=== PATIENT | male | born 1950 | race Caucasian/White ===

== ENCOUNTER 2020-02-02 15:36 | Inpatient (IN) | payer MEDICARE ==
[2020-02-02] MEDS ORDERED: MORPHINE SULFATE 4 MG/ML SYRINGE IV STA (16:37)
--- NOTE | 2020-02-02 16:39 | ED ---
General Adult HPI - General Chief complaint: Abdominal Pain Stated complaint: Kidney pain Time Seen by Provider: 02/02/20 16:07 Source: patient Mode of arrival: wheelchair Limitations: no limitations - History of Present Illness Initial comments: Dictation was produced using [employer] dictation software. please excuse any grammatical, word or spelling errors. This patient was cared for during a federal and state declared state of emergency secondary to Covid 19 Chief Complaint: 69-year-old male with recently diagnosed left kidney stone presents with increased pain History of Present Illness: 68-year-old male proximally one week ago he was diagnosed with left-sided kidney stone. Patient reports that his symptoms haven't been improving. States that his pain is unmanageable at home. They contacted his urologist and he was told to come to the emergency department for admission for pain control. Patient was scheduled to have surgical procedure to treat his kidney stone tomorrow however patient reports he could not wait till then. The ROS documented in this emergency department record has been reviewed and confirmed by me. Those systems with pertinent positive or negative responses have been documented in the HPI. All other systems are other negative and/or noncontributory. PHYSICAL EXAM: General Impression: Alert and oriented x3, acute distress secondary to pain, morbidly obese HEENT: Normocephalic atraumatic, extra-ocular movements intact, pupils equal and reactive to light bilaterally, mucous membranes moist. Cardiovascular: Heart regular rate and rhythm Chest: Able to complete full sentences, no retractions, no tachypnea Abdomen: abdomen soft, non-tender, non-distended, no organomegaly Musculoskeletal: Pulses present and equal in all extremities, no peripheral edema Motor: no focal deficits noted Neurological: CN II-XII grossly intact, no focal motor or sensory deficits noted Skin: Intact with no visualized rashes Psych: Normal affect and mood ED course: 69-year-old female presents today for hospital admission for intractable left kidney stone pain. Vital signs upon arrival shows temperature 99.9, heart rate of 102, 94% on room air Laboratory evaluation obtained. No leukocytosis. CBC is unremarkable. Metabolic panel shows creatinine 3.0. There is a mild anion gap acidosis. Urinalysis shows 8 white blood cells and 2 red blood cells. Case was discussed with Dr. Jon who is on-call for urology. He is willing to accept patients care for admission EKG interpretation: Ventricular rate 90, normal sinus rhythm, WV interval 146, QRS 92, QTc 459. No WV prolongation, no QTC prolongation, ST depressions in lateral leads. No EKG for comparison. Overall, this EKG nonspecific - Related Data Home Medications Medication Instructions Recorded Confirmed Acetaminophen [Tylenol Extra 1,000 mg PO DIRECTED PRN 02/02/20 02/02/20 Strength] Aspirin 325 mg PO DAILY 02/02/20 02/02/20 Atenolol [Tenormin] 50 mg PO DAILY 02/02/20 02/02/20 Atorvastatin [Lipitor] 80 mg PO HS 02/02/20 02/02/20 Diltiazem Cd [Cardizem Cd] 240 mg PO DAILY 02/02/20 02/02/20 Enalapril [Vasotec] 20 mg PO BID 02/02/20 02/02/20 Furosemide [Lasix] 40 mg PO DAILY 02/02/20 02/02/20 Ibuprofen [Motrin] 800 mg PO Q6HR PRN 02/02/20 02/02/20 Insulin Glargine [Lantus] 27 unit SQ AC-SUPPER 02/02/20 02/02/20 Isosorbide Mononitrate [Isosorbide 30 mg PO DAILY 02/02/20 02/02/20 Mononitrate ER] Nitroglycerin Sl Tabs [Nitrostat] 0.4 mg SUBLINGUAL Q5M PRN 02/02/20 02/02/20 Ondansetron [Zofran] 4 mg PO DAILY 02/02/20 02/02/20 Potassium Chloride 10 meq PO Q48H 02/02/20 02/02/20 buPROPion [Wellbutrin] 75 mg PO QAM 02/02/20 02/02/20 glipiZIDE [Glucotrol] 5 mg PO AC-BRKFST 02/02/20 02/02/20 metFORMIN HCL 1,000 mg PO BID 02/02/20 02/02/20 Allergies Allergy/AdvReac Type Severity Reaction Status Date / Time No Known Allergies Allergy Verified 02/02/20 08:25 Review of Systems ROS Statement: Those systems with pertinent positive or pertinent negative responses have been documented in the HPI. ROS Other: All systems not noted in ROS Statement are negative. Past Medical History Past Medical History: Heart Failure, Diabetes Mellitus, Hypertension, Myocardial Infarction ([place]), Osteoarthritis (OA), Sleep Apnea/CPAP/BIPAP Additional Past Medical History / Comment(s): kidney stones, edema oli lower legs and feet, hx hematoma left leg, gout, Last Myocardial Infarction Date:: 1987 History of Any Multi-Drug Resistant Organisms: None Reported Past Surgical History: Heart Catheterization With Stent, Joint Replacement, Orthopedic Surgery Additional Past Surgical History / Comment(s): surgery to remove hematoma from left leg, attempted lithotripsy then cystoscopy to remove kidney stone, surgery for laceration left thumb, left knee replacement, one cardiac stent, Past Anesthesia/Blood Transfusion Reactions: Motion Sickness Date of Last Stent Placement:: 2009 Past Psychological History: No Psychological Hx Reported Smoking Status: Never smoker - Past Family History Mother Family Medical History: No Reported History General Exam Limitations: no limitations Course Vital Signs 02/02/20 15:50 Temperature 99.9 F H Pulse Rate 102 H Respiratory 20 Rate Blood Pressure 128/77 O2 Sat by Pulse 94 L Oximetry Medical Decision Making - Lab Data Result diagrams: 02/02/20 16:32 02/02/20 16:32 Lab Results 02/02/20 02/02/20 02/02/20 Range/Units 16:32 16:32 16:32 WBC 9.6 (3.8-10.6) k/uL RBC 4.92 (4.30-5.90) m/uL Hgb 14.3 (13.0-17.5) gm/dL Hct 43.2 (39.0-53.0) % MCV 87.8 (80.0-100.0) fL MCH 29.2 (25.0-35.0) pg MCHC 33.2 (31.0-37.0) g/dL RDW 14.5 (11.5-15.5) % Plt Count 216 (150-450) k/uL Neutrophils % 94 % Lymphocytes % 1 % Monocytes % 3 % Eosinophils % 0 % Basophils % 0 % Neutrophils # 9.1 H (1.3-7.7) k/uL Lymphocytes # 0.1 L (1.0-4.8) k/uL Monocytes # 0.3 (0-1.0) k/uL Eosinophils # 0.0 (0-0.7) k/uL Basophils # 0.0 (0-0.2) k/uL Sodium 134 L (137-145) mmol/L Potassium 3.5 (3.5-5.1) mmol/L Chloride 97 L (98-107) mmol/L Carbon Dioxide 21 L (22-30) mmol/L Anion Gap 16 mmol/L BUN 45 H (9-20) mg/dL Creatinine 3.00 H (0.66-1.25) mg/dL Est GFR (CKD-EPI)AfAm 23 (>60 ml/min/1.73 sqM) Est GFR (CKD-EPI)NonAf 20 (>60 ml/min/1.73 sqM) Glucose 154 H (74-99) mg/dL Calcium 6.9 L (8.4-10.2) mg/dL Urine Color Yellow Urine Appearance Cloudy (Clear) Urine pH 5.5 (5.0-8.0) Ur Specific Barling 1.022 (1.001-1.035) Urine Protein 2+ H (Negative) Urine Glucose (UA) Negative (Negative) Urine Ketones Negative (Negative) Urine Blood Small H (Negative) Urine Nitrite Negative (Negative) Urine Bilirubin Negative (Negative) Urine Urobilinogen 3.0 (<2.0) mg/dL Ur Leukocyte Esterase Small H (Negative) Urine RBC 2 (0-5) /hpf Urine WBC 8 H (0-5) /hpf Ur Squamous Epith Cells 6 H (0-4) /hpf Amorphous Sediment Rare H (None) /hpf Urine Mucus Rare H (None) /hpf Disposition Clinical Impression: Nephrolithiasis Disposition: ADMITTED IP TO THIS [facility] Condition: Fair Referrals: Ga Kemp MD [Primary Care Provider] - 1-2 days Decision Time: 17:27
[2020-02-02 16:50] LABS: Amorphous Sediment,Urine Rare /hpf; Appearance,Urine Cloudy (Clear); Bilirubin,Urine Negative (Negative); Blood,Urine Small (Negative); Color,Urine Yellow; Glucose,Urine (UA) Negative (Negative); Ketones,Urine Negative (Negative); Leukocyte Esterase,Urine Small (Negative); Mucus,Urine Rare /hpf; Nitrite,Urine Negative (Negative); PH, Urine 5.5 (5.0-8.0); Protein,Urine 2+ (Negative); RBC,Urine 2 /hpf (0-5); Specific Gravity,Urine 1.022 (1.001-1.035); Squamous Epithelial Cell,Urine 6 /hpf (0-4); WBC,Urine 8 /hpf (0-5)
[2020-02-02 16:59] LABS: Calcium 6.9 mg/dL (8.4-10.2); Potassium 3.5 mmol/L (3.5-5.1)
[2020-02-02 17:12] LABS: Basophils % (A) 0 %; Eosinophils % (A) 0 %; HCT 43.2 % (39.0-53.0); HGB 14.3 gm/dL (13.0-17.5); Lymphocytes # (A) 0.1 k/uL (1.0-4.8); Lymphocytes % (A) 1 %; MCH 29.2 pg (25.0-35.0); MCHC 33.2 g/dL (31.0-37.0); MCV 87.8 fL (80.0-100.0); Mean Platelet Volume 7.8; Monocytes # (A) 0.3 k/uL (0-1.0); Monocytes % (A) 3 %; Neutrophils # (A) 9.1 k/uL (1.3-7.7); Neutrophils % (A) 94 %; Platelet Count 216 k/uL (150-450); RBC 4.92 m/uL (4.30-5.90); RDW 14.5 % (11.5-15.5); WBC 9.6 k/uL (3.8-10.6)
[2020-02-02] MEDS ORDERED: NALOXONE 0.4 MG/ML 1 ML VIAL IV PRN (17:25)
[2020-02-02] MEDS: SODIUM CHLORIDE 0.9% 1,000 ML IV SCH (17:50)
[2020-02-02] MEDS ORDERED: NITROGLYCERIN SL TABS 0.4 MG TAB SUBLINGUAL PRN (19:52)
[2020-02-02 20:14] LABS: Glucose,Whole Blood 180 mg/dL (75-99)
[2020-02-02] MEDS: MORPHINE SULFATE 4 MG/ML SYRINGE IV PRN (20:50)
[2020-02-02] MEDS: metFORMIN 500 MG TAB PO SCH (21:16)
[2020-02-02] MEDS: ATORVASTATIN 80 MG TAB PO SCH (21:16)
[2020-02-02] MEDS: glipiZIDE 5 MG TAB PO SCH (21:18)
--- NOTE | 2020-02-02 22:41 | P.CONS ---
History of Present Illness - Reason for Consult Consult date: 02/02/20 Medical management Requesting physician: Eric Ortiz - Chief Complaint Severe abdominal pain, large left sided kidney stone, type 2 diabetes, acut - History of Present Illness 69 year-old morbidly obese male one of Patient with past medical history of CAD, CHF, hypertension, obstructive sleep apnea and chronic edema was known to have previous history of kidney stone who was in the emergency room on for severe left-sided flank pain was diagnosed with large kidney stone measure 7 mm. Patient was in to see Dr. Garrett on Sunday and was scheduled to have surgery on Sunday tomorrow. [facility] with severe intractable pain with nausea not been able to tolerate anything orally patient was seen and a Profore admission by Dr. Dhillon urology to treat his symptoms. His kidney function is down with creatinine up to 3.0 significant decline from few days earlier. Patient was started on IV hydration and pain management and possibly will be going for surgery tomorrow. Review of Systems CONSTITUTIONAL: Well-developed no acute respiratory distress. EYES: No icterus sclerae, no conjunctivitis. EARS, NOSE, MOUTH, THROAT, and FACE: No sore throat, lymphadenopathy, carotid bruits or deformity. RESPIRATORY: Mild shortness of breath no cough wheezes. CARDIOVASCULAR: Positive PND and orthopnea no angina. GASTROINTESTINAL: No Abd pain, Nausea or vomiting, no Diarrhea or constipation, No GI Bleed, no distention or masses. GENITOURINARY: Positive large sided left side kidney stone mild BPH symptoms mild hematuria. INTEGUMENT/BREAST: Negative for any muscular injury with mild osteoarthritis.. HEMATOLOGIC/LYMPHATIC: Negative for bleed or purpura. MUSCULOSKELTAL: Negative for Myalgia or arthralgia. NEURLOGICAL: No LOC, Sz or syncope, blurred vision dizziness or abnormality.. BEHAVIORAL/PSYCH: Negative. ENDOCRINE: Negative. Past Medical History Past Medical History: Heart Failure, Diabetes Mellitus, Hypertension, Myocardial Infarction ([place]), Osteoarthritis (OA), Sleep Apnea/CPAP/BIPAP Additional Past Medical History / Comment(s): kidney stones, edema oli lower legs and feet, hx hematoma left leg, gout, Last Myocardial Infarction Date:: 1987 History of Any Multi-Drug Resistant Organisms: None Reported Past Surgical History: Heart Catheterization With Stent, Joint Replacement, Orthopedic Surgery Additional Past Surgical History / Comment(s): surgery to remove hematoma from left leg, attempted lithotripsy then cystoscopy 1987 to remove kidney stone, surgery for laceration left thumb, left knee replacement, one cardiac stent, Past Anesthesia/Blood Transfusion Reactions: Motion Sickness Date of Last Stent Placement:: 2009 Past Psychological History: No Psychological Hx Reported Smoking Status: Never smoker Past Alcohol Use History: None Reported Past Drug Use History: None Reported - Past Family History Mother Family Medical History: No Reported History Medications and Allergies Home Medications Medication Instructions Recorded Confirmed Type Albuterol Nebulized [Ventolin 2.5 mg INHALATION RT-Q6H PRN 02/02/20 02/02/20 History Nebulized] Allopurinol [Zyloprim] 300 mg PO DAILY 02/02/20 02/02/20 History Aspirin 325 mg PO DAILY 02/02/20 02/02/20 History Atenolol [Tenormin] 50 mg PO DAILY 02/02/20 02/02/20 History Atorvastatin [Lipitor] 80 mg PO HS 02/02/20 02/02/20 History Diltiazem HCl [Cartia Xt] 240 mg PO DAILY 02/02/20 02/02/20 History Furosemide [Lasix] 40 mg PO DAILY 02/02/20 02/02/20 History Ibuprofen [Motrin] 800 mg PO Q6HR PRN 02/02/20 02/02/20 History Insulin Glargine [Lantus] 27 unit SQ AC-SUPPER@1600 02/02/20 02/02/20 History Isosorbide Mononitrate [Isosorbide 30 mg PO DAILY 02/02/20 02/02/20 History Mononitrate ER] Nitroglycerin Sl Tabs [Nitrostat] 0.4 mg SUBLINGUAL Q5M PRN 02/02/20 02/02/20 History Potassium Chloride 10 meq PO Q48H 02/02/20 02/02/20 History buPROPion [Wellbutrin] 75 mg PO QAM 02/02/20 02/02/20 History glipiZIDE [Glucotrol] 5 mg PO BID 02/02/20 02/02/20 History metFORMIN HCL 1,000 mg PO BID 02/02/20 02/02/20 History Allergies Allergy/AdvReac Type Severity Reaction Status Date / Time No Known Allergies Allergy Verified 02/02/20 17:27 Physical Exam Vitals: Vital Signs Temp Pulse Resp BP Pulse Ox 02/02/20 18:15 98 F 88 22 137/75 93 L 02/02/20 15:50 99.9 F H 102 H 20 128/77 94 L Intake and Output 02/02/20 02/02/20 02/02/20 06:59 14:59 22:59 Other: Weight 143.789 kg General Appearance: Alert, cooperative, no distress, morbidly obese Neck HEENT: Supple, no lymphadenopathy, no thyroid enlargement, no carotid bruits. Lungs: Decreased breath some bilateral rhonchi no crackles positive mild expiratory wheezes. Chest Wall: Decrease expansion with deep inspiration no tenderness and no deformity was found on exam, no costochondral pain or discomfort. Heart: Regular rate and rhythm, S1, S2 normal, no murmur, rub or gallop. Back: Symmetric, no curvature, ROM normal, positive significant left-sided CVA t enderness. Abdomen: Soft, positive bowel sounds active all four quadrants, no masses, no organomegaly. Significant discomfort in the left side all the way down to the left lower quadrant. Extremities: Extremities normal, atraumatic, no cyanosis positive edema Pulses: 2+ and symmetric. Skin: Skin color, texture, tugor normal, no rashes or lesions. Neurologic: Alert oriented x3 cranial nerves II through XII intact, no motor deficit, no abnormal balance or gait. Results CBC & Chem 7: 02/02/20 16:32 02/02/20 16:32 Labs: Abnormal Lab Results - Last 24 Hours (Table) 02/02/20 02/02/20 02/02/20 Range/Units 16:32 16:32 16:32 Neutrophils # 9.1 H (1.3-7.7) k/uL Lymphocytes # 0.1 L (1.0-4.8) k/uL Sodium 134 L (137-145) mmol/L Chloride 97 L (98-107) mmol/L Carbon Dioxide 21 L (22-30) mmol/L BUN 45 H (9-20) mg/dL Creatinine 3.00 H (0.66-1.25) mg/dL Glucose 154 H (74-99) mg/dL Calcium 6.9 L (8.4-10.2) mg/dL Urine Protein 2+ H (Negative) Urine Blood Small H (Negative) Ur Leukocyte Esterase Small H (Negative) Urine WBC 8 H (0-5) /hpf Ur Squamous Epith Cells 6 H (0-4) /hpf Amorphous Sediment Rare H (None) /hpf Urine Mucus Rare H (None) /hpf Assessment and Plan Assessment: 1 severe abdominal pain not manageable at home: Patient was admitted to the hospital by urology, continue hydration, continue pain management with morphine sulfate 4 mg every 4 hours continue to watch his urine output. 2 large left sided kidney stone measure 7 the Pax: Patient be going for surgery tomorrow to remove the stone specially being symptomatic and affecting the kidney function causing hydronephrosis. 3 atherosclerotic heart disease: Patient seeing cardiology regular basis seen Dr. Medrano recently, no testing or intervention is required. 4 acute kidney injury with acute kidney failure: Continue hydration repeat BUN/creatinine next 24 hours. 5 CHF: Mostly systolic dysfunction, continue patient on furosemide atenolol and isosorbide. 6 type 2 diabetes: On Levemir metformin and glipizide along with Accu-Chek with sliding scales coverage. 7 hypertension: Remain on atenolol 50 mg daily along with diltiazem 240 mg a day. 8 gout: Has been on Zyloprim with no flareup lately. 9 mild reactive airway: Has been on Ventolin nebulizer. 10 hyperlipidemia: Continue patient on atorvastatin 80 mg daily. 11 GI prophylaxis: Patient be continue on pantoprazole 40 mg a day. 12 DVT prophylaxis: After surgery patient be on heparin subcutaneous. CODE STATUS: Full code. Dr. Ortiz thank you much for the consult if I can be any further help to please let me know.
[2020-02-03] MEDS: MORPHINE SULFATE 4 MG/ML SYRINGE IV PRN ×4 (00:31→20:16)
[2020-02-03] MEDS: SODIUM CHLORIDE 0.9% 1,000 ML IV SCH ×3 (02:30→23:47)
[2020-02-03 07:12] LABS: Basophils % (A) 0 %; Eosinophils % (A) 0 %; HCT 37.9 % (39.0-53.0); HGB 12.3 gm/dL (13.0-17.5); Lymphocytes # (A) 0.4 k/uL (1.0-4.8); Lymphocytes % (A) 3 %; MCH 28.7 pg (25.0-35.0); MCHC 32.4 g/dL (31.0-37.0); MCV 88.6 fL (80.0-100.0); Mean Platelet Volume 7.9; Monocytes # (A) 0.7 k/uL (0-1.0); Monocytes % (A) 6 %; Neutrophils # (A) 11.8 k/uL (1.3-7.7); Neutrophils % (A) 88 %; Platelet Count 195 k/uL (150-450); RBC 4.27 m/uL (4.30-5.90); RDW 14.8 % (11.5-15.5); WBC 13.4 k/uL (3.8-10.6)
[2020-02-03 07:31] LABS: Albumin 2.6 g/dL (3.5-5.0); Potassium 3.6 mmol/L (3.5-5.1); Total Bilirubin 1.7 mg/dL (0.2-1.3); Total Protein 5.2 g/dL (6.3-8.2)
[2020-02-03 07:45] LABS: Calcium 6.3 mg/dL (8.4-10.2)
[2020-02-03 07:51] LABS: Glucose,Whole Blood 110 mg/dL (75-99)
[2020-02-03] MEDS: allopurinoL 300 MG TAB PO SCH (08:14)
[2020-02-03] MEDS: FUROSEMIDE 40 MG TAB PO SCH (08:14)
[2020-02-03] MEDS: buPROPion 75 MG TAB PO SCH (08:14)
[2020-02-03] MEDS: glipiZIDE 5 MG TAB PO SCH ×2 (08:14→19:39)
[2020-02-03] MEDS: PANTOPRAZOLE 40 MG TABLET PO SCH (08:14)
[2020-02-03] MEDS: DILTIAZEM CD 240 MG CAP.ER.24H PO SCH (08:15)
[2020-02-03] MEDS: POTASSIUM CHLORIDE ER 10 MEQ TAB.ER.PRT PO SCH (08:15)
[2020-02-03] MEDS: ISOSORBIDE MONONITRATE ER 30 MG TAB.ER.24H PO SCH (08:15)
[2020-02-03] MEDS: metFORMIN 500 MG TAB PO SCH (08:15)
[2020-02-03] MEDS: TAMSULOSIN 0.4 MG CAP.ER.24H PO SCH (08:23)
[2020-02-03] MEDS: atenoloL 50 MG TAB PO SCH (08:23)
[2020-02-03] MEDS: PIPERACILLIN-TAZOBACTAM 3.375 GM in SODIUM CHLORIDE 0.9% 100 ML IVPB SCH ×3 (08:33→23:46)
[2020-02-03] MEDS ORDERED: CALCIUM GLUCONATE 1 GM in SODIUM CHLORIDE 0.9% 100 ML IVPB ONE (10:24)
--- NOTE | 2020-02-03 10:24 | P.NPCON ---
History of Present Illness - Reason for Consult acute renal failure - History of Present Illness Reason for consultation: Acute kidney injury Patient is a 69-year-old male seen in renal consultation for acute kidney injury. Creatinine was 3 on admission and is 3.16 today. Unknown baseline renal function. Patient states he does not follow with the collarette separator outpatient. Patient states he has history of nephrolithiasis and has had several kidney stones since 1987. Patient states he's had about for surgical interventions for the kidney stones. He currently has a left-sided kidney stone and was scheduled for intervention today but came to the hospital due to unbearable pain. He admits to good urine output. Denies any gross hematuria or dysuria. No vomiting or diarrhea. Denies regular use of nonsteroidals. No chest pain or shortness of breath. No edema. He does have long-standing his tory of diabetes mellitus. He is maintained on insulin as well as oral hypoglycemics including metformin. Denies family history of renal disease. Blood pressure stable. Vital signs are stable. General: The patient appeared well nourished and normally developed. HEENT: Head exam is unremarkable. Neck is without jugular venous distension. LUNGS: Lungs are clear to auscultation and percussion. Breath sounds decreased. HEART: Rate and Rhythm are regular. First and second heart sounds normal. No murmurs, rubs or gallops. ABDOMEN: Soft nontender. Obese. EXTREMITITES: No edema. Chronic changes noted. Past Medical History Past Medical History: Heart Failure, Diabetes Mellitus, Hypertension, Myocardial Infarction ([place]), Osteoarthritis (OA), Sleep Apnea/CPAP/BIPAP Additional Past Medical History / Comment(s): kidney stones, edema oli lower legs and feet, hx hematoma left leg, gout, Last Myocardial Infarction Date:: 1987 History of Any Multi-Drug Resistant Organisms: None Reported Past Surgical History: Heart Catheterization With Stent, Joint Replacement, Orthopedic Surgery Additional Past Surgical History / Comment(s): surgery to remove hematoma from left leg, attempted lithotripsy then cystoscopy 1987 to remove kidney stone, surgery for laceration left thumb, left knee replacement, one cardiac stent, Past Anesthesia/Blood Transfusion Reactions: Motion Sickness Date of Last Stent Placement:: 2009 Past Psychological History: No Psychological Hx Reported Smoking Status: Never smoker Past Alcohol Use History: None Reported Past Drug Use History: None Reported - Past Family History Mother Family Medical History: No Reported History Medications and Allergies Home Medications Medication Instructions Recorded Confirmed Type Albuterol Nebulized [Ventolin 2.5 mg INHALATION RT-Q6H PRN 02/02/20 02/02/20 History Nebulized] Allopurinol [Zyloprim] 300 mg PO DAILY 02/02/20 02/02/20 History Aspirin 325 mg PO DAILY 02/02/20 02/02/20 History Atenolol [Tenormin] 50 mg PO DAILY 02/02/20 02/02/20 History Atorvastatin [Lipitor] 80 mg PO HS 02/02/20 02/02/20 History Diltiazem HCl [Cartia Xt] 240 mg PO DAILY 02/02/20 02/02/20 History Furosemide [Lasix] 40 mg PO DAILY 02/02/20 02/02/20 History Ibuprofen [Motrin] 800 mg PO Q6HR PRN 02/02/20 02/02/20 History Insulin Glargine [Lantus] 27 unit SQ AC-SUPPER@1600 02/02/20 02/02/20 History Isosorbide Mononitrate [Isosorbide 30 mg PO DAILY 02/02/20 02/02/20 History Mononitrate ER] Nitroglycerin Sl Tabs [Nitrostat] 0.4 mg SUBLINGUAL Q5M PRN 02/02/20 02/02/20 History Potassium Chloride 10 meq PO Q48H 02/02/20 02/02/20 History buPROPion [Wellbutrin] 75 mg PO QAM 02/02/20 02/02/20 History glipiZIDE [Glucotrol] 5 mg PO BID 02/02/20 02/02/20 History metFORMIN HCL 1,000 mg PO BID 02/02/20 02/02/20 History Allergies Allergy/AdvReac Type Severity Reaction Status Date / Time No Known Allergies Allergy Verified 02/02/20 17:27 Physical Exam Vitals: Vital Signs Temp Pulse Pulse Resp BP BP Pulse Ox 02/03/20 05:00 98.5 F 89 20 133/70 92 L 02/03/20 00:00 80 20 02/02/20 20:43 98.7 F 80 20 131/60 94 L 02/02/20 18:15 98 F 88 22 137/75 93 L 02/02/20 15:50 99.9 F H 102 H 20 128/77 94 L Intake and Output 02/02/20 02/03/20 02/03/20 22:59 06:59 14:59 Intake Total 240 0 Output Total 100 Balance 240 0 -100 Intake: Intake, IV Titration 240 Amount Sodium Chloride 0.9% 1, 240 000 ml @ 120 mls/hr IV . Q8H20M [facility] Rx#:[id number] Oral 0 Output: Urine 100 Other: Voiding Method Urinal # Voids 2 Weight 143.789 kg 143.562 kg Results - Lab Results Most recent lab results Calcium 6.3 mg/dL (8.4-10.2) L* 02/03/20 06:29 02/03/20 06:29 02/03/20 06:29 Assessment and Plan Plan: Assessment: 1. Acute kidney injury versus chronic kidney disease. Creatinine 3 on admission and is 3.16 today. Unknown baseline renal function. 2. Left ureteral stone scheduled for ureteroscopy today. 3. Insulin-dependent diabetes mellitus. 4. Proteinuria. Most likely secondary to underlying diabetic kidney disease. 5. Benign hypertension. Stable. 6. Hypocalcemia secondary to acute kidney injury. Plan: I will decrease rate of normal saline to 50 mL an hour. Check renal ultrasound. Quantify proteinuria. Discontinue metformin as GFR is less than 30. 1 g IV calcium gluconate today. Continue to monitor renal function and urine output. Patient will need to follow up outpatient for CKD care. Thank you for the consultation. I will continue to follow patient with you during his hospital stay.
--- NOTE | 2020-02-03 10:59 | US ---
EXAMINATION TYPE: US kidneys/renal and bladder DATE OF EXAM: 02/03/2020 COMPARISON: NONE CLINICAL HISTORY: nellie. EXAM MEASUREMENTS: Right Kidney: 12.9 x 7.1 x 6.1 cm Left Kidney: 15.3 x 8.6 x 7.1 cm Right Kidney: No hydronephrosis or masses seen Left Kidney: No hydronephrosis or masses seen Bladder: wnl Bilateral Jets seen: No Normal Post Void Residual: Not done for inpatient There is no evidence for hydronephrosis at this point in time. No nephrolithiasis is seen. No lemuel s are identified. The urinary bladder is anechoic. Bilateral ureteral jets are seen. Suboptimal exam overall due to large patient size, inability to maneuver patient, and large amounts o f bowel gas. IMPRESSION: No distinct abnormality seen on this suboptimal study.
--- NOTE | 2020-02-03 11:19 | P.PN ---
Subjective Progress Note Date: 02/03/20 69 year-old morbidly obese male one of Dr. Kemp with past medical history of CAD, CHF, hypertension, obstructive sleep apnea and chronic edema was known to have previous history of kidney stone who was in the emergency room on for severe left-sided flank pain was diagnosed with large kidney stone measure 7 mm. Patient was in to see Dr. Garrett on Sunday and was scheduled to have surgery on Sunday. Patient return to emergency department today with severe intractable pain with nausea not been able to tolerate anything orally patient was seen and a Profore admission by Dr. Dhillon urology to treat his symptoms. His kidney function is down with creatinine up to 3.0 significant decline from few days earlier. Patient was started on IV hydration and pain management and possibly will be going for surgery tomorrow. 02/02 patient seen resting in bed this morning, plan for ureterscopy today with urology. Labs were reviewed, white blood cells 13.4, hemoglobin 12.3, sodium 135, BUNs 52, creatinine 3.16, consult in place for nephrology to see patient. Calcium 6.3, and replaced by a nephrology. Patient is making adequate urine. Will order urine and blood cultures, patient started on Zosyn IV. Vital signs are stable, patient remains afebrile pulse 89, blood pressure 133/70, patient pu lse ox 92% on 2 L nasal cannula. Renal ultrasound found no distinct abnormality seen, no evidence of hydronephrosis. Review of Systems CONSTITUTIONAL: Well-developed no acute respiratory distress. EYES: No icterus sclerae, no conjunctivitis. EARS, NOSE, MOUTH, THROAT, and FACE: No sore throat, lymphadenopathy, carotid bruits or deformity. RESPIRATORY: Mild shortness of breath no cough wheezes. CARDIOVASCULAR: Positive PND and orthopnea no angina. GASTROINTESTINAL: No Abd pain, Nausea or vomiting, no Diarrhea or constipation, No GI Bleed, no distention or masses. GENITOURINARY: Positive large sided left side kidney stone mild BPH symptoms mild hematuria. INTEGUMENT/BREAST: Negative for any muscular injury with mild osteoarthritis.. HEMATOLOGIC/LYMPHATIC: Negative for bleed or purpura. MUSCULOSKELTAL: Negative for Myalgia or arthralgia. NEURLOGICAL: No LOC, Sz or syncope, blurred vision dizziness or abnormality.. BEHAVIORAL/PSYCH: Negative. ENDOCRINE: Negative. Assessment General Appearance: Alert, cooperative, no distress, morbidly obese Neck HEENT: Supple, no lymphadenopathy, no thyroid enlargement, no carotid bruits. Lungs: Decreased breath some bilateral rhonchi no crackles positive mild expiratory wheezes. Chest Wall: Decrease expansion with deep inspiration no tenderness and no deformity was found on exam, no costochondral pain or discomfort. Heart: Regular rate and rhythm, S1, S2 normal, no murmur, rub or gallop. Back: Symmetric, no curvature, ROM normal, positive significant left-sided CVA tenderness. Abdomen: Soft, positive bowel sounds active all four quadrants, no masses, no organomegaly. Significant discomfort in the left side all the way down to the left lower quadrant. Extremities: Extremities normal, atraumatic, no cyanosis positive edema Pulses: 2+ and symmetric. Skin: Skin color, texture, tugor normal, no rashes or lesions. Neurologic: Alert oriented x3 cranial nerves II through XII intact, no motor deficit, no abnormal balance or gait. Objective - Vital Signs Vital signs: Vital Signs Temp 98.5 F 02/03/20 05:00 Pulse 89 02/03/20 05:00 Resp 20 02/03/20 05:00 BP 133/70 02/03/20 05:00 Pulse Ox 92 L 02/03/20 05:00 Intake & Output 02/02/20 02/03/20 02/03/20 18:59 06:59 18:59 Intake Total 240 Output Total 100 Balance 240 -100 Weight 143.789 kg 143.562 kg Intake: Intake, IV Titration 240 Amount Sodium Chloride 0.9% 1, 240 000 ml @ 120 mls/hr IV . [id number] [facility] Rx#:[id number] Oral 0 Output: Urine 100 Other: Voiding Method Urinal # Voids 2 - Labs CBC & Chem 7: 02/03/20 06:29 02/03/20 06:29 Labs: Abnormal Lab Results - Last 24 Hours (Table) 02/02/20 02/02/20 02/02/20 Range/Units 16:32 16:32 16:32 WBC (3.8-10.6) k/uL RBC (4.30-5.90) m/uL Hgb (13.0-17.5) gm/dL Hct (39.0-53.0) % Neutrophils # 9.1 H (1.3-7.7) k/uL Lymphocytes # 0.1 L (1.0-4.8) k/uL Sodium 134 L (137-145) mmol/L Chloride 97 L (98-107) mmol/L Carbon Dioxide 21 L (22-30) mmol/L BUN 45 H (9-20) mg/dL Creatinine 3.00 H (0.66-1.25) mg/dL Glucose 154 H (74-99) mg/dL POC Glucose (mg/dL) (75-99) mg/dL Calcium 6.9 L (8.4-10.2) mg/dL Total Bilirubin (0.2-1.3) mg/dL AST (17-59) U/L Total Protein (6.3-8.2) g/dL Albumin (3.5-5.0) g/dL Urine Protein 2+ H (Negative) Urine Blood Small H (Negative) Ur Leukocyte Esterase Small H (Negative) Urine WBC 8 H (0-5) /hpf Ur Squamous Epith Cells 6 H (0-4) /hpf Amorphous Sediment Rare H (None) /hpf Urine Mucus Rare H (None) /hpf 02/02/20 02/03/20 02/03/20 Range/Units 20:12 06:29 06:29 WBC 13.4 H (3.8-10.6) k/uL RBC 4.27 L (4.30-5.90) m/uL Hgb 12.3 L (13.0-17.5) gm/dL Hct 37.9 L (39.0-53.0) % Neutrophils # 11.8 H (1.3-7.7) k/uL Lymphocytes # 0.4 L (1.0-4.8) k/uL Sodium 135 L (137-145) mmol/L Chloride (98-107) mmol/L Carbon Dioxide (22-30) mmol/L BUN 52 H (9-20) mg/dL Creatinine 3.16 H (0.66-1.25) mg/dL Glucose 105 H (74-99) mg/dL POC Glucose (mg/dL) 180 H (75-99) mg/dL Calcium 6.3 L* (8.4-10.2) mg/dL Total Bilirubin 1.7 H (0.2-1.3) mg/dL AST 72 H (17-59) U/L Total Protein 5.2 L (6.3-8.2) g/dL Albumin 2.6 L (3.5-5.0) g/dL Urine Protein (Negative) Urine Blood (Negative) Ur Leukocyte Esterase (Negative) Urine WBC (0-5) /hpf Ur Squamous Epith Cells (0-4) /hpf Amorphous Sediment (None) /hpf Urine Mucus (None) /hpf 02/02/ Range/Units 07:50 WBC (3.8-10.6) k/uL RBC (4.30-5.90) m/uL Hgb (13.0-17.5) gm/dL Hct (39.0-53.0) % Neutrophils # (1.3-7.7) k/uL Lymphocytes # (1.0-4.8) k/uL Sodium (137-145) mmol/L Chloride (98-107) mmol/L Carbon Dioxide (22-30) mmol/L BUN (9-20) mg/dL Creatinine (0.66-1.25) mg/dL Glucose (74-99) mg/dL POC Glucose (mg/dL) 110 H (75-99) mg/dL Calcium (8.4-10.2) mg/dL Total Bilirubin (0.2-1.3) mg/dL AST (17-59) U/L Total Protein (6.3-8.2) g/dL Albumin (3.5-5.0) g/dL Urine Protein (Negative) Urine Blood (Negative) Ur Leukocyte Esterase (Negative) Urine WBC (0-5) /hpf Ur Squamous Epith Cells (0-4) /hpf Amorphous Sediment (None) /hpf Urine Mucus (None) /hpf Assessment and Plan Plan: Assessment: 1 severe abdominal pain not manageable at home: Patient was admitted to the hospital by urology, continue hydration, continue pain management with morphine sulfate 4 mg every 4 hours continue to watch his urine output. 2 large left sided kidney stone measure 7 the Daphne: Patient be going for surgery tomorrow to remove the stone specially being symptomatic and affecting the kidney function, ultrasound was negative for hydronephrosis. 3 atherosclerotic heart disease: Patient seeing cardiology regular basis seen Dr. Medrano recently, no testing or intervention is required. 4 acute kidney injury with acute kidney failure: Continue hydration repeat BUN/creatinine next 24 hours. Nephrology added to the case. 5 CHF: Mostly systolic dysfunction, continue patient on furosemide atenolol and isosorbide. 6 type 2 diabetes: On Levemir and glipizide along with Accu-Chek with sliding scales coverage. Metformin was discontinued. 7 hypertension: Remain on atenolol 50 mg daily along with diltiazem 240 mg a day. 8 gout: Has been on Zyloprim with no flareup lately. 9 mild reactive airway: Has been on Ventolin nebulizer. 10 hyperlipidemia: Continue patient on atorvastatin 80 mg daily. 11 GI prophylaxis: Patient be continue on pantoprazole 40 mg a day. 12 DVT prophylaxis: After surgery patient be on heparin subcutaneous. CODE STATUS: Full code. Dr. Ortiz thank you much for the consult if I can be any further help to please let me know. Impression and plan of care have been directed as dictated by the signing physician. Ela Greenberg nurse practitioner acting as scribe for signing albinoi an.
[2020-02-03 11:25] LABS: Glucose,Whole Blood 119 mg/dL (75-99)
[2020-02-03 11:26] LABS: Protein/Creatinine Ratio,Urine 0.908
--- NOTE | 2020-02-03 12:30 | XR ---
EXAMINATION TYPE: XR KUB DATE OF EXAM: 02/03/2020 HISTORY: Pain Comparison: None.Single KUB is submitted for interpretation. Findings: Right renal calculi: None Visualized. Right ureteral calculi: None Visualized. Left renal calculi: Multiple calculi are noted to overlie the mid and lower pole of the left kidney measuring up to 1.5 cm. Left ureteral calculi: None Visualized. Pelvic calcifications: None Visualized. Bowel gas pattern is unremarkable. No free air. No mass effects. IMPRESSION: 1. Multiple calculi overlying the mid to lower pole of the left kidney.
[2020-02-03] MEDS: ALBUTEROL NEBULIZED 2.5 MG/3 ML INHALATION PRN ×2 (12:42→20:19)
[2020-02-03] MEDS ORDERED: PROPOFOL 10 MG/ML 20 ML VIAL IV ONE (12:46)
[2020-02-03] MEDS ORDERED: LIDOCAINE 1% INJ 10MG/ML (20 ML MDV) ONE (12:46)
[2020-02-03] MEDS ORDERED: SUCCINYLCHOLINE CHLORIDE VIAL 200 MG/10 ML VIAL IV ONE (12:46)
[2020-02-03] MEDS ORDERED: LACTATED RINGERS 1,000 ML IV ONE (12:50)
[2020-02-03] MEDS ORDERED: ALBUTEROL NEBULIZED 2.5 MG/3 ML INHALATION ONE (13:50)
--- NOTE | 2020-02-03 13:54 | P.OP ---
Date of Procedure: 02/03/20 Preoperative Diagnosis: Left ureteral calculus with obstruction and severe ureteral colic, acute and possible chronic renal failure due to obstruction, multiple medical illnesses Postoperative Diagnosis: Same, possible left pyelonephrosis and urinary tract infection with infected s tones Procedure(s) Performed: Cystoscopy, left ureteroscopy, placement of 626 double-J catheter, urine culture Anesthesia: HAKEEM Surgeon: Dionicio Swartz Estimated Blood Loss (ml): 0 Pathology: other (Urine culture) Condition: stable Disposition: PACU Indications for Procedure: The patient is 69. He is morbidly obese. He has multiple medical illnesses including diabetes and coronary disease. He had presented to the emergency room recently with an obstructing painful left ureteral calculus a 78 mm as well as several left lower pole stones. He was set up for today for ureteroscopy to remove the obstructing stone but ended up in the hospital last night with severe pain. Creatinine is 3. He comes for possible stone manipulation and a minimally stent today. Description of Procedure: The patient is brought to the operating suite. He is given a general endotracheal anesthesia. He's placed lithotomy position with sterile prep and drape. Li the Foroblique lens and 21-Mongolian sheath identifies a normal urethra. The prostate is somewhat obstructing. The bladder wall shows moderate trabeculation. There is some chronic cystitis on the trigone. The left uret eral orifice is intubated with an 035 wire that is passed up alongside the proximal ureteral stone seen on KUB up into the collecting system. Total stones in the left lower pole calyx Over the wires passed 73-39-Vahurx reentry sheath into the mid ureter. The inner sheath is removed. Through the inner sheath I passed the flexible ureteroscope up to where the stone was in the left ureter. It is quite edematous and there is a fair amount of mucosal debris on the mucosa. The stone has floated back up in the collecting system. I followed the ureter up into the collecting system and there is a lot of mucousy debris throughout the collecting system worrisome for an infected system. I passed into the left lower pole calyx and see multiple infected looking stones . The ureteral stone has p robably floated in the left lower pole calyx of. I do pullout ureteroscopy and see no evidence of stone . I elect to place a double-J catheter rather than going after the stones in the kidney because if the stones are infected I'll make him much sicker. Through the working sheath an 035 wire is passed up into the kidney. The working sheath is removed. The wires backloaded on the cystoscope. Over the wire is passed a 6 x 26 double-J catheter that coils in the renal pelvis and the bladder the bladder strain the patient is awake and returned recovery room good condition Impression the ureteral obstructing stone has been pushed back into the kidney. Double-J catheters placed to drain the collecting system as the visual appearance of the collecting system appears infected. The urinalysis is not infected on preoperative evaluation. The patient will be placed on antibiotics. Culture has been obtained. Secondarily he'll require the left ureteroscopy with laser lithotripsy to remove the stones or left percutaneous nephrostolithotomy.
--- NOTE | 2020-02-03 13:55 | FL ---
EXAMINATION TYPE: FL guidance operating room DATE OF EXAM: 02/03/2020 CLINICAL HISTORY: Left ureter stone. TECHNIQUE: Fluoroscopy. COMPARISON: None. FINDINGS: Fluoroscopic guidance was provided during left ureter stent insertion procedure performed by Dr. Swartz. A total of 1.08 minutes of fluoroscopic time was utilized during the procedure and sin gle spot intraoperative image is acquired. Single image shows proximal portion of double-J ureter jeffrey nt. IMPRESSION: As Above.
[2020-02-03] MEDS: INSULIN DETEMIR (LEVEMIR) 100 UNIT/ML SYR SQ SCH (16:35)
[2020-02-03 17:18] LABS: Glucose,Whole Blood 114 mg/dL (75-99)
[2020-02-03] MEDS: ATORVASTATIN 80 MG TAB PO SCH (19:39)
[2020-02-03 20:26] LABS: Glucose,Whole Blood 110 mg/dL (75-99)
[2020-02-04] MEDS: MORPHINE SULFATE 4 MG/ML SYRINGE IV PRN ×3 (00:59→20:15)
[2020-02-04 07:07] LABS: Glucose,Whole Blood 150 mg/dL (75-99)
[2020-02-04] MEDS: ALBUTEROL NEBULIZED 2.5 MG/3 ML INHALATION PRN ×3 (07:25→20:13)
[2020-02-04 07:48] LABS: Albumin 2.8 g/dL (3.5-5.0); Calcium 6.6 mg/dL (8.4-10.2); Magnesium 1.6 mg/dL (1.6-2.3); Total Bilirubin 1.6 mg/dL (0.2-1.3); Total Protein 5.9 g/dL (6.3-8.2)
[2020-02-04 07:50] LABS: HCT 40.4 % (39.0-53.0); HGB 12.9 gm/dL (13.0-17.5); MCH 28.8 pg (25.0-35.0); MCHC 31.8 g/dL (31.0-37.0); MCV 90.5 fL (80.0-100.0); Mean Platelet Volume 8.1; Platelet Count 220 k/uL (150-450); RBC 4.47 m/uL (4.30-5.90); RDW 14.9 % (11.5-15.5); WBC 16.2 k/uL (3.8-10.6)
[2020-02-04] MEDS ORDERED: FUROSEMIDE 10 MG/ML 4 ML VIAL IV STA (08:01)
[2020-02-04] MEDS ORDERED: VANCOMYCIN 1,000 MG in SODIUM CHLORIDE 0.9% 250 ML IVPB STA (08:02)
[2020-02-04] MEDS ORDERED: VANCOMYCIN IV PER PHARMACY 1 EACH MISC MISCELLANE PRN (08:09)
[2020-02-04 08:14] LABS: Lymphocytes # (M) 0.81 k/uL (1.0-4.8); Monocytes # (M) 1.94 k/uL (0-1.0); Neutrophils # (M) 13.45 k/uL (1.3-7.7); Neutrophils % (M) 83 %; Nucleated Red Blood Cells 0 /100 WBC (0-0); Total Cells Counted 100
[2020-02-04 08:37] LABS: Creatine Kinase MB 8.1 ng/mL (0.0-2.4)
[2020-02-04 08:46] LABS: Troponin I 0.454 ng/mL (0.000-0.034)
[2020-02-04] MEDS: allopurinoL 300 MG TAB PO SCH (08:56)
[2020-02-04] MEDS: ISOSORBIDE MONONITRATE ER 30 MG TAB.ER.24H PO SCH (08:56)
[2020-02-04] MEDS: FUROSEMIDE 40 MG TAB PO SCH (08:56)
[2020-02-04] MEDS: PIPERACILLIN-TAZOBACTAM 3.375 GM in SODIUM CHLORIDE 0.9% 100 ML IVPB SCH (08:57)
[2020-02-04] MEDS: atenoloL 50 MG TAB PO SCH (08:57)
[2020-02-04] MEDS: TAMSULOSIN 0.4 MG CAP.ER.24H PO SCH (08:57)
[2020-02-04] MEDS: PANTOPRAZOLE 40 MG TABLET PO SCH (08:57)
[2020-02-04] MEDS ORDERED: VANCOMYCIN 2,000 MG in SODIUM CHLORIDE 0.9% 500 ML 500 ML IVPB SCH (09:00)
[2020-02-04] MEDS: buPROPion 75 MG TAB PO SCH (09:01)
[2020-02-04] MEDS: DILTIAZEM CD 240 MG CAP.ER.24H PO SCH (09:01)
[2020-02-04] MEDS: glipiZIDE 5 MG TAB PO SCH ×2 (09:01→22:03)
--- NOTE | 2020-02-04 09:02 | XR ---
EXAMINATION TYPE: XR chest 1V portable DATE OF EXAM: 02/04/2020 COMPARISON: None INDICATION: Shortness of breath, kidney stone TECHNIQUE: Single frontal view of the chest is obtained. FINDINGS: The heart size is normal. The pulmonary vasculature is normal. Some mild right lower lobe infiltrate may be present. There is partial silhouetting of the medial lef t hemidiaphragm. Some bibasilar atelectasis should be considered. Early pneumonia could be considered . IMPRESSION: 1. Mild bibasilar infiltrates. Correlate for atelectasis or early pneumonia.
--- NOTE | 2020-02-04 10:02 | P.PN ---
Subjective Progress Note Date: 02/04/20 69 year-old morbidly obese male one of Dr. Kemp with past medical history of CAD, CHF, hypertension, obstructive sleep apnea and chronic edema was known to have previous history of kidney stone who was in the emergency room on for severe left-sided flank pain was diagnosed with large kidney stone measure 7 mm. Patient was in to see Dr. Garrett on Sunday and was scheduled to have surgery on Sunday. Patient return to emergency department today with severe intractable pain with nausea not been able to tolerate anything orally patient was seen and a Profore admission by Dr. Dhillon urology to treat his symptoms. His kidney function is down with creatinine up to 3.0 significant decline from few days earlier. Patient was started on IV hydration and pain management and possibly will be going for surgery tomorrow. 02/02 patient seen resting in bed this morning, plan for ureterscopy today with urology. Labs were reviewed, white blood cells 13.4, hemoglobin 12.3, sodium 135, BUNs 52, creatinine 3.16, consult in place for nephrology to see patient. Calcium 6.3, and replaced by a nephrology. Patient is making adequate urine. Will order urine and blood cultures, patient started on Zosyn IV. Vital signs are stable, patient remains afebrile pulse 89, blood pressure 133/70, patient pu lse ox 92% on 2 L nasal cannula. Renal ultrasound found no distinct abnormality seen, no evidence of hydronephrosis. 02/03: Patient seen today sitting on edge of bed, appears to be more short of br eath today, requiring O2 at 4 L via nasal cannula satting 90%. Patient is afebrile, pulse rate 96, blood pressure 165/71. Blood cultures did show gram- positive cocci in chains. Vancomycin added along with Zosyn and infectious disease consult. We will do chest x-ray hep-locked the patient, give 40 IV Lasix 1 and labs are ordered. White blood cell count 16.2 hemoglobin 12.9 BUN/creatinine creatinine have improved creatinine 2.43 today. Troponins came back elevated at 0.454 this morning. Cardiology was ordered for consult along with echo. Nephrology remains on the case. We'll continue to monitor patient closely. Chest x-ray showed mild bibasilar infiltrates correlate for atelectasis or early pneumonia Review of Systems CONSTITUTIONAL: Well-developed, EYES: No icterus sclerae, no conjunctivitis. EARS, NOSE, MOUTH, THROAT, and FACE: No sore throat, lymphadenopathy, carotid bruits or deformity. RESPIRATORY: Mild shortness of breath no cough wheezes. CARDIOVASCULAR: Positive PND and orthopnea no angina. GASTROINTESTINAL: No Abd pain, Nausea or vomiting, no Diarrhea or constipation, No GI Bleed, no distention or masses. GENITOURINARY: Positive large sided left side kidney stone mild BPH symptoms mild hematuria. Patient reports has not passed the stone yet. INTEGUMENT/BREAST: Negative for any muscular injury with mild osteoarthritis.. HEMATOLOGIC/LYMPHATIC: Negative for bleed or purpura. MUSCULOSKELTAL: Negative for Myalgia or arthralgia. NEURLOGICAL: No LOC, Sz or syncope, blurred vision dizziness or abnormality.. BEHAVIORAL/PSYCH: Negative. ENDOCRINE: Negative. Assessment General Appearance: Alert, cooperative, mild shortness of breath, morbidly obese Neck HEENT: Supple, no lymphadenopathy, no thyroid enlargement, no carotid bruits. Lungs: Decreased breath some bilateral rhonchi no crackles positive Chest Wall: Decrease expansion with deep inspiration no tenderness and no deformity was found on exam, no costochondral pain or discomfort. Heart: Regular rate and rhythm, S1, S2 normal, no murmur, rub or gallop. Back: Symmetric, no curvature, ROM normal, positive left-sided CVA tenderness. Abdomen: Soft, positive bowel sounds active all four quadrants, no masses, no organomegaly. Significant discomfort in the left side all the way down to the left lower quadrant. Extremities: Extremities normal, atraumatic, no cyanosis positive edema Pulses: 2+ and symmetric. Skin: Skin color, texture, tugor normal, no rashes or lesions. Neurologic: Alert oriented x3 cranial nerves II through XII intact, no motor deficit, no abnormal balance or gait. Objective - Vital Signs Vital signs: Vital Signs Temp 97.9 F 02/04/20 05:00 Pulse 96 02/04/20 07:35 Resp 20 02/04/20 05:00 BP 165/71 02/04/20 05:00 Pulse Ox 90 L 02/04/20 05:00 Intake & Output 02/03/20 02/04/20 02/04/20 18:59 06:59 18:59 Intake Total 400 750 Output Total 100 Balance 300 750 Weight 144.1 kg Intake: IV 400 Oral 750 Output: Urine 100 Other: Voiding Method Urinal Urinal # Voids 3 - Labs CBC & Chem 7: 02/04/20 07:21 02/04/20 07:21 Labs: Abnormal Lab Results - Last 24 Hours (Table) 02/03/20 02/03/20 02/03/20 Range/Units 11:24 17:17 20:03 WBC (3.8-10.6) k/uL Hgb (13.0-17.5) gm/dL Neutrophils # (Manual) (1.3-7.7) k/uL Lymphocytes # (Manual) (1.0-4.8) k/uL Monocytes # (Manual) (0-1.0) k/uL Sodium (137-145) mmol/L BUN (9-20) mg/dL Creatinine (0.66-1.25) mg/dL Glucose (74-99) mg/dL POC Glucose (mg/dL) 119 H 114 H 110 H (75-99) mg/dL Calcium (8.4-10.2) mg/dL Total Bilirubin (0.2-1.3) mg/dL AST (17-59) U/L CK-MB (CK-2) (0.0-2.4) ng/mL Troponin I (0.000-0.034) ng/mL Total Protein (6.3-8.2) g/dL Albumin (3.5-5.0) g/dL 02/04/20 02/04/20 02/04/20 Range/Units 07:05 07:21 07:21 WBC 16.2 H (3.8-10.6) k/uL Hgb 12.9 L (13.0-17.5) gm/dL Neutrophils # (Manual) 13.45 H (1.3-7.7) k/uL Lymphocytes # (Manual) 0.81 L (1.0-4.8) k/uL Monocytes # (Manual) 1.94 H (0-1.0) k/uL Sodium 136 L (137-145) mmol/L BUN 66 H (9-20) mg/dL Creatinine 2.43 H (0.66-1.25) mg/dL Glucose 133 H (74-99) mg/dL POC Glucose (mg/dL) 150 H (75-99) mg/dL Calcium 6.6 L (8.4-10.2) mg/dL Total Bilirubin 1.6 H (0.2-1.3) mg/dL AST 121 H (17-59) U/L CK-MB (CK-2) (0.0-2.4) ng/mL Troponin I (0.000-0.034) ng/mL Total Protein 5.9 L (6.3-8.2) g/dL Albumin 2.8 L (3.5-5.0) g/dL 02/04/20 Range/Units 07:21 WBC (3.8-10.6) k/uL Hgb (13.0-17.5) gm/dL Neutrophils # (Manual) (1.3-7.7) k/uL Lymphocytes # (Manual) (1.0-4.8) k/uL Monocytes # (Manual) (0-1.0) k/uL Sodium (137-145) mmol/L BUN (9-20) mg/dL Creatinine (0.66-1.25) mg/dL Glucose (74-99) mg/dL POC Glucose (mg/dL) (75-99) mg/dL Calcium (8.4-10.2) mg/dL Total Bilirubin (0.2-1.3) mg/dL AST (17-59) U/L CK-MB (CK-2) 8.1 H (0.0-2.4) ng/mL Troponin I 0.454 H* (0.000-0.034) ng/mL Total Protein (6.3-8.2) g/dL Albumin (3.5-5.0) g/dL Microbiology - Last 24 Hours (Table) 02/03/20 08:28 Blood Culture - Final Blood 02/03/20 13:25 Urine Culture - Preliminary Urine,Voided 02/03/20 08:30 Urine Culture - Preliminary Urine,Clean Catch Assessment and Plan Plan: Assessment: 1 severe abdominal pain not manageable at home: Patient was admitted to the hospital by urology, continue hydration, continue pain management with morphine sulfate 4 mg every 4 hours continue to watch his urine output. 2 large left sided kidney stone measure 7 the Hyndman: and affecting the kidney function, ultrasound was negative for hydronephrosis. Patient had double J stent placed yesterday by urology 3 atherosclerotic heart disease: Patient seeing cardiology regular basis seen Dr. Medrano recently, Positive troponin and cardiology consult added. 4 acute kidney injury with acute kidney failure: Continue hydration repeat BUN/creatinine next 24 hours. Nephrology added to the case. 5 CHF: Mostly systolic dysfunction, continue patient on furosemide atenolol and isosorbide. We'll give dose of IV Lasix 40mg 1, echo ordered. 6 type 2 diabetes: On Levemir and glipizide along with Accu-Chek with sliding scales coverage. Metformin was discontinued. 7 hypertension: Remain on atenolol 50 mg daily along with diltiazem 240 mg a day. 8 gout: Has been on Zyloprim with no flareup lately. 9 mild reactive airway: Has been on Ventolin nebulizer. 10 hyperlipidemia: Continue patient on atorvastatin 80 mg daily. 11 GI prophylaxis: Patient be continue on pantoprazole 40 mg a day. 12 DVT prophylaxis: After surgery patient be on heparin subcutaneous. 13. Positive blood cultures/sepsis: On Zosyn and Vanco added with consult ID. CODE STATUS: Full code. Dr. Ortiz thank you much for the consult if I can be any further help to please let me know. Impression and plan of care have been directed as dictated by the signing physician. Ela Greenberg nurse practitioner acting as scribe for signing physician.
--- NOTE | 2020-02-04 10:23 | P.PN ---
Subjective Patient is seen in follow for acute kidney injury. Renal function is improving. He is maintained on IV fluids. Feels short of breath today. No vomiting or diarrhea. Patient underwent cystoscopy with left double-J catheter placement on February 02. Noted to have gram-positive bacteremia. Vital signs are stable. General: The patient appeared well nourished and normally developed. HEENT: Head exam is unremarkable. Neck is without jugular venous distension. LUNGS: Breath sounds decreased. HEART: Rate and Rhythm are regular. ABDOMEN: Soft, nontender. Obese. EXTREMITITES: No edema. Objective - Vital Signs Vital signs: Vital Signs Temp 97.9 F 02/04/20 05:00 Pulse 96 02/04/20 07:35 Resp 20 02/04/20 05:00 BP 165/71 02/04/20 05:00 Pulse Ox 90 L 02/04/20 05:00 Intake & Output 02/03/20 02/04/20 02/04/20 18:59 06:59 18:59 Intake Total 400 750 Output Total 100 Balance 300 750 Weight 144.1 kg Intake: IV 400 Oral 750 Output: Urine 100 Other: Voiding Method Urinal Urinal # Voids 3 - Labs CBC & Chem 7: 02/04/20 07:21 02/04/20 07:21 Labs: Abnormal Lab Results - Last 24 Hours (Table) 02/03/20 02/03/20 02/03/20 Range/Units 11:24 17:17 20:03 WBC (3.8-10.6) k/uL Hgb (13.0-17.5) gm/dL Neutrophils # (Manual) (1.3-7.7) k/uL Lymphocytes # (Manual) (1.0-4.8) k/uL Monocytes # (Manual) (0-1.0) k/uL Sodium (137-145) mmol/L BUN (9-20) mg/dL Creatinine (0.66-1.25) mg/dL Glucose (74-99) mg/dL POC Glucose (mg/dL) 119 H 114 H 110 H (75-99) mg/dL Calcium (8.4-10.2) mg/dL Total Bilirubin (0.2-1.3) mg/dL AST (17-59) U/L CK-MB (CK-2) (0.0-2.4) ng/mL Troponin I (0.000-0.034) ng/mL Total Protein (6.3-8.2) g/dL Albumin (3.5-5.0) g/dL 02/04/20 02/04/20 02/04/20 Range/Units 07:05 07:21 07:21 WBC 16.2 H (3.8-10.6) k/uL Hgb 12.9 L (13.0-17.5) gm/dL Neutrophils # (Manual) 13.45 H (1.3-7.7) k/uL Lymphocytes # (Manual) 0.81 L (1.0-4.8) k/uL Monocytes # (Manual) 1.94 H (0-1.0) k/uL Sodium 136 L (137-145) mmol/L BUN 66 H (9-20) mg/dL Creatinine 2.43 H (0.66-1.25) mg/dL Glucose 133 H (74-99) mg/dL POC Glucose (mg/dL) 150 H (75-99) mg/dL Calcium 6.6 L (8.4-10.2) mg/dL Total Bilirubin 1.6 H (0.2-1.3) mg/dL AST 121 H (17-59) U/L CK-MB (CK-2) (0.0-2.4) ng/mL Troponin I (0.000-0.034) ng/mL Total Protein 5.9 L (6.3-8.2) g/dL Albumin 2.8 L (3.5-5.0) g/dL 02/04/20 Range/Units 07:21 WBC (3.8-10.6) k/uL Hgb (13.0-17.5) gm/dL Neutrophils # (Manual) (1.3-7.7) k/uL Lymphocytes # (Manual) (1.0-4.8) k/uL Monocytes # (Manual) (0-1.0) k/uL Sodium (137-145) mmol/L BUN (9-20) mg/dL Creatinine (0.66-1.25) mg/dL Glucose (74-99) mg/dL POC Glucose (mg/dL) (75-99) mg/dL Calcium (8.4-10.2) mg/dL Total Bilirubin (0.2-1.3) mg/dL AST (17-59) U/L CK-MB (CK-2) 8.1 H (0.0-2.4) ng/mL Troponin I 0.454 H* (0.000-0.034) ng/mL Total Protein (6.3-8.2) g/dL Albumin (3.5-5.0) g/dL Microbiology - Last 24 Hours (Table) 02/03/20 08:28 Blood Culture Gram Stain - Preliminary Blood 02/03/20 08:28 Blood Culture - Final Blood 02/03/20 13:25 Urine Culture - Preliminary Urine,Voided 02/03/20 08:30 Urine Culture - Preliminary Urine,Clean Catch Assessment and Plan Plan: Assessment: 1. Acute kidney injury versus chronic kidney disease. Creatinine peaked at 3.16 this admission is 2.43 today. Unknown baseline renal function. No hydronephrosis noted on kidney ultrasound. 2. Left ureteral stone status post cystoscopy with left double-J stent placement. 3. Insulin-dependent diabetes mellitus. 4. Proteinuria. Most likely secondary to underlying diabetic kidney disease. UPC 0.9 g. Further workup outpatient. 5. Benign hypertension. Stable. 6. Hypocalcemia secondary to acute kidney injury. Corrected calcium 7.6. Plan: Hep-Lock IV fluids. Lasix 40 mg IV once today. Follow-up chest x-ray. Discontinued metformin as GFR is less than 30. Continue to monitor renal function and urine output. Patient will need to follow up outpatient for CKD care.
[2020-02-04 11:37] LABS: Glucose,Whole Blood 145 mg/dL (75-99)
--- NOTE | 2020-02-04 13:19 | P.CRDCN ---
History of Present Illness Consult date: 02/04/20 Requesting physician: Cheikh Gore Reason for Consult (text): positive troponin/increased SOB Chief complaint: nephrolithiasis, flank pain History of present illness: This is a pleasant 69-year-old gentleman with a history of hypertension, hyperlipidemia, CAD with prior stenting in 2009, CHF, sleep apnea, uses CPAP. Initially presented with flank pain and was found to have nephrolithiasis and acute kidney injury. Underwent cystoscopy, left ureteroscopy and placement of double-J catheter by Dr. Swartz yesterday at which time the stone was pushed back into the kidney. We are asked to the patient consultation as this morning the patient was found to be significantly more short of breath with an elevated NT proBNP at 2120 and an abnormal troponin of 0.454. EKG showed sinus rhythm with nonspecific ST-T wave abnormalities with no change from baseline EKG on admission, no evidence of acute ischemia. Patient denies having any chest discomfort. Mostly complains of some shortness of breath which has improved since receiving IV Lasix this morning. Also complains of flank pain for which he is receiving morphine for as quite drowsy as a result. Urine culture from yesterday was positive for Strep agalactiae and he is currently receiving IV antibiotics. Vital signs of a relatively stable he's satting 92% on 4 L nasal cannula. He does have lower extremity edema but this seems to have improved since admission according to the . He is currently on allopurinol, atenolol 50 mg by mouth daily, atorvastatin E milligrams by mouth daily at bedtime, Wellbutrin, Cardizem 240 mg by mouth daily, Lasix 40 mg by mouth daily, Glucotrol, Levemir, Imdur 30 mg by mouth daily, Protonix, potassium supplement, Flomax, Zosyn, vancomycin and morphine IV as needed for pain. Past Medical History Past Medical History: Heart Failure, Diabetes Mellitus, Hypertension, Myocardial Infarction (NV), Osteoarthritis (OA), Sleep Apnea/CPAP/BIPAP Additional Past Medical History / Comment(s): kidney stones, edema oli lower legs and feet, hx hematoma left leg, gout, Last Myocardial Infarction Date:: 1987 History of Any Multi-Drug Resistant Organisms: None Reported Past Surgical History: Heart Catheterization With Stent, Joint Replacement, Orthopedic Surgery Additional Past Surgical History / Comment(s): surgery to remove hematoma from left leg, attempted lithotripsy then cystoscopy 1987 to remove kidney stone, surgery for laceration left thumb, left knee replacement, one cardiac stent, Past Anesthesia/Blood Transfusion Reactions: Motion Sickness Date of Last Stent Placement:: 2009 Past Psychological History: No Psychological Hx Reported Smoking Status: Never smoker Past Alcohol Use History: None Reported Past Drug Use History: None Reported - Past Family History Mother Family Medical History: No Reported History Medications and Allergies Home Medications Medication Instructions Recorded Confirmed Type Albuterol Nebulized [Ventolin 2.5 mg INHALATION RT-Q6H PRN 02/02/20 02/02/20 History Nebulized] Allopurinol [Zyloprim] 300 mg PO DAILY 02/02/20 02/02/20 History Aspirin 325 mg PO DAILY 02/02/20 02/02/20 History Atenolol [Tenormin] 50 mg PO DAILY 02/02/20 02/02/20 History Atorvastatin [Lipitor] 80 mg PO HS 02/02/20 02/02/20 History Diltiazem HCl [Cartia Xt] 240 mg PO DAILY 02/02/20 02/02/20 History Furosemide [Lasix] 40 mg PO DAILY 02/02/20 02/02/20 History Ibuprofen [Motrin] 800 mg PO Q6HR PRN 02/02/20 02/02/20 History Insulin Glargine [Lantus] 27 unit SQ AC-SUPPER@1600 02/02/20 02/02/20 History Isosorbide Mononitrate [Isosorbide 30 mg PO DAILY 02/02/20 02/02/20 History Mononitrate ER] Nitroglycerin Sl Tabs [Nitrostat] 0.4 mg SUBLINGUAL Q5M PRN 02/02/20 02/02/20 History Potassium Chloride 10 meq PO Q48H 02/02/20 02/02/20 History buPROPion [Wellbutrin] 75 mg PO QAM 02/02/20 02/02/20 History glipiZIDE [Glucotrol] 5 mg PO BID 02/02/20 02/02/20 History metFORMIN HCL 1,000 mg PO BID 02/02/20 02/02/20 History Allergies Allergy/AdvReac Type Severity Reaction Status Date / Time No Known Allergies Allergy Verified 02/03/20 12:39 Physical Exam Vitals: Vital Signs Temp Pulse Pulse Pulse Resp BP Pulse Ox 02/04/20 11:48 98.2 F 79 19 134/72 92 L 02/04/20 07:35 96 02/04/20 07:26 92 02/04/20 05:00 97.9 F 74 20 165/71 90 L 02/03/20 20:40 98.8 F 87 20 173/71 90 L 02/03/20 20:33 88 02/03/20 20:19 89 02/03/20 16:45 87 137/78 02/03/20 16:30 85 143/80 02/03/20 16:15 81 144/81 02/03/20 16:00 88 144/75 02/03/20 15:45 88 147/79 02/03/20 15:30 84 137/78 02/03/20 15:15 80 141/80 02/03/20 15:00 89 143/82 02/03/20 14:45 98.1 F 85 17 162/61 94 L 02/03/20 14:28 79 20 152/67 93 L 02/03/20 14:15 80 16 149/65 97 02/03/20 14:00 80 16 142/64 96 02/03/20 13:46 98.5 F 82 22 147/66 95 Intake and Output 02/03/20 02/04/20 02/04/20 22:59 06:59 14:59 Intake Total 750 Output Total 900 Balance 750 -900 Intake: Oral 750 Output: Urine 900 Other: Voiding Method Urinal Urinal Urinal # Voids 3 3 Weight 144.1 kg PHYSICAL EXAMINATION: This is a 69-year-old male in no apparent distress at the time of my examination. VITAL SIGNS: Blood pressure 134/72, heart rate 79, respirations 19, temp 98.2F. Patient is 92% on 4 L nasal cannula. HEENT: Head is atraumatic, normocephalic. Pupils are equal, round. Sclerae anicteric. Conjunctivae are clear. Mucous membranes of the mouth are moist. Neck is supple. There is no elevated jugular venous pressure. No carotid bruit is heard. CHEST EXAMINATION: Lungs reveal expiratory wheezing bilaterally. Respirations even and nonlabored. HEART EXAMINATION: Heart regular, positive S1 and S2. No S3. No S4. With a systolic murmur. ABDOMEN: Soft, obese, nontender. Bowel sounds are heard. No organomegaly noted. EXTREMITIES: 1+ peripheral pulses with evidence of mild peripheral edema and no calf tenderness noted. NEUROLOGIC EXAMINATION: Patient is awake but drowsy and oriented x3. Results 02/04/20 07:21 02/04/20 07:21 Cardiac Enzymes 02/04/20 02/04/20 Range/Units 07:21 07:21 AST 121 H (17-59) U/L CK-MB (CK-2) 8.1 H (0.0-2.4) ng/mL Troponin I 0.454 H* (0.000-0.034) ng/mL CBC 02/04/20 Range/Units 07:21 WBC 16.2 H (3.8-10.6) k/uL RBC 4.47 (4.30-5.90) m/uL Hgb 12.9 L (13.0-17.5) gm/dL Hct 40.4 (39.0-53.0) % Plt Count 220 (150-450) k/uL Comprehensive Metabolic Panel 02/04/20 Range/Units 07:21 Sodium 136 L (137-145) mmol/L Potassium 4.0 (3.5-5.1) mmol/L Chloride 98 (98-107) mmol/L Carbon Dioxide 25 (22-30) mmol/L BUN 66 H (9-20) mg/dL Creatinine 2.43 H (0.66-1.25) mg/dL Glucose 133 H (74-99) mg/dL Calcium 6.6 L (8.4-10.2) mg/dL AST 121 H (17-59) U/L ALT 49 (4-49) U/L Alkaline Phosphatase 92 (38-126) U/L Total Protein 5.9 L (6.3-8.2) g/dL Albumin 2.8 L (3.5-5.0) g/dL Current Medications Generic Name Dose Route Start Last Admin Trade Name Freq PRN Reason Stop Dose Admin Albuterol Sulfate 2.5 mg 02/02/20 19:52 02/04/20 07:25 Ventolin Nebulized INHALATION 2.5 mg RT-Q6H PRN Administration Shortness Of Breath Allopurinol 300 mg 02/03/20 09:00 02/04/20 08:56 Zyloprim PO 300 mg DAILY [facility] Administration Atenolol 50 mg 02/03/20 09:00 02/04/20 08:57 Tenormin PO 50 mg DAILY [facility] Administration Atorvastatin Calcium 80 mg 02/02/20 21:00 02/03/20 19:39 Lipitor PO 80 mg HS JE[facility]ERRE Administration Bupropion HCl 75 mg 02/03/20 09:00 02/04/20 09:01 Wellbutrin PO 75 mg QAM JEAN PIERRE Administration Diltiazem HCl 240 mg 02/03/20 09:00 02/04/20 09:01 Cardizem Cd PO 240 mg DAILY [facility] Administration Furosemide 40 mg 02/03/20 09:00 02/04/20 08:56 Lasix PO Not Given DAILY [facility] Glipizide 5 mg 02/02/20 21:00 02/04/20 09:01 Glucotrol PO 5 mg BID [facility] Administration Sodium Chloride 1,000 mls @ 50 mls/hr 02/02/20 17:30 02/03/20 23:47 Saline 0.9% IV 50 mls/hr .Q20H JEAN PIERRE Administration Piperacillin Sod/Tazobactam 100 mls @ 25 mls/hr 02/03/20 08:15 02/04/20 08:57 Sod 3.375 gm/ Sodium Chloride IVPB 25 mls/hr Q8HR JEAN PIERRE Administration Vancomycin HCl 2,000 mg/ 500 mls @ 167 mls/hr 02/04/20 09:00 02/04/20 09:04 Sodium Chloride IVPB 167 mls/hr Q24H JEAN PIERRE Administration Insulin Detemir 27 unit 02/03/20 16:00 02/03/20 16:35 Levemir SQ 27 unit AC-SUPPER@1600 [facility] Administration Isosorbide Mononitrate 30 mg 02/03/20 09:00 02/04/20 08:56 Imdur PO 30 mg DAILY [facility] Administration Morphine Sulfate 4 mg 02/02/20 17:25 02/04/20 05:50 Morphine Sulfate (Inj) IV 4 mg Q4HR PRN Administration Severe Pain Naloxone HCl 0.2 mg 02/02/20 17:25 Narcan IV Q2M PRN Opioid Reversal Nitroglycerin 0.4 mg 02/02/20 19:52 Nitrostat SUBLINGUAL Q5M PRN Chest Pain Pantoprazole Sodium 40 mg 02/03/20 07:30 02/04/20 08:57 Protonix PO 40 mg [id number] JEAN PIERRE Administration Potassium Chloride 10 meq 02/03/20 09:00 02/03/20 08:15 K-Dur 10 PO Not Given Q48H JEAN PIERRE Tamsulosin HCl 0.4 mg 02/03/20 08:30 02/04/20 08:57 Flomax PO 0.4 mg [id number] JEAN PIERRE Administration Intake and Output 02/03/20 02/04/20 02/04/20 22:59 06:59 14:59 Intake Total 750 Output Total 900 Balance 750 -900 Intake: Oral 750 Output: Urine 900 Other: Voiding Method Urinal Urinal Urinal # Voids 3 3 Weight 144.1 kg 02/04/20 07:21 02/04/20 07:21 Assessment and Plan Assessment: #1 Nephrolithiasis with positive urine culture, on IV antibiotics #2 BETI on CKD #3 Acute on chronic heart failure, likely diastolic #4 elevated troponins likely secondary to type II NV although underlying ischemic CAD cannot be entirely ruled out at this time #5 HTN #6 hyperlipidemia #7 FRANK Plan: From Cardiology's perspective we will review 2d echo with doppler ordered by primary. Obtain another troponin level. COntinue to monitor electrolytes, renal function, daily weights and I&Os. We will continue to follow the patient and provide further recommendations accordingly. SANITATION SUPERVISOR note has been reviewed, I agree with a documented findings and plan of care. Patient was seen and examined.
--- NOTE | 2020-02-04 14:00 | ECHOF ---
Referral Reason:positive trop/Hx of CHF MEASUREMENTS -------- HEIGHT: 180.3 cm WEIGHT: 143.8 kg BP: RVIDd: 2.7 cm (< 3.3) IVSd: 1.4 cm (0.6 - 1.1) LVIDd: 4.2 cm (3.9 - 5.3) LVPWd: 1.4 cm (0.6 - 1.1) IVSs: 2.0 cm LVIDs: 2.5 cm LVPWs: 2.1 cm Ao Diam: 3.0 cm (2.0 - 3.7) AV Cusp: 2.0 cm (1.5 - 2.6) LA Diam: 3.7 cm (2.7 - 3.8) MV EXCURSION: 17.310 mm (> 18.000) MV EF SLOPE: 83 mm/s (70 - 150) EPSS: 1.0 cm MV E Elvin: 0.84 m/s MV DecT: 251 ms MV A Elvin: 1.07 m/s MV E/A Ratio: 0.79 RAP: 5.00 mmHg RVSP: 13.59 mmHg FINDINGS -------- Sinus rhythm. This was a technically difficult study with suboptimal views. The left ventricular size is normal. There is moderate concentric left ventricular hypertrophy. O verall left ventricular systolic function is normal with, an EF between 55 - 60 %. The right ventricle is normal in size. The left atrial size is normal. The right atrial size is normal. 5.0mg of Lumason was utilized for enhancement of images There is mild aortic valve sclerosis. Mild mitral annular calcification present. Mild mitral regurgitation is present. The tricuspid valve appears structurally normal. Mild tricuspid regurgitation present. Right vent ricular systolic pressure is normal at < 35 mmHg. Trace/mild (physiologic) pulmonic regurgitation. The aortic root size is normal. IVC Not well visulized. Echo free space represents a pericardial fat pad. CONCLUSIONS -------- 1. There is moderate concentric left ventricular hypertrophy. 2. Overall left ventricular systolic function is normal with, an EF between 55 - 60 %. 3. 5.0mg of Lumason was utilized for enhancement of images 4. There is mild aortic valve sclerosis. 5. Mild mitral annular calcification present. 6. Mild mitral regurgitation is present. 7. Mild tricuspid regurgitation present. 8. Trace/mild (physiologic) pulmonic regurgitation. BALE PILER: Bridgette Francis RDCS
[2020-02-04 17:09] LABS: Glucose,Whole Blood 161 mg/dL (75-99)
[2020-02-04] MEDS: INSULIN DETEMIR (LEVEMIR) 100 UNIT/ML SYR SQ SCH (17:24)
--- NOTE | 2020-02-04 18:13 | P.PN ---
Progress Note - Text Progress Note Date: 02/04/20 The patient underwent placement of a left ureteral stent yesterday. His pain has resolved. He is afebrile but reports a poor appetite. Urine and blood cultures have both shown group B strep agalactiae. He is currently receiving ceftriaxone. His serum creatinine level is somewhat improved today. Will continue IV antibiotics.
[2020-02-04] MEDS: ATORVASTATIN 80 MG TAB PO SCH (20:14)
[2020-02-04 21:15] LABS: Glucose,Whole Blood 147 mg/dL (75-99)
--- NOTE | 2020-02-04 23:43 | P.CONS ---
History of Present Illness - Reason for Consult Consult date: 02/04/20 Bacteremia Requesting physician: Cheikh Gore - Chief Complaint Left-sided flank pain and vomiting x few days - History of Present Illness Patient is 69-year-old male with a past medical history in for coronary artery disease congestive heart failure in this patient was recently evaluated in the emergency room for severe left-sided flank pain patient was diagnosed with a large left-sided kidney stone made a 7 mm and the patient was discharged from the ER and was advised to follow-up with Dr. Swartz in the outpatient setting patient presented back to [facility] ER on 02/02/2020 with severe pain to the left flank area patient describes the pain to be sharp almost 10 out of 10 with some radiation to the groin patient also have associated nausea and vomiting and unable to keep anything down with the symptoms the patient was evaluated by the physician on arrival to the ER the patient did have low-grade fever of 99.9 initial white count was normal and) subsequent white count of 13.4 and repeat is 16.2 he also noticed to have elevated creatinine, patient did have ultrasound of the ears did not show any abnormality patient subsequently was taken to the OR and is status post cystoscopy and left ureteroscopy and placement of double-J catheter patient has been treated with vancomycin and Zosyn blood cultures were documented positive with a gram-positive cocci infection disease was consulted for further management of antibiotic therapy Review of Systems Positive point has been mentioned in the HPI rest of the systems are negative Past Medical History Past Medical History: Heart Failure, Diabetes Mellitus, Hypertension, Myocardial Infarction (PR), Osteoarthritis (OA), Sleep Apnea/CPAP/BIPAP Additional Past Medical History / Comment(s): kidney stones, edema oli lower legs and feet, hx hematoma left leg, gout, Last Myocardial Infarction Date:: 1987 History of Any Multi-Drug Resistant Organisms: None Reported Past Surgical History: Heart Catheterization With Stent, Joint Replacement, Orthopedic Surgery Additional Past Surgical History / Comment(s): surgery to remove hematoma from left leg, attempted lithotripsy then cystoscopy 1987 to remove kidney stone, surgery for laceration left thumb, left knee replacement, one cardiac stent, Past Anesthesia/Blood Transfusion Reactions: Motion Sickness Date of Last Stent Placement:: 2009 Past Psychological History: No Psychological Hx Reported Smoking Status: Never smoker Past Alcohol Use History: None Reported Past Drug Use History: None Reported - Past Family History Mother Family Medical History: No Reported History Medications and Allergies Home Medications Medication Instructions Recorded Confirmed Type Albuterol Nebulized [Ventolin 2.5 mg INHALATION RT-Q6H PRN 02/02/20 02/02/20 History Nebulized] Allopurinol [Zyloprim] 300 mg PO DAILY 02/02/20 02/02/20 History Aspirin 325 mg PO DAILY 02/02/20 02/02/20 History Atenolol [Tenormin] 50 mg PO DAILY 02/02/20 02/02/20 History Atorvastatin [Lipitor] 80 mg PO HS 02/02/20 02/02/20 History Diltiazem HCl [Cartia Xt] 240 mg PO DAILY 02/02/20 02/02/20 History Furosemide [Lasix] 40 mg PO DAILY 02/02/20 02/02/20 History Ibuprofen [Motrin] 800 mg PO Q6HR PRN 02/02/20 02/02/20 History Insulin Glargine [Lantus] 27 unit SQ AC-SUPPER@1600 02/02/20 02/02/20 History Isosorbide Mononitrate [Isosorbide 30 mg PO DAILY 02/02/20 02/02/20 History Mononitrate ER] Nitroglycerin Sl Tabs [Nitrostat] 0.4 mg SUBLINGUAL Q5M PRN 02/02/20 02/02/20 History Potassium Chloride 10 meq PO Q48H 02/02/20 02/02/20 History buPROPion [Wellbutrin] 75 mg PO QAM 02/02/20 02/02/20 History glipiZIDE [Glucotrol] 5 mg PO BID 02/02/20 02/02/20 History metFORMIN HCL 1,000 mg PO BID 02/02/20 02/02/20 History Allergies Allergy/AdvReac Type Severity Reaction Status Date / Time No Known Allergies Allergy Verified 02/03/20 12:39 Physical Exam Vitals: Vital Signs Temp Pulse Pulse Resp BP Pulse Ox 02/04/20 11:48 98.2 F 79 19 134/72 92 L 02/04/20 07:35 96 02/04/20 07:26 92 02/04/20 05:00 97.9 F 74 20 165/71 90 L 02/03/20 20:40 98.8 F 87 20 173/71 90 L 02/03/20 20:33 88 02/03/20 20:19 89 02/03/20 16:45 87 137/78 02/03/20 16:30 85 143/80 02/03/20 16:15 81 144/81 02/03/20 16:00 88 144/75 02/03/20 15:45 88 147/79 02/03/20 15:30 84 137/78 02/03/20 15:15 80 141/80 02/03/20 15:00 89 143/82 Intake and Output 02/03/20 02/04/20 02/04/20 22:59 06:59 14:59 Intake Total 750 Output Total 900 Balance 750 -900 Intake: Oral 750 Output: Urine 900 Other: Voiding Method Urinal Urinal Urinal # Voids 3 3 Weight 144.1 kg GENERAL DESCRIPTION: An elderly male lying in bed, no distress. No tachypnea or accessory muscle of respiration use. HEENT: Shows Pallor , no scleral icterus. Oral mucous membrane is dry. No pharyngeal erythema or thrush NECK: Trachea central, no thyromegaly. LUNGS: Unlabored breathing. Clear to auscultation anteriorly. No wheeze or crackle. HEART: S1, S2, regular rate and rhythm. No loud murmur ABDOMEN: Soft, mild distention no tenderness , guarding or rigidity, no organomegaly EXTREMITIES: No edema of feet. SKIN: No rash, no masses palpable. NEUROLOGICAL: The patient is awake, alert, oriented x3, mood and affect normal. Results CBC & Chem 7: 02/04/20 07:21 02/04/20 07:21 Labs: Abnormal Lab Results - Last 24 Hours (Table) 02/03/20 02/03/20 02/04/20 Range/Units 17:17 20:03 07:05 WBC (3.8-10.6) k/uL Hgb (13.0-17.5) gm/dL Neutrophils # (Manual) (1.3-7.7) k/uL Lymphocytes # (Manual) (1.0-4.8) k/uL Monocytes # (Manual) (0-1.0) k/uL Sodium (137-145) mmol/L BUN (9-20) mg/dL Creatinine (0.66-1.25) mg/dL Glucose (74-99) mg/dL POC Glucose (mg/dL) 114 H 110 H 150 H (75-99) mg/dL Calcium (8.4-10.2) mg/dL Total Bilirubin (0.2-1.3) mg/dL AST (17-59) U/L CK-MB (CK-2) (0.0-2.4) ng/mL Troponin I (0.000-0.034) ng/mL Total Protein (6.3-8.2) g/dL Albumin (3.5-5.0) g/dL 02/04/20 02/04/20 02/04/20 Range/Units 07:21 07:21 07:21 WBC 16.2 H (3.8-10.6) k/uL Hgb 12.9 L (13.0-17.5) gm/dL Neutrophils # (Manual) 13.45 H (1.3-7.7) k/uL Lymphocytes # (Manual) 0.81 L (1.0-4.8) k/uL Monocytes # (Manual) 1.94 H (0-1.0) k/uL Sodium 136 L (137-145) mmol/L BUN 66 H (9-20) mg/dL Creatinine 2.43 H (0.66-1.25) mg/dL Glucose 133 H (74-99) mg/dL POC Glucose (mg/dL) (75-99) mg/dL Calcium 6.6 L (8.4-10.2) mg/dL Total Bilirubin 1.6 H (0.2-1.3) mg/dL AST 121 H (17-59) U/L CK-MB (CK-2) 8.1 H (0.0-2.4) ng/mL Troponin I 0.454 H* (0.000-0.034) ng/mL Total Protein 5.9 L (6.3-8.2) g/dL Albumin 2.8 L (3.5-5.0) g/dL 02/04/20 02/04/20 Range/Units 11:25 12:28 WBC (3.8-10.6) k/uL Hgb (13.0-17.5) gm/dL Neutrophils # (Manual) (1.3-7.7) k/uL Lymphocytes # (Manual) (1.0-4.8) k/uL Monocytes # (Manual) (0-1.0) k/uL Sodium (137-145) mmol/L BUN (9-20) mg/dL Creatinine (0.66-1.25) mg/dL Glucose (74-99) mg/dL POC Glucose (mg/dL) 145 H (75-99) mg/dL Calcium (8.4-10.2) mg/dL Total Bilirubin (0.2-1.3) mg/dL AST (17-59) U/L CK-MB (CK-2) (0.0-2.4) ng/mL Troponin I 0.306 H* (0.000-0.034) ng/mL Total Protein (6.3-8.2) g/dL Albumin (3.5-5.0) g/dL Microbiology - Last 24 Hours (Table) 02/03/20 08:28 Blood Culture Gram Stain - Preliminary Blood Blood Culture - Preliminary Strep agalactiae - (group b) 02/03/20 08:30 Urine Culture - Final Urine,Clean Catch Strep agalactiae - (group b) 02/03/20 08:28 Blood Culture - Final Blood 02/03/20 13:25 Urine Culture - Preliminary Urine,Voided Assessment and Plan Assessment: 1- patient with strepcoccus agalactiae bacteremia source is likely urinary in this patient who did have a complicated UTI with left-sided renal stone and hydronephrosis requiring cystoscopy and double-J catheter placement urine is growing the same pathogen 2-patient with renal insufficiency and high risk of nephrotoxicity from vancomycin (1) Bacteremia due to Streptococcus Current Visit: Yes Status: Acute Code(s): R78.81 - BACTEREMIA; B95.5 - UNSP STREPTOCOCCUS THE CAUSE OF [facility]EASES [facility] SNOMED Code(s): 538411055429 (2) Complicated UTI (urinary tract infection) Current Visit: Yes Status: Acute Code(s): N39.0 - URINARY TRACT INFECTION, SITE NOT SPECIFIED SNOMED Code(s): 33279422 Plan: 1-discontinue vancomycin and Zosyn 2-blood culture repeated document clearance of bacteremia 3-start patient Rocephin 2 g daily We will follow on clinical condition and cultures to further adjust medication if needed Thank you for this consultation will follow this patient with you Time with Patient: Greater than 30
[2020-02-05] MEDS: MORPHINE SULFATE 4 MG/ML SYRINGE IV PRN ×2 (02:26→19:26)
[2020-02-05 07:16] LABS: Glucose,Whole Blood 151 mg/dL (75-99)
[2020-02-05 07:29] LABS: Basophils # (A) 0.1 k/uL (0-0.2); Basophils % (A) 0 %; Eosinophils # (A) 0.3 k/uL (0-0.7); Eosinophils % (A) 2 %; HCT 38.3 % (39.0-53.0); HGB 12.2 gm/dL (13.0-17.5); Lymphocytes # (A) 0.8 k/uL (1.0-4.8); Lymphocytes % (A) 5 %; MCH 28.1 pg (25.0-35.0); MCHC 31.9 g/dL (31.0-37.0); MCV 88.2 fL (80.0-100.0); Mean Platelet Volume 7.9; Monocytes % (A) 6 %; Neutrophils # (A) 12.7 k/uL (1.3-7.7); Neutrophils % (A) 82 %; Platelet Count 251 k/uL (150-450); RBC 4.34 m/uL (4.30-5.90); WBC 15.5 k/uL (3.8-10.6)
[2020-02-05 07:49] LABS: Albumin 2.6 g/dL (3.5-5.0); Calcium 6.9 mg/dL (8.4-10.2); Potassium 3.5 mmol/L (3.5-5.1); Total Bilirubin 1.2 mg/dL (0.2-1.3); Total Protein 5.6 g/dL (6.3-8.2)
[2020-02-05] MEDS: allopurinoL 300 MG TAB PO SCH (08:36)
[2020-02-05] MEDS: DILTIAZEM CD 240 MG CAP.ER.24H PO SCH (08:36)
[2020-02-05] MEDS: POTASSIUM CHLORIDE ER 10 MEQ TAB.ER.PRT PO SCH (08:36)
[2020-02-05] MEDS: atenoloL 50 MG TAB PO SCH (08:36)
[2020-02-05] MEDS: TAMSULOSIN 0.4 MG CAP.ER.24H PO SCH (08:36)
[2020-02-05] MEDS: buPROPion 75 MG TAB PO SCH (08:36)
[2020-02-05] MEDS: PANTOPRAZOLE 40 MG TABLET PO SCH (08:36)
--- NOTE | 2020-02-05 08:36 | P.PN ---
Progress Note - Text Progress Note Date: 02/05/20 The patient denies renal pain. He also denies nausea and vomiting. He is afebrile. He complains of hip pain and strongly desires to be discharged home. From a urologic standpoint, he will not require any further intervention at this time. He should be discharged home on appropriate oral antibiotics and follow up with Dr. Swartz. He will require surgical removal of the calculi once his infection has cleared.
[2020-02-05] MEDS: FUROSEMIDE 40 MG TAB PO SCH ×2 (08:37→09:07)
[2020-02-05] MEDS: glipiZIDE 5 MG TAB PO SCH ×2 (08:37→20:24)
[2020-02-05] MEDS: ISOSORBIDE MONONITRATE ER 30 MG TAB.ER.24H PO SCH (08:38)
[2020-02-05] MEDS ORDERED: FUROSEMIDE 10 MG/ML 4 ML VIAL IV STA (08:47)
[2020-02-05] MEDS: ALBUTEROL NEBULIZED 2.5 MG/3 ML INHALATION PRN ×2 (10:52→19:53)
--- NOTE | 2020-02-05 10:53 | P.PN ---
Subjective Progress Note Date: 02/05/20 69 year-old morbidly obese male one of Dr. Kemp with past medical history of CAD, CHF, hypertension, obstructive sleep apnea and chronic edema was known to have previous history of kidney stone who was in the emergency room on for severe left-sided flank pain was diagnosed with large kidney stone measure 7 mm. Patient was in to see Dr. Garrett on Sunday and was scheduled to have surgery on Sunday. Patient return to emergency department today with severe intractable pain with nausea not been able to tolerate anything orally patient was seen and a Profore admission by Dr. Dhillon urology to treat his symptoms. His kidney function is down with creatinine up to 3.0 significant decline from few days earlier. Patient was started on IV hydration and pain management and possibly will be going for surgery tomorrow. 02/02 patient seen resting in bed this morning, plan for ureterscopy today with urology. Labs were reviewed, white blood cells 13.4, hemoglobin 12.3, sodium 135, BUNs 52, creatinine 3.16, consult in place for nephrology to see patient. Calcium 6.3, and replaced by a nephrology. Patient is making adequate urine. Will order urine and blood cultures, patient started on Zosyn IV. Vital signs are stable, patient remains afebrile pulse 89, blood pressure 133/70, patient pu lse ox 92% on 2 L nasal cannula. Renal ultrasound found no distinct abnormality seen, no evidence of hydronephrosis. 02/03: Patient seen today sitting on edge of bed, appears to be more short of br eath today, requiring O2 at 4 L via nasal cannula satting 90%. Patient is afebrile, pulse rate 96, blood pressure 165/71. Blood cultures did show gram- positive cocci in chains. Vancomycin added along with Zosyn and infectious disease consult. We will do chest x-ray hep-locked the patient, give 40 IV Lasix 1 and labs are ordered. White blood cell count 16.2 hemoglobin 12.9 BUN/creatinine creatinine have improved creatinine 2.43 today. Troponins came back elevated at 0.454 this morning. Cardiology was ordered for consult along with echo. Nephrology remains on the case. We'll continue to monitor patient closely. Chest x-ray showed mild bibasilar infiltrates correlate for atelectasis or early pneumonia 02/04: Patient appears to be more comfortable today, O2 remains at 4 L via nasal cannula, satting 90%. We will give patient an additional 40 of IV Lasix today. Patient is afebrile vital signs are stable. White blood cells 15.5, hemoglobin 12.2, sodium 136, BUN 62, creatinine down to 1.63, calcium 6.9 today, second troponin was 0.306 yesterday. Cardiology is on the case, echo revealed EF was 55-60%, moderate LVH mild MR and TR. May require stress test for further workup. Blood cultures were positive for strep aglactiae, Dr Mark. Switch patient to Rocephin 2 g daily. Discussed with patient plan to go to rehab when discharged, and patient was agreeable to this. Review of Systems CONSTITUTIONAL: Well-developed, EYES: No icterus sclerae, no conjunctivitis. EARS, NOSE, MOUTH, THROAT, and FACE: No sore throat, lymphadenopathy, carotid b ruits or deformity. RESPIRATORY: Mild shortness of breath no cough wheezes. CARDIOVASCULAR: Positive PND and orthopnea no angina. GASTROINTESTINAL: No Abd pain, Nausea or vomiting, no Diarrhea or constipation, No GI Bleed, no distention or masses. GENITOURINARY: Positive large sided left side kidney stone mild BPH symptoms mild hematuria. Patient reports has not passed the stone yet. INTEGUMENT/BREAST: Negative for any muscular injury with mild osteoarthritis.. HEMATOLOGIC/LYMPHATIC: Negative for bleed or purpura. MUSCULOSKELTAL: Negative for Myalgia or arthralgia. NEURLOGICAL: No LOC, Sz or syncope, blurred vision dizziness or abnormality.. BEHAVIORAL/PSYCH: Negative. ENDOCRINE: Negative. Assessment General Appearance: Alert, cooperative, mild shortness of breath, morbidly obese Neck HEENT: Supple, no lymphadenopathy, no thyroid enlargement, no carotid brui ts. Lungs: Decreased breath some bilateral rhonchi, crackles positive Chest Wall: Decrease expansion with deep inspiration no tenderness and no deformity was found on exam, no costochondral pain or discomfort. Heart: Regular rate and rhythm, S1, S2 normal, no murmur, rub or gallop. Back: Symmetric, no curvature, ROM normal, positive left-sided CVA tenderness. Abdomen: Soft, positive bowel sounds active all four quadrants, no masses, no organomegaly. Significant discomfort in the left side all the way down to the left lower quadrant. Extremities: Extremities normal, atraumatic, no cyanosis positive edema Pulses: 2+ and symmetric. Skin: Skin color, texture, tugor normal, no rashes or lesions. Neurologic: Alert oriented x3 cranial nerves II through XII intact, no motor deficit, generalized weakness. Objective - Vital Signs Vital signs: Vital Signs Temp 98.2 F 02/05/20 05:00 Pulse 61 02/05/20 05:00 Resp 18 02/05/20 05:00 BP 140/60 02/05/20 05:00 Pulse Ox 90 L 02/05/20 05:00 Intake & Output 02/04/20 02/05/20 02/05/20 18:59 06:59 18:59 Intake Total 600 290 Output Total 900 1025 Balance -300 -735 Weight 149.459 kg Intake: Intake, IV Titration 600 Amount Piperacillin-Tazobactam 3 100 .375 gm In Sodium Chloride 0.9% 100 ml @ 25 mls/hr IVPB Q8HR [facility] Rx# :[id number] Vancomycin 2,000 mg In 500 Sodium Chloride 0.9% 500 ml 500 ml @ 167 mls/hr IVPB Q24H [facility] Rx#: [id number] Oral 290 Output: Urine 900 1025 Other: Voiding Method Urinal Urinal # Voids 2 - Labs CBC & Chem 7: 02/05/20 06:50 02/05/20 06:50 Labs: Abnormal Lab Results - Last 24 Hours (Table) 02/04/20 02/04/20 02/04/20 Range/Units 11:25 12:28 17:09 WBC (3.8-10.6) k/uL Hgb (13.0-17.5) gm/dL Hct (39.0-53.0) % Neutrophils # (1.3-7.7) k/uL Lymphocytes # (1.0-4.8) k/uL Sodium (137-145) mmol/L BUN (9-20) mg/dL Creatinine (0.66-1.25) mg/dL Glucose (74-99) mg/dL POC Glucose (mg/dL) 145 H 161 H (75-99) mg/dL Calcium (8.4-10.2) mg/dL AST (17-59) U/L Troponin I 0.306 H* (0.000-0.034) ng/mL Total Protein (6.3-8.2) g/dL Albumin (3.5-5.0) g/dL 02/04/20 02/05/20 02/05/20 Range/Units 21:14 06:50 06:50 WBC 15.5 H (3.8-10.6) k/uL Hgb 12.2 L (13.0-17.5) gm/dL Hct 38.3 L (39.0-53.0) % Neutrophils # 12.7 H (1.3-7.7) k/uL Lymphocytes # 0.8 L (1.0-4.8) k/uL Sodium 136 L (137-145) mmol/L BUN 62 H (9-20) mg/dL Creatinine 1.63 H (0.66-1.25) mg/dL Glucose 146 H (74-99) mg/dL POC Glucose (mg/dL) 147 H (75-99) mg/dL Calcium 6.9 L (8.4-10.2) mg/dL AST 182 H (17-59) U/L Troponin I (0.000-0.034) ng/mL Total Protein 5.6 L (6.3-8.2) g/dL Albumin 2.6 L (3.5-5.0) g/dL 02/05/20 Range/Units 07:14 WBC (3.8-10.6) k/uL Hgb (13.0-17.5) gm/dL Hct (39.0-53.0) % Neutrophils # (1.3-7.7) k/uL Lymphocytes # (1.0-4.8) k/uL Sodium (137-145) mmol/L BUN (9-20) mg/dL Creatinine (0.66-1.25) mg/dL Glucose (74-99) mg/dL POC Glucose (mg/dL) 151 H (75-99) mg/dL Calcium (8.4-10.2) mg/dL AST (17-59) U/L Troponin I (0.000-0.034) ng/mL Total Protein (6.3-8.2) g/dL Albumin (3.5-5.0) g/dL Microbiology - Last 24 Hours (Table) 02/03/20 08:28 Blood Culture Gram Stain - Preliminary Blood Blood Culture - Preliminary Strep agalactiae - (group b) 02/03/20 13:25 Urine Culture - Final Urine,Voided Strep agalactiae - (group b) 02/03/20 08:30 Urine Culture - Final Urine,Clean Catch Strep agalactiae - (group b) Assessment and Plan Plan: Assessment: 1 severe abdominal pain not manageable at home: Patient was admitted to the hospital by urology, continue pain management with morphine sulfate 4 mg every 4 hours continue to watch his urine output. 2 large left sided kidney stone measure 7 the [employer]: and affecting the kidney function, ultrasound was negative for hydronephrosis. Patient had double J stent placed yesterday by urology, will likely need this surgically removed per Dr. Ortiz after infection has resolved 3 atherosclerotic heart disease: Patient seeing cardiology regular basis seen Dr. Medrano recently, Positive troponin and cardiology consult added. 4 acute kidney injury with acute kidney failure: Improving nephrology remains on the case. 5 CHF: Mostly systolic dysfunction, continue patient on furosemide atenolol and isosorbide. We'll give dose of IV Lasix 40mg 1, echo done. 6 type 2 diabetes: On Levemir and glipizide along with Accu-Chek with sliding scales coverage. Metformin was discontinued. 7 hypertension: Remain on atenolol 50 mg daily along with diltiazem 240 mg a d ay. 8 gout: Has been on Zyloprim with no flareup lately. 9 mild reactive airway: Has been on Ventolin nebulizer. 10 hyperlipidemia: Continue patient on atorvastatin 80 mg daily. 11 GI prophylaxis: Patient be continue on pantoprazole 40 mg a day. 12 DVT prophylaxis: After surgery patient be on heparin subcutaneous. 13. Positive blood cultures/sepsis: ID on the case switch patient to Rocephin IV. CODE STATUS: Full code. Dr. Ortiz thank you much for the consult if I can be any further help to please let me know. Discharge plan: Plan for discharge likely to rehab in the next few days Impression and plan of care have been directed as dictated by the signing physician. Ela Greenberg nurse practitioner acting as scribe for signing physician.
[2020-02-05 11:20] LABS: Glucose,Whole Blood 142 mg/dL (75-99)
--- NOTE | 2020-02-05 11:42 | P.PN ---
Subjective Patient was seen and examined sitting up at the edge of the bed. He is mildly dyspneic with conversation. He continues to feel short of breath. He has no chest pain, dizziness or palpitations. He states his flank pain is ongoing and intermittent. Blood pressure 140/60 heart rate 64 afebrile maintaining oxygen saturation on nasal cannula. Laboratory data reviewed, WBC 15.5, hemoglobin 12.2, platelets 251, sodium 136, potassium 3.5, creatinine 1.63 with a GFR of 42. Currently maintained on atenolol 50 mg daily, atorvastatin 80 mg at bedt parvin, diltiazem 240 mg daily, Lasix 40 mg by mouth daily, Imdur 30 mg daily and oral potassium. Weight has increased since admission by 6 kg. GENERAL: Well-appearing, well-nourished and in no acute distress. NECK: Supple without JVD or thyromegaly. LUNGS: Bibasilar rales, no wheezes or rhonchi. Respiration equal and unlabored. HEART: Regular rate and rhythm with systolic ejection murmur at the left sternal border, no rubs or gallops. S1 and S2 heard. EXTREMITIES: Normal range of motion, bilateral lower extremity 1+ pitting edema and erythema. No clubbing or cyanosis. Peripheral pulses intact. ASSESSMENT Nephrolithiasis Bacteremia Leukocytosis Sepsis Acute kidney injury Acute on chronic diastolic heart failure, EF 55-60% with no wall motion abnormalities Troponin elevation secondary fluid overload, sepsis and oxygen supply-demand mismatch. No wall motion abnormalities on echo Hypertension Dyslipidemia FRANK Obstructive sleep apnea PLAN Agree with IV diuresis intiated by PCP. Follow up with BMP in the morning. Document accurate intake and output along with daily weights. Nurse Practitioner note has been reviewed, I agree with a documented findings and plan of care. Patient was seen and examined. Objective - Vital Signs Vital signs: Vital Signs Temp 98.2 F 02/05/20 05:00 Pulse 61 02/05/20 05:00 Resp 18 02/05/20 05:00 BP 140/60 02/05/20 05:00 Pulse Ox 90 L 02/05/20 05:00 Intake & Output 02/04/20 02/05/20 02/05/20 18:59 06:59 18:59 Intake Total 600 290 Output Total 900 1025 Balance -300 -735 Weight 149.459 kg Intake: Intake, IV Titration 600 Amount Piperacillin-Tazobactam 3 100 .375 gm In Sodium Chloride 0.9% 100 ml @ 25 mls/hr IVPB Q8HR [facility] Rx# :[id number] Vancomycin 2,000 mg In 500 Sodium Chloride 0.9% 500 ml 500 ml @ 167 mls/hr IVPB Q24H [facility] Rx#: [id number] Oral 290 Output: Urine 900 1025 Other: Voiding Method Urinal Urinal # Voids 2 - Labs CBC & Chem 7: 02/05/20 06:50 02/05/20 06:50 Labs: Abnormal Lab Results - Last 24 Hours (Table) 02/04/20 02/04/20 02/04/20 Range/Units 11:25 12:28 17:09 WBC (3.8-10.6) k/uL Hgb (13.0-17.5) gm/dL Hct (39.0-53.0) % Neutrophils # (1.3-7.7) k/uL Lymphocytes # (1.0-4.8) k/uL Sodium (137-145) mmol/L BUN (9-20) mg/dL Creatinine (0.66-1.25) mg/dL Glucose (74-99) mg/dL POC Glucose (mg/dL) 145 H 161 H (75-99) mg/dL Calcium (8.4-10.2) mg/dL AST (17-59) U/L Troponin I 0.306 H* (0.000-0.034) ng/mL Total Protein (6.3-8.2) g/dL Albumin (3.5-5.0) g/dL 02/04/20 02/05/20 02/05/20 Range/Units 21:14 06:50 06:50 WBC 15.5 H (3.8-10.6) k/uL Hgb 12.2 L (13.0-17.5) gm/dL Hct 38.3 L (39.0-53.0) % Neutrophils # 12.7 H (1.3-7.7) k/uL Lymphocytes # 0.8 L (1.0-4.8) k/uL Sodium 136 L (137-145) mmol/L BUN 62 H (9-20) mg/dL Creatinine 1.63 H (0.66-1.25) mg/dL Glucose 146 H (74-99) mg/dL POC Glucose (mg/dL) 147 H (75-99) mg/dL Calcium 6.9 L (8.4-10.2) mg/dL AST 182 H (17-59) U/L Troponin I (0.000-0.034) ng/mL Total Protein 5.6 L (6.3-8.2) g/dL Albumin 2.6 L (3.5-5.0) g/dL 02/05/20 Range/Units 07:14 WBC (3.8-10.6) k/uL Hgb (13.0-17.5) gm/dL Hct (39.0-53.0) % Neutrophils # (1.3-7.7) k/uL Lymphocytes # (1.0-4.8) k/uL Sodium (137-145) mmol/L BUN (9-20) mg/dL Creatinine (0.66-1.25) mg/dL Glucose (74-99) mg/dL POC Glucose (mg/dL) 151 H (75-99) mg/dL Calcium (8.4-10.2) mg/dL AST (17-59) U/L Troponin I (0.000-0.034) ng/mL Total Protein (6.3-8.2) g/dL Albumin (3.5-5.0) g/dL Microbiology - Last 24 Hours (Table) 02/03/20 08:28 Blood Culture Gram Stain - Preliminary Blood Blood Culture - Preliminary Strep agalactiae - (group b) 02/03/20 13:25 Urine Culture - Final Urine,Voided Strep agalactiae - (group b) 02/03/20 08:30 Urine Culture - Final Urine,Clean Catch Strep agalactiae - (group b)
--- NOTE | 2020-02-05 12:46 | CDI ---
Documentation Clarification Form Date: 02/05/2020 11:34:00 AM From: Maritza Houser RN, CCDS Admit Date: 02/02/2020 05:25:00 PM Patient Name: Bruce Borja Visit Number: [id number] Discharge Date: ATTENTION: The Clinical Documentation Specialists (CDI) and [facility] Coding Staff appreciate your assistance in clarifying documentation. Please respond to the clarification below the line at the bottom and electronically sign. The CDI & [facility] Coding staff will review the response and follow-up if needed. Please note: Queries are made part of the Legal Health Record. If you have any questions, please contact the author of this message via ITS. Dr. Johnson Jas Bacteremia documented in the consult on 02/03. Please provide further specificity of the bacteremia if indicated. Patient history/risk factors: Heart Failure, Diabetes Mellitus, Hypertension, Clinical Indicators: 69-year-old male present on 02/01 with complaints of abdominal pain, left-side flank pain and vomiting. He was ruled in for a large left-sided kidney stone. Initial white count was normal and subsequent white count of 13.4 and 16.2 02/01 Vital signs: 128/77 102 20 99.9 94 % RA 02/02 WBC: 13.4, 02/03 WBC 16.2 02/03 Left Shift Neutrophils 13.45 Blood Culture: Strep agalactiae (group b) 02/02 Urine culture: Strep agalactiae (group b) 02/03 Chest x-ray: Showed mild bibasilar infiltrates correlate for atelectasis or early pneumonia. 02/03 Internal Medicine Progress note: "Positive blood cultures/sepsis: On Zosyn and Vanco added with consult ID." 02/04 Cardio progress note: "Sepsis;" "Troponin elevation secondary fluid overload, sepsis and oxygen supply-demand mismatch. Treatment: Ventolin Inhalation RT q 6 hrs Rocephin 2 gm iv q 24 hrs Vancomycin 2000 mg iv pharm to dose Zosyn 3.375 mg IV q 8 hrs 02/02-02/03 Bacteremia is considered a lab finding. Please clarify if that lab finding is clinical indicator of a more definitive medical diagnosis such as: Sepsis (was it present on admission) Bacteremia with Sepsis secondary to UTI (POA) Bacteremia, sepsis ruled out Infectious Process, please specify: Other, please specify Unable to determine (Last Revision: March 2017) _Bacteremia with sepsis secondary to urinary tract infection MTDD
--- NOTE | 2020-02-05 15:38 | P.PN ---
Subjective Patient is seen in follow for acute kidney injury. Renal function is improving. Maintained on oral Lasix. Denies chest pain or shortness of breath. Currently on antibiotics for group B strep bacteremia and UTI. No vomiting or diarrhea. Good urine output. Vital signs are stable. General: The patient appeared well nourished and normally developed. HEENT: Head exam is unremarkable. Neck is without jugular venous distension. LUNGS: Breath sounds decreased. HEART: Rate and Rhythm are regular. ABDOMEN: Soft, nontender. Obese. EXTREMITITES: No edema. Objective - Vital Signs Vital signs: Vital Signs Temp 97.3 F L 02/05/20 11:31 Pulse 59 L 02/05/20 11:31 Resp 18 02/05/20 11:31 BP 153/84 02/05/20 11:31 Pulse Ox 93 L 02/05/20 11:31 Intake & Output 02/04/20 02/05/20 02/05/20 18:59 06:59 18:59 Intake Total 600 290 Output Total 900 1025 Balance -300 -735 Weight 149.459 kg Intake: Intake, IV Titration 600 Amount Piperacillin-Tazobactam 3 100 .375 gm In Sodium Chloride 0.9% 100 ml @ 25 mls/hr IVPB Q8HR JE[facility]RE Rx# :[id number] Vancomycin 2,000 mg In 500 Sodium Chloride 0.9% 500 ml 500 ml @ 167 mls/hr IVPB Q24H JEAN PIERRE Rx#: [id number] Oral 290 Output: Urine 900 1025 Other: Voiding Method Urinal Urinal Urinal # Voids 2 - Labs CBC & Chem 7: 02/05/20 06:50 02/05/20 06:50 Labs: Abnormal Lab Results - Last 24 Hours (Table) 02/04/20 02/04/20 02/05/20 Range/Units 17:09 21:14 06:50 WBC 15.5 H (3.8-10.6) k/uL Hgb 12.2 L (13.0-17.5) gm/dL Hct 38.3 L (39.0-53.0) % Neutrophils # 12.7 H (1.3-7.7) k/uL Lymphocytes # 0.8 L (1.0-4.8) k/uL Sodium (137-145) mmol/L BUN (9-20) mg/dL Creatinine (0.66-1.25) mg/dL Glucose (74-99) mg/dL POC Glucose (mg/dL) 161 H 147 H (75-99) mg/dL Calcium (8.4-10.2) mg/dL AST (17-59) U/L Total Protein (6.3-8.2) g/dL Albumin (3.5-5.0) g/dL 02/05/20 02/05/20 02/05/20 Range/Units 06:50 07:14 11:19 WBC (3.8-10.6) k/uL Hgb (13.0-17.5) gm/dL Hct (39.0-53.0) % Neutrophils # (1.3-7.7) k/uL Lymphocytes # (1.0-4.8) k/uL Sodium 136 L (137-145) mmol/L BUN 62 H (9-20) mg/dL Creatinine 1.63 H (0.66-1.25) mg/dL Glucose 146 H (74-99) mg/dL POC Glucose (mg/dL) 151 H 142 H (75-99) mg/dL Calcium 6.9 L (8.4-10.2) mg/dL AST 182 H (17-59) U/L Total Protein 5.6 L (6.3-8.2) g/dL Albumin 2.6 L (3.5-5.0) g/dL Microbiology - Last 24 Hours (Table) 02/03/20 08:28 Blood Culture Gram Stain - Preliminary Blood Blood Culture - Preliminary Strep agalactiae - (group b) 02/03/20 13:25 Urine Culture - Final Urine,Voided Strep agalactiae - (group b) Assessment and Plan Plan: Assessment: 1. Acute kidney injury versus chronic kidney disease. Creatinine peaked at 3.16 this admission is 1.63 today. Unknown baseline renal function. No hydronephrosis noted on kidney ultrasound. 2. Left ureteral stone status post cystoscopy with left double-J stent placement. 3. Insulin-dependent diabetes mellitus. 4. Proteinuria. Most likely secondary to underlying diabetic kidney disease. UPC 0.9 g. Further workup outpatient. 5. Benign hypertension. Stable. 6. Hypocalcemia secondary to acute kidney injury. Corrected calcium 7.9. 7. Acute diastolic CHF with ejection fraction of 55-60%. Plan: Maintain Lasix. Discontinued metformin as GFR is less than 30. Continue to monitor renal function and urine output. Patient will need to follow up outpatient for CKD care.
--- NOTE | 2020-02-05 16:38 | PN ---
PROGRESS NOTE DATE OF SERVICE: 02/05/2020 REASON FOR FOLLOWUP: agalactiae bacteremia with complicated UTI. INTERVAL HISTORY: The patient is currently afebrile. The patient is feeling better. Breathing comfortably. Denies having any chest pain, shortness of breath or cough. Abdominal pain has improved. No nausea, no vomiting or diarrhea. PHYSICAL EXAMINATION: Blood pressure is 153/84 with a pulse of 59, temperature is 97.3, he is 93% on 4 L nasal cannula. General description is an elderly male, lying in bed in no distress. RESPIRATORY SYSTEM: Unlabored breathing, clear to auscultation anteriorly. HEART: S1, S2. Regular rate and rhythm. ABDOMEN: Soft, no tenderness. LABS: Hemoglobin is 12.1, white count of 15.5, BUN of 52, creatinine 1.63. DIAGNOSTIC IMPRESSION AND PLAN: Patient with Streptococcus agalactiae bacteremia complicated UTI, status post cystoscopy and double-J catheter placement, stent placement. Patient is covered with Rocephin 2 g daily. Follow up repeat blood cultures and monitor clinical course closely. MMODL / IJN: [id number] /
[2020-02-05 16:46] LABS: Glucose,Whole Blood 142 mg/dL (75-99)
[2020-02-05] MEDS: INSULIN DETEMIR (LEVEMIR) 100 UNIT/ML SYR SQ SCH (17:25)
[2020-02-05 20:16] LABS: Glucose,Whole Blood 171 mg/dL (75-99)
[2020-02-05] MEDS: FUROSEMIDE 10 MG/ML 4 ML VIAL IV SCH (20:24)
[2020-02-05] MEDS: ATORVASTATIN 80 MG TAB PO SCH (20:24)
[2020-02-06] MEDS: ALBUTEROL NEBULIZED 2.5 MG/3 ML INHALATION PRN ×4 (04:51→19:44)
[2020-02-06] MEDS ORDERED: FUROSEMIDE 10 MG/ML 4 ML VIAL IV STA (05:28)
[2020-02-06 05:32] LABS: Basophils # (A) 0.2 k/uL (0-0.2); Basophils % (A) 1 %; Eosinophils # (A) 0.2 k/uL (0-0.7); Eosinophils % (A) 1 %; HCT 39.5 % (39.0-53.0); HGB 12.6 gm/dL (13.0-17.5); Lymphocytes # (A) 0.6 k/uL (1.0-4.8); Lymphocytes % (A) 3 %; MCH 27.8 pg (25.0-35.0); MCHC 31.8 g/dL (31.0-37.0); MCV 87.2 fL (80.0-100.0); Monocytes # (A) 1.2 k/uL (0-1.0); Monocytes % (A) 7 %; Neutrophils # (A) 15.2 k/uL (1.3-7.7); Neutrophils % (A) 84 %; Platelet Count 328 k/uL (150-450); RBC 4.52 m/uL (4.30-5.90); RDW 14.8 % (11.5-15.5)
[2020-02-06 05:42] LABS: Calcium 7.4 mg/dL (8.4-10.2); Magnesium 1.7 mg/dL (1.6-2.3); Potassium 3.3 mmol/L (3.5-5.1)
--- NOTE | 2020-02-06 06:25 | XR ---
EXAMINATION TYPE: XR chest 1V portable DATE OF EXAM: 02/06/2020 COMPARISON: 02/04/2020 HISTORY: Short of breath TECHNIQUE: Single view FINDINGS: There is some infiltrate behind the heart in the left lower lobe. There is no heart failure seen. Heart appears enlarged. IMPRESSION: Left lower lobe infiltrate and atelectasis probably not changed compared to last exam. No heart failure.
[2020-02-06 07:13] LABS: Glucose,Whole Blood 136 mg/dL (75-99)
[2020-02-06] MEDS: PANTOPRAZOLE 40 MG TABLET PO SCH (07:49)
[2020-02-06] MEDS: TAMSULOSIN 0.4 MG CAP.ER.24H PO SCH (07:49)
[2020-02-06] MEDS: DILTIAZEM CD 240 MG CAP.ER.24H PO SCH (07:49)
[2020-02-06] MEDS: ISOSORBIDE MONONITRATE ER 30 MG TAB.ER.24H PO SCH (07:50)
[2020-02-06] MEDS: allopurinoL 300 MG TAB PO SCH (07:50)
[2020-02-06] MEDS: FUROSEMIDE 10 MG/ML 4 ML VIAL IV SCH ×2 (07:50→23:03)
[2020-02-06] MEDS: buPROPion 75 MG TAB PO SCH (07:50)
[2020-02-06] MEDS: glipiZIDE 5 MG TAB PO SCH ×2 (07:50→23:02)
[2020-02-06] MEDS: atenoloL 50 MG TAB PO SCH (07:50)
--- NOTE | 2020-02-06 09:50 | P.PN ---
Subjective Progress Note Date: 02/06/20 69 year-old morbidly obese male one of Dr. Kemp with past medical history of CAD, CHF, hypertension, obstructive sleep apnea and chronic edema was known to have previous history of kidney stone who was in the emergency room on for severe left-sided flank pain was diagnosed with large kidney stone measure 7 mm. Patient was in to see Dr. Garrett on Sunday and was scheduled to have surgery on Sunday. Patient return to emergency department today with severe intractable pain with nausea not been able to tolerate anything orally patient was seen and a Profore admission by Dr. Dhillon urology to treat his symptoms. His kidney function is down with creatinine up to 3.0 significant decline from few days earlier. Patient was started on IV hydration and pain management and possibly will be going for surgery tomorrow. 02/02 patient seen resting in bed this morning, plan for ureterscopy today with urology. Labs were reviewed, white blood cells 13.4, hemoglobin 12.3, sodium 135, BUNs 52, creatinine 3.16, consult in place for nephrology to see patient. Calcium 6.3, and replaced by a nephrology. Patient is making adequate urine. Will order urine and blood cultures, patient started on Zosyn IV. Vital signs are stable, patient remains afebrile pulse 89, blood pressure 133/70, patient pu lse ox 92% on 2 L nasal cannula. Renal ultrasound found no distinct abnormality seen, no evidence of hydronephrosis. 02/03: Patient seen today sitting on edge of bed, appears to be more short of br eath today, requiring O2 at 4 L via nasal cannula satting 90%. Patient is afebrile, pulse rate 96, blood pressure 165/71. Blood cultures did show gram- positive cocci in chains. Vancomycin added along with Zosyn and infectious disease consult. We will do chest x-ray hep-locked the patient, give 40 IV Lasix 1 and labs are ordered. White blood cell count 16.2 hemoglobin 12.9 BUN/creatinine creatinine have improved creatinine 2.43 today. Troponins came back elevated at 0.454 this morning. Cardiology was ordered for consult along with echo. Nephrology remains on the case. We'll continue to monitor patient closely. Chest x-ray showed mild bibasilar infiltrates correlate for atelectasis or early pneumonia 02/04: Patient appears to be more comfortable today, O2 remains at 4 L via nasal cannula, satting 90%. We will give patient an additional 40 of IV Lasix today. Patient is afebrile vital signs are stable. White blood cells 15.5, hemoglobin 12.2, sodium 136, BUN 62, creatinine down to 1.63, calcium 6.9 today, second troponin was 0.306 yesterday. Cardiology is on the case, echo revealed EF was 55-60%, moderate LVH mild MR and TR. May require stress test for further workup. Blood cultures were positive for strep aglactiae, Dr Mark. Switch patient to Rocephin 2 g daily. Discussed with patient plan to go to rehab when discharged, and patient was agreeable to this. 02/05: Patient seen this morning denies any complaints, oxygen remains on 4 L via nasal cannula satting 93%. Lungs sounds improved and patient was short of breath. Will continue to work with PT and OT, plan for discharge to rehab likely Sunday. White blood cells today were 18.0 hemoglobin 12.6, BUN 50, creatinine 1.3, and blood sugars are stable. Patient remains on Rocephin IV with ID on the case along with cardio, nephrology. Chest x-ray from today shows left lower lobe infiltrate and atelectasis no change from prior exam. We'll continue to follow patient along with urology. Review of Systems CONSTITUTIONAL: Well-developed, EYES: No icterus sclerae, no conjunctivitis. EARS, NOSE, MOUTH, THROAT, and FACE: No sore throat, lymphadenopathy, carotid bruits or deformity. RESPIRATORY: Mild shortness of breath . CARDIOVASCULAR: Positive PND and orthopnea no angina. GASTROINTESTINAL: No Abd pain, Nausea or vomiting, no Diarrhea or constipation, No GI Bleed, no distention or masses. GENITOURINARY: Positive large sided left side kidney stone mild BPH symptoms m ild hematuria. Patient reports has not passed the stone yet. INTEGUMENT/BREAST: Negative for any muscular injury with mild osteoarthritis.. HEMATOLOGIC/LYMPHATIC: Negative for bleed or purpura. MUSCULOSKELTAL: Negative for Myalgia or arthralgia. NEURLOGICAL: No LOC, Sz or syncope, blurred vision dizziness or abnormality.. BEHAVIORAL/PSYCH: Negative. ENDOCRINE: Negative. Assessment General Appearance: Alert, cooperative, mild shortness of breath, morbidly obese Neck HEENT: Supple, no lymphadenopathy, no thyroid enlargement, no carotid bruits. Lungs: Decreased breath some bilateral rhonchi, crackles positive Chest Wall: Decrease expansion with deep inspiration no tenderness and no deformity was found on exam, no costochondral pain or discomfort. Heart: Regular rate and rhythm, S1, S2 normal, no murmur, rub or gallop. Back: Symmetric, no curvature, ROM normal, positive left-sided CVA tenderness. Abdomen: Soft, positive bowel sounds active all four quadrants, no masses, no organomegaly. Significant discomfort in the left side all the way down to the left lower quadrant. Extremities: Extremities normal, atraumatic, no cyanosis, positive edema. Pulses: 2+ and symmetric. Skin: Skin color, texture, tugor normal, no rashes or lesions. Neurologic: Alert oriented x3 cranial nerves II through XII intact, no motor deficit, generalized weakness. Objective - Vital Signs Vital signs: Vital Signs Temp 97.5 F L 02/06/20 04:27 Pulse 68 02/06/20 08:52 Resp 26 H 02/06/20 05:30 BP 178/81 02/06/20 04:27 Pulse Ox 93 L 02/06/20 05:30 Intake & Output 02/05/20 02/06/20 02/06/20 18:59 06:59 18:59 Intake Total 290 Output Total 1000 475 900 Balance -1000 -185 -900 Intake: Oral 290 Output: Urine 1000 475 900 Other: Voiding Method Urinal Urinal Urinal Incontinent Incontinent # Voids 1 - Labs CBC & Chem 7: 02/06/20 05:09 02/06/20 05:09 Labs: Abnormal Lab Results - Last 24 Hours (Table) 02/05/20 02/05/20 02/05/20 Range/Units 11:19 16:45 20:14 WBC (3.8-10.6) k/uL Hgb (13.0-17.5) gm/dL Neutrophils # (1.3-7.7) k/uL Lymphocytes # (1.0-4.8) k/uL Monocytes # (0-1.0) k/uL Potassium (3.5-5.1) mmol/L BUN (9-20) mg/dL Creatinine (0.66-1.25) mg/dL Glucose (74-99) mg/dL POC Glucose (mg/dL) 142 H 142 H 171 H (75-99) mg/dL Calcium (8.4-10.2) mg/dL 02/06/20 02/06/20 02/06/20 Range/Units 05:09 05:09 07:08 WBC 18.0 H (3.8-10.6) k/uL Hgb 12.6 L (13.0-17.5) gm/dL Neutrophils # 15.2 H (1.3-7.7) k/uL Lymphocytes # 0.6 L (1.0-4.8) k/uL Monocytes # 1.2 H (0-1.0) k/uL Potassium 3.3 L (3.5-5.1) mmol/L BUN 50 H (9-20) mg/dL Creatinine 1.30 H (0.66-1.25) mg/dL Glucose 133 H (74-99) mg/dL POC Glucose (mg/dL) 136 H (75-99) mg/dL Calcium 7.4 L (8.4-10.2) mg/dL Microbiology - Last 24 Hours (Table) 02/03/20 08:28 Blood Culture Gram Stain - Final Blood Blood Culture - Final Strep agalactiae - (group b) Assessment and Plan Plan: Assessment: 1 severe abdominal pain not manageable at home: Patient was admitted to the hospital by urology, continue pain management with morphine sulfate 4 mg every 4 hours continue to watch his urine output. 2 large left sided kidney stone measure 7 the [place]: and affecting the kidney function, ultrasound was negative for hydronephrosis. Patient had double J stent placed yesterday by urology, will likely need this surgically removed per Dr. Ortiz after infection has resolved 3 atherosclerotic heart disease: Patient seeing cardiology regular basis seen Dr. Medrano recently, Positive troponin and cardiology consult added, likely to fluid overload echo showed no motion abnormalities. 4 acute kidney injury with acute kidney failure: Improving nephrology remains on the case. 5 CHF: Mostly systolic dysfunction, continue patient on furosemide atenolol and isosorbide. 6 type 2 diabetes: On Levemir and glipizide along with Accu-Chek with sliding scales coverage. Metformin was discontinued. 7 hypertension: Remain on atenolol 50 mg daily along with diltiazem 240 mg a day. 8 gout: Has been on Zyloprim with no flareup lately. 9 mild reactive airway: Has been on Ventolin nebulizer. 10 hyperlipidemia: Continue patient on atorvastatin 80 mg daily. 11 GI prophylaxis: Patient be continue on pantoprazole 40 mg a day. 12 DVT prophylaxis: After surgery patient be on heparin subcutaneous. 13. Bacteremia with leukocytosis: ID on the case switch patient to Rocephin IV. CODE STATUS: Full code. Dr. Ortiz thank you much for the consult if I can be any further help to please let me know. Discharge plan: Plan for discharge likely to rehab in the next few days Impression and plan of care have been directed as dictated by the signing physician. Ela Greenberg nurse practitioner acting as scribe for signing physician.
[2020-02-06] MEDS: POTASSIUM CHLORIDE ER 10 MEQ TAB.ER.PRT PO SCH (10:52)
[2020-02-06 11:57] LABS: Glucose,Whole Blood 172 mg/dL (75-99)
[2020-02-06] MEDS ORDERED: POTASSIUM CHLORIDE ER 20 MEQ TAB.ER PO STA (12:15)
--- NOTE | 2020-02-06 12:16 | P.PN ---
Subjective Patient is seen in follow for acute kidney injury. Renal function is improving. Maintained on oral Lasix. Denies chest pain or shortness of breath. Currently on antibiotics for group B strep bacteremia and UTI. No vomiting or diarrhea. Good urine output. Quite weak. Working with physical therapy. Vital signs are stable. General: The patient appeared well nourished and normally developed. HEENT: Head exam is unremarkable. Neck is without jugular venous distension. LUNGS: Breath sounds decreased. HEART: Rate and Rhythm are regular. ABDOMEN: Soft, nontender. Obese. EXTREMITITES: No edema. Objective - Vital Signs Vital signs: Vital Signs Temp 97.7 F 02/06/20 11:45 Pulse 64 02/06/20 11:45 Resp 26 H 02/06/20 11:45 BP 146/67 02/06/20 11:45 Pulse Ox 94 L 02/06/20 11:45 Intake & Output 02/05/20 02/06/20 02/06/20 18:59 06:59 18:59 Intake Total 290 Output Total 1000 475 900 Balance -1000 -185 -900 Intake: Oral 290 Output: Urine 1000 475 900 Other: Voiding Method Urinal Urinal Urinal Incontinent Incontinent # Voids 1 - Labs CBC & Chem 7: 02/06/20 05:09 02/06/20 05:09 Labs: Abnormal Lab Results - Last 24 Hours (Table) 02/05/20 02/05/20 02/06/20 Range/Units 16:45 20:14 05:09 WBC (3.8-10.6) k/uL Hgb (13.0-17.5) gm/dL Neutrophils # (1.3-7.7) k/uL Lymphocytes # (1.0-4.8) k/uL Monocytes # (0-1.0) k/uL Potassium 3.3 L (3.5-5.1) mmol/L BUN 50 H (9-20) mg/dL Creatinine 1.30 H (0.66-1.25) mg/dL Glucose 133 H (74-99) mg/dL POC Glucose (mg/dL) 142 H 171 H (75-99) mg/dL Calcium 7.4 L (8.4-10.2) mg/dL 02/06/20 02/06/20 02/06/20 Range/Units 05:09 07:08 11:49 WBC 18.0 H (3.8-10.6) k/uL Hgb 12.6 L (13.0-17.5) gm/dL Neutrophils # 15.2 H (1.3-7.7) k/uL Lymphocytes # 0.6 L (1.0-4.8) k/uL Monocytes # 1.2 H (0-1.0) k/uL Potassium (3.5-5.1) mmol/L BUN (9-20) mg/dL Creatinine (0.66-1.25) mg/dL Glucose (74-99) mg/dL POC Glucose (mg/dL) 136 H 172 H (75-99) mg/dL Calcium (8.4-10.2) mg/dL Microbiology - Last 24 Hours (Table) 02/03/20 08:28 Blood Culture Gram Stain - Final Blood Blood Culture - Final Strep agalactiae - (group b) Assessment and Plan Plan: Assessment: 1. Acute kidney injury versus chronic kidney disease. Creatinine peaked at 3.16 this admission is 1.3 today. Unknown baseline renal function. No hydronephrosis noted on kidney ultrasound. 2. Left ureteral stone status post cystoscopy with left double-J stent placement. 3. Insulin-dependent diabetes mellitus. 4. Proteinuria. Most likely secondary to underlying diabetic kidney disease. UPC 0.9 g. Further workup outpatient. 5. Benign hypertension. Stable. 6. Hypocalcemia secondary to acute kidney injury. Corrected calcium normal. 7. Acute diastolic CHF with ejection fraction of 55-60%. 8. Hypokalemia secondary to diuresis. Plan: Maintain Lasix. Discontinued metformin as GFR is less than 30. Continue to monitor renal function and urine output. Patient will need to follow up outpatient for CKD care. Replace potassium. 40 mEq today.
--- NOTE | 2020-02-06 14:33 | PN ---
PROGRESS NOTE DATE OF SERVICE: 02/06/2020 REASON FOR FOLLOWUP: 1. Streptococcus agalactiae bacteremia and UTI. 2. Persistent leukocytosis. INTERVAL HISTORY: Patient is currently afebrile. The patient is breathing comfortably. Denies having any chest pain. No shortness of breath or cough. No nausea, no vomiting. No abdominal pain or diarrhea. PHYSICAL EXAMINATION: Blood pressure is 146/67 with a pulse of 64, temperature is 97.7, 98% on 2 L nasal cannula. General description is an elderly male, lying in bed in no distress. RESPIRATORY SYSTEM: Unlabored breathing, clear to auscultation anteriorly. HEART: S1, S2. Regular rate and rhythm. ABDOMEN: Soft, no tenderness. LABS: Hemoglobin is 12, white count of 18,000, BUN of 15, creatinine 1.37. DIAGNOSTIC IMPRESSION AND PLAN: Patient with Streptococcus agalactiae bacteremia, source likely urine culture is positive for the same pathogen; however, despite being on Zosyn, white count remains to be elevated. Will switch him over to cefazolin 2 g p.o. 8, repeat blood and urine cultures and repeat CBC tomorrow. MMODL / IJN: [id number] /
[2020-02-06] MEDS: ceFAZolin 3 GM in SODIUM CHLORIDE 0.9% 100 ML IVPB SCH ×2 (14:50→23:13)
[2020-02-06] MEDS: INSULIN DETEMIR (LEVEMIR) 100 UNIT/ML SYR SQ SCH (15:58)
[2020-02-06 17:01] LABS: Glucose,Whole Blood 149 mg/dL (75-99)
[2020-02-06 21:13] LABS: Glucose,Whole Blood 150 mg/dL (75-99)
[2020-02-06] MEDS: ATORVASTATIN 80 MG TAB PO SCH (23:02)
[2020-02-07] MEDS ORDERED: ONDANSETRON 4 MG/2 ML VIAL IVP PRN (04:10)
--- NOTE | 2020-02-07 05:02 | XR ---
EXAMINATION TYPE: XR abdomen 1V DATE OF EXAM: 02/07/2020 COMPARISON: 02/03/2020 HISTORY: Nausea and vomiting TECHNIQUE: 4 views FINDINGS: Exam limited by patient's size. There is left side ureteral stent. There is apparent multip le calculi in the left kidney. There is large gas-filled stomach. There is no evidence of free air. T here are some dilated loops of small bowel in the lower abdomen. IMPRESSION: Dilated small bowel in the lower abdomen could relate to mechanical small bowel obstructi on. Small bowel is increased compared to last exam especially over the left lower quadrant.
[2020-02-07 07:15] LABS: Glucose,Whole Blood 165 mg/dL (75-99)
[2020-02-07 07:18] LABS: Calcium 7.7 mg/dL (8.4-10.2); Potassium 3.5 mmol/L (3.5-5.1)
[2020-02-07] MEDS: ceFAZolin 3 GM in SODIUM CHLORIDE 0.9% 100 ML IVPB SCH (08:54)
[2020-02-07] MEDS: FUROSEMIDE 10 MG/ML 4 ML VIAL IV SCH (09:39)
[2020-02-07] MEDS: atenoloL 50 MG TAB PO SCH (10:10)
[2020-02-07] MEDS: DILTIAZEM CD 240 MG CAP.ER.24H PO SCH (10:10)
[2020-02-07] MEDS: buPROPion 75 MG TAB PO SCH (10:10)
[2020-02-07 11:19] LABS: Glucose,Whole Blood 127 mg/dL (75-99)
--- NOTE | 2020-02-07 12:48 | PN ---
PROGRESS NOTE Patient is seen for followup for acute kidney injury. His renal function continues to improve. Creatinine is down to 1.23. PHYSICAL EXAMINATION: Blood pressure is 188/88, heart rate 65 per minute, patient is afebrile. Examination of the heart S1, S2. Examination of the lungs, bilateral breath sounds are heard. Abdomen is soft, nontender, obese. Exam of lower extremities show no significant edema. 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 LABS: Show sodium 141, potassium 3.5, chloride 97, CO2 is 33, BUN 47, creatinine 1.23. ASSESSMENT: 1. Acute kidney injury currently significantly improved. 2. Left ureteral stone, status post cystoscopy, left double-J stent placement. 3. Chronic kidney disease with proteinuria most likely diabetic kidney disease with fairly preserved GFR. Prior creatinine not available, however, lowest is 1.2, which is today. 4. Hypocalcemia associated with acute kidney injury now improved. 5. Acute diastolic congestive heart failure, ejection fraction 55% to 60%. PLAN: Repeat labs in a.m. Continue to avoid nephrotoxic agents. The patient is maintained on IV Lasix. We can switch it to p.o. tomorrow. MMODL / IJN: [id number] /
--- NOTE | 2020-02-07 13:39 | P.PN ---
Subjective Patient was seen and examined sitting up at the edge of the bed. His breathing is stable and improved from yesterday. However, earlier this morning he was quite dyspneic and required high flow oxygen. Repeat chest xray was ordered and revealed left lower lobe infiltrate and atelectasis unchanged from previous exam with no overt heart failure. He was given an additional dose of IV lasix 40 mg. At the time of my exam is sitting up at the edge of the bed with no active complaints of dyspnea he states he feels tired and weak. He denies chest pain. Blood pressure 178/81 heart rate 63 afebrile. Laboratory data reviewed, WBC 18, hemoglobin 12.6, platelets 328, sodium 140, potassium 3.3, creatinine 1.3 and magnesium 1.7. He is maintaining a negative fluid balance with decent urine output. 02/07/2020 He is seen and examined sitting up in bed. He is complaining of being thirsty and requesting water. An abdominal x-ray obtained yesterday revealed the possibility of dilated small bowel loops with a possible mechanical small bowel obstruction. Awaiting surgical opinion. Otherwise his breathing is stable. He denies worsening shortness of breath. He has no chest pain, dizziness or palpitations. Blood pressure1 888/88 with a heart rate of 65 afebrile maintaining oxygen saturation. Laboratory data reviewed, sodium 141, potassium 3.5, creatinine 1.23. GENERAL: Well-appearing, well-nourished and in no acute distress. NECK: Supple without JVD or thyromegaly. LUNGS: Respiration equal and unlabored. HEART: Regular rate and rhythm with systolic ejection murmur at the left sternal border, no rubs or gallops. S1 and S2 heard. EXTREMITIES: Normal range of motion, bilateral lower extremity trace pitting edema and erythema. No clubbing or cyanosis. Peripheral pulses intact. ASSESSMENT Nephrolithiasis Bacteremia Leukocytosis Sepsis Acute kidney injury Hypokalemia Acute on chronic diastolic heart failure, EF 55-60% with no wall motion abnormalities Troponin elevation secondary fluid overload, sepsis and oxygen supply-demand mismatch. No wall motion abnormalities on echo Hypertension Dyslipidemia FRANK Obstructive sleep apnea PLAN Await surgical opinion regarding small bowel obstruction. If he can tolerate oral we will change his lasix to PO. If NPO continue IV at daily dosing. Nurse Practitioner note has been reviewed, I agree with a documented findings and plan of care. Patient was seen and examined. Objective - Vital Signs Vital signs: Vital Signs Temp 97.6 F 02/07/20 11:29 Pulse 65 02/07/20 11:29 Resp 18 02/07/20 11:29 BP 188/88 02/07/20 11:29 Pulse Ox 96 02/07/20 11:29 Intake & Output 02/06/20 02/07/20 02/07/20 18:59 06:59 18:59 Intake Total 690 Output Total 1650 1750 Balance -1650 -1060 Weight 143.335 kg Intake: Intake, IV Titration 100 Amount ceFAZolin 3 gm In Sodium 100 Chloride 0.9% 100 ml @ 200 mls/hr IVPB Q8HR [facility] Rx#:[id number] Oral 590 Output: Urine 1650 1750 Uretheral (Gibbs) 200 Other: Voiding Method Urinal Indwelling Catheter Indwelling Catheter Incontinent - Labs CBC & Chem 7: 02/06/20 05:09 02/07/20 06:32 Labs: Abnormal Lab Results - Last 24 Hours (Table) 02/06/20 02/06/20 02/07/20 Range/Units 16:47 20:49 06:32 Chloride 97 L (98-107) mmol/L Carbon Dioxide 33 H (22-30) mmol/L BUN 47 H (9-20) mg/dL Glucose 151 H (74-99) mg/dL POC Glucose (mg/dL) 149 H 150 H (75-99) mg/dL Calcium 7.7 L (8.4-10.2) mg/dL 02/07/20 02/07/20 Range/Units 07:13 11:17 Chloride (98-107) mmol/L Carbon Dioxide (22-30) mmol/L BUN (9-20) mg/dL Glucose (74-99) mg/dL POC Glucose (mg/dL) 165 H 127 H (75-99) mg/dL Calcium (8.4-10.2) mg/dL Microbiology - Last 24 Hours (Table) 02/06/20 06:15 Blood Culture - Preliminary Blood No Growth after 24 hours 02/06/20 05:09 Blood Culture - Preliminary Blood No Growth after 24 hours
[2020-02-07] MEDS: PANTOPRAZOLE 40 MG TABLET PO SCH (13:40)
[2020-02-07] MEDS: polyethylene glycoL 3350 17 GM POWD.PACK PO SCH (13:40)
[2020-02-07] MEDS: glipiZIDE 5 MG TAB PO SCH ×2 (13:41→21:33)
[2020-02-07] MEDS: POTASSIUM CHLORIDE ER 10 MEQ TAB.ER.PRT PO SCH (13:44)
[2020-02-07] MEDS: allopurinoL 300 MG TAB PO SCH (13:44)
[2020-02-07] MEDS: TAMSULOSIN 0.4 MG CAP.ER.24H PO SCH (13:44)
[2020-02-07] MEDS: ISOSORBIDE MONONITRATE ER 30 MG TAB.ER.24H PO SCH (13:44)
[2020-02-07] MEDS: bisacodyL 10 MG SUPP RECTAL SCH (13:44)
--- NOTE | 2020-02-07 14:45 | P.GSCN ---
History of Present Illness Consult date: 02/07/20 History of present illness: 69-year-old male admitted secondary to obstructing painful left ureteral calculus. He is noted to be morbidly obese and has multiple medical comorbidities. He did undergo ureteroscopy which a stent placement. Stone manipulation was also performed at that time. During his admission, he has been seen by multiple specialists secondary to multiple medical issues. Overnight, the patient had an episode of nausea and emesis and secondary to this abdominal x-ray was performed. Abdominal x-ray did reveal dilated small bowel loops that were concerning for possible obstruction. The patient states that throughout the day he has had some flatus. He denies ever having any previous abdominal surgery. He states he has had a colonoscopy in the past but does not recall when this was performed. Currently, he denies any nausea. He has not had any emesis episodes since early this morning. He is nothing by mouth. Patient is not a great historian. Review of Systems All systems: negative Past Medical History Past Medical History: Heart Failure, Diabetes Mellitus, Hypertension, Myocardial Infarction (DC), Osteoarthritis (OA), Sleep Apnea/CPAP/BIPAP Additional Past Medical History / Comment(s): kidney stones, edema oli lower legs and feet, hx hematoma left leg, gout, Last Myocardial Infarction Date:: 1987 History of Any Multi-Drug Resistant Organisms: None Reported Past Surgical History: Heart Catheterization With Stent, Joint Replacement, Orthopedic Surgery Additional Past Surgical History / Comment(s): surgery to remove hematoma from left leg, attempted lithotripsy then cystoscopy 1987 to remove kidney stone, surgery for laceration left thumb, left knee replacement, one cardiac stent, Past Anesthesia/Blood Transfusion Reactions: Motion Sickness Date of Last Stent Placement:: 2009 Past Psychological History: No Psychological Hx Reported Smoking Status: Never smoker Past Alcohol Use History: None Reported Past Drug Use History: None Reported - Past Family History Mother Family Medical History: No Reported History Medications and Allergies Home Medications Medication Instructions Recorded Confirmed Type Albuterol Nebulized [Ventolin 2.5 mg INHALATION RT-Q6H PRN 02/02/20 02/02/20 History Nebulized] Allopurinol [Zyloprim] 300 mg PO DAILY 02/02/20 02/02/20 History Aspirin 325 mg PO DAILY 02/02/20 02/02/20 History Atenolol [Tenormin] 50 mg PO DAILY 02/02/20 02/02/20 History Atorvastatin [Lipitor] 80 mg PO HS 02/02/20 02/02/20 History Diltiazem HCl [Cartia Xt] 240 mg PO DAILY 02/02/20 02/02/20 History Furosemide [Lasix] 40 mg PO DAILY 02/02/20 02/02/20 History Ibuprofen [Motrin] 800 mg PO Q6HR PRN 02/02/20 02/02/20 History Insulin Glargine [Lantus] 27 unit SQ AC-SUPPER@1600 02/02/20 02/02/20 History Isosorbide Mononitrate [Isosorbide 30 mg PO DAILY 02/02/20 02/02/20 History Mononitrate ER] Nitroglycerin Sl Tabs [Nitrostat] 0.4 mg SUBLINGUAL Q5M PRN 02/02/20 02/02/20 History Potassium Chloride 10 meq PO Q48H 02/02/20 02/02/20 History buPROPion [Wellbutrin] 75 mg PO QAM 02/02/20 02/02/20 History glipiZIDE [Glucotrol] 5 mg PO BID 02/02/20 02/02/20 History metFORMIN HCL 1,000 mg PO BID 02/02/20 02/02/20 History Allergies Allergy/AdvReac Type Severity Reaction Status Date / Time No Known Allergies Allergy Verified 02/03/20 12:39 Surgical - Exam Osteopathic Statement: *. No significant issues noted on an osteopathic structural exam other than those noted in the History and Physical/Consult. Vital Signs Temp Pulse Resp BP Pulse Ox 99.9 F H 102 H 20 128/77 94 L 02/02/20 15:50 02/02/20 15:50 02/02/20 15:50 02/02/20 15:50 02/02/20 15:50 - General well developed, well nourished, no distress - Eyes PERRL - ENT normal mucosa, no hearing loss - Neck trachea midline - Respiratory normal respiratory effort - Abdomen Soft, nontender, mildly distended, no rebound, no guarding - Psychiatric oriented to time, oriented to person, oriented to place Results - Labs 02/06/20 05:09 02/07/20 06:32 Abnormal Lab Results - Last 24 Hours (Table) 02/06/20 02/06/20 02/07/20 Range/Units 16:47 20:49 06:32 Chloride 97 L (98-107) mmol/L Carbon Dioxide 33 H (22-30) mmol/L BUN 47 H (9-20) mg/dL Glucose 151 H (74-99) mg/dL POC Glucose (mg/dL) 149 H 150 H (75-99) mg/dL Calcium 7.7 L (8.4-10.2) mg/dL 02/07/20 02/07/20 Range/Units 07:13 11:17 Chloride (98-107) mmol/L Carbon Dioxide (22-30) mmol/L BUN (9-20) mg/dL Glucose (74-99) mg/dL POC Glucose (mg/dL) 165 H 127 H (75-99) mg/dL Calcium (8.4-10.2) mg/dL Microbiology - Last 24 Hours (Table) 02/06/20 06:15 Blood Culture - Preliminary Blood No Growth after 24 hours 02/06/20 05:09 Blood Culture - Preliminary Blood No Growth after 24 hours Diabetes panel 02/07/20 Range/Units 06:32 Sodium 141 (137-145) mmol/L Potassium 3.5 (3.5-5.1) mmol/L Chloride 97 L (98-107) mmol/L Carbon Dioxide 33 H (22-30) mmol/L BUN 47 H (9-20) mg/dL Creatinine 1.23 (0.66-1.25) mg/dL Glucose 151 H (74-99) mg/dL Calcium 7.7 L (8.4-10.2) mg/dL Calcium panel 02/07/20 Range/Units 06:32 Calcium 7.7 L (8.4-10.2) mg/dL Pituitary panel 02/07/20 Range/Units 06:32 Sodium 141 (137-145) mmol/L Potassium 3.5 (3.5-5.1) mmol/L Chloride 97 L (98-107) mmol/L Carbon Dioxide 33 H (22-30) mmol/L BUN 47 H (9-20) mg/dL Creatinine 1.23 (0.66-1.25) mg/dL Glucose 151 H (74-99) mg/dL Calcium 7.7 L (8.4-10.2) mg/dL Adrenal panel 02/07/20 Range/Units 06:32 Sodium 141 (137-145) mmol/L Potassium 3.5 (3.5-5.1) mmol/L Chloride 97 L (98-107) mmol/L Carbon Dioxide 33 H (22-30) mmol/L BUN 47 H (9-20) mg/dL Creatinine 1.23 (0.66-1.25) mg/dL Glucose 151 H (74-99) mg/dL Calcium 7.7 L (8.4-10.2) mg/dL Assessment and Plan Plan: 69-year-old male with recent nausea and vomiting episode and concern for bowel obstruction on abdominal x-ray - Clinically, the patient is having flatus and has not had any previous abdominal surgery. Findings an x-ray are more likely secondary to ileus based on bacteremia and current clinical picture. We will continue nothing by mouth status with ice chips at this time. It is okay to have sips of water with medications. We will repeat an abdominal x-ray in the morning to evaluate dilated bowel loops. If continued concern on XR in AM, patient will require a CT of the abdomen and pelvis with oral contrast for further evaluation.
--- NOTE | 2020-02-07 16:54 | PN ---
PROGRESS NOTE DATE OF SERVICE: 02/07/2020 REASON FOR FOLLOWUP: Streptococcus agalactiae bacteremia secondary to urinary source. INTERVAL HISTORY: Patient is currently afebrile, has been breathing comfortably. Patient developed some abdominal distention for which he did have x-rays with evidence of ileus. The patient denies any worsening abdominal pain at this point. Is wanting to eat. Currently on ice chips. No nausea, no vomiting. Did not have any bowel movement. PHYSICAL EXAMINATION: Blood pressure 118/80 with a pulse of 65, temperature 97.6. He is 92% on BiPAP. GENERAL DESCRIPTION: An elderly male lying in bed in no distress. RESPIRATORY SYSTEM: Unlabored breathing. Clear to auscultation anteriorly. HEART: S1, S2. Regular rate and rhythm. ABDOMEN: Soft, has been distended but no significant tenderness. LABS: BUN of 47, creatinine 1.23. DIAGNOSTIC IMPRESSION AND PLAN: Patient with Streptococcus agalactiae bacteremia secondary to urinary source in this patient who is status post cystoscopy with ureteral stent placement. Patient did have worsening of the white count, may be related to his ileus. Antibiotic adjusted to Unasyn. Will repeat his blood work tomorrow. Monitor clinical course closely. MMODL / IJN: [id number] /
[2020-02-07] MEDS: INSULIN DETEMIR (LEVEMIR) 100 UNIT/ML SYR SQ SCH (16:59)
[2020-02-07 17:10] LABS: Glucose,Whole Blood 147 mg/dL (75-99)
[2020-02-07] MEDS: AMPICILLIN-SULBACTAM 3 GM in SODIUM CHLORIDE 0.9% 100 ML IVPB SCH ×2 (17:48→23:11)
--- NOTE | 2020-02-07 17:55 | P.PN ---
Subjective Progress Note Date: 02/07/20 69 year-old morbidly obese male one of Dr. Kemp with past medical history of CAD, CHF, hypertension, obstructive sleep apnea and chronic edema was known to have previous history of kidney stone who was in the emergency room on for severe left-sided flank pain was diagnosed with large kidney stone measure 7 mm. Patient was in to see Dr. Garrett on Sunday and was scheduled to have surgery on Sunday. Patient return to emergency department today with severe intractable pain with nausea not been able to tolerate anything orally patient was seen and a Profore admission by Dr. Dhillon urology to treat his symptoms. His kidney function is down with creatinine up to 3.0 significant decline from few days earlier. Patient was started on IV hydration and pain management and possibly will be going for surgery tomorrow. 02/02 patient seen resting in bed this morning, plan for ureterscopy today with urology. Labs were reviewed, white blood cells 13.4, hemoglobin 12.3, sodium 135, BUNs 52, creatinine 3.16, consult in place for nephrology to see patient. Calcium 6.3, and replaced by a nephrology. Patient is making adequate urine. Will order urine and blood cultures, patient started on Zosyn IV. Vital signs are stable, patient remains afebrile pulse 89, blood pressure 133/70, patient pu lse ox 92% on 2 L nasal cannula. Renal ultrasound found no distinct abnormality seen, no evidence of hydronephrosis. 02/03: Patient seen today sitting on edge of bed, appears to be more short of br eath today, requiring O2 at 4 L via nasal cannula satting 90%. Patient is afebrile, pulse rate 96, blood pressure 165/71. Blood cultures did show gram- positive cocci in chains. Vancomycin added along with Zosyn and infectious disease consult. We will do chest x-ray hep-locked the patient, give 40 IV Lasix 1 and labs are ordered. White blood cell count 16.2 hemoglobin 12.9 BUN/creatinine creatinine have improved creatinine 2.43 today. Troponins came back elevated at 0.454 this morning. Cardiology was ordered for consult along with echo. Nephrology remains on the case. We'll continue to monitor patient closely. Chest x-ray showed mild bibasilar infiltrates correlate for atelectasis or early pneumonia 02/04: Patient appears to be more comfortable today, O2 remains at 4 L via nasal cannula, satting 90%. We will give patient an additional 40 of IV Lasix today. Patient is afebrile vital signs are stable. White blood cells 15.5, hemoglobin 12.2, sodium 136, BUN 62, creatinine down to 1.63, calcium 6.9 today, second troponin was 0.306 yesterday. Cardiology is on the case, echo revealed EF was 55-60%, moderate LVH mild MR and TR. May require stress test for further workup. Blood cultures were positive for strep aglactiae, Dr Mark. Switch patient to Rocephin 2 g daily. Discussed with patient plan to go to rehab when discharged, and patient was agreeable to this. 02/05: Patient seen this morning denies any complaints, oxygen remains on 4 L via nasal cannula satting 93%. Lungs sounds improved and patient was short of breath. Will continue to work with PT and OT, plan for discharge to rehab likely Sunday. White blood cells today were 18.0 hemoglobin 12.6, BUN 50, creatinine 1.3, and blood sugars are stable. Patient remains on Rocephin IV with ID on the case along with cardio, nephrology. Chest x-ray from today shows left lower lobe infiltrate and atelectasis no change from prior exam. We'll continue to follow patient along with urology. 01/28 Patient examined bedside. Deep breath. Patient was found to have an episode of bronchitis and vomiting for in the morning. X-ray of the abdomen was positive for dilated small bowel was concerning for obstruction versus ileus. Patient was placed on nothing by mouth. surgery was consulted. On evaluation this morning patient denies any nausea or abdominal pain. He does endorse flat is but doesn't did not have any bowel movement for the past 1 week. Bowel regimen initiated with the a Dulcolax suppository to help with total output. Surgery suggest ileus rather than obstruction. Repeat abdominal x-ray tomorrow morning. Continue patient on nothing by mouth with ice chips medication with small sips Review of Systems CONSTITUTIONAL: Well-developed, EYES: No icterus sclerae, no conjunctivitis. EARS, NOSE, MOUTH, THROAT, and FACE: No sore throat, lymphadenopathy, carotid bruits or deformity. RESPIRATORY: Mild shortness of breath improved . CARDIOVASCULAR: Positive PND and orthopnea no angina. 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 GENITOURINARY: Positive large sided left side kidney stone status post stent placement mild BPH symptoms mild hematuria. Patient reports has not passed the stone yet. INTEGUMENT/BREAST: Negative for any muscular injury with mild osteoarthritis.. HEMATOLOGIC/LYMPHATIC: Negative for bleed or purpura. MUSCULOSKELTAL: Negative for Myalgia or arthralgia. NEURLOGICAL: No LOC, Sz or syncope, blurred vision dizziness or abnormality.. BEHAVIORAL/PSYCH: Negative. ENDOCRINE: Negative. Objective - Vital Signs Vital signs: Vital Signs Temp 97.6 F 02/07/20 11:29 Pulse 65 02/07/20 11:29 Resp 18 02/07/20 11:29 BP 188/88 02/07/20 11:29 Pulse Ox 96 02/07/20 11:29 Intake & Output 02/06/20 02/07/20 02/07/20 18:59 06:59 18:59 Intake Total 690 Output Total 1650 1750 Balance -1650 -1060 Weight 143.335 kg Intake: Intake, IV Titration 100 Amount ceFAZolin 3 gm In Sodium 100 Chloride 0.9% 100 ml @ 200 mls/hr IVPB Q8HR [facility] Rx#:[id number] Oral 590 Output: Urine 1650 1750 Uretheral (Gibbs) 200 Other: Voiding Method Urinal Indwelling Catheter Indwelling Catheter Incontinent - Exam General Appearance: Alert, cooperative, mild shortness of breath, morbidly obese Neck HEENT: Supple, no lymphadenopathy, no thyroid enlargement, no carotid bruits. Lungs: Decreased breath some bilateral rhonchi, crackles positive Chest Wall: Decrease expansion with deep inspiration no tenderness and no de formity was found on exam, no costochondral pain or discomfort. Heart: Regular rate and rhythm, S1, S2 normal, no murmur, rub or gallop. Back: Symmetric, no curvature, ROM normal, positive left-sided CVA tenderness. Abdomen: Soft, bowel sounds are hypoactive in all quadrant no masses, no organomegaly. Extremities: Extremities normal, atraumatic, no cyanosis, positive edema. Pulses: 2+ and symmetric. Skin: Skin color, texture, tugor normal, no rashes or lesions. Neurologic: Alert oriented x3 cranial nerves II through XII intact, no motor deficit, generalized weakness. - Labs CBC & Chem 7: 02/06/20 05:09 02/07/20 06:32 Labs: Abnormal Lab Results - Last 24 Hours (Table) 02/06/20 02/07/20 02/07/20 Range/Units 20:49 06:32 07:13 Chloride 97 L (98-107) mmol/L Carbon Dioxide 33 H (22-30) mmol/L BUN 47 H (9-20) mg/dL Glucose 151 H (74-99) mg/dL POC Glucose (mg/dL) 150 H 165 H (75-99) mg/dL Calcium 7.7 L (8.4-10.2) mg/dL 02/07/20 02/07/20 Range/Units 11:17 17:09 Chloride (98-107) mmol/L Carbon Dioxide (22-30) mmol/L BUN (9-20) mg/dL Glucose (74-99) mg/dL POC Glucose (mg/dL) 127 H 147 H (75-99) mg/dL Calcium (8.4-10.2) mg/dL Microbiology - Last 24 Hours (Table) 02/06/20 06:15 Blood Culture - Preliminary Blood No Growth after 24 hours 02/06/20 05:09 Blood Culture - Preliminary Blood No Growth after 24 hours Assessment and Plan Plan: 1 severe abdominal pain secondary to obstructive ureteric stone not manageable at home: Patient was admitted to the hospital by urology, status post double-J stent on 02/02 continue pain management with morphine sulfate 4 mg every 6 hours continue to watch his urine output. 2 large left sided kidney stone measure 7 mm and affecting the kidney function, ultrasound was negative for hydronephrosis. Patient had double J stent placed on 02/02 by urology, will likely need this surgically removed per Dr. Ortiz after infection has resolved 3 atherosclerotic heart disease: Patient seeing cardiology regular basis seen Dr. Medrano recently, Positive troponin and cardiology consult added, likely to fluid overload echo showed no motion abnormalities. 4 acute kidney injury with acute kidney failure: Improving nephrology remains on the case. 5 CHF: Mostly systolic dysfunction, continue patient on furosemide atenolol and isosorbide. 6 type 2 diabetes: On Levemir and glipizide along with Accu-Chek with sliding scales coverage. Metformin was discontinued. 7 hypertension: Remain on atenolol 50 mg daily along with diltiazem 240 mg a day. 8 gout: Has been on Zyloprim with no flareup lately. 9 mild reactive airway: Has been on Ventolin nebulizer. 10 hyperlipidemia: Continue patient on atorvastatin 80 mg daily. 11 GI prophylaxis: Patient be continue on pantoprazole 40 mg a day. 12 DVT prophylaxis: After surgery patient be on heparin subcutaneous. 13. Bacteremia with leukocytosis: ID on the case switch patient to Rocephin IV. 14. Acute ileus abdominal x-ray ordered for tomorrow. Continue patient nothing by mouth at except ice chips and medication if no improvement we'll consider computed tomography scan with and withoutoral and ivcontrast CODE STATUS: Full code. Discharge plan: Plan for discharge likely to rehab in the next few days
[2020-02-07 21:12] LABS: Glucose,Whole Blood 129 mg/dL (75-99)
[2020-02-07] MEDS: ATORVASTATIN 80 MG TAB PO SCH (21:33)
[2020-02-08] MEDS: AMPICILLIN-SULBACTAM 3 GM in SODIUM CHLORIDE 0.9% 100 ML IVPB SCH ×4 (05:10→23:44)
[2020-02-08 07:21] LABS: Glucose,Whole Blood 141 mg/dL (75-99)
[2020-02-08 07:27] LABS: Basophils # (A) 0.1 k/uL (0-0.2); Basophils % (A) 0 %; Eosinophils # (A) 0.3 k/uL (0-0.7); Eosinophils % (A) 2 %; HCT 42.2 % (39.0-53.0); HGB 13.3 gm/dL (13.0-17.5); Lymphocytes # (A) 0.9 k/uL (1.0-4.8); Lymphocytes % (A) 5 %; MCH 28.6 pg (25.0-35.0); MCHC 31.5 g/dL (31.0-37.0); MCV 90.5 fL (80.0-100.0); Mean Platelet Volume 7.4; Monocytes # (A) 1.1 k/uL (0-1.0); Monocytes % (A) 5 %; Neutrophils # (A) 17.3 k/uL (1.3-7.7); Neutrophils % (A) 87 %; Platelet Count 458 k/uL (150-450); RBC 4.66 m/uL (4.30-5.90); RDW 14.8 % (11.5-15.5)
[2020-02-08 07:36] LABS: Calcium 7.9 mg/dL (8.4-10.2); Potassium 3.8 mmol/L (3.5-5.1)
[2020-02-08] MEDS: TAMSULOSIN 0.4 MG CAP.ER.24H PO SCH (07:52)
[2020-02-08] MEDS: PANTOPRAZOLE 40 MG TABLET PO SCH (07:52)
[2020-02-08] MEDS: atenoloL 50 MG TAB PO SCH (07:52)
[2020-02-08] MEDS: ALBUTEROL NEBULIZED 2.5 MG/3 ML INHALATION PRN (07:52)
[2020-02-08] MEDS: allopurinoL 300 MG TAB PO SCH (08:30)
[2020-02-08] MEDS: buPROPion 75 MG TAB PO SCH (08:30)
[2020-02-08] MEDS: DILTIAZEM CD 240 MG CAP.ER.24H PO SCH (08:30)
[2020-02-08] MEDS ORDERED: FUROSEMIDE 10 MG/ML 4 ML VIAL IV SCH (09:00)
--- NOTE | 2020-02-08 09:13 | P.PN ---
Subjective Progress Note Date: 02/08/20 Patient seen and examined at bedside. Had a large bowel movement last night. States he is continuing to have flatus. Denies nausea or vomiting. Objective - Vital Signs Vital signs: Vital Signs Temp 97.9 F 02/08/20 04:16 Pulse 66 02/08/20 04:16 Resp 19 02/08/20 04:16 BP 165/83 02/08/20 04:16 Pulse Ox 95 02/08/20 04:16 Intake & Output 02/07/20 02/08/20 02/08/20 18:59 06:59 18:59 Intake Total 520 Output Total 1200 Balance -680 Weight 141.067 kg Intake: Intake, IV Titration 200 Amount Ampicillin-Sulbactam 3 gm 200 In Sodium Chloride 0.9% 100 ml @ 200 mls/hr IVPB Q6HR [facility] Rx#:[id number] Oral 320 Output: Urine 1200 Other: Voiding Method Indwelling Catheter Indwelling Catheter Indwelling Catheter # Bowel Movements 1 - Constitutional General appearance: Present: cooperative, no acute distress - Respiratory Details: No difficulty with respiration - Gastrointestinal Gastrointestinal Comment(s): Soft, mildly distended, less distended than yesterday, nontender, no rebound, no guarding - Psychiatric Psychiatric: Present: A&O x's 3 - Labs CBC & Chem 7: 02/08/20 06:54 02/08/20 06:54 Labs: Abnormal Lab Results - Last 24 Hours (Table) 02/07/20 02/07/20 02/07/20 Range/Units 11:17 17:09 20:50 WBC (3.8-10.6) k/uL Plt Count (150-450) k/uL Neutrophils # (1.3-7.7) k/uL Lymphocytes # (1.0-4.8) k/uL Monocytes # (0-1.0) k/uL Carbon Dioxide (22-30) mmol/L BUN (9-20) mg/dL Glucose (74-99) mg/dL POC Glucose (mg/dL) 127 H 147 H 129 H (75-99) mg/dL Calcium (8.4-10.2) mg/dL 02/08/20 02/08/20 02/08/20 Range/Units 06:54 06:54 07:10 WBC 20.0 H (3.8-10.6) k/uL Plt Count 458 H (150-450) k/uL Neutrophils # 17.3 H (1.3-7.7) k/uL Lymphocytes # 0.9 L (1.0-4.8) k/uL Monocytes # 1.1 H (0-1.0) k/uL Carbon Dioxide 32 H (22-30) mmol/L BUN 45 H (9-20) mg/dL Glucose 159 H (74-99) mg/dL POC Glucose (mg/dL) 141 H (75-99) mg/dL Calcium 7.9 L (8.4-10.2) mg/dL Microbiology - Last 24 Hours (Table) 02/06/20 06:15 Blood Culture - Preliminary Blood No Growth after 48 hours 02/06/20 05:09 Blood Culture - Preliminary Blood No Growth after 48 hours Assessment and Plan Plan: 69-year-old male with recent nausea and vomiting episode and concern for bowel obstruction on abdominal x-ray - Patient appears to be improving. He has had bowel function with bowel movement and gas passage. He is less distended and denies any nausea or vomiting. Based on these clinical improvements, we will begin the patient on clear liquid diet. We will cancel imaging for today as he is clinically improving.
[2020-02-08] MEDS: ISOSORBIDE MONONITRATE ER 30 MG TAB.ER.24H PO SCH (09:14)
[2020-02-08] MEDS: glipiZIDE 5 MG TAB PO SCH (09:14)
[2020-02-08] MEDS: POTASSIUM CHLORIDE ER 10 MEQ TAB.ER.PRT PO SCH (09:14)
[2020-02-08] MEDS: bisacodyL 10 MG SUPP RECTAL SCH (09:14)
[2020-02-08] MEDS: polyethylene glycoL 3350 17 GM POWD.PACK PO SCH (09:14)
[2020-02-08 11:45] LABS: Glucose,Whole Blood 153 mg/dL (75-99)
--- NOTE | 2020-02-08 14:04 | XR ---
EXAMINATION TYPE: XR abdomen 1V DATE OF EXAM: 02/08/2020 COMPARISON: 02/07/2020 HISTORY: NG tube placement TECHNIQUE: Upright AP abdomen FINDINGS: There is placement of a nasogastric tube with the tip in left upper quadrant of the abdomen . This is within the air-filled stomach region. Dilated small bowel loops are evident within the abdo men. Stent is present on the left. IMPRESSION: 1. NG tube placement with the tip in the region of the left upper quadrant. 2. Multiple dilated air-filled small bowel loops within the [id number].
--- NOTE | 2020-02-08 14:25 | P.PN ---
Subjective Patient was seen and examined sitting up in bed. His breathing has improved significantly and he denies any further shortness of breath. Unfortunately, he is now vomiting. There is some question of possible bowel obstruction, however he has had 2 bowel movements in the previous 24 hours. Surgery is following. Blood pressure 186/80 heart rate 70 afebrile maintaining oxygen saturation on nasal cannula. He is currently on a clear liquid diet. Laboratory data reviewed, WBC 20, hemoglobin 13.3, platelets 458, sodium 144, potassium 3.8, creatinine 1.14. GENERAL: Well-appearing, well-nourished and in no acute distress. NECK: Supple without JVD or thyromegaly. LUNGS: Respiration equal and unlabored. HEART: Regular rate and rhythm with systolic ejection murmur at the left sternal border, no rubs or gallops. S1 and S2 heard. EXTREMITIES: Normal range of motion, bilateral lower extremity trace pitting edema and erythema. No clubbing or cyanosis. Peripheral pulses intact. ASSESSMENT Nephrolithiasis Bacteremia Leukocytosis Sepsis Acute kidney injury Hypokalemia Acute on chronic diastolic heart failure, EF 55-60% with no wall motion abnor malities Troponin elevation secondary fluid overload, sepsis and oxygen supply-demand mismatch. No wall motion abnormalities on echo Hypertension Dyslipidemia FRANK Obstructive sleep apnea PLAN If he is tolerating oral medications continue to give antihypertensives as previously ordered however if he continues to vomit would use IV labetalol for blood pressure control. Nurse Practitioner note has been reviewed, I agree with a documented findings and plan of care. Patient was seen and examined. Objective - Vital Signs Vital signs: Vital Signs Temp 97.6 F 02/08/20 11:40 Pulse 70 02/08/20 11:40 Resp 20 02/08/20 11:40 BP 186/80 02/08/20 11:40 Pulse Ox 93 L 02/08/20 11:40 Intake & Output 02/07/20 02/08/20 02/08/20 18:59 06:59 18:59 Intake Total 520 Output Total 1200 900 Balance -680 -900 Weight 141.067 kg 141.521 kg Intake: Intake, IV Titration 200 Amount Ampicillin-Sulbactam 3 gm 200 In Sodium Chloride 0.9% 100 ml @ 200 mls/hr IVPB Q6HR [facility] Rx#:[id number] Oral 320 Output: Urine 1200 900 Other: Voiding Method Indwelling Catheter Indwelling Catheter Indwelling Catheter # Bowel Movements 1 - Labs CBC & Chem 7: 02/08/20 06:54 02/08/20 06:54 Labs: Abnormal Lab Results - Last 24 Hours (Table) 02/07/20 02/07/20 02/08/20 Range/Units 17:09 20:50 06:54 WBC 20.0 H (3.8-10.6) k/uL Plt Count 458 H (150-450) k/uL Neutrophils # 17.3 H (1.3-7.7) k/uL Lymphocytes # 0.9 L (1.0-4.8) k/uL Monocytes # 1.1 H (0-1.0) k/uL Carbon Dioxide (22-30) mmol/L BUN (9-20) mg/dL Glucose (74-99) mg/dL POC Glucose (mg/dL) 147 H 129 H (75-99) mg/dL Calcium (8.4-10.2) mg/dL 02/08/20 02/08/20 02/08/20 Range/Units 06:54 07:10 11:41 WBC (3.8-10.6) k/uL Plt Count (150-450) k/uL Neutrophils # (1.3-7.7) k/uL Lymphocytes # (1.0-4.8) k/uL Monocytes # (0-1.0) k/uL Carbon Dioxide 32 H (22-30) mmol/L BUN 45 H (9-20) mg/dL Glucose 159 H (74-99) mg/dL POC Glucose (mg/dL) 141 H 153 H (75-99) mg/dL Calcium 7.9 L (8.4-10.2) mg/dL Microbiology - Last 24 Hours (Table) 02/06/20 06:15 Blood Culture - Preliminary Blood No Growth after 48 hours 02/06/20 05:09 Blood Culture - Preliminary Blood No Growth after 48 hours
[2020-02-08 14:56] LABS: Basophils # (A) 0.1 k/uL (0-0.2); Basophils % (A) 0 %; Eosinophils # (A) 0.2 k/uL (0-0.7); Eosinophils % (A) 1 %; HCT 40.9 % (39.0-53.0); HGB 12.8 gm/dL (13.0-17.5); Lymphocytes # (A) 0.9 k/uL (1.0-4.8); Lymphocytes % (A) 5 %; MCH 28.2 pg (25.0-35.0); MCHC 31.4 g/dL (31.0-37.0); MCV 89.8 fL (80.0-100.0); Mean Platelet Volume 7.6; Monocytes # (A) 0.9 k/uL (0-1.0); Monocytes % (A) 5 %; Neutrophils # (A) 15.6 k/uL (1.3-7.7); Neutrophils % (A) 87 %; Platelet Count 491 k/uL (150-450); RBC 4.56 m/uL (4.30-5.90)
[2020-02-08 15:04] LABS: Calcium 7.9 mg/dL (8.4-10.2); Potassium 3.9 mmol/L (3.5-5.1)
[2020-02-08] MEDS: INSULIN DETEMIR (LEVEMIR) 100 UNIT/ML SYR SQ SCH (15:42)
[2020-02-08 17:03] LABS: Glucose,Whole Blood 138 mg/dL (75-99)
--- NOTE | 2020-02-08 17:07 | P.PN ---
Subjective Progress Note Date: 02/08/20 69 year-old morbidly obese male one of Dr. Kemp with past medical history of CAD, CHF, hypertension, obstructive sleep apnea and chronic edema was known to have previous history of kidney stone who was in the emergency room on for severe left-sided flank pain was diagnosed with large kidney stone measure 7 mm. Patient was in to see Dr. Garrett on Sunday and was scheduled to have surgery on Sunday. Patient return to emergency department today with severe intractable pain with nausea not been able to tolerate anything orally patient was seen and a Profore admission by Dr. Dhillon urology to treat his symptoms. His kidney function is down with creatinine up to 3.0 significant decline from few days earlier. Patient was started on IV hydration and pain management and possibly will be going for surgery tomorrow. 02/02 patient seen resting in bed this morning, plan for ureterscopy today with urology. Labs were reviewed, white blood cells 13.4, hemoglobin 12.3, sodium 135, BUNs 52, creatinine 3.16, consult in place for nephrology to see patient. Calcium 6.3, and replaced by a nephrology. Patient is making adequate urine. Will order urine and blood cultures, patient started on Zosyn IV. Vital signs are stable, patient remains afebrile pulse 89, blood pressure 133/70, patient pu lse ox 92% on 2 L nasal cannula. Renal ultrasound found no distinct abnormality seen, no evidence of hydronephrosis. 02/03: Patient seen today sitting on edge of bed, appears to be more short of br eath today, requiring O2 at 4 L via nasal cannula satting 90%. Patient is afebrile, pulse rate 96, blood pressure 165/71. Blood cultures did show gram- positive cocci in chains. Vancomycin added along with Zosyn and infectious disease consult. We will do chest x-ray hep-locked the patient, give 40 IV Lasix 1 and labs are ordered. White blood cell count 16.2 hemoglobin 12.9 BUN/creatinine creatinine have improved creatinine 2.43 today. Troponins came back elevated at 0.454 this morning. Cardiology was ordered for consult along with echo. Nephrology remains on the case. We'll continue to monitor patient closely. Chest x-ray showed mild bibasilar infiltrates correlate for atelectasis or early pneumonia 02/04: Patient appears to be more comfortable today, O2 remains at 4 L via nasal cannula, satting 90%. We will give patient an additional 40 of IV Lasix today. Patient is afebrile vital signs are stable. White blood cells 15.5, hemoglobin 12.2, sodium 136, BUN 62, creatinine down to 1.63, calcium 6.9 today, second troponin was 0.306 yesterday. Cardiology is on the case, echo revealed EF was 55-60%, moderate LVH mild MR and TR. May require stress test for further workup. Blood cultures were positive for strep aglactiae, Dr Mark. Switch patient to Rocephin 2 g daily. Discussed with patient plan to go to rehab when discharged, and patient was agreeable to this. 02/05: Patient seen this morning denies any complaints, oxygen remains on 4 L via nasal cannula satting 93%. Lungs sounds improved and patient was short of breath. Will continue to work with PT and OT, plan for discharge to rehab likely Sunday. White blood cells today were 18.0 hemoglobin 12.6, BUN 50, creatinine 1.3, and blood sugars are stable. Patient remains on Rocephin IV with ID on the case along with cardio, nephrology. Chest x-ray from today shows left lower lobe infiltrate and atelectasis no change from prior exam. We'll continue to follow patient along with urology. 01/28 Patient examined bedside. Deep breath. Patient was found to have an episode of bronchitis and vomiting for in the morning. X-ray of the abdomen was positive for dilated small bowel was concerning for obstruction versus ileus. Patient was placed on nothing by mouth. surgery was consulted. On evaluation this morning patient denies any nausea or abdominal pain. He does endorse flat is but doesn't did not have any bowel movement for the past 1 week. Bowel regimen initiated with the a Dulcolax suppository to help with total output. Surgery suggest ileus rather than obstruction. Repeat abdominal x-ray tomorrow morning. Continue patient on nothing by mouth with ice chips medication with small sips 02/07 patient examined bedside. Continues to feel well. Patient was doing well earlier and had multiple bowel movements this morning and yesterday. Patient was started on clear liquid diet. Patient could not tolerate the clear liquid diet and started vomiting. NG tube was placed and patient admitted into canister immediately. Patient was also noted to have dark secretions coming out of his NG tube concerning for GI bleed. Nurse asked to obtain a fecal occult and repeat hemoglobin in the evening. Vitals otherwise stable temp is 97.6 pulse 70 blood pressure 186/80, oxygen saturation 93% on 2 L. Hold patient's glipizide and Lantus since patient's nothing by mouth continue insulin sliding scale. Patient is currently able to take his medication normally without any difficulty to be due to abdominal x-ray tomorrow Review of Systems CONSTITUTIONAL: Well-developed, EYES: No icterus sclerae, no conjunctivitis. EARS, NOSE, MOUTH, THROAT, and FACE: No sore throat, lymphadenopathy, carotid bruits or deformity. RESPIRATORY: Mild shortness of breath improved . CARDIOVASCULAR: Positive PND and orthopnea no angina. GASTROINTESTINAL: No Abd pain, multiple episodes of vomiting and bowel movements, no Dipositive for constipation, No GI Bleed, no distention or masses. GENITOURINARY: Positive large sided left side kidney stone status post stent placement mild BPH symptoms mild hematuria. Patient reports has not passed the stone yet. INTEGUMENT/BREAST: Negative for any muscular injury with mild osteoarthritis.. HEMATOLOGIC/LYMPHATIC: Negative for bleed or purpura. MUSCULOSKELTAL: Negative for Myalgia or arthralgia. NEURLOGICAL: No LOC, Sz or syncope, blurred vision dizziness or abnormality.. BEHAVIORAL/PSYCH: Negative. ENDOCRINE: Negative. Objective - Vital Signs Vital signs: Vital Signs Temp 97.6 F 02/08/20 11:40 Pulse 70 02/08/20 11:40 Resp 20 02/08/20 11:40 BP 186/80 02/08/20 11:40 Pulse Ox 93 L 02/08/20 11:40 Intake & Output 02/07/20 02/08/20 02/08/20 18:59 06:59 18:59 Intake Total 520 Output Total 1200 900 Balance -680 -900 Weight 141.067 kg 141.521 kg Intake: Intake, IV Titration 200 Amount Ampicillin-Sulbactam 3 gm 200 In Sodium Chloride 0.9% 100 ml @ 200 mls/hr IVPB Q6HR [facility] Rx#:[id number] Oral 320 Output: Urine 1200 900 Other: Voiding Method Indwelling Catheter Indwelling Catheter Indwelling Catheter # Bowel Movements 1 1 - Exam General Appearance: Appears tired cooperative, cooperative, morbidly obese Neck HEENT: Supple, no lymphadenopathy, no thyroid enlargement, no carotid bruits. Lungs: Decreased breath some bilateral rhonchi, crackles positive Chest Wall: Decrease expansion with deep inspiration no tenderness and no deformity was found on exam, no costochondral pain or discomfort. Heart: Regular rate and rhythm, S1, S2 normal, no murmur, rub or gallop. Back: Symmetric, no curvature, ROM normal, positive left-sided CVA tenderness. Abdomen: Soft, bowel sounds are hypoactive in all quadrant no masses, no organomegaly. Extremities: Extremities normal, atraumatic, no cyanosis, positive edema. Pulses: 2+ and symmetric. Skin: Skin color, texture, tugor normal, no rashes or lesions. Neurologic: Alert oriented x3 cranial nerves II through XII intact, no motor deficit, generalized weakness. - Labs CBC & Chem 7: 02/08/20 14:13 02/08/20 14:13 Labs: Abnormal Lab Results - Last 24 Hours (Table) 02/07/20 02/07/20 02/08/20 Range/Units 17:09 20:50 06:54 WBC 20.0 H (3.8-10.6) k/uL Hgb (13.0-17.5) gm/dL Plt Count 458 H (150-450) k/uL Neutrophils # 17.3 H (1.3-7.7) k/uL Lymphocytes # 0.9 L (1.0-4.8) k/uL Monocytes # 1.1 H (0-1.0) k/uL Carbon Dioxide (22-30) mmol/L BUN (9-20) mg/dL Glucose (74-99) mg/dL POC Glucose (mg/dL) 147 H 129 H (75-99) mg/dL Calcium (8.4-10.2) mg/dL 02/08/20 02/08/20 02/08/20 Range/Units 06:54 07:10 11:41 WBC (3.8-10.6) k/uL Hgb (13.0-17.5) gm/dL Plt Count (150-450) k/uL Neutrophils # (1.3-7.7) k/uL Lymphocytes # (1.0-4.8) k/uL Monocytes # (0-1.0) k/uL Carbon Dioxide 32 H (22-30) mmol/L BUN 45 H (9-20) mg/dL Glucose 159 H (74-99) mg/dL POC Glucose (mg/dL) 141 H 153 H (75-99) mg/dL Calcium 7.9 L (8.4-10.2) mg/dL 02/08/20 02/08/20 Range/Units 14:13 14:13 WBC 18.0 H (3.8-10.6) k/uL Hgb 12.8 L (13.0-17.5) gm/dL Plt Count 491 H (150-450) k/uL Neutrophils # 15.6 H (1.3-7.7) k/uL Lymphocytes # 0.9 L (1.0-4.8) k/uL Monocytes # (0-1.0) k/uL Carbon Dioxide 32 H (22-30) mmol/L BUN 45 H (9-20) mg/dL Glucose 171 H (74-99) mg/dL POC Glucose (mg/dL) (75-99) mg/dL Calcium 7.9 L (8.4-10.2) mg/dL Microbiology - Last 24 Hours (Table) 02/06/20 06:15 Blood Culture - Preliminary Blood No Growth after 48 hours 02/06/20 05:09 Blood Culture - Preliminary Blood No Growth after 48 hours Assessment and Plan Plan: 1 severe abdominal pain secondary to obstructive ureteric stone not manageable at home: Patient was admitted to the hospital by urology, status post double-J stent on 02/02 continue pain management with morphine sulfate 4 mg every 6 hours continue to watch his urine output. 2 large left sided kidney stone measure 7 mm and affecting the kidney function, ultrasound was negative for hydronephrosis. Patient had double J stent placed on 02/02 by urology, will likely need this surgically removed per Dr. Ortiz after infection has resolved 3 atherosclerotic heart disease: Patient seeing cardiology regular basis seen Dr. Medrano recently, Positive troponin and cardiology consult added, likely to fluid overload echo showed no motion abnormalities. 4 acute kidney injury with acute kidney failure: Improving nephrology remains on the case. 5 CHF: Mostly systolic dysfunction, continue patient on furosemide atenolol and isosorbide. 6 type 2 diabetes: On Levemir and glipizide along with Accu-Chek with sliding scales coverage. Metformin was discontinued. 7 hypertension: Remain on atenolol 50 mg daily along with diltiazem 240 mg a day. 8 gout: Has been on Zyloprim with no flareup lately. 9 mild reactive airway: Has been on Ventolin nebulizer. 10 hyperlipidemia: Continue patient on atorvastatin 80 mg daily. 11 GI prophylaxis: Patient be continue on pantoprazole 40 mg a day. 12 DVT prophylaxis: After surgery patient be on heparin subcutaneous. 13. Bacteremia with leukocytosis: ID on the case switch patient to Rocephin IV. 14. Acute ileus abdominal x-ray ordered for tomorrow. Currently nothing by mouth. Continues to have tinuincreased output from the NG tube .Patient is nothing by mouth except ice chips and medication if no improvement we'll consider computed tomography scan with and without oral and ivcontrast CODE STATUS: Full code. Discharge plan: Plan for discharge likely to rehab in the next few days
--- NOTE | 2020-02-08 17:07 | PN ---
PROGRESS NOTE Patient is seen for followup for acute kidney injury. His renal function has improved. Creatinine is down to 1.14 today from peak of 3.0 on initial admission. Currently patient is maintained on oral Lasix. PHYSICAL EXAMINATION: On examination today, blood pressure was 186/80, heart rate 70 per minute, he is afebrile. Examination of the heart S1, S2. Examination of the abdomen reveals it to be soft, obese, nontender. Examination of lower extremities shows edema, trace bilaterally. Chronic skin changes noted. INSPECTOR PRECISION exam grossly intact. LABS: Show sodium 144, potassium 3.8, chloride 102, CO2 is 31, BUN 45, creatinine 1.14, hemoglobin 13.3. ASSESSMENT: 1. Acute kidney injury currently significantly improved. 2. Left ureteral stone status post cystoscopy, left double-J stent placement. 3. Chronic kidney disease with proteinuria, most likely diabetic kidney disease. Creatinine currently as low as 1.1 mg/dL. 4. Acute diastolic congestive heart failure, ejection fraction 55-60%. PLAN: Continue with current dose of oral Lasix. Monitor electrolytes. Replace potassium. MMODL / IJN: [id number] /
[2020-02-08 18:50] LABS: Basophils # (A) 0.2 k/uL (0-0.2); Basophils % (A) 1 %; Eosinophils # (A) 0.3 k/uL (0-0.7); Eosinophils % (A) 2 %; HCT 42.1 % (39.0-53.0); HGB 13.1 gm/dL (13.0-17.5); Hypochromasia Slight; Lymphocytes # (A) 0.9 k/uL (1.0-4.8); Lymphocytes % (A) 5 %; MCH 28.4 pg (25.0-35.0); MCHC 31.2 g/dL (31.0-37.0); MCV 91.1 fL (80.0-100.0); Mean Platelet Volume 7.5; Monocytes # (A) 0.9 k/uL (0-1.0); Monocytes % (A) 5 %; Neutrophils # (A) 16.3 k/uL (1.3-7.7); Neutrophils % (A) 87 %; Platelet Count 441 k/uL (150-450); RBC 4.62 m/uL (4.30-5.90); RDW 15.1 % (11.5-15.5); WBC 18.8 k/uL (3.8-10.6)
[2020-02-08 20:52] LABS: Glucose,Whole Blood 138 mg/dL (75-99)
[2020-02-08] MEDS: ATORVASTATIN 80 MG TAB PO SCH (21:37)
[2020-02-08] MEDS: INSULIN ASPART (NovoLOG) 100 UNIT/ML VIAL SQ SCH (21:44)
--- NOTE | 2020-02-09 01:19 | PN ---
PROGRESS NOTE DATE OF SERVICE: 02/08/2020 REASON FOR FOLLOWUP: 1. Streptococcus agalactiae bacteremia secondary to urinary source. 2. Ileus. INTERVAL HISTORY: The patient is currently afebrile, has been breathing comfortably. The patient did have an NG tube placed in for his ileus. The patient is requesting for some ice chips. No . Denies having any chest pain or shortness of breath or cough. No significant abdominal pain and no bowel movement. PHYSICAL EXAMINATION: Blood pressure 186/80 with a pulse of 70, temperature 97.6. He is 93% on 2 L nasal cannula. General description is an elderly male lying in bed in no distress. RESPIRATORY SYSTEM: Unlabored breathing, clear to auscultation anteriorly. HEART: S1, S2. Regular rate and rhythm. ABDOMEN: Soft. to be distended. No guarding. No rigidity. LABS: Hemoglobin is 12.8, white count 18, with a BUN of 45, creatinine is 1.23. Blood culture negative. DIAGNOSTIC IMPRESSION AND PLAN: Patient with Streptococcus agalactiae bacteremia secondary to complicated urinary tract infection status post cystoscopy and left ureteral stent placement. Now also evidence of ileus and may have contributed to some of his elevated white count. The patient is currently covered with Unasyn, white count showing a downward trend, to continue and will monitor his clinical course closely. MMODL / IJN: [id number] /
[2020-02-09 05:33] LABS: Glucose,Whole Blood 178 mg/dL (75-99)
[2020-02-09] MEDS: AMPICILLIN-SULBACTAM 3 GM in SODIUM CHLORIDE 0.9% 100 ML IVPB SCH ×4 (05:40→23:48)
[2020-02-09 07:05] LABS: Glucose,Whole Blood 173 mg/dL (75-99)
--- NOTE | 2020-02-09 08:09 | P.PN ---
Subjective Progress Note Date: 02/09/20 Patient seen and examined at bedside. Patient is very upset that he is not able to eat or drink. Yesterday, after examination, I did advance the patient to clear liquid diet due to his clinical picture. However, I was paged by the nurse that the patient did have 2 bilious emesis episodes prior to liquid intake. I did recommend placing a nasogastric tube at that time. Nasogastric tube did retrieve approximately 2.5 L of bilious fluid. Patient also did have 2 bowel movements after that fact. Objective - Vital Signs Vital signs: Vital Signs Temp 97.8 F 02/09/20 05:20 Pulse 58 L 02/09/20 05:20 Resp 20 02/09/20 05:20 BP 180/80 02/09/20 05:20 Pulse Ox 93 L 02/09/20 05:20 Intake & Output 02/08/20 02/09/20 02/09/20 18:59 06:59 18:59 Output Total 900 1550 Balance -900 -1550 Weight 141.521 kg 134.859 kg Output: Urine 900 1550 Uretheral (Gibbs) 900 Other: Voiding Method Indwelling Catheter Indwelling Catheter # Bowel Movements 1 - Constitutional General appearance: Present: morbidly obese, no acute distress - Gastrointestinal Gastrointestinal Comment(s): Soft, nontender, distended, no rebound, no guarding - Musculoskeletal Musculoskeletal: Present: generalized weakness - Psychiatric Psychiatric: Present: A&O x's 3 - Labs CBC & Chem 7: 02/08/20 18:28 02/08/20 14:13 Labs: Abnormal Lab Results - Last 24 Hours (Table) 02/08/20 02/08/20 02/08/20 Range/Units 11:41 14:13 14:13 WBC 18.0 H (3.8-10.6) k/uL Hgb 12.8 L (13.0-17.5) gm/dL Plt Count 491 H (150-450) k/uL Neutrophils # 15.6 H (1.3-7.7) k/uL Lymphocytes # 0.9 L (1.0-4.8) k/uL Carbon Dioxide 32 H (22-30) mmol/L BUN 45 H (9-20) mg/dL Glucose 171 H (74-99) mg/dL POC Glucose (mg/dL) 153 H (75-99) mg/dL Calcium 7.9 L (8.4-10.2) mg/dL 02/08/20 02/08/20 02/08/20 Range/Units 17:02 18:28 20:39 WBC 18.8 H (3.8-10.6) k/uL Hgb (13.0-17.5) gm/dL Plt Count (150-450) k/uL Neutrophils # 16.3 H (1.3-7.7) k/uL Lymphocytes # 0.9 L (1.0-4.8) k/uL Carbon Dioxide (22-30) mmol/L BUN (9-20) mg/dL Glucose (74-99) mg/dL POC Glucose (mg/dL) 138 H 138 H (75-99) mg/dL Calcium (8.4-10.2) mg/dL 02/09/20 02/09/20 Range/Units 05:26 06:55 WBC (3.8-10.6) k/uL Hgb (13.0-17.5) gm/dL Plt Count (150-450) k/uL Neutrophils # (1.3-7.7) k/uL Lymphocytes # (1.0-4.8) k/uL Carbon Dioxide (22-30) mmol/L BUN (9-20) mg/dL Glucose (74-99) mg/dL POC Glucose (mg/dL) 178 H 173 H (75-99) mg/dL Calcium (8.4-10.2) mg/dL Microbiology - Last 24 Hours (Table) 02/06/20 05:09 Blood Culture - Preliminary Blood No Growth after 72 hours 02/06/20 06:15 Blood Culture - Preliminary Blood No Growth after 48 hours Assessment and Plan Plan: 69-year-old male with recent nausea and vomiting episode and concern for bowel obstruction on abdominal x-ray - After nasogastric tube placement yesterday, patient did had over 2 L of output. He is very upset that he is not able to eat or drink. Due to the continued bowel function, this does appear to be an ileus. We will perform a CT of the abdomen and pelvis for confirmation based on the significant amount of bile retrieval on nasogastric placement along with abdominal distention. Further decisions to be made after CT. CT will be performed with oral contrast only based on his kidney disease.
[2020-02-09] MEDS: FUROSEMIDE 40 MG TAB PO SCH (08:27)
[2020-02-09] MEDS: PANTOPRAZOLE 40 MG TABLET PO SCH (08:27)
[2020-02-09] MEDS: POTASSIUM CHLORIDE ER 10 MEQ TAB.ER.PRT PO SCH (08:27)
[2020-02-09] MEDS: ISOSORBIDE MONONITRATE ER 30 MG TAB.ER.24H PO SCH (08:27)
[2020-02-09] MEDS: allopurinoL 300 MG TAB PO SCH (08:27)
[2020-02-09] MEDS: atenoloL 50 MG TAB PO SCH (08:27)
[2020-02-09] MEDS: IOPAMIDOL CONTRAST (ORAL USE) VIAL PO PRN ×2 (08:27→09:29)
[2020-02-09] MEDS: TAMSULOSIN 0.4 MG CAP.ER.24H PO SCH (08:27)
[2020-02-09] MEDS: bisacodyL 10 MG SUPP RECTAL SCH (08:27)
[2020-02-09] MEDS: buPROPion 75 MG TAB PO SCH (08:28)
[2020-02-09] MEDS: DILTIAZEM CD 240 MG CAP.ER.24H PO SCH (08:28)
--- NOTE | 2020-02-09 08:29 | CDI ---
Patient was septic on admission. Documentation Clarification Form Date: 02/09/2020 07:52:28 AM From: Maritza Houser RN, CCDS Admit Date: 02/02/2020 05:25:00 PM Patient Name: Bruce Borja Visit Number: [id number] Discharge Date: ATTENTION: The Clinical Documentation Specialists (CDI) and [facility] Coding Staff appreciate your assistance in clarifying documentation. Please respond to the clarification below the line at the bottom and electronically sign. The CDI & [facility] Coding staff will review the response and follow-up if needed. Please note: Queries are made part of the Legal Health Record. If you have any questions, please contact the author of this message via ITS. Dr. Eric Ortiz The patient presented with left kidney stone with increased pain. Sepsis is documented by, Cardiology, Internal Medicine and ID. Please render your opinion on the diagnosis and if you feel it was present on admission or not present on admission. 02/03 Internal Medicine Progress note: "Positive blood cultures/sepsis: On Zosyn and Vanco added with consult ID." 02/04 Cardio progress note: "Sepsis;" "Troponin elevation secondary fluid overload, sepsis and oxygen supply-demand mismatch. 02/04 ID: Bacteremia with sepsis secondary to urinary tract infection History/Risk Factors: Heart Failure, Diabetes Mellitus, Hypertension, Clinical Indicators: 69-year-old male present on 02/01 with complaints of abdominal pain, left-side flank pain and vomiting. He was ruled in for a large left-sided kidney stone. Initial white count was 9.6 and subsequent white count of 13.4 and 16.2. 02/02 post procedure diagnosis: Left ureteral calculus with obstruction and severe ureteral colic possible left pyelonepnrosis and urinary tract infection with infected stones. 02/01 Vital signs on admission: 128/77 102 20 99.9 94 % RA 02/02 WBC: 13.4, 02/03 WBC 16.2 02/03 Left Shift Neutrophils 13.45 Blood Culture: Strep agalactiae (group b) 02/02 Urine culture: Strep agalactiae (group b) 02/03 Chest x-ray: Showed mild bibasilar infiltrates correlate for atelectasis or early pneumonia. Treatment: 02/06 Current antibiotics: Unasyn 3 gm IV q6 hrs Ventolin Inhalation RT q 6 hrs Rocephin 2 gm IV q 24 hrs (now DC) Vancomycin 2000 mg iv pharm to dose Zosyn 3.375 mg IV q 8 hrs 02/02-02/03 (DC) In your professional opinion, please clarify if these findings signify one of the following conditions, whether the condition is: Bacteremia with Sepsis secondary to urinary tract infection present on admission Bacteremia with Sepsis secondary to urinary tract infection not present on admission Other, please specify Unable to determine SIRS Criteria (2 or more of the following may indicate SIRS): -Temperature < 96.8F (36C) or > 101.0F (38.3C) -Heart Rate > 90 bpm -Respiratory Rate > 20 breaths/min or PaCO2 < 32 mmHg -White Blood Cell Count > 12,000 or < 4,000 cells/mm3 or > 10% bands -Lactate >2.0 mmol/L (>4.0 is equivalent to septic shock) (Last Revision: September 2017) MTDD
[2020-02-09] MEDS: polyethylene glycoL 3350 17 GM POWD.PACK PO SCH (08:30)
[2020-02-09] MEDS: INSULIN ASPART (NovoLOG) 100 UNIT/ML VIAL SQ SCH ×3 (08:50→23:05)
--- NOTE | 2020-02-09 09:11 | CDI ---
Ileus likely due to sepsis, likely unrelated to the procedure. Documentation Clarification Form Date: 02/09/2020 08:30:58 AM From: Maritza Houser RN, CCDS Admit Date: 02/02/2020 05:25:00 PM Patient Name: Bruce Borja Visit Number: [id number] Discharge Date: ATTENTION: The Clinical Documentation Specialists (CDI) and [facility] Coding Staff appreciate your assistance in clarifying documentation. Please respond to the clarification below the line at the bottom and electronically sign. The CDI & [facility] Coding staff will review the response and follow-up if needed. Please note: Queries are made part of the Legal Health Record. If you have any questions, please contact the author of this message via ITS. Dr. Eric Ortiz 02/06 surgical consult document recent nausea and vomiting episode findings an x- ray are more likely secondary to ileus. Patients Admitting Diagnosis: Left ureteral calculus with obstruction and severe ureteral colic Post-Operative Diagnosis: Left ureteral calculus with obstruction and severe ureteral colic possible left pyelonepnrosis and urinary tract infection with infected stones. Procedure performed: Cystoscopy, Left ureteroscopy, Placement of 626 double-J catheter History/Risk Factors: Heart Failure, Diabetes Mellitus, Hypertension, Clinical Indicators: 69-year-old male present on 02/01 with complaints of abdominal pain, left-side flank pain and vomiting. He was ruled in for a large left-sided kidney stone. He is post Cystoscopy, left ureteroscopy, placement of 626 double-J catheter. On 02/06 it is documented by surgical consult that the patient had episode of nausea and emesis. X-ray did reveal dilated small bowel loops concern for bowel obstruction he is having flatus and has not had any previous abdominal surgery findings are more likely secondary to ileus. 02/06 Abdominal x-ray: Dilated small bowel in the lower abdomen could relate to mechanical Small bowel obstruction. Small bowel is increased compared to last exam especially over the left lower quadrant. Treatment: 9829 NPO with ice chips and medication 02/07 NGT Monitor abdominal x-ray (repeat 02/07 In order to accurately reflect this patients severity of illness, please clarify if the ileus documented in the surgical progress notes: -is a complication of surgical procedure -is an expected outcome of the surgical procedure -is related to co-morbid condition(s) of -Other please specify -Unable to determine (Last Revision: July 2019) MTDD
[2020-02-09 10:40] LABS: HCT 41.8 % (39.0-53.0); Hypochromasia Slight; MCH 28.1 pg (25.0-35.0); MCV 90.7 fL (80.0-100.0); Mean Platelet Volume 7.6; Platelet Count 544 k/uL (150-450); RBC 4.61 m/uL (4.30-5.90); WBC 19.9 k/uL (3.8-10.6)
[2020-02-09 11:44] LABS: Glucose,Whole Blood 149 mg/dL (75-99)
--- NOTE | 2020-02-09 14:14 | P.PN ---
Subjective Patient was seen and examined sitting up in bed. NG tube in in place. CT abd/pelvis performed and results pending. His breathing is stable. He denies chest pain,s shortness of breath, dizziness or palpitations. He complains of feeling hungry and states he feels like he can have a bowel movement. Blood pressure 146/81 heart rate 66 afebrile maintaining oxygen saturation on nasal cannula. GENERAL: Well-appearing, well-nourished and in no acute distress. NECK: Supple without JVD or thyromegaly. LUNGS: Respiration equal and unlabored. HEART: Regular rate and rhythm with systolic ejection murmur at the left sternal border, no rubs or gallops. S1 and S2 heard. EXTREMITIES: Normal range of motion, bilateral lower extremity trace pitting edema and erythema. No clubbing or cyanosis. Peripheral pulses intact. ASSESSMENT Nephrolithiasis Bacteremia Leukocytosis Sepsis Acute kidney injury Hypokalemia Acute on chronic diastolic heart failure, EF 55-60% with no wall motion abnormalities Troponin elevation secondary fluid overload, sepsis and oxygen supply-demand mismatch. No wall motion abnormalities on echo Hypertension Dyslipidemia FRANK Obstructive sleep apnea PLAN Continue current medical regimen. Breathing is stable, we will continue to follow as needed. Nurse Practitioner note has been reviewed, I agree with a documented findings and plan of care. Patient was seen and examined. Objective - Vital Signs Vital signs: Vital Signs Temp 98.1 F 02/09/20 11:21 Pulse 66 02/09/20 11:21 Resp 20 02/09/20 11:21 BP 146/81 02/09/20 11:21 Pulse Ox 90 L 02/09/20 11:21 Intake & Output 02/08/20 02/09/20 02/09/20 18:59 06:59 18:59 Output Total 900 1550 400 Balance -900 -1550 -400 Weight 141.521 kg 134.859 kg 136.985 kg Output: Urine 900 1550 400 Uretheral (Gibbs) 900 Other: Voiding Method Indwelling Catheter Indwelling Catheter Indwelling Catheter # Bowel Movements 1 - Labs CBC & Chem 7: 02/09/20 10:27 02/08/20 14:13 Labs: Abnormal Lab Results - Last 24 Hours (Table) 02/08/20 02/08/20 02/08/20 Range/Units 14:13 14:13 17:02 WBC 18.0 H (3.8-10.6) k/uL Hgb 12.8 L (13.0-17.5) gm/dL Plt Count 491 H (150-450) k/uL Neutrophils # 15.6 H (1.3-7.7) k/uL Lymphocytes # 0.9 L (1.0-4.8) k/uL Carbon Dioxide 32 H (22-30) mmol/L BUN 45 H (9-20) mg/dL Glucose 171 H (74-99) mg/dL POC Glucose (mg/dL) 138 H (75-99) mg/dL Calcium 7.9 L (8.4-10.2) mg/dL 02/08/20 02/08/20 02/09/20 Range/Units 18:28 20:39 05:26 WBC 18.8 H (3.8-10.6) k/uL Hgb (13.0-17.5) gm/dL Plt Count (150-450) k/uL Neutrophils # 16.3 H (1.3-7.7) k/uL Lymphocytes # 0.9 L (1.0-4.8) k/uL Carbon Dioxide (22-30) mmol/L BUN (9-20) mg/dL Glucose (74-99) mg/dL POC Glucose (mg/dL) 138 H 178 H (75-99) mg/dL Calcium (8.4-10.2) mg/dL 02/09/20 02/09/20 02/09/20 Range/Units 06:55 10:27 11:24 WBC 19.9 H (3.8-10.6) k/uL Hgb (13.0-17.5) gm/dL Plt Count 544 H (150-450) k/uL Neutrophils # (1.3-7.7) k/uL Lymphocytes # (1.0-4.8) k/uL Carbon Dioxide (22-30) mmol/L BUN (9-20) mg/dL Glucose (74-99) mg/dL POC Glucose (mg/dL) 173 H 149 H (75-99) mg/dL Calcium (8.4-10.2) mg/dL Microbiology - Last 24 Hours (Table) 02/06/20 06:15 Blood Culture - Preliminary Blood No Growth after 72 hours 02/06/20 05:09 Blood Culture - Preliminary Blood No Growth after 72 hours
--- NOTE | 2020-02-09 14:37 | CT ---
EXAMINATION TYPE: CT abdomen pelvis wo con DATE OF EXAM: 02/09/2020 COMPARISON: Abdominal radiograph 02/08/2020 HISTORY: Abdominal pain with distension. CT DLP: 2703.5 mGycm Automated exposure control for dose reduction was used. TECHNIQUE: Helical acquisition of images was performed from the lung bases through the pelvis. CONTRAST: Performed with Oral Contrast and without intravenous contrast. FINDINGS: LUNG BASES: Left lower lobe atelectasis. Calcified coronary artery disease. No pericardial or pleural effusions. LIVER: Too small to characterize hypodense lesion of the left lobe. BILIARY SYSTEM: No intrahepatic or extrahepatic biliary ductal dilatation. PANCREAS: No peripancreatic inflammation. SPLEEN: Not enlarged. ADRENALS: No nodules. KIDNEYS: Left-sided ureteral stent coiled proximally within the renal pelvis and distally within the urinary bladder. Numerous nonobstructing left-sided nephrolithiasis on the left. No right nephrolithi asis. No hydronephrosis or hydroureter bilaterally. BOWEL: Enteric tube distal tip and side-port within the stomach. The left lateral abdomen is incompl etely visualized due to patient body habitus. There are diffusely mildly dilated small bowel loops wi th air-fluid levels to the level of the terminal ileum. No evidence of bowel thickening or inflammati on of the visualized bowel loops. PERITONEUM: No free air is visualized. No free fluid. ADENOPATHY: No lymphadenopathy. PELVIS: Urinary bladder the compressed with Gibbs catheter. VASCULATURE: No abdominal aortic aneurysm. MUSCULOSKELETAL: Degenerative changes of the spine. Multilevel lung segment bridging osteophytosis a nteriorly. 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 The lumbar spine spin ous processes are closely approximated and enlarged, consistent with Baastrup's disease. IMPRESSION: 1. The lateral aspect of the left hemiabdomen is not visualized due to patient body habitus. 2. Diffusely mildly dilated small bowel loops with air-fluid levels. Findings may represent ileus, al though there is transition to decompressed bowel at the terminal ileum which may represent small cheryl l obstruction. 3. Numerous nonobstructing left nephrolithiasis with left ureteral stent. 4. Bridging osteophytosis likely represents diffuse idiopathic skeletal hyperostosis (DISH), Baastru p's disease, and ossification of the interspinous ligaments.
--- NOTE | 2020-02-09 14:57 | P.PN ---
Subjective Progress Note Date: 02/09/20 69 year-old morbidly obese male one of Dr. Kemp with past medical history of CAD, CHF, hypertension, obstructive sleep apnea and chronic edema was known to have previous history of kidney stone who was in the emergency room on for severe left-sided flank pain was diagnosed with large kidney stone measure 7 mm. Patient was in to see Dr. Garrett on Sunday and was scheduled to have surgery on Sunday. Patient return to emergency department today with severe intractable pain with nausea not been able to tolerate anything orally patient was seen and a Profore admission by Dr. Dhillon urology to treat his symptoms. His kidney function is down with creatinine up to 3.0 significant decline from few days earlier. Patient was started on IV hydration and pain management and possibly will be going for surgery tomorrow. 02/02 patient seen resting in bed this morning, plan for ureterscopy today with urology. Labs were reviewed, white blood cells 13.4, hemoglobin 12.3, sodium 135, BUNs 52, creatinine 3.16, consult in place for nephrology to see patient. Calcium 6.3, and replaced by a nephrology. Patient is making adequate urine. Will order urine and blood cultures, patient started on Zosyn IV. Vital signs are stable, patient remains afebrile pulse 89, blood pressure 133/70, patient pulse ox 92% on 2 L nasal cannula. Renal ultrasound found no distinct abnormality seen, no evidence of hydronephrosis. 02/03: Patient seen today sitting on edge of bed, appears to be more short of breath today, requiring O2 at 4 L via nasal cannula satting 90%. Patient is afebrile, pulse rate 96, blood pressure 165/71. Blood cultures did show gram- positive cocci in chains. Vancomycin added along with Zosyn and infectious disease consult. We will do chest x-ray hep-locked the patient, give 40 IV Lasix 1 and labs are ordered. White blood cell count 16.2 hemoglobin 12.9 BUN/creatinine creatinine have improved creatinine 2.43 today. Troponins came back elevated at 0.454 this morning. Cardiology was ordered for consult along with echo. Nephrology remains on the case. We'll continue to monitor patient closely. Chest x-ray showed mild bibasilar infiltrates correlate for atelectasis or early pneumonia 02/04: Patient appears to be more comfortable today, O2 remains at 4 L via nasal cannula, satting 90%. We will give patient an additional 40 of IV Lasix today. Patient is afebrile vital signs are stable. White blood cells 15.5, hemoglobin 12.2, sodium 136, BUN 62, creatinine down to 1.63, calcium 6.9 today, second troponin was 0.306 yesterday. Cardiology is on the case, echo revealed EF was 55-60%, moderate LVH mild MR and TR. May require stress test for further workup. Blood cultures were positive for strep aglactiae, Dr Mark. Switch patient to Rocephin 2 g daily. Discussed with patient plan to go to rehab when discharged, and patient was agreeable to this. 02/05: Patient seen this morning denies any complaints, oxygen remains on 4 L via nasal cannula satting 93%. Lungs sounds improved and patient was short of breath. Will continue to work with PT and OT, plan for discharge to rehab likely Sunday. White blood cells today were 18.0 hemoglobin 12.6, BUN 50, creatinine 1.3, and blood sugars are stable. Patient remains on Rocephin IV with ID on the case along with cardio, nephrology. Chest x-ray from today shows left lower lobe infiltrate and atelectasis no change from prior exam. We'll continue to follow patient along with urology. 01/28 Patient examined bedside. Deep breath. Patient was found to have an episode of bronchitis and vomiting for in the morning. X-ray of the abdomen was positive for dilated small bowel was concerning for obstruction versus ileus. Patient was placed on nothing by mouth. surgery was consulted. On evaluation this morning patient denies any nausea or abdominal pain. He does endorse flat is but doesn't did not have any bowel movement for the past 1 week. Bowel regimen initiated with the a Dulcolax suppository to help with total output. Surgery suggest ileus rather than obstruction. Repeat abdominal x-ray tomorrow morning. Continue patient on nothing by mouth with ice chips medication with small sips 02/07 patient examined bedside. Continues to feel well. Patient was doing well earlier and had multiple bowel movements this morning and yesterday. Patient was started on clear liquid diet. Patient could not tolerate the clear liquid diet and started vomiting. NG tube was placed and patient admitted into canister immediately. Patient was also noted to have dark secretions coming out of his NG tube concerning for GI bleed. Nurse asked to obtain a fecal occult and repeat hemoglobin in the evening. Vitals otherwise stable temp is 97.6 pulse 70 blood pressure 186/80, oxygen saturation 93% on 2 L. Hold patient's glipizide and Lantus since patient's nothing by mouth continue insulin sliding scale. Patient is currently able to take his medication normally without any difficulty to be due to abdominal x-ray tomorrow 02/08: Patient has been afebrile, heart rate 58, blood pressure 180/80, pulse ox 93% on 2 L nasal cannula. CPAP at bedside. Blood sugars are running between 130 and 178. Repeat hemoglobin last evening was 13.1 and white count 18.8. Patient is scheduled for CAT scan of the abdomen and pelvis today without contrastwhich revealed the lateral aspect of the left hemiabdomen is not visualized due to patient body habitus. Diffusely mildly dilated small bowel loops with air-fluid levels. Findings may represent ileus, although there is transitioned to decompress bowel and the terminal ileum which may represent small bowel obstruction. Numerous nonobstructing left nephrolithiasis with left ureteral stent. Patient states he passed gas last evening but has not had a bowel movement. He denies any abdominal tenderness. Repeat blood cultures are showing no growth at 72 hours. NG tube remains in place with return of green- brown colored fluid. Patient also has Gibbs catheter in place. Patient is not utilizing incentive spirometry. Patient is followed by multiple consultants. Patient also followed by PT and OT and required 2 people moderate assist sit to stand. Review of systems CONSTITUTIONAL: Denies fever, denies chills EYES: No icterus sclerae, no conjunctivitis. EARS, NOSE, MOUTH, THROAT, and FACE: No sore throat, lymphadenopathy, carotid bruits or deformity. RESPIRATORY: Mild shortness of breath improved . CARDIOVASCULAR: Positive PND and orthopnea no angina. GASTROINTESTINAL: No Abd pain, no abdominal tenderness, no vomiting and no bowel movements, No GI Bleed, no distention or masses. GENITOURINARY: Positive large sided left side kidney stone status post stent placement mild BPH symptoms mild hematuria. INTEGUMENT/BREAST: Negative for any muscular injury with mild osteoarthritis.. HEMATOLOGIC/LYMPHATIC: Negative for bleed or purpura. MUSCULOSKELTAL: Negative for Myalgia or arthralgia. NEURLOGICAL: No LOC, Sz or syncope, blurred vision dizziness or abnormality.. BEHAVIORAL/PSYCH: Negative. ENDOCRINE: Negative. Physical examination General Appearance: Appears tired cooperative, cooperative, morbidly obese Neck HEENT: Supple, no lymphadenopathy, no thyroid enlargement, no carotid bruits. NG tube in place Lungs: Decreased breath some bilateral rhonchi, crackles positive Chest Wall: Decrease expansion with deep inspiration no tenderness and no deformity was found on exam, no costochondral pain or discomfort. Heart: Regular rate and rhythm, S1, S2 normal, no murmur, rub or gallop. Back: Symmetric, no curvature, ROM normal, positive left-sided CVA tenderness. Abdomen: Soft, bowel sounds are hypoactive in all quadrant no masses, no organomegaly. Gibbs catheter in place Extremities: Extremities normal, atraumatic, no cyanosis, positive edema. Pulses: 2+ and symmetric. Skin: Skin color, texture, tugor normal, no rashes or lesions. Neurologic: Alert oriented x3 cranial nerves II through XII intact, no motor deficit, generalized weakness. Assessment and plan 1. Severe abdominal pain secondary to obstructive ureteric stone, status post double-J stent on 02/02 continue pain management with morphine sulfate 4 mg every 6 hours continue to watch his urine output. 2. Large left sided kidney stone measure 7 mm and affecting the kidney function, ultrasound was negative for hydronephrosis. Patient had double J stent placed on 02/02 by urology, will likely need this surgically removed per Dr. Ortiz after infection has resolved. 3. Atherosclerotic heart disease, follows with Dr. Medrano. 4. Acute kidney injury with chronic kidney disease, stable. Nephrology consult appreciated. 5. Acute on chronic diastolic heart failure with ejection fraction of 55-60%. Continue Lasix 40 mg oral daily, atenolol 50 mg daily, Imdur 30 mg daily. 6. Diabetes mellitus type 2. Levemir and glipizide on hold. Continue NovoLog scale for now while patient is nothing by mouth. Metformin was discontinued. 7. Hypertension: Remain on atenolol 50 mg daily along with diltiazem 240 mg a day. 8. Chronic gout. Continue allopurinol. 9. Mild reactive airway: Has been on Ventolin nebulizer. 10. Hyperlipidemia: Continue patient on atorvastatin 80 mg daily. 11. GI prophylaxis: Patient be continue on pantoprazole 40 mg a day. 12. DVT prophylaxis: After surgery patient be on heparin subcutaneous. 13. Streptococcal agalactia bacteremia secondary to a complicated urinary tract infection status post cystoscopy and left ureteral stent placement. Patient has been seen by Dr. Mark and currently on Unasyn. 14. Acute ileus abdominal x-ray ordered for tomorrow. Currently nothing by marzena th. Continues to have increased output from the NG tube. Patient is nothing by mouth except ice chips and medication. Patient is scheduled for CAT scan of the abdomen and pelvis without contrast today. 15. Troponin elevation secondary to fluid overload, sepsis and oxygen supply demand mismatch. Acute coronary syndrome ruled out by cardiology. 16. Obstructive sleep apnea. 17. Morbid obesity with BMI of 42. CODE STATUS: Full code. Discharge plan: [facility] once stabilized. Coronavirus testing ordered. Impression and plan of care have been directed as dictated by the signing physician. Jayne Garrido nurse practitioner acting as scribe for signing phys ician. Objective - Vital Signs Vital signs: Vital Signs Temp 97.8 F 02/09/20 05:20 Pulse 58 L 02/09/20 05:20 Resp 20 02/09/20 05:20 BP 180/80 02/09/20 05:20 Pulse Ox 93 L 02/09/20 05:20 Intake & Output 02/08/20 02/09/20 02/09/20 18:59 06:59 18:59 Output Total 900 1550 Balance -900 -1550 Weight 141.521 kg 134.859 kg Output: Urine 900 1550 Uretheral (Gibbs) 900 Other: Voiding Method Indwelling Catheter Indwelling Catheter # Bowel Movements 1 - Labs CBC & Chem 7: 02/09/20 10:27 02/08/20 14:13 Labs: Abnormal Lab Results - Last 24 Hours (Table) 02/08/20 02/08/20 02/08/20 Range/Units 11:41 14:13 14:13 WBC 18.0 H (3.8-10.6) k/uL Hgb 12.8 L (13.0-17.5) gm/dL Plt Count 491 H (150-450) k/uL Neutrophils # 15.6 H (1.3-7.7) k/uL Lymphocytes # 0.9 L (1.0-4.8) k/uL Carbon Dioxide 32 H (22-30) mmol/L BUN 45 H (9-20) mg/dL Glucose 171 H (74-99) mg/dL POC Glucose (mg/dL) 153 H (75-99) mg/dL Calcium 7.9 L (8.4-10.2) mg/dL 02/08/20 02/08/20 02/08/20 Range/Units 17:02 18:28 20:39 WBC 18.8 H (3.8-10.6) k/uL Hgb (13.0-17.5) gm/dL Plt Count (150-450) k/uL Neutrophils # 16.3 H (1.3-7.7) k/uL Lymphocytes # 0.9 L (1.0-4.8) k/uL Carbon Dioxide (22-30) mmol/L BUN (9-20) mg/dL Glucose (74-99) mg/dL POC Glucose (mg/dL) 138 H 138 H (75-99) mg/dL Calcium (8.4-10.2) mg/dL 02/09/20 02/09/20 Range/Units 05:26 06:55 WBC (3.8-10.6) k/uL Hgb (13.0-17.5) gm/dL Plt Count (150-450) k/uL Neutrophils # (1.3-7.7) k/uL Lymphocytes # (1.0-4.8) k/uL Carbon Dioxide (22-30) mmol/L BUN (9-20) mg/dL Glucose (74-99) mg/dL POC Glucose (mg/dL) 178 H 173 H (75-99) mg/dL Calcium (8.4-10.2) mg/dL Microbiology - Last 24 Hours (Table) 02/06/20 05:09 Blood Culture - Preliminary Blood No Growth after 72 hours 02/06/20 06:15 Blood Culture - Preliminary Blood No Growth after 48 hours
[2020-02-09] MEDS: MORPHINE SULFATE 4 MG/ML SYRINGE IV PRN (15:44)
[2020-02-09 16:58] LABS: Glucose,Whole Blood 157 mg/dL (75-99)
[2020-02-09] MEDS: METOCLOPRAMIDE 5 MG/ML 2 ML VIAL IVP SCH ×2 (18:10→23:48)
--- NOTE | 2020-02-09 18:23 | PN ---
PROGRESS NOTE Patient is seen for followup for acute kidney injury. Renal function has improved significantly, with creatinine about 1.23 on 02/08/2020. Currently patient is resting comfortably. He is asking for water. He denies any significant complaints of chest pains or shortness of breath. Blood pressure this morning 146/81, heart rate 66 per minute. He is afebrile. EXAMINATION OF THE HEART: S1 and S2. EXAMINATION OF LUNGS: Decreased breath sounds at bases. ABDOMEN: Soft, obese, non-tender. Examination of lower extremities shows no significant edema. LIVESTOCK NUTRITIONIST exam is grossly intact. LABS: No recent labs available. Last creatinine 1.23 from yesterday. ASSESSMENT: 1. Acute kidney injury, currently improved, nonoliguric. 2. Left ureteral stone, status post cystoscopy with left double-J stent placement. 3. Chronic kidney disease with proteinuria, most likely diabetic kidney disease. Previous creatinine as low as 1.1 mg/dL. 4. Acute diastolic congestive heart failure, ejection fraction 55% to 60%, currently maintained on small dose of oral Lasix. 5. Hypokalemia, maintained on supplementation. PLAN: Continue with current dose of Lasix. Check labs in a.m. Follow up with Urology. MMODL / IJN: [id number] /
[2020-02-09] MEDS: ATORVASTATIN 80 MG TAB PO SCH (20:06)
[2020-02-09 21:06] LABS: Glucose,Whole Blood 127 mg/dL (75-99)
--- NOTE | 2020-02-09 22:53 | PN ---
PROGRESS NOTE DATE OF SERVICE: 02/09/2020 REASON FOR FOLLOWUP: Staphylococcus agalactiae bacteremia UTI. INTERVAL HISTORY: The patient is currently afebrile. The patient is breathing comfortably. Denies having any chest pain or shortness of breath or cough. He has been complaining of his NG and unable to eat anything. Did not have any bowel movement. PHYSICAL EXAMINATION: Blood pressure 146/81 with a pulse of 66, temperature 98.1. He is 90% on 2 L nasal cannula. General description is an elderly male lying in bed in no distress. RESPIRATORY SYSTEM: Unlabored breathing with decreased breath sounds at the base. No wheeze. HEART: S1, S2. Regular rate and rhythm. ABDOMEN: Soft. No tenderness. LABS: Hemoglobin is 13, white count 19.9. DIAGNOSTIC IMPRESSION AND PLAN: Patient with Streptococcus agalactiae bacteremia secondary to complicated urinary tract infection, status post cystoscopy and left ureteral stent placement. Clinical course is complicated by development of ileus. The patient did have a CT of abdomen and pelvis which showed diffuse mildly dilated small bowel loops; no evidence of any abscess. The patient is covered with Unasyn; to continue and we will monitor his clinical course closely. MMODL / IJN: [id number] /
[2020-02-10] MEDS: METOCLOPRAMIDE 5 MG/ML 2 ML VIAL IVP SCH ×4 (05:44→23:59)
[2020-02-10] MEDS: AMPICILLIN-SULBACTAM 3 GM in SODIUM CHLORIDE 0.9% 100 ML IVPB SCH ×3 (05:45→17:15)
[2020-02-10 07:35] LABS: Glucose,Whole Blood 157 mg/dL (75-99)
[2020-02-10 08:46] LABS: HCT 43.1 % (39.0-53.0); HGB 13.2 gm/dL (13.0-17.5); Hypochromasia Moderate; MCH 28.2 pg (25.0-35.0); MCHC 30.7 g/dL (31.0-37.0); Mean Platelet Volume 7.4; Platelet Count 563 k/uL (150-450); RBC 4.69 m/uL (4.30-5.90); RDW 14.8 % (11.5-15.5); WBC 21.1 k/uL (3.8-10.6)
[2020-02-10 09:10] LABS: Calcium 8.3 mg/dL (8.4-10.2); Potassium 3.8 mmol/L (3.5-5.1); Total Bilirubin 1.7 mg/dL (0.2-1.3); Total Protein 6.7 g/dL (6.3-8.2)
--- NOTE | 2020-02-10 10:21 | XR ---
EXAMINATION TYPE: XR abdomen acute w cxr DATE OF EXAM: 02/10/2020 CLINICAL HISTORY: Shortness of breath and ileus. TECHNIQUE: Single frontal view of chest is obtained. Supine and upright views of the abdomen are acq uired. COMPARISON: Chest x-ray [address] abdomen and pelvis yesterday. FINDINGS: Stable nasogastric tube projecting below diaphragm. Persistent left basilar opacity corres ponding to linear scarring and/or atelectasis on CT. Cardiac silhouette size remains enlarged. Righ t lung remains clear. Osseous structures are intact. Gas persistent gas distended and dilated small bowel loops throughout the lower abdomen and pelvis an d somewhat stepladder pattern. Gas seen in nondistended colon along the periphery. Oral contrast give n by NG tube not well seen suspected is diluted by fluid filled bowel. Staghorn calculi left kidney r edemonstrated. Stable double-J left ureter stent. Multilevel advanced spurring in the spine redemonst rated. No pneumoperitoneum. IMPRESSION: 1. Cardiomegaly with patchy left basilar linear scarring and/or atelectasis redemonstra gertrude. No new infiltrate. 2. Overall nonspecific bowel gas pattern. Distal small bowel obstruction cannot be excluded. No signi ficant interval change.
--- NOTE | 2020-02-10 10:40 | P.PN ---
Subjective Patient is seen in follow for acute kidney injury. Renal function is stable. Creatinine 1.2 today. Maintained on oral Lasix. Denies chest pain or shortness of breath. No pain. Has an NG tube. Sodium level 151 today. Currently on antibiotics for group B strep bacteremia and UTI. Vital signs are stable. General: The patient appeared well nourished and normally developed. HEENT: Head exam is unremarkable. Neck is without jugular venous distension. NG tube noted. LUNGS: Breath sounds decreased. HEART: Rate and Rhythm are regular. ABDOMEN: Soft, nontender. Obese. EXTREMITITES: No edema. Objective - Vital Signs Vital signs: Vital Signs Temp 97.6 F 02/10/20 05:00 Pulse 69 02/10/20 05:00 Resp 20 02/10/20 05:00 BP 124/69 02/10/20 05:00 Pulse Ox 94 L 02/10/20 05:00 Intake & Output 02/09/20 02/10/20 02/10/20 18:59 06:59 18:59 Output Total 1000 200 Balance -1000 -200 Weight 136.985 kg 135.397 kg Output: Gastric Drainage 600 200 Urine 400 Other: Voiding Method Indwelling Catheter Indwelling Catheter # Bowel Movements 1 - Labs CBC & Chem 7: 02/10/20 07:55 02/10/20 07:55 Labs: Abnormal Lab Results - Last 24 Hours (Table) 02/09/20 02/09/20 02/09/20 Range/Units 10:27 11:24 16:55 WBC 19.9 H (3.8-10.6) k/uL MCHC (31.0-37.0) g/dL Plt Count 544 H (150-450) k/uL Sodium (137-145) mmol/L Carbon Dioxide (22-30) mmol/L BUN (9-20) mg/dL Glucose (74-99) mg/dL POC Glucose (mg/dL) 149 H 157 H (75-99) mg/dL Calcium (8.4-10.2) mg/dL Total Bilirubin (0.2-1.3) mg/dL AST (17-59) U/L ALT (4-49) U/L Alkaline Phosphatase (38-126) U/L Albumin (3.5-5.0) g/dL 02/09/20 02/10/20 02/10/20 Range/Units 20:31 07:33 07:55 WBC 21.1 H (3.8-10.6) k/uL MCHC 30.7 L (31.0-37.0) g/dL Plt Count 563 H (150-450) k/uL Sodium (137-145) mmol/L Carbon Dioxide (22-30) mmol/L BUN (9-20) mg/dL Glucose (74-99) mg/dL POC Glucose (mg/dL) 127 H 157 H (75-99) mg/dL Calcium (8.4-10.2) mg/dL Total Bilirubin (0.2-1.3) mg/dL AST (17-59) U/L ALT (4-49) U/L Alkaline Phosphatase (38-126) U/L Albumin (3.5-5.0) g/dL 02/10/20 Range/Units 07:55 WBC (3.8-10.6) k/uL MCHC (31.0-37.0) g/dL Plt Count (150-450) k/uL Sodium 151 H (137-145) mmol/L Carbon Dioxide 37 H (22-30) mmol/L BUN 47 H (9-20) mg/dL Glucose 170 H (74-99) mg/dL POC Glucose (mg/dL) (75-99) mg/dL Calcium 8.3 L (8.4-10.2) mg/dL Total Bilirubin 1.7 H (0.2-1.3) mg/dL AST 111 H (17-59) U/L ALT 52 H (4-49) U/L Alkaline Phosphatase 136 H (38-126) U/L Albumin 3.0 L (3.5-5.0) g/dL Microbiology - Last 24 Hours (Table) 02/06/20 06:15 Blood Culture - Preliminary Blood No Growth after 96 hours 02/06/20 05:09 Blood Culture - Preliminary Blood No Growth after 96 hours Assessment and Plan Plan: Assessment: 1. Acute kidney injury versus chronic kidney disease. Creatinine peaked at 3.16 this admission is stable at 1.2 today. Unknown baseline renal function. No hydronephrosis noted on kidney ultrasound. 2. Left ureteral stone status post cystoscopy with left double-J stent placement. 3. Insulin-dependent diabetes mellitus. 4. Proteinuria. Most likely secondary to underlying diabetic kidney disease. UPC 0.9 g. Further workup outpatient. 5. Benign hypertension. Stable. 6. Bowel obstruction. Currently has an NG tube. Surgery following. 7. Acute diastolic CHF with ejection fraction of 55-60%. 8. Hypokalemia secondary to diuresis. Status post placement. 9. Hypernatremia secondary to lack of oral water intake. Plan: Maintain Lasix. Start D5W at 75 mL an hour. Repeat electrolytes in the morning.
[2020-02-10] MEDS: atenoloL 50 MG TAB PO SCH (11:01)
[2020-02-10] MEDS: allopurinoL 300 MG TAB PO SCH (11:01)
[2020-02-10] MEDS: ISOSORBIDE MONONITRATE ER 30 MG TAB.ER.24H PO SCH (11:01)
[2020-02-10] MEDS: POTASSIUM CHLORIDE ER 10 MEQ TAB.ER.PRT PO SCH (11:01)
[2020-02-10] MEDS: DILTIAZEM CD 240 MG CAP.ER.24H PO SCH (11:02)
[2020-02-10] MEDS: buPROPion 75 MG TAB PO SCH (11:02)
[2020-02-10] MEDS: PANTOPRAZOLE 40 MG TABLET PO SCH (11:02)
[2020-02-10] MEDS: TAMSULOSIN 0.4 MG CAP.ER.24H PO SCH (11:02)
[2020-02-10] MEDS: FUROSEMIDE 40 MG TAB PO SCH (11:02)
[2020-02-10] MEDS: INSULIN ASPART (NovoLOG) 100 UNIT/ML VIAL SQ SCH ×3 (11:03→22:39)
[2020-02-10] MEDS: polyethylene glycoL 3350 17 GM POWD.PACK PO SCH (11:03)
[2020-02-10] MEDS: DEXTROSE 5% IN WATER 1,000 ML IV SCH (11:19)
[2020-02-10 12:32] LABS: Glucose,Whole Blood 142 mg/dL (75-99)
--- NOTE | 2020-02-10 13:49 | P.PN ---
Subjective Progress Note Date: 02/10/20 69 year-old morbidly obese male one of Dr. Kemp with past medical history of CAD, CHF, hypertension, obstructive sleep apnea and chronic edema was known to have previous history of kidney stone who was in the emergency room on for severe left-sided flank pain was diagnosed with large kidney stone measure 7 mm. Patient was in to see Dr. Garrett on Sunday and was scheduled to have surgery on Sunday. Patient return to emergency department today with severe intractable pain with nausea not been able to tolerate anything orally patient was seen and a Profore admission by Dr. Dhillon urology to treat his symptoms. His kidney function is down with creatinine up to 3.0 significant decline from few days earlier. Patient was started on IV hydration and pain management and possibly will be going for surgery tomorrow. 02/02 patient seen resting in bed this morning, plan for ureterscopy today with urology. Labs were reviewed, white blood cells 13.4, hemoglobin 12.3, sodium 135, BUNs 52, creatinine 3.16, consult in place for nephrology to see patient. Calcium 6.3, and replaced by a nephrology. Patient is making adequate urine. Will order urine and blood cultures, patient started on Zosyn IV. Vital signs are stable, patient remains afebrile pulse 89, blood pressure 133/70, patient pulse ox 92% on 2 L nasal cannula. Renal ultrasound found no distinct abnormality seen, no evidence of hydronephrosis. 02/03: Patient seen today sitting on edge of bed, appears to be more short of breath today, requiring O2 at 4 L via nasal cannula satting 90%. Patient is afebrile, pulse rate 96, blood pressure 165/71. Blood cultures did show gram- positive cocci in chains. Vancomycin added along with Zosyn and infectious disease consult. We will do chest x-ray hep-locked the patient, give 40 IV Lasix 1 and labs are ordered. White blood cell count 16.2 hemoglobin 12.9 BUN/creatinine creatinine have improved creatinine 2.43 today. Troponins came back elevated at 0.454 this morning. Cardiology was ordered for consult along with echo. Nephrology remains on the case. We'll continue to monitor patient closely. Chest x-ray showed mild bibasilar infiltrates correlate for atelectasis or early pneumonia 02/04: Patient appears to be more comfortable today, O2 remains at 4 L via nasal cannula, satting 90%. We will give patient an additional 40 of IV Lasix today. Patient is afebrile vital signs are stable. White blood cells 15.5, hemoglobin 12.2, sodium 136, BUN 62, creatinine down to 1.63, calcium 6.9 today, second troponin was 0.306 yesterday. Cardiology is on the case, echo revealed EF was 55-60%, moderate LVH mild MR and TR. May require stress test for further workup. Blood cultures were positive for strep aglactiae, Dr Mark. Switch patient to Rocephin 2 g daily. Discussed with patient plan to go to rehab when discharged, and patient was agreeable to this. 02/05: Patient seen this morning denies any complaints, oxygen remains on 4 L via nasal cannula satting 93%. Lungs sounds improved and patient was short of breath. Will continue to work with PT and OT, plan for discharge to rehab likely Sunday. White blood cells today were 18.0 hemoglobin 12.6, BUN 50, creatinine 1.3, and blood sugars are stable. Patient remains on Rocephin IV with ID on the case along with cardio, nephrology. Chest x-ray from today shows left lower lobe infiltrate and atelectasis no change from prior exam. We'll continue to follow patient along with urology. 01/28 Patient examined bedside. Deep breath. Patient was found to have an episode of bronchitis and vomiting for in the morning. X-ray of the abdomen was positive for dilated small bowel was concerning for obstruction versus ileus. Patient was placed on nothing by mouth. surgery was consulted. On evaluation this morning patient denies any nausea or abdominal pain. He does endorse flat is but doesn't did not have any bowel movement for the past 1 week. Bowel regimen initiated with the a Dulcolax suppository to help with total output. Surgery suggest ileus rather than obstruction. Repeat abdominal x-ray tomorrow morning. Continue patient on nothing by mouth with ice chips medication with small sips 02/07 patient examined bedside. Continues to feel well. Patient was doing well earlier and had multiple bowel movements this morning and yesterday. Patient was started on clear liquid diet. Patient could not tolerate the clear liquid diet and started vomiting. NG tube was placed and patient admitted into canister immediately. Patient was also noted to have dark secretions coming out of his NG tube concerning for GI bleed. Nurse asked to obtain a fecal occult and repeat hemoglobin in the evening. Vitals otherwise stable temp is 97.6 pulse 70 blood pressure 186/80, oxygen saturation 93% on 2 L. Hold patient's glipizide and Lantus since patient's nothing by mouth continue insulin sliding scale. Patient is currently able to take his medication normally without any difficulty to be due to abdominal x-ray tomorrow 02/08: Patient has been afebrile, heart rate 58, blood pressure 180/80, pulse ox 93% on 2 L nasal cannula. CPAP at bedside. Blood sugars are running between 130 and 178. Repeat hemoglobin last evening was 13.1 and white count 18.8. Patient is scheduled for CAT scan of the abdomen and pelvis today without contrastwhich revealed the lateral aspect of the left hemiabdomen is not visualized due to patient body habitus. Diffusely mildly dilated small bowel loops with air-fluid levels. Findings may represent ileus, although there is transitioned to decompress bowel and the terminal ileum which may represent small bowel obstruction. Numerous nonobstructing left nephrolithiasis with left ureteral stent. Patient states he passed gas last evening but has not had a bowel movement. He denies any abdominal tenderness. Repeat blood cultures are showing no growth at 72 hours. NG tube remains in place with return of green- brown colored fluid. Patient also has Gibbs catheter in place. Patient is not utilizing incentive spirometry. Patient has been encouraged to use every hour. Patient is followed by multiple consultants. Patient also followed by PT and OT and required 2 people moderate assist sit to stand. 02/09: Patient has been afebrile, heart rate 69, blood pressure 124/69, pulse ox 94% on 2 L nasal cannula. Nephrology recommends continuing current dose of Lasix. Patient has had a small brown loose stool last evening and 2 bowel movements this morning. His NG tube is currently clamped and may be removed this afternoon. Repeat blood work reveals WBC 21.1, hemoglobin 13.2, platelet count 563. Sodium 151, potassium 3.8, chloride 101, CO2 37, BUN 47 creatinine 1.20. Blood sugars running between 157 and 170. Total bilirubin 1.7, AST 111, ALT 52, alkaline phosphatase 136. CXR/Abdominal x-ray reveals cardiomegaly with patchy left basilar linear scarring and/or atelectasis 3 demonstrated. No new infiltrate. Overall nonspecific bowel gas pattern. Distal small bowel obstruction cannot be excluded. No significant interval change. Patient continues to deny abdominal pain or tenderness. He currently does not have any nausea. Review of systems CONSTITUTIONAL: Denies fever, denies chills EYES: No icterus sclerae, no conjunctivitis. EARS, NOSE, MOUTH, THROAT, and FACE: No sore throat, lymphadenopathy, carotid bruits or deformity. RESPIRATORY: Mild shortness of breath improved . CARDIOVASCULAR: Positive PND and orthopnea no angina. GASTROINTESTINAL: No Abd pain, no abdominal tenderness, no vomiting, Positive bowel movements, No GI Bleed, no distention or masses. GENITOURINARY: Positive large sided left side kidney stone status post stent placement BPH symptoms mild hematuria. INTEGUMENT/BREAST: Negative for any muscular injury with mild osteoarthritis.. HEMATOLOGIC/LYMPHATIC: Negative for bleed or purpura. MUSCULOSKELTAL: Negative for Myalgia or arthralgia. NEURLOGICAL: No LOC, Sz or syncope, blurred vision dizziness or abnormality.. BEHAVIORAL/PSYCH: Negative. ENDOCRINE: Negative. Physical examination General Appearance: Appears tired cooperative, cooperative, morbidly obese Neck HEENT: Supple, no lymphadenopathy, no thyroid enlargement, no carotid bruits. NG tube in place Lungs: Decreased breath some bilateral rhonchi, crackles positive Chest Wall: Decrease expansion with deep inspiration no tenderness and no d eformity was found on exam, no costochondral pain or discomfort. Heart: Regular rate and rhythm, S1, S2 normal, no murmur, rub or gallop. Back: Symmetric, no curvature, ROM normal, positive left-sided CVA tenderness. Abdomen: Soft, bowel sounds are hypoactive in all quadrant no masses, no organomegaly. Gibbs catheter in place Extremities: Extremities normal, atraumatic, no cyanosis, positive edema. Pulses: 2+ and symmetric. Skin: Skin color, texture, tugor normal, no rashes or lesions. Neurologic: Alert oriented x3 cranial nerves II through XII intact, no motor deficit, generalized weakness. Assessment and plan 1. Severe abdominal pain secondary to obstructive ureteric stone, status post double-J stent on 02/02 continue pain management with morphine sulfate 4 mg every 6 hours continue to watch his urine output. 2. Large left sided kidney stone measure 7 mm and affecting the kidney function, ultrasound was negative for hydronephrosis. Patient had double J stent placed on 02/02 by urology, will likely need this surgically removed per Dr. Ortiz after infection has resolved. 3. Atherosclerotic heart disease, follows with Dr. Medrano. 4. Acute kidney injury with chronic kidney disease, stable. Nephrology consult appreciated. 5. Acute on chronic diastolic heart failure with ejection fraction of 55-60%. Continue Lasix 40 mg oral daily, atenolol 50 mg daily, Imdur 30 mg daily. 6. Diabetes mellitus type 2. Levemir and glipizide on hold. Continue NovoLog scale for now while patient is nothing by mouth. Metformin was discontinued. 7. Hypertension: Remain on atenolol 50 mg daily along with diltiazem 240 mg a day. 8. Chronic gout. Continue allopurinol. 9. Mild reactive airway: Has been on Ventolin nebulizer. 10. Hyperlipidemia: Continue patient on atorvastatin 80 mg daily. 11. GI prophylaxis: Patient be continue on pantoprazole 40 mg a day. 12. DVT prophylaxis: After surgery patient be on heparin subcutaneous. 13. Streptococcal agalactia bacteremia secondary to a complicated urinary tract infection status post cystoscopy and left ureteral stent placement. Patient has been seen by Dr. Mark and currently on Unasyn. 14. Acute ileus. NG tube clamped, may remove this afternoon and start diet per surgery recommendations. 15. Troponin elevation secondary to fluid overload, sepsis and oxygen supply demand mismatch. Acute coronary syndrome ruled out by cardiology. 16. Obstructive sleep apnea. 17. Morbid obesity with BMI of 42. 18. Hypernatremia. IV fluids changed to D5W CODE STATUS: Full code. Discharge plan: [facility] once stabilized. Coronavirus testing ordered. Impression and plan of care have been directed as dictated by the signing physician. Jayne Garrido nurse practitioner acting as scribe for signing physician. Objective - Vital Signs Vital signs: Vital Signs Temp 97.6 F 02/10/20 05:00 Pulse 69 02/10/20 05:00 Resp 20 02/10/20 05:00 BP 124/69 02/10/20 05:00 Pulse Ox 94 L 02/10/20 05:00 Intake & Output 02/09/20 02/10/20 02/10/20 18:59 06:59 18:59 Output Total 1000 200 Balance -1000 -200 Weight 136.985 kg 135.397 kg Output: Gastric Drainage 600 200 Urine 400 Other: Voiding Method Indwelling Catheter Indwelling Catheter # Bowel Movements 1 - Labs CBC & Chem 7: 02/10/20 07:55 02/10/20 07:55 Labs: Abnormal Lab Results - Last 24 Hours (Table) 02/09/20 02/09/20 02/09/20 Range/Units 10:27 11:24 16:55 WBC 19.9 H (3.8-10.6) k/uL Plt Count 544 H (150-450) k/uL POC Glucose (mg/dL) 149 H 157 H (75-99) mg/dL 02/09/20 02/10/20 Range/Units 20:31 07:33 WBC (3.8-10.6) k/uL Plt Count (150-450) k/uL POC Glucose (mg/dL) 127 H 157 H (75-99) mg/dL Microbiology - Last 24 Hours (Table) 02/06/20 06:15 Blood Culture - Preliminary Blood No Growth after 96 hours 02/06/20 05:09 Blood Culture - Preliminary Blood No Growth after 96 hours
[2020-02-10 16:55] LABS: Glucose,Whole Blood 157 mg/dL (75-99)
[2020-02-10] MEDS: bisacodyL 10 MG SUPP RECTAL SCH (17:14)
--- NOTE | 2020-02-10 17:34 | P.PN ---
Subjective Progress Note Date: 02/10/20 patient feeling much better today. He was sitting on the commode passing gas had a small bowel movement. He denies any nausea vomiting he denies any abdominal pain. He would like to have his NG tube out. Objective - Vital Signs Vital signs: Vital Signs Temp 97.5 F L 02/10/20 13:00 Pulse 80 02/10/20 16:00 Resp 18 02/10/20 16:00 BP 123/76 02/10/20 13:00 Pulse Ox 95 02/10/20 13:00 Intake & Output 02/09/20 02/10/20 02/10/20 18:59 06:59 18:59 Output Total 1000 200 500 Balance -1000 -200 -500 Weight 136.985 kg 135.397 kg Output: Gastric Drainage 600 200 Urine 400 500 Other: Voiding Method Indwelling Catheter Indwelling Catheter Indwelling Catheter # Bowel Movements 1 - Constitutional General appearance: Present: cooperative - Cardiovascular Rhythm: regular - Gastrointestinal Gastrointestinal Comment(s): soft nondistended nontender obese - Labs CBC & Chem 7: 02/10/20 07:55 02/10/20 07:55 Labs: Abnormal Lab Results - Last 24 Hours (Table) 02/09/20 02/10/20 02/10/20 Range/Units 20:31 07:33 07:55 WBC 21.1 H (3.8-10.6) k/uL MCHC 30.7 L (31.0-37.0) g/dL Plt Count 563 H (150-450) k/uL Sodium (137-145) mmol/L Carbon Dioxide (22-30) mmol/L BUN (9-20) mg/dL Glucose (74-99) mg/dL POC Glucose (mg/dL) 127 H 157 H (75-99) mg/dL Calcium (8.4-10.2) mg/dL Total Bilirubin (0.2-1.3) mg/dL AST (17-59) U/L ALT (4-49) U/L Alkaline Phosphatase (38-126) U/L Albumin (3.5-5.0) g/dL 02/10/20 02/10/20 02/10/20 Range/Units 07:55 12:30 16:53 WBC (3.8-10.6) k/uL MCHC (31.0-37.0) g/dL Plt Count (150-450) k/uL Sodium 151 H (137-145) mmol/L Carbon Dioxide 37 H (22-30) mmol/L BUN 47 H (9-20) mg/dL Glucose 170 H (74-99) mg/dL POC Glucose (mg/dL) 142 H 157 H (75-99) mg/dL Calcium 8.3 L (8.4-10.2) mg/dL Total Bilirubin 1.7 H (0.2-1.3) mg/dL AST 111 H (17-59) U/L ALT 52 H (4-49) U/L Alkaline Phosphatase 136 H (38-126) U/L Albumin 3.0 L (3.5-5.0) g/dL Microbiology - Last 24 Hours (Table) 02/06/20 06:15 Blood Culture - Preliminary Blood No Growth after 96 hours 02/06/20 05:09 Blood Culture - Preliminary Blood No Growth after 96 hours Assessment and Plan Assessment: ileus resolved Plan: patient's ileus appears to be resolved. He is having flatus and bowel movements clinically he is not obstructed. Clamp NGT and removed if he tolerates
--- NOTE | 2020-02-10 18:11 | PN ---
PROGRESS NOTE DATE OF SERVICE: 02/10/2020 REASON FOR FOLLOWUP: 1. Streptococcus agalactiae bacteremia and UTI. 2. Ileus. INTERVAL HISTORY: The patient is currently afebrile. The patient is breathing comfortably. The patient denies having any chest pain or shortness of breath or cough. No nausea, no vomiting. Has been complaining of his NG and being n.p.o. He did mention he did have 2 bowel movements today. PHYSICAL EXAMINATION: Blood pressure 123/76, pulse of 80, temperature 97.5. He is 95% on 2 L nasal cannula. General description is an elderly male lying in bed in no distress. RESPIRATORY SYSTEM: Unlabored breathing with decreased breath sounds at the base. No wheeze. HEART: S1, S2. Regular rate and rhythm. ABDOMEN: Soft. Mildly distended. No rigidity. LABS: Hemoglobin 13.2, white count 21.1 with a BUN of 47, creatinine 1.20. Liver enzymes are elevated as well. DIAGNOSTIC IMPRESSION AND PLAN: Patient with Staphylococcus agalactiae bacteremia secondary to complicated urinary tract infection, status post cystoscopy and ureteral stent placement, now with clinical course complicated by development of small bowel ileus obstruction, being managed medically. However, he did have some worsening of his liver enzymes as well as well as worsening of the white count. Antibiotic will be switched to Zosyn, and we will monitor his clinical course closely. MMODL / IJN: [id number] /
[2020-02-10 20:03] LABS: Glucose,Whole Blood 157 mg/dL (75-99)
[2020-02-10] MEDS: ATORVASTATIN 80 MG TAB PO SCH (21:23)
[2020-02-10] MEDS: PIPERACILLIN-TAZOBACTAM 3.375 GM in SODIUM CHLORIDE 0.9% 100 ML IVPB SCH (21:23)
[2020-02-10 22:36] LABS: Glucose,Whole Blood 147 mg/dL (75-99)
--- NOTE | 2020-02-11 02:12 | US ---
EXAMINATION TYPE: US abdomen limited DATE OF EXAM: 02/10/2020 COMPARISON: CT CLINICAL HISTORY: elevated LFT. Elevated LFT. EXAM MEASUREMENTS: Liver Length: 17.0 cm Gallbladder Wall: 0.29 cm CBD: 0.19 cm Right Kidney: 10.8 x 6.5 x 6.0 cm Limited exam due to patient body habitus and overlying bowel gas. Pancreas: Appears to be hyperechoic. Limited. Liver: Appears to have an increased echogenicity. Anechoic area with small hyperechoic component per ipherally seen in the left lobe measurin.3 x 1.4 x 0.8 cm. Measures upper limits of normal. Gallbladder: Internal echoes are seen. Measures 3.9 cm in width. Evidence for sonographic Dawson's sign: No CBD: Appears wnl Right Kidney: No hydronephrosis or masses seen, Appears heterogeneous. -Complex area with internal mobile debris seen in the epigastric midline region, appears to be the st omach. IMPRESSION: There is some echogenic bile. No definite gallstones. No dilated ducts.
[2020-02-11] MEDS: PIPERACILLIN-TAZOBACTAM 3.375 GM in SODIUM CHLORIDE 0.9% 100 ML IVPB SCH ×3 (03:12→20:36)
[2020-02-11] MEDS: DEXTROSE 5% IN WATER 1,000 ML IV SCH ×2 (03:12→18:10)
[2020-02-11] MEDS: METOCLOPRAMIDE 5 MG/ML 2 ML VIAL IVP SCH ×4 (05:23→23:38)
[2020-02-11 06:14] LABS: Glucose,Whole Blood 199 mg/dL (75-99)
[2020-02-11 09:20] LABS: HCT 40.3 % (39.0-53.0); HGB 12.2 gm/dL (13.0-17.5); Hypochromasia Slight; MCH 27.6 pg (25.0-35.0); MCHC 30.2 g/dL (31.0-37.0); MCV 91.3 fL (80.0-100.0); Mean Platelet Volume 7.7; Platelet Count 477 k/uL (150-450); RBC 4.41 m/uL (4.30-5.90); RDW 14.8 % (11.5-15.5); WBC 18.3 k/uL (3.8-10.6)
[2020-02-11 09:41] LABS: Calcium 8.2 mg/dL (8.4-10.2); Magnesium 1.8 mg/dL (1.6-2.3); Potassium 3.6 mmol/L (3.5-5.1); Total Protein 6.5 g/dL (6.3-8.2)
[2020-02-11] MEDS: FUROSEMIDE 40 MG TAB PO SCH (09:59)
[2020-02-11] MEDS: POTASSIUM CHLORIDE ER 10 MEQ TAB.ER.PRT PO SCH (09:59)
[2020-02-11] MEDS: ISOSORBIDE MONONITRATE ER 30 MG TAB.ER.24H PO SCH (09:59)
[2020-02-11] MEDS: allopurinoL 300 MG TAB PO SCH ×2 (09:59→10:00)
[2020-02-11] MEDS: atenoloL 50 MG TAB PO SCH (09:59)
[2020-02-11] MEDS: bisacodyL 10 MG SUPP RECTAL SCH (10:00)
[2020-02-11] MEDS: INSULIN ASPART (NovoLOG) 100 UNIT/ML VIAL SQ SCH ×3 (10:00→22:02)
[2020-02-11] MEDS: TAMSULOSIN 0.4 MG CAP.ER.24H PO SCH (10:00)
[2020-02-11] MEDS: PANTOPRAZOLE 40 MG TABLET PO SCH (10:00)
[2020-02-11] MEDS: buPROPion 75 MG TAB PO SCH (10:00)
[2020-02-11] MEDS: polyethylene glycoL 3350 17 GM POWD.PACK PO SCH (10:01)
[2020-02-11] MEDS: DILTIAZEM CD 240 MG CAP.ER.24H PO SCH (10:01)
[2020-02-11 11:48] LABS: Glucose,Whole Blood 205 mg/dL (75-99)
--- NOTE | 2020-02-11 12:10 | XR ---
EXAMINATION TYPE: XR chest 2V DATE OF EXAM: 02/11/2020 COMPARISON: 01/29/2020 HISTORY: Shortness of breath TECHNIQUE: Frontal and lateral views of the chest are obtained. FINDINGS: Scattered senescent parenchymal changes noted. Hyperinflation compatible with COPD. Stable pleural-parenchymal density left lower lobe with chronic elevation left hemidiaphragm. Heart size is stable. Mediastinal structures are stable and grossly unremarkable. No evidence for hilar prominence. Degenerative changes dorsal spine. IMPRESSION: 1. Stable pleural-parenchymal density left lower lobe with chronic elevation left hemidiaphragm.
--- NOTE | 2020-02-11 12:35 | P.PN ---
Subjective Progress Note Date: 02/11/20 Patient seen and examined at bedside. NG tube was removed yesterday. Patient denies any nausea or vomiting. He states that since his NG tube was removed, he has had multiple bowel movements and episodes of flatus. Objective - Vital Signs Vital signs: Vital Signs Temp 97.6 F 02/11/20 11:59 Pulse 61 02/11/20 11:59 Resp 18 02/11/20 11:59 BP 116/73 02/11/20 11:59 Pulse Ox 100 02/11/20 11:59 Intake & Output 02/10/20 02/11/20 02/11/20 18:59 06:59 18:59 Intake Total 360 Output Total 500 Balance -500 360 Weight 144.242 kg Intake: Oral 360 Output: Urine 500 Other: Voiding Method Indwelling Catheter Indwelling Catheter Indwelling Catheter # Voids 0 # Bowel Movements 3 - Constitutional General appearance: Present: cooperative, no acute distress - Gastrointestinal Gastrointestinal Comment(s): Soft, nontender, mildly distended, no rebound, no guarding - Psychiatric Psychiatric: Present: A&O x's 3 - Labs CBC & Chem 7: 02/11/20 08:46 02/11/20 08:46 Labs: Abnormal Lab Results - Last 24 Hours (Table) 02/10/20 02/10/20 02/10/20 Range/Units 12:30 16:53 20:01 WBC (3.8-10.6) k/uL Hgb (13.0-17.5) gm/dL MCHC (31.0-37.0) g/dL Plt Count (150-450) k/uL Sodium (137-145) mmol/L Carbon Dioxide (22-30) mmol/L BUN (9-20) mg/dL Creatinine (0.66-1.25) mg/dL Glucose (74-99) mg/dL POC Glucose (mg/dL) 142 H 157 H 157 H (75-99) mg/dL Calcium (8.4-10.2) mg/dL Total Bilirubin (0.2-1.3) mg/dL AST (17-59) U/L ALT (4-49) U/L Albumin (3.5-5.0) g/dL 02/10/20 02/11/20 02/11/20 Range/Units 22:35 06:11 08:46 WBC 18.3 H (3.8-10.6) k/uL Hgb 12.2 L (13.0-17.5) gm/dL MCHC 30.2 L (31.0-37.0) g/dL Plt Count 477 H (150-450) k/uL Sodium (137-145) mmol/L Carbon Dioxide (22-30) mmol/L BUN (9-20) mg/dL Creatinine (0.66-1.25) mg/dL Glucose (74-99) mg/dL POC Glucose (mg/dL) 147 H 199 H (75-99) mg/dL Calcium (8.4-10.2) mg/dL Total Bilirubin (0.2-1.3) mg/dL AST (17-59) U/L ALT (4-49) U/L Albumin (3.5-5.0) g/dL 02/11/20 02/11/20 Range/Units 08:46 11:22 WBC (3.8-10.6) k/uL Hgb (13.0-17.5) gm/dL MCHC (31.0-37.0) g/dL Plt Count (150-450) k/uL Sodium 150 H (137-145) mmol/L Carbon Dioxide 37 H (22-30) mmol/L BUN 59 H (9-20) mg/dL Creatinine 2.06 H (0.66-1.25) mg/dL Glucose 195 H (74-99) mg/dL POC Glucose (mg/dL) 205 H (75-99) mg/dL Calcium 8.2 L (8.4-10.2) mg/dL Total Bilirubin 2.0 H (0.2-1.3) mg/dL AST 113 H (17-59) U/L ALT 54 H (4-49) U/L Albumin 3.0 L (3.5-5.0) g/dL Microbiology - Last 24 Hours (Table) 02/06/20 06:15 Blood Culture - Preliminary Blood No Growth after 120 hours 02/06/20 05:09 Blood Culture - Preliminary Blood No Growth after 120 hours Assessment and Plan Plan: 69-year-old male with recent nausea and vomiting episode, Ileus that appears to be resolving - Patient has tolerated nasogastric tube removal and has denied any nausea or vomiting. He also has had bowel function with flatus and multiple bowel movements. He appears to be resolving from this ileus. Advance to clear liquid diet.
[2020-02-11] MEDS: MORPHINE SULFATE 4 MG/ML SYRINGE IV PRN ×2 (13:01→20:48)
--- NOTE | 2020-02-11 13:02 | P.PN ---
Subjective Progress Note Date: 02/11/20 69 year-old morbidly obese male one of Dr. Kemp with past medical history of CAD, CHF, hypertension, obstructive sleep apnea and chronic edema was known to have previous history of kidney stone who was in the emergency room on for severe left-sided flank pain was diagnosed with large kidney stone measure 7 mm. Patient was in to see Dr. Garrett on Sunday and was scheduled to have surgery on Sunday. Patient return to emergency department today with severe intractable pain with nausea not been able to tolerate anything orally patient was seen and a Profore admission by Dr. Dhillon urology to treat his symptoms. His kidney function is down with creatinine up to 3.0 significant decline from few days earlier. Patient was started on IV hydration and pain management and possibly will be going for surgery tomorrow. 02/02 patient seen resting in bed this morning, plan for ureterscopy today with urology. Labs were reviewed, white blood cells 13.4, hemoglobin 12.3, sodium 135, BUNs 52, creatinine 3.16, consult in place for nephrology to see patient. Calcium 6.3, and replaced by a nephrology. Patient is making adequate urine. Will order urine and blood cultures, patient started on Zosyn IV. Vital signs are stable, patient remains afebrile pulse 89, blood pressure 133/70, patient pulse ox 92% on 2 L nasal cannula. Renal ultrasound found no distinct abnormality seen, no evidence of hydronephrosis. 02/03: Patient seen today sitting on edge of bed, appears to be more short of breath today, requiring O2 at 4 L via nasal cannula satting 90%. Patient is afebrile, pulse rate 96, blood pressure 165/71. Blood cultures did show gram- positive cocci in chains. Vancomycin added along with Zosyn and infectious disease consult. We will do chest x-ray hep-locked the patient, give 40 IV Lasix 1 and labs are ordered. White blood cell count 16.2 hemoglobin 12.9 BUN/creatinine creatinine have improved creatinine 2.43 today. Troponins came back elevated at 0.454 this morning. Cardiology was ordered for consult along with echo. Nephrology remains on the case. We'll continue to monitor patient closely. Chest x-ray showed mild bibasilar infiltrates correlate for atelectasis or early pneumonia 02/04: Patient appears to be more comfortable today, O2 remains at 4 L via nasal cannula, satting 90%. We will give patient an additional 40 of IV Lasix today. Patient is afebrile vital signs are stable. White blood cells 15.5, hemoglobin 12.2, sodium 136, BUN 62, creatinine down to 1.63, calcium 6.9 today, second troponin was 0.306 yesterday. Cardiology is on the case, echo revealed EF was 55-60%, moderate LVH mild MR and TR. May require stress test for further workup. Blood cultures were positive for strep aglactiae, Dr Mark. Switch patient to Rocephin 2 g daily. Discussed with patient plan to go to rehab when discharged, and patient was agreeable to this. 02/05: Patient seen this morning denies any complaints, oxygen remains on 4 L via nasal cannula satting 93%. Lungs sounds improved and patient was short of breath. Will continue to work with PT and OT, plan for discharge to rehab likely Sunday. White blood cells today were 18.0 hemoglobin 12.6, BUN 50, creatinine 1.3, and blood sugars are stable. Patient remains on Rocephin IV with ID on the case along with cardio, nephrology. Chest x-ray from today shows left lower lobe infiltrate and atelectasis no change from prior exam. We'll continue to follow patient along with urology. 01/28 Patient examined bedside. Deep breath. Patient was found to have an episode of bronchitis and vomiting for in the morning. X-ray of the abdomen was positive for dilated small bowel was concerning for obstruction versus ileus. Patient was placed on nothing by mouth. surgery was consulted. On evaluation this morning patient denies any nausea or abdominal pain. He does endorse flat is but doesn't did not have any bowel movement for the past 1 week. Bowel regimen initiated with the a Dulcolax suppository to help with total output. Surgery suggest ileus rather than obstruction. Repeat abdominal x-ray tomorrow morning. Continue patient on nothing by mouth with ice chips medication with small sips 02/07 patient examined bedside. Continues to feel well. Patient was doing well earlier and had multiple bowel movements this morning and yesterday. Patient was started on clear liquid diet. Patient could not tolerate the clear liquid diet and started vomiting. NG tube was placed and patient admitted into canister immediately. Patient was also noted to have dark secretions coming out of his NG tube concerning for GI bleed. Nurse asked to obtain a fecal occult and repeat hemoglobin in the evening. Vitals otherwise stable temp is 97.6 pulse 70 blood pressure 186/80, oxygen saturation 93% on 2 L. Hold patient's glipizide and Lantus since patient's nothing by mouth continue insulin sliding scale. Patient is currently able to take his medication normally without any difficulty to be due to abdominal x-ray tomorrow 02/08: Patient has been afebrile, heart rate 58, blood pressure 180/80, pulse ox 93% on 2 L nasal cannula. CPAP at bedside. Blood sugars are running between 130 and 178. Repeat hemoglobin last evening was 13.1 and white count 18.8. Patient is scheduled for CAT scan of the abdomen and pelvis today without contrastwhich revealed the lateral aspect of the left hemiabdomen is not visualized due to patient body habitus. Diffusely mildly dilated small bowel loops with air-fluid levels. Findings may represent ileus, although there is transitioned to decompress bowel and the terminal ileum which may represent small bowel obstruction. Numerous nonobstructing left nephrolithiasis with left ureteral stent. Patient states he passed gas last evening but has not had a bowel movement. He denies any abdominal tenderness. Repeat blood cultures are showing no growth at 72 hours. NG tube remains in place with return of green- brown colored fluid. Patient also has Gibbs catheter in place. Patient is not utilizing incentive spirometry. Patient has been encouraged to use every hour. Patient is followed by multiple consultants. Patient also followed by PT and OT and required 2 people moderate assist sit to stand. 02/09: Patient has been afebrile, heart rate 69, blood pressure 124/69, pulse ox 94% on 2 L nasal cannula. Nephrology recommends continuing current dose of Lasix. Patient has had a small brown loose stool last evening and 2 bowel movements this morning. His NG tube is currently clamped and may be removed this afternoon. Repeat blood work reveals WBC 21.1, hemoglobin 13.2, platelet count 563. Sodium 151, potassium 3.8, chloride 101, CO2 37, BUN 47 creatinine 1.20. Blood sugars running between 157 and 170. Total bilirubin 1.7, AST 111, ALT 52, alkaline phosphatase 136. CXR/Abdominal x-ray reveals cardiomegaly with patchy left basilar linear scarring and/or atelectasis 3 demonstrated. No new infiltrate. Overall nonspecific bowel gas pattern. Distal small bowel obstruction cannot be excluded. No significant interval change. Patient continues to deny abdominal pain or tenderness. He currently does not have any nausea. 02/10: He utilized CPAP during the night. He denies having any abdominal pain, nausea or vomiting. NG tube was removed last evening and currently on ice chips. Anticipate that diet will be advanced once surgery rounds. Patient denies having any fevers. Abdominal ultrasound revealed some echogenic bile. No definite gallstones. No dilated ducts. Patient is reching 500 on incentive spirometry. Gibbs catheter remains in place. COVID-19 tests to be obtained today with anticipation of discharge an approximate 48 hours. WBC 18.3, hemoglobin 12.2, platelet count 477. Sodium 150, potassium 3.6, chloride 100, CO2 37, BUN 59 creatinine 2.06. Total bilirubin 2.0, AST 113, ALT 54, alkaline phosphatase 121. Blood sugars running between 147 and 205. Patient is currently on D5W at 75 mL per hour. Review of systems CONSTITUTIONAL: Denies fever, denies chills EYES: No icterus sclerae, no conjunctivitis. EARS, NOSE, MOUTH, THROAT, and FACE: No sore throat, lymphadenopathy, carotid bruits or deformity. RESPIRATORY: Mild shortness of breath improved . CARDIOVASCULAR: Positive PND and orthopnea no angina. GASTROINTESTINAL: No Abd pain, no abdominal tenderness, no vomiting, Positive bowel movements, No GI Bleed. GENITOURINARY: Positive large sided left side kidney stone status post stent placement BPH symptoms mild hematuria. INTEGUMENT/BREAST: Negative for any muscular injury with mild osteoarthritis.. HEMATOLOGIC/LYMPHATIC: Negative for bleed or purpura. MUSCULOSKELTAL: Negative for Myalgia or arthralgia. NEURLOGICAL: No LOC, Sz or syncope, blurred vision dizziness or abnormality.. BEHAVIORAL/PSYCH: Negative. ENDOCRINE: Negative. Physical examination General Appearance: Appears tired cooperative, cooperative, morbidly obese Neck HEENT: Supple, no lymphadenopathy, no thyroid enlargement, no carotid br uits. NG tube in place Lungs: Decreased breath some bilateral rhonchi, crackles positive Chest Wall: Decrease expansion with deep inspiration no tenderness and no deformity was found on exam, no costochondral pain or discomfort. Heart: Regular rate and rhythm, S1, S2 normal, no murmur, rub or gallop. Back: Symmetric, no curvature, ROM normal, positive left-sided CVA tenderness. Abdomen: Soft, bowel sounds are present, no masses, no organomegaly. Gibbs catheter in place Extremities: Extremities normal, atraumatic, no cyanosis, positive edema. Pulses: 2+ and symmetric. Skin: Skin color, texture, tugor normal, no rashes or lesions. Neurologic: Alert oriented x3 cranial nerves II through XII intact, no motor deficit, generalized weakness. Assessment and plan 1. Severe abdominal pain secondary to obstructive ureteric stone, status post double-J stent on 02/02 continue pain management with morphine sulfate 4 mg every 6 hours continue to watch his urine output. 2. Large left sided kidney stone measure 7 mm and affecting the kidney function, ultrasound was negative for hydronephrosis. Patient had double J stent placed on 02/02 by urology, will likely need this surgically removed per Dr. Ortiz after infection has resolved. 3. Atherosclerotic heart disease, follows with Dr. Medrano. 4. Acute kidney injury with chronic kidney disease, stable. Nephrology consult appreciated. 5. Acute on chronic diastolic heart failure with ejection fraction of 55-60%. Continue Lasix 40 mg oral daily, atenolol 50 mg daily, Imdur 30 mg daily. 6. Diabetes mellitus type 2. Levemir and glipizide on hold. Continue NovoLog scale for now while patient is nothing by mouth. Metformin was discontinued. 7. Hypertension: Remain on atenolol 50 mg daily along with diltiazem 240 mg a day. 8. Chronic gout. Continue allopurinol. 9. Mild reactive airway: Has been on Ventolin nebulizer. 10. Hyperlipidemia: Continue patient on atorvastatin 80 mg daily. 11. GI prophylaxis: Patient be continue on pantoprazole 40 mg a day. 12. DVT prophylaxis: After surgery patient be on heparin subcutaneous. 13. Streptococcal agalactia bacteremia secondary to a complicated urinary tract infection status post cystoscopy and left ureteral stent placement. Patient has been seen by Dr. Mark and currently on Unasyn. 14. Acute ileus. NG tube removed yesterday afternoon and start diet per surgery recommendations. 15. Troponin elevation secondary to fluid overload, sepsis and oxygen supply demand mismatch. Acute coronary syndrome ruled out by cardiology. 16. Obstructive sleep apnea. 17. Morbid obesity with BMI of 42. 18. Hypernatremia. Continue IV fluids D5W CODE STATUS: Full code. Discharge plan: [place] once stabilized. Coronavirus testing ordered. Impression and plan of care have been directed as dictated by the signing physician. Jayne Garrdio nurse practitioner acting as scribe for signing physician. Objective - Vital Signs Vital signs: Vital Signs Temp 98.3 F 02/11/20 04:25 Pulse 59 L 02/11/20 04:25 Resp 20 02/11/20 04:25 BP 123/69 02/11/20 04:25 Pulse Ox 96 02/11/20 04:25 Intake & Output 02/10/20 02/11/20 02/11/20 18:59 06:59 18:59 Intake Total 360 Output Total 500 Balance -500 360 Weight 144.242 kg Intake: Oral 360 Output: Urine 500 Other: Voiding Method Indwelling Catheter Indwelling Catheter # Voids 0 # Bowel Movements 3 - Labs CBC & Chem 7: 02/11/20 08:46 02/11/20 08:46 Labs: Abnormal Lab Results - Last 24 Hours (Table) 02/10/20 02/10/20 02/10/20 Range/Units 07:55 07:55 12:30 WBC 21.1 H (3.8-10.6) k/uL MCHC 30.7 L (31.0-37.0) g/dL Plt Count 563 H (150-450) k/uL Sodium 151 H (137-145) mmol/L Carbon Dioxide 37 H (22-30) mmol/L BUN 47 H (9-20) mg/dL Glucose 170 H (74-99) mg/dL POC Glucose (mg/dL) 142 H (75-99) mg/dL Calcium 8.3 L (8.4-10.2) mg/dL Total Bilirubin 1.7 H (0.2-1.3) mg/dL AST 111 H (17-59) U/L ALT 52 H (4-49) U/L Alkaline Phosphatase 136 H (38-126) U/L Albumin 3.0 L (3.5-5.0) g/dL 02/10/20 02/10/20 02/10/20 Range/Units 16:53 20:01 22:35 WBC (3.8-10.6) k/uL MCHC (31.0-37.0) g/dL Plt Count (150-450) k/uL Sodium (137-145) mmol/L Carbon Dioxide (22-30) mmol/L BUN (9-20) mg/dL Glucose (74-99) mg/dL POC Glucose (mg/dL) 157 H 157 H 147 H (75-99) mg/dL Calcium (8.4-10.2) mg/dL Total Bilirubin (0.2-1.3) mg/dL AST (17-59) U/L ALT (4-49) U/L Alkaline Phosphatase (38-126) U/L Albumin (3.5-5.0) g/dL 02/11/20 Range/Units 06:11 WBC (3.8-10.6) k/uL MCHC (31.0-37.0) g/dL Plt Count (150-450) k/uL Sodium (137-145) mmol/L Carbon Dioxide (22-30) mmol/L BUN (9-20) mg/dL Glucose (74-99) mg/dL POC Glucose (mg/dL) 199 H (75-99) mg/dL Calcium (8.4-10.2) mg/dL Total Bilirubin (0.2-1.3) mg/dL AST (17-59) U/L ALT (4-49) U/L Alkaline Phosphatase (38-126) U/L Albumin (3.5-5.0) g/dL Microbiology - Last 24 Hours (Table) 02/06/20 06:15 Blood Culture - Preliminary Blood No Growth after 96 hours 02/06/20 05:09 Blood Culture - Preliminary Blood No Growth after 96 hours
--- NOTE | 2020-02-11 17:05 | PN ---
PROGRESS NOTE DATE OF SERVICE: 02/11/2020 REASON FOR FOLLOWUP: 1. Streptococcus agalactiae bacteremia UTI. 2. Elevated white count. INTERVAL HISTORY: Patient is currently afebrile, patient is breathing comfortably. The patient's NG has been discontinued. Denies having any nausea, vomiting. No abdominal pain. Did have bowel movement. PHYSICAL EXAMINATION: Blood pressure is 116/73 with a pulse of 61, temperature is 97.3, 100% on 3 L nasal cannula. General description is an elderly male, up in the chair in no distress. RESPIRATORY SYSTEM: Unlabored breathing, decreased breath sounds, no wheeze. HEART: S1, S2. Regular rate and rhythm. ABDOMEN: Soft, no tenderness. LABS: Hemoglobin is 12.8, white count 15.2, BUN of 59, creatinine to 2.06. DIAGNOSTIC IMPRESSION AND PLAN: Patient admitted to hospital with sepsis secondary to complicated UTI in this patient who did have a left ureteral stone, status post cystoscopy and ureteral stent placement. Patient initial improvement, culture subsequently has slight worsening and complication of small bowel obstruction, has been treated medically now with worsening of the kidney function. The patient needs to be monitored closely. May show no obstruction of his ureteral stent. Continue with Zosyn as white count has shown a downward trend. Continue supportive care. MMODL / IJN: [id number] /
--- NOTE | 2020-02-11 17:11 | PN ---
PROGRESS NOTE Patient is seen for followup for acute kidney injury. Patient's renal function has improved significantly. However, his sodium was elevated at 151 yesterday. Currently patient is maintained on D5 W at 75 mL/hour. PHYSICAL EXAMINATION: He is comfortable. Blood pressure is 116/73, heart rate 61 per minute. He is afebrile. EXAMINATION OF THE HEART: S1 and S2. EXAMINATION OF LUNGS: Bilateral breath sounds are heard. ABDOMEN: Soft, non-tender, obese. Examination of lower extremities shows chronic skin changes. No significant edema noted. [employer] exam is grossly intact. LABS: Labs show sodium 150, potassium 3.6, chloride 100, BUN 59, creatinine 2.06. ASSESSMENT: 1. Acute kidney injury which had improved with creatinine going down to 1.1, and then serum creatinine increased again to 2.0 now. The patient has an indwelling Gibbs catheter; 24-hour urine output at about 1.2 L. This is most likely prerenal. I will continue with the IV fluids for now. Repeat labs in a.m. There are no nephrotoxic agents noted. Blood pressure is not significantly low. I will hold off on the Lasix as well. 2. Hypernatremia associated with free water deficit. Increase oral free water and continue with D5W. 3. Ileus, currently improved. 4. Large left-sided kidney stone about 7 mm, status post double-J stent placement on 02/02 with plans to follow up as outpatient with Urology. PLAN: Continue with D5W. Hold Lasix. Repeat labs in a.m. MMODL / IJN: [id number] /
[2020-02-11 17:25] LABS: Glucose,Whole Blood 212 mg/dL (75-99)
[2020-02-11 20:03] LABS: Glucose,Whole Blood 242 mg/dL (75-99)
[2020-02-11] MEDS: ATORVASTATIN 80 MG TAB PO SCH (20:34)
[2020-02-11 21:59] LABS: Glucose,Whole Blood 185 mg/dL (75-99)
[2020-02-12] MEDS: PIPERACILLIN-TAZOBACTAM 3.375 GM in SODIUM CHLORIDE 0.9% 100 ML IVPB SCH ×3 (03:58→20:51)
[2020-02-12] MEDS: DEXTROSE 5% IN WATER 1,000 ML IV SCH (04:00)
[2020-02-12] MEDS: METOCLOPRAMIDE 5 MG/ML 2 ML VIAL IVP SCH ×4 (05:40→23:44)
[2020-02-12 07:25] LABS: Glucose,Whole Blood 181 mg/dL (75-99)
[2020-02-12 08:09] LABS: HGB 11.8 gm/dL (13.0-17.5); Hypochromasia Slight; MCH 27.7 pg (25.0-35.0); MCHC 30.4 g/dL (31.0-37.0); MCV 91.2 fL (80.0-100.0); Platelet Count 455 k/uL (150-450); RBC 4.27 m/uL (4.30-5.90); RDW 14.7 % (11.5-15.5); WBC 19.1 k/uL (3.8-10.6)
[2020-02-12 08:33] LABS: Calcium 7.6 mg/dL (8.4-10.2); Total Bilirubin 2.2 mg/dL (0.2-1.3); Total Protein 6.6 g/dL (6.3-8.2)
[2020-02-12] MEDS: bisacodyL 10 MG SUPP RECTAL SCH (09:22)
[2020-02-12] MEDS: polyethylene glycoL 3350 17 GM POWD.PACK PO SCH (09:22)
[2020-02-12] MEDS: buPROPion 75 MG TAB PO SCH (09:22)
[2020-02-12] MEDS: PANTOPRAZOLE 40 MG TABLET PO SCH (09:22)
[2020-02-12] MEDS: atenoloL 50 MG TAB PO SCH (09:22)
[2020-02-12] MEDS: allopurinoL 300 MG TAB PO SCH (09:22)
[2020-02-12] MEDS: DILTIAZEM CD 240 MG CAP.ER.24H PO SCH (09:22)
[2020-02-12] MEDS: TAMSULOSIN 0.4 MG CAP.ER.24H PO SCH (09:22)
[2020-02-12] MEDS: INSULIN ASPART (NovoLOG) 100 UNIT/ML VIAL SQ SCH ×4 (09:23→21:43)
[2020-02-12] MEDS: ISOSORBIDE MONONITRATE ER 30 MG TAB.ER.24H PO SCH (09:23)
[2020-02-12] MEDS: POTASSIUM CHLORIDE ER 10 MEQ TAB.ER.PRT PO SCH (09:23)
--- NOTE | 2020-02-12 10:55 | P.PN ---
Subjective Progress Note Date: 02/12/20 Patient seen and examined at bedside. Tolerating CLD. Continues to have bowel function Objective - Vital Signs Vital signs: Vital Signs Temp 97.6 F 02/12/20 04:39 Pulse 56 L 02/12/20 07:47 Resp 20 02/12/20 04:39 BP 114/54 02/12/20 07:47 Pulse Ox 94 L 02/12/20 04:39 Intake & Output 02/11/20 02/12/20 02/12/20 18:59 06:59 18:59 Intake Total 900 Balance 900 Intake: Intake, IV Titration 900 Amount Dextrose 5% in Water 1, 900 000 ml @ 75 mls/hr IV . [id number] [facility] Rx#:[id number] Other: Voiding Method Indwelling Catheter Indwelling Catheter - Constitutional General appearance: Present: cooperative, no acute distress - Gastrointestinal Gastrointestinal Comment(s): soft, nontender, mild distention, no rebound, no guarding - Musculoskeletal Musculoskeletal: Present: generalized weakness - Psychiatric Psychiatric: Present: A&O x's 3 - Labs CBC & Chem 7: 02/12/20 07:01 02/12/20 07:01 Labs: Abnormal Lab Results - Last 24 Hours (Table) 02/11/20 02/11/20 02/11/20 Range/Units 11:22 17:08 20:01 WBC (3.8-10.6) k/uL RBC (4.30-5.90) m/uL Hgb (13.0-17.5) gm/dL MCHC (31.0-37.0) g/dL Plt Count (150-450) k/uL Chloride (98-107) mmol/L Carbon Dioxide (22-30) mmol/L BUN (9-20) mg/dL Creatinine (0.66-1.25) mg/dL Glucose (74-99) mg/dL POC Glucose (mg/dL) 205 H 212 H 242 H (75-99) mg/dL Calcium (8.4-10.2) mg/dL Total Bilirubin (0.2-1.3) mg/dL AST (17-59) U/L ALT (4-49) U/L Albumin (3.5-5.0) g/dL 02/11/20 02/12/20 02/12/20 Range/Units 21:57 07:01 07:01 WBC 19.1 H (3.8-10.6) k/uL RBC 4.27 L (4.30-5.90) m/uL Hgb 11.8 L (13.0-17.5) gm/dL MCHC 30.4 L (31.0-37.0) g/dL Plt Count 455 H (150-450) k/uL Chloride 94 L (98-107) mmol/L Carbon Dioxide 33 H (22-30) mmol/L BUN 71 H (9-20) mg/dL Creatinine 2.80 H (0.66-1.25) mg/dL Glucose 197 H (74-99) mg/dL POC Glucose (mg/dL) 185 H (75-99) mg/dL Calcium 7.6 L (8.4-10.2) mg/dL Total Bilirubin 2.2 H (0.2-1.3) mg/dL AST 96 H (17-59) U/L ALT 51 H (4-49) U/L Albumin 3.0 L (3.5-5.0) g/dL 02/12/20 Range/Units 07:23 WBC (3.8-10.6) k/uL RBC (4.30-5.90) m/uL Hgb (13.0-17.5) gm/dL MCHC (31.0-37.0) g/dL Plt Count (150-450) k/uL Chloride (98-107) mmol/L Carbon Dioxide (22-30) mmol/L BUN (9-20) mg/dL Creatinine (0.66-1.25) mg/dL Glucose (74-99) mg/dL POC Glucose (mg/dL) 181 H (75-99) mg/dL Calcium (8.4-10.2) mg/dL Total Bilirubin (0.2-1.3) mg/dL AST (17-59) U/L ALT (4-49) U/L Albumin (3.5-5.0) g/dL Microbiology - Last 24 Hours (Table) 02/06/20 06:15 Blood Culture - Final Blood No Growth after 144 hours 02/06/20 05:09 Blood Culture - Final Blood No Growth after 144 hours Assessment and Plan Plan: 69-year-old male with recent nausea and vomiting episode, Ileus that appears to be resolving - Tolerating clear liquid diet. Having bowel movements. Advance diet as tolerated. Surgically stable.
--- NOTE | 2020-02-12 11:31 | PN ---
PROGRESS NOTE Patient is seen for followup for acute kidney injury and hypernatremia. His serum creatinine had improved to 1.1, but then started to increase again with creatinine up to 2.0 yesterday and today it is at 2.8. The patient has an indwelling Gibbs catheter with 24 hour urine output at about 1200 mL. He is maintained on IV fluids. Overall, he states he is feeling better. Blood pressure has been on the lower side. PHYSICAL EXAMINATION: Today blood pressure was 114/54, heart rate 56 per minute. Previous blood pressure 90/51. Examination of the heart S1, S2. Examination of the lungs, bilateral breath sounds are heard. Decreased breath sounds at bases. Abdomen is soft, obese. Examination of the lower extremities shows no significant edema. Chronic skin changes are noted. COMMUNITY ENGAGEMENT COORDINATOR exam grossly intact. LABS: Show sodium of 141, potassium 4.0, chloride 94, CO2 is 33, BUN 71, creatinine 2.8, hemoglobin 11.8 g/dL. ASSESSMENT: 1. Acute kidney injury associated with hypovolemia as well as hypoperfusion. I will decrease the Cardizem and hold for systolic blood pressure of less than 110 as well as the Tenormin. Continue with IV fluids. There are no nephrotoxic agents on board currently. Repeat labs in a.m. 2. Hypernatremia associated with free water deficit, currently improved. 3. Ileus, now improved. 4. Large left kidney stone about 7 mm, status post left double-J stent placement. PLAN: Continue with IV fluids. Decrease Cardizem and hold Cardizem and Tenormin for systolic blood pressure of less than 110 mmHg and repeat labs in a.m. MMESTHERL / IJN: [id number] /
[2020-02-12 11:40] LABS: Glucose,Whole Blood 209 mg/dL (75-99)
[2020-02-12] MEDS: SODIUM CHLORIDE 0.9% 1,000 ML IV SCH ×2 (13:15→23:43)
--- NOTE | 2020-02-12 14:15 | P.PN ---
Subjective Progress Note Date: 02/12/20 69 year-old morbidly obese male one of Dr. Kemp with past medical history of CAD, CHF, hypertension, obstructive sleep apnea and chronic edema was known to have previous history of kidney stone who was in the emergency room on for severe left-sided flank pain was diagnosed with large kidney stone measure 7 mm. Patient was in to see Dr. Garrett on Sunday and was scheduled to have surgery on Sunday. Patient return to emergency department today with severe intractable pain with nausea not been able to tolerate anything orally patient was seen and a Profore admission by Dr. Dhillon urology to treat his symptoms. His kidney function is down with creatinine up to 3.0 significant decline from few days earlier. Patient was started on IV hydration and pain management and possibly will be going for surgery tomorrow. 02/02 patient seen resting in bed this morning, plan for ureterscopy today with urology. Labs were reviewed, white blood cells 13.4, hemoglobin 12.3, sodium 135, BUNs 52, creatinine 3.16, consult in place for nephrology to see patient. Calcium 6.3, and replaced by a nephrology. Patient is making adequate urine. Will order urine and blood cultures, patient started on Zosyn IV. Vital signs are stable, patient remains afebrile pulse 89, blood pressure 133/70, patient pulse ox 92% on 2 L nasal cannula. Renal ultrasound found no distinct abnormality seen, no evidence of hydronephrosis. 02/03: Patient seen today sitting on edge of bed, appears to be more short of breath today, requiring O2 at 4 L via nasal cannula satting 90%. Patient is afebrile, pulse rate 96, blood pressure 165/71. Blood cultures did show gram- positive cocci in chains. Vancomycin added along with Zosyn and infectious disease consult. We will do chest x-ray hep-locked the patient, give 40 IV Lasix 1 and labs are ordered. White blood cell count 16.2 hemoglobin 12.9 BUN/creatinine creatinine have improved creatinine 2.43 today. Troponins came back elevated at 0.454 this morning. Cardiology was ordered for consult along with echo. Nephrology remains on the case. We'll continue to monitor patient closely. Chest x-ray showed mild bibasilar infiltrates correlate for atelectasis or early pneumonia 02/04: Patient appears to be more comfortable today, O2 remains at 4 L via nasal cannula, satting 90%. We will give patient an additional 40 of IV Lasix today. Patient is afebrile vital signs are stable. White blood cells 15.5, hemoglobin 12.2, sodium 136, BUN 62, creatinine down to 1.63, calcium 6.9 today, second troponin was 0.306 yesterday. Cardiology is on the case, echo revealed EF was 55-60%, moderate LVH mild MR and TR. May require stress test for further workup. Blood cultures were positive for strep aglactiae, Dr Mark. Switch patient to Rocephin 2 g daily. Discussed with patient plan to go to rehab when discharged, and patient was agreeable to this. 02/05: Patient seen this morning denies any complaints, oxygen remains on 4 L via nasal cannula satting 93%. Lungs sounds improved and patient was short of breath. Will continue to work with PT and OT, plan for discharge to rehab likely Sunday. White blood cells today were 18.0 hemoglobin 12.6, BUN 50, creatinine 1.3, and blood sugars are stable. Patient remains on Rocephin IV with ID on the case along with cardio, nephrology. Chest x-ray from today shows left lower lobe infiltrate and atelectasis no change from prior exam. We'll continue to follow patient along with urology. 01/28 Patient examined bedside. Deep breath. Patient was found to have an episode of bronchitis and vomiting for in the morning. X-ray of the abdomen was positive for dilated small bowel was concerning for obstruction versus ileus. Patient was placed on nothing by mouth. surgery was consulted. On evaluation this morning patient denies any nausea or abdominal pain. He does endorse flat is but doesn't did not have any bowel movement for the past 1 week. Bowel regimen initiated with the a Dulcolax suppository to help with total output. Surgery suggest ileus rather than obstruction. Repeat abdominal x-ray tomorrow morning. Continue patient on nothing by mouth with ice chips medication with small sips 02/07 patient examined bedside. Continues to feel well. Patient was doing well earlier and had multiple bowel movements this morning and yesterday. Patient was started on clear liquid diet. Patient could not tolerate the clear liquid diet and started vomiting. NG tube was placed and patient admitted into canister immediately. Patient was also noted to have dark secretions coming out of his NG tube concerning for GI bleed. Nurse asked to obtain a fecal occult and repeat hemoglobin in the evening. Vitals otherwise stable temp is 97.6 pulse 70 blood pressure 186/80, oxygen saturation 93% on 2 L. Hold patient's glipizide and Lantus since patient's nothing by mouth continue insulin sliding scale. Patient is currently able to take his medication normally without any difficulty to be due to abdominal x-ray tomorrow 02/08: Patient has been afebrile, heart rate 58, blood pressure 180/80, pulse ox 93% on 2 L nasal cannula. CPAP at bedside. Blood sugars are running between 130 and 178. Repeat hemoglobin last evening was 13.1 and white count 18.8. Patient is scheduled for CAT scan of the abdomen and pelvis today without contrastwhich revealed the lateral aspect of the left hemiabdomen is not visualized due to patient body habitus. Diffusely mildly dilated small bowel loops with air-fluid levels. Findings may represent ileus, although there is transitioned to decompress bowel and the terminal ileum which may represent small bowel obstruction. Numerous nonobstructing left nephrolithiasis with left ureteral stent. Patient states he passed gas last evening but has not had a bowel movement. He denies any abdominal tenderness. Repeat blood cultures are showing no growth at 72 hours. NG tube remains in place with return of green- brown colored fluid. Patient also has Gibbs catheter in place. Patient is not utilizing incentive spirometry. Patient has been encouraged to use every hour. Patient is followed by multiple consultants. Patient also followed by PT and OT and required 2 people moderate assist sit to stand. 02/09: Patient has been afebrile, heart rate 69, blood pressure 124/69, pulse ox 94% on 2 L nasal cannula. Nephrology recommends continuing current dose of Lasix. Patient has had a small brown loose stool last evening and 2 bowel movements this morning. His NG tube is currently clamped and may be removed this afternoon. Repeat blood work reveals WBC 21.1, hemoglobin 13.2, platelet count 563. Sodium 151, potassium 3.8, chloride 101, CO2 37, BUN 47 creatinine 1.20. Blood sugars running between 157 and 170. Total bilirubin 1.7, AST 111, ALT 52, alkaline phosphatase 136. CXR/Abdominal x-ray reveals cardiomegaly with patchy left basilar linear scarring and/or atelectasis 3 demonstrated. No new infiltrate. Overall nonspecific bowel gas pattern. Distal small bowel obstruction cannot be excluded. No significant interval change. Patient continues to deny abdominal pain or tenderness. He currently does not have any nausea. 02/10: He utilized CPAP during the night. He denies having any abdominal pain, nausea or vomiting. NG tube was removed last evening and currently on ice chips. Anticipate that diet will be advanced once surgery rounds. Patient denies having any fevers. Abdominal ultrasound revealed some echogenic bile. No definite gallstones. No dilated ducts. Patient is reching 500 on incentive spirometry. Gibbs catheter remains in place. COVID-19 tests to be obtained today with anticipation of discharge an approximate 48 hours. WBC 18.3, hemoglobin 12.2, platelet count 477. Sodium 150, potassium 3.6, chloride 100, CO2 37, BUN 59 creatinine 2.06. Total bilirubin 2.0, AST 113, ALT 54, alkaline phosphatase 121. Blood sugars running between 147 and 205. Patient is currently on D5W at 75 mL per hour. 02/11: Chest x-ray from yesterday reveal stable pleural parenchymal density left lower lobe with chronic elevation of the left hemidiaphragm. Patient was started on clear liquid diet yesterday. Dr. Jordan recommended holding Lasix increase oral fluid intake and continue D5W regarding hypernatremia. Repeat lab work today reveals WBC 19.1, hemoglobin 11.8, platelet count 455. Sodium 141, potassium 4.0, chloride 94, CO2 33, BUN 71 creatinine 2.8. Total bilirubin 2.2, AST 96, ALT 51, alkaline phosphatase 110. Patient has been afebrile, heart rate 56, blood pressure 114/54, pulse ox 94% on 3 L nasal cannula. Patient utilized CPAP during the night. He continues to have shortness of breath with exertion. He is encouraged to use incentive spirometry reaching [address] To has advance diet to soft. Patient states that he is feeling better today. He denies any abdominal pain, nausea vomiting. He denies any chest pain, no shortness of breath. Repeat lab work is ordered for tomorrow if this is improving, patient will be discharged to [facility] tomorrow. Review of systems CONSTITUTIONAL: Denies fever, denies chills EYES: No icterus sclerae, no conjunctivitis. EARS, NOSE, MOUTH, THROAT, and FACE: No sore throat, lymphadenopathy, carotid bruits or deformity. RESPIRATORY: Mild shortness of breath improved . CARDIOVASCULAR: Positive PND and orthopnea no angina. GASTROINTESTINAL: No Abd pain, no abdominal tenderness, no vomiting, Positive bowel movements, No GI Bleed. GENITOURINARY: Positive large sided left side kidney stone status post stent placement BPH symptoms mild hematuria. INTEGUMENT/BREAST: Negative for any muscular injury with mild osteoarthritis.. HEMATOLOGIC/LYMPHATIC: Negative for bleed or purpura. MUSCULOSKELTAL: Negative for Myalgia or arthralgia. NEURLOGICAL: No LOC, Sz or syncope, blurred vision dizziness or abnormality.. BEHAVIORAL/PSYCH: Negative. ENDOCRINE: Negative. Physical examination General Appearance: Appears tired cooperative, cooperative, morbidly obese Neck HEENT: Supple, no lymphadenopathy, no thyroid enlargement, no carotid bruits. NG tube in place Lungs: Decreased breath some bilateral rhonchi, crackles positive Chest Wall: Decrease expansion with deep inspiration no tenderness and no deformity was found on exam, no costochondral pain or discomfort. Heart: Regular rate and rhythm, S1, S2 normal, no murmur, rub or gallop. Back: Symmetric, no curvature, ROM normal, positive left-sided CVA tenderness. Abdomen: Soft, bowel sounds are present, no masses, no organomegaly. Gibbs catheter in place Extremities: Extremities normal, atraumatic, no cyanosis, positive edema. Pulses: 2+ and symmetric. Skin: Skin color, texture, tugor normal, no rashes or lesions. Neurologic: Alert oriented x3 cranial nerves II through XII intact, no motor deficit, generalized weakness. Assessment and plan 1. Severe abdominal pain secondary to obstructive ureteric stone, status post double-J stent on 02/02 continue pain management with [place] 5. 2. Large left sided kidney stone measure 7 mm and affecting the kidney function, ultrasound was negative for hydronephrosis. Patient had double J stent placed on 02/02 by urology, will likely need this surgically removed per Dr. Ortiz after infection has resolved. 3. Atherosclerotic heart disease, follows with Dr. Medrano. 4. Acute kidney injury with chronic kidney disease, stable. Nephrology consult appreciated. 5. Acute on chronic diastolic heart failure with ejection fraction of 55-60%. Continue Lasix 40 mg oral daily, atenolol 50 mg daily, Imdur 30 mg daily. 6. Diabetes mellitus type 2. Levemir and glipizide on hold. Continue NovoLog scale for now while patient is nothing by mouth. Metformin was discontinued. 7. Hypertension: Remain on atenolol 50 mg daily along with diltiazem 240 mg a day. 8. Chronic gout. Continue allopurinol. 9. Mild reactive airway: Has been on Ventolin nebulizer. 10. Hyperlipidemia: Continue patient on atorvastatin 80 mg daily. 11. GI prophylaxis: Patient be continue on pantoprazole 40 mg a day. 12. DVT prophylaxis: After surgery patient be on heparin subcutaneous. 13. Streptococcal agalactia bacteremia secondary to a complicated urinary tract infection status post cystoscopy and left ureteral stent placement. Patient has been seen by Dr. Mark and currently on Unasyn. 14. Acute ileus. NG tube removed and started on clear liquid diet. Diet to be advanced to soft. 15. Troponin elevation secondary to fluid overload, sepsis and oxygen supply demand mismatch. Acute coronary syndrome ruled out by cardiology. 16. Obstructive sleep apnea. 17. Morbid obesity with BMI of 42. 18. Hypernatremia. Continue IV fluids D5W and encourage oral intake of fluids. CODE STATUS: Full code. Discharge plan: [facility] once stabilized. Coronavirus testing negative. Impression and plan of care have been directed as dictated by the signing physician. Jayne Garrido nurse practitioner acting as scribe for signing physician. Objective - Vital Signs Vital signs: Vital Signs Temp 97.6 F 02/12/20 04:39 Pulse 56 L 02/12/20 07:47 Resp 20 02/12/20 04:39 BP 114/54 02/12/20 07:47 Pulse Ox 94 L 02/12/20 04:39 Intake & Output 02/11/20 02/12/20 02/12/20 18:59 06:59 18:59 Intake Total 900 Balance 900 Intake: Intake, IV Titration 900 Amount Dextrose 5% in Water 1, 900 000 ml @ 75 mls/hr IV . [id number] [facility] Rx#:[id number] Other: Voiding Method Indwelling Catheter Indwelling Catheter - Labs CBC & Chem 7: 02/12/20 07:01 02/12/20 07:01 Labs: Abnormal Lab Results - Last 24 Hours (Table) 02/11/20 02/11/20 02/11/20 Range/Units 08:46 08:46 11:22 WBC 18.3 H (3.8-10.6) k/uL Hgb 12.2 L (13.0-17.5) gm/dL MCHC 30.2 L (31.0-37.0) g/dL Plt Count 477 H (150-450) k/uL Sodium 150 H (137-145) mmol/L Carbon Dioxide 37 H (22-30) mmol/L BUN 59 H (9-20) mg/dL Creatinine 2.06 H (0.66-1.25) mg/dL Glucose 195 H (74-99) mg/dL POC Glucose (mg/dL) 205 H (75-99) mg/dL Calcium 8.2 L (8.4-10.2) mg/dL Total Bilirubin 2.0 H (0.2-1.3) mg/dL AST 113 H (17-59) U/L ALT 54 H (4-49) U/L Albumin 3.0 L (3.5-5.0) g/dL 02/11/20 02/11/20 02/11/20 Range/Units 17:08 20:01 21:57 WBC (3.8-10.6) k/uL Hgb (13.0-17.5) gm/dL MCHC (31.0-37.0) g/dL Plt Count (150-450) k/uL Sodium (137-145) mmol/L Carbon Dioxide (22-30) mmol/L BUN (9-20) mg/dL Creatinine (0.66-1.25) mg/dL Glucose (74-99) mg/dL POC Glucose (mg/dL) 212 H 242 H 185 H (75-99) mg/dL Calcium (8.4-10.2) mg/dL Total Bilirubin (0.2-1.3) mg/dL AST (17-59) U/L ALT (4-49) U/L Albumin (3.5-5.0) g/dL 02/12/20 Range/Units 07:23 WBC (3.8-10.6) k/uL Hgb (13.0-17.5) gm/dL MCHC (31.0-37.0) g/dL Plt Count (150-450) k/uL Sodium (137-145) mmol/L Carbon Dioxide (22-30) mmol/L BUN (9-20) mg/dL Creatinine (0.66-1.25) mg/dL Glucose (74-99) mg/dL POC Glucose (mg/dL) 181 H (75-99) mg/dL Calcium (8.4-10.2) mg/dL Total Bilirubin (0.2-1.3) mg/dL AST (17-59) U/L ALT (4-49) U/L Albumin (3.5-5.0) g/dL Microbiology - Last 24 Hours (Table) 02/06/20 06:15 Blood Culture - Preliminary Blood No Growth after 120 hours 02/06/20 05:09 Blood Culture - Preliminary Blood No Growth after 120 hours
[2020-02-12 16:55] LABS: Glucose,Whole Blood 169 mg/dL (75-99)
[2020-02-12] MEDS: HYDROcodone/APAP 5-325MG 1 EACH TAB PO PRN (16:55)
--- NOTE | 2020-02-12 17:39 | PN ---
PROGRESS NOTE DATE OF SERVICE: 02/12/2020 REASON FOR FOLLOWUP VISIT: 1. Enterococcus agalactiae bacteremia. 2. Ileus. INTERVAL HISTORY: Patient is currently afebrile, has been breathing comfortably. Denies having any chest pain. No shortness of breath or cough. No abdominal pain. No nausea, vomiting. Did have bowel movement. PHYSICAL EXAMINATION: Blood pressure 100/55 with a pulse of 54, temperature 96, he is 94% on room air. General description is an elderly male up in the chair in no distress. RESPIRATORY SYSTEM: Unlabored breathing, decreased breath sounds at the base, no wheeze. HEART: S1, S2. Regular rate and rhythm. ABDOMEN: Soft, no tenderness. LABS: Hemoglobin 11.8, white count 19.1, BUN of 21, creatinine is 2.80. DIAGNOSTIC IMPRESSION AND PLAN: Patient with Streptococcus agalactiae bacteremia secondary to complicated UTI in this patient status post left ureteral stent placement. However, the patient did have worsening of his kidney function and possible blockage of the stent. He needs to be worked up, for the patient is covered with Zosyn to continue and monitor clinical course closely. MMODL / IJN: [id number] /
[2020-02-12 20:20] LABS: Glucose,Whole Blood 167 mg/dL (75-99)
[2020-02-12] MEDS: MORPHINE SULFATE 4 MG/ML SYRINGE IV PRN (20:49)
[2020-02-12] MEDS: ATORVASTATIN 80 MG TAB PO SCH (20:51)
[2020-02-13] MEDS: PIPERACILLIN-TAZOBACTAM 3.375 GM in SODIUM CHLORIDE 0.9% 100 ML IVPB SCH (03:53)
[2020-02-13] MEDS: METOCLOPRAMIDE 5 MG/ML 2 ML VIAL IVP SCH ×4 (06:00→23:01)
[2020-02-13 07:06] LABS: Glucose,Whole Blood 200 mg/dL (75-99)
[2020-02-13 07:40] LABS: HCT 32.9 % (39.0-53.0); HGB 10.9 gm/dL (13.0-17.5); MCH 29.4 pg (25.0-35.0); MCV 89.1 fL (80.0-100.0); Mean Platelet Volume 8.1; Platelet Count 303 k/uL (150-450); RBC 3.69 m/uL (4.30-5.90); RDW 14.7 % (11.5-15.5); WBC 12.6 k/uL (3.8-10.6)
[2020-02-13 07:52] LABS: Albumin 2.6 g/dL (3.5-5.0); Total Bilirubin 1.5 mg/dL (0.2-1.3); Total Protein 6.1 g/dL (6.3-8.2)
[2020-02-13] MEDS: TAMSULOSIN 0.4 MG CAP.ER.24H PO SCH (08:08)
[2020-02-13] MEDS: INSULIN ASPART (NovoLOG) 100 UNIT/ML VIAL SQ SCH ×4 (08:08→21:03)
[2020-02-13] MEDS: PANTOPRAZOLE 40 MG TABLET PO SCH (08:08)
[2020-02-13] MEDS: atenoloL 25 MG TAB PO SCH (08:08)
[2020-02-13] MEDS: ISOSORBIDE MONONITRATE ER 30 MG TAB.ER.24H PO SCH (08:08)
[2020-02-13] MEDS: allopurinoL 300 MG TAB PO SCH (08:09)
[2020-02-13] MEDS: polyethylene glycoL 3350 17 GM POWD.PACK PO SCH (08:09)
[2020-02-13] MEDS: POTASSIUM CHLORIDE ER 10 MEQ TAB.ER.PRT PO SCH (08:09)
[2020-02-13] MEDS: bisacodyL 10 MG SUPP RECTAL SCH (08:09)
[2020-02-13] MEDS: buPROPion 75 MG TAB PO SCH (08:14)
[2020-02-13] MEDS ORDERED: DILTIAZEM CD 120 MG CAP.ER.24H PO SCH (09:00)
[2020-02-13 11:23] LABS: Glucose,Whole Blood 163 mg/dL (75-99)
--- NOTE | 2020-02-13 12:09 | P.PN ---
Subjective Progress Note Date: 02/13/20 69 year-old morbidly obese male one of Dr. Kemp with past medical history of CAD, CHF, hypertension, obstructive sleep apnea and chronic edema was known to have previous history of kidney stone who was in the emergency room on for severe left-sided flank pain was diagnosed with large kidney stone measure 7 mm. Patient was in to see Dr. Garrett on Sunday and was scheduled to have surgery on Sunday. Patient return to emergency department today with severe intractable pain with nausea not been able to tolerate anything orally patient was seen and a Profore admission by Dr. Dhillon urology to treat his symptoms. His kidney function is down with creatinine up to 3.0 significant decline from few days earlier. Patient was started on IV hydration and pain management and possibly will be going for surgery tomorrow. 02/02 patient seen resting in bed this morning, plan for ureterscopy today with urology. Labs were reviewed, white blood cells 13.4, hemoglobin 12.3, sodium 135, BUNs 52, creatinine 3.16, consult in place for nephrology to see patient. Calcium 6.3, and replaced by a nephrology. Patient is making adequate urine. Will order urine and blood cultures, patient started on Zosyn IV. Vital signs are stable, patient remains afebrile pulse 89, blood pressure 133/70, patient pulse ox 92% on 2 L nasal cannula. Renal ultrasound found no distinct abnormality seen, no evidence of hydronephrosis. 02/03: Patient seen today sitting on edge of bed, appears to be more short of breath today, requiring O2 at 4 L via nasal cannula satting 90%. Patient is afebrile, pulse rate 96, blood pressure 165/71. Blood cultures did show gram- positive cocci in chains. Vancomycin added along with Zosyn and infectious disease consult. We will do chest x-ray hep-locked the patient, give 40 IV Lasix 1 and labs are ordered. White blood cell count 16.2 hemoglobin 12.9 BUN/creatinine creatinine have improved creatinine 2.43 today. Troponins came back elevated at 0.454 this morning. Cardiology was ordered for consult along with echo. Nephrology remains on the case. We'll continue to monitor patient closely. Chest x-ray showed mild bibasilar infiltrates correlate for atelectasis or early pneumonia 02/04: Patient appears to be more comfortable today, O2 remains at 4 L via nasal cannula, satting 90%. We will give patient an additional 40 of IV Lasix today. Patient is afebrile vital signs are stable. White blood cells 15.5, hemoglobin 12.2, sodium 136, BUN 62, creatinine down to 1.63, calcium 6.9 today, second troponin was 0.306 yesterday. Cardiology is on the case, echo revealed EF was 55-60%, moderate LVH mild MR and TR. May require stress test for further workup. Blood cultures were positive for strep aglactiae, Dr Mark. Switch patient to Rocephin 2 g daily. Discussed with patient plan to go to rehab when discharged, and patient was agreeable to this. 02/05: Patient seen this morning denies any complaints, oxygen remains on 4 L via nasal cannula satting 93%. Lungs sounds improved and patient was short of breath. Will continue to work with PT and OT, plan for discharge to rehab likely Sunday. White blood cells today were 18.0 hemoglobin 12.6, BUN 50, creatinine 1.3, and blood sugars are stable. Patient remains on Rocephin IV with ID on the case along with cardio, nephrology. Chest x-ray from today shows left lower lobe infiltrate and atelectasis no change from prior exam. We'll continue to follow patient along with urology. 01/28 Patient examined bedside. Deep breath. Patient was found to have an episode of bronchitis and vomiting for in the morning. X-ray of the abdomen was positive for dilated small bowel was concerning for obstruction versus ileus. Patient was placed on nothing by mouth. surgery was consulted. On evaluation this morning patient denies any nausea or abdominal pain. He does endorse flat is but doesn't did not have any bowel movement for the past 1 week. Bowel regimen initiated with the a Dulcolax suppository to help with total output. Surgery suggest ileus rather than obstruction. Repeat abdominal x-ray tomorrow morning. Continue patient on nothing by mouth with ice chips medication with small sips 02/07 patient examined bedside. Continues to feel well. Patient was doing well earlier and had multiple bowel movements this morning and yesterday. Patient was started on clear liquid diet. Patient could not tolerate the clear liquid diet and started vomiting. NG tube was placed and patient admitted into canister immediately. Patient was also noted to have dark secretions coming out of his NG tube concerning for GI bleed. Nurse asked to obtain a fecal occult and repeat hemoglobin in the evening. Vitals otherwise stable temp is 97.6 pulse 70 blood pressure 186/80, oxygen saturation 93% on 2 L. Hold patient's glipizide and Lantus since patient's nothing by mouth continue insulin sliding scale. Patient is currently able to take his medication normally without any difficulty to be due to abdominal x-ray tomorrow 02/08: Patient has been afebrile, heart rate 58, blood pressure 180/80, pulse ox 93% on 2 L nasal cannula. CPAP at bedside. Blood sugars are running between 130 and 178. Repeat hemoglobin last evening was 13.1 and white count 18.8. Patient is scheduled for CAT scan of the abdomen and pelvis today without contrastwhich revealed the lateral aspect of the left hemiabdomen is not visualized due to patient body habitus. Diffusely mildly dilated small bowel loops with air-fluid levels. Findings may represent ileus, although there is transitioned to decompress bowel and the terminal ileum which may represent small bowel obstruction. Numerous nonobstructing left nephrolithiasis with left ureteral stent. Patient states he passed gas last evening but has not had a bowel movement. He denies any abdominal tenderness. Repeat blood cultures are showing no growth at 72 hours. NG tube remains in place with return of green- brown colored fluid. Patient also has Gibbs catheter in place. Patient is not utilizing incentive spirometry. Patient has been encouraged to use every hour. Patient is followed by multiple consultants. Patient also followed by PT and OT and required 2 people moderate assist sit to stand. 02/09: Patient has been afebrile, heart rate 69, blood pressure 124/69, pulse ox 94% on 2 L nasal cannula. Nephrology recommends continuing current dose of Lasix. Patient has had a small brown loose stool last evening and 2 bowel movements this morning. His NG tube is currently clamped and may be removed this afternoon. Repeat blood work reveals WBC 21.1, hemoglobin 13.2, platelet count 563. Sodium 151, potassium 3.8, chloride 101, CO2 37, BUN 47 creatinine 1.20. Blood sugars running between 157 and 170. Total bilirubin 1.7, AST 111, ALT 52, alkaline phosphatase 136. CXR/Abdominal x-ray reveals cardiomegaly with patchy left basilar linear scarring and/or atelectasis 3 demonstrated. No new infiltrate. Overall nonspecific bowel gas pattern. Distal small bowel obstruction cannot be excluded. No significant interval change. Patient continues to deny abdominal pain or tenderness. He currently does not have any nausea. 02/10: He utilized CPAP during the night. He denies having any abdominal pain, nausea or vomiting. NG tube was removed last evening and currently on ice chips. Anticipate that diet will be advanced once surgery rounds. Patient denies having any fevers. Abdominal ultrasound revealed some echogenic bile. No definite gallstones. No dilated ducts. Patient is reching 500 on incentive spirometry. Gibbs catheter remains in place. COVID-19 tests to be obtained today with anticipation of discharge an approximate 48 hours. WBC 18.3, hemoglobin 12.2, platelet count 477. Sodium 150, potassium 3.6, chloride 100, CO2 37, BUN 59 creatinine 2.06. Total bilirubin 2.0, AST 113, ALT 54, alkaline phosphatase 121. Blood sugars running between 147 and 205. Patient is currently on D5W at 75 mL per hour. 02/11: Chest x-ray from yesterday reveal stable pleural parenchymal density left lower lobe with chronic elevation of the left hemidiaphragm. Patient was started on clear liquid diet yesterday. Dr. Jordan recommended holding Lasix increase oral fluid intake and continue D5W regarding hypernatremia. Repeat lab work today reveals WBC 19.1, hemoglobin 11.8, platelet count 455. Sodium 141, potassium 4.0, chloride 94, CO2 33, BUN 71 creatinine 2.8. Total bilirubin 2.2, AST 96, ALT 51, alkaline phosphatase 110. Patient has been afebrile, heart rate 56, blood pressure 114/54, pulse ox 94% on 3 L nasal cannula. Patient utilized CPAP during the night. He continues to have shortness of breath with exertion. He is encouraged to use incentive spirometry reaching [address] To has advance diet to soft. Patient states that he is feeling better today. He denies any abdominal pain, nausea vomiting. He denies any chest pain, no shortness of breath. Repeat lab work is ordered for tomorrow if this is improving, patient will be discharged to [facility] tomorrow. 02/12: Covid 19 testing is negative. Patient is been afebrile, heart rate 58, blood pressure 107/61, pulse ox 94% on room air. Repeat blood work this morning reveals WBC of 12.6, hemoglobin 10.9 and platelet count 303. Sodium 136, potassium 4.0, chloride 94, CO2 30. BUN 83 and creatinine 3.76. Blood sugars are running between 163 and 200. Due to worsening renal function, discharge will be held. Nursing to update urology regarding worsening renal function and possible imaging. We have ordered a CAT scan abdomen and pelvis without contrast. Lasix discontinued. Discussed with Dr. Mark and Zosyn will be discontinued. Patient does relate that he had one episode of vomiting last night. He also states he has not had a bowel movement in 2 days. Patient is eating well and taking supplements as well. No nausea or vomiting. No abdominal pain. He is reaching 750 ML's on incentive spirometry. Review of systems CONSTITUTIONAL: Denies fever, denies chills, reports generalized weakness EYES: No icterus sclerae, no conjunctivitis. EARS, NOSE, MOUTH, THROAT, and FACE: No sore throat, lymphadenopathy, carotid bruits or deformity. RESPIRATORY: Mild shortness of breath improved . CARDIOVASCULAR: Positive PND and orthopnea no angina. GASTROINTESTINAL: No Abd pain, no abdominal tenderness, no vomiting, Positive bowel movements, No GI Bleed. GENITOURINARY: Positive large sided left side kidney stone status post stent placement BPH symptoms no hematuria. INTEGUMENT/BREAST: Negative for any muscular injury with mild osteoarthritis.. HEMATOLOGIC/LYMPHATIC: Negative for bleed or purpura. MUSCULOSKELTAL: Negative for Myalgia or arthralgia. NEURLOGICAL: No LOC, Sz or syncope, blurred vision dizziness or abnormality.. BEHAVIORAL/PSYCH: Negative. ENDOCRINE: Negative. Physical examination General Appearance: Appears tired cooperative, cooperative, morbidly obese Neck HEENT: Supple, no lymphadenopathy, no thyroid enlargement, no carotid bruits. Lungs: Decreased breath sounds bilaterally, no intercostal retractions. Chest Wall: Decrease expansion with deep inspiration no tenderness and no deformity was found on exam, no costochondral pain or discomfort. Heart: Regular rate and rhythm, S1, S2 normal, no murmur, rub or gallop. Back: Symmetric, no curvature, ROM normal. Abdomen: Soft, bowel sounds are present, no masses, no organomegaly. Gibbs catheter in place Extremities: Extremities normal, atraumatic, no cyanosis, positive edema. Pulses: 2+ and symmetric. Skin: Skin color, texture, tugor normal, no rashes or lesions. Neurologic: Alert oriented x3 cranial nerves II through XII intact, no motor deficit, generalized weakness. Assessment and plan 1. Severe abdominal pain secondary to obstructive ureteric stone, status post double-J stent on 02/02 continue pain management with [place] 5. 2. Large left sided kidney stone measure 7 mm and affecting the kidney fu nction, ultrasound was negative for hydronephrosis. Patient had double J stent placed on 02/02 by urology, will likely need this surgically removed per Dr. Ortiz after infection has resolved. 3. Atherosclerotic heart disease, follows with Dr. Medrano. 4. Acute kidney injury with chronic kidney disease, stable. Nephrology consult appreciated. Patient to be reassessed by urology. CAT scan of the abdomen and pelvis without contrast ordered. Hold Lasix and discontinue Zosyn. IV fluids changed to 0.9 normal saline at 75 mL per hour. 5. Acute on chronic diastolic heart failure with ejection fraction of 55-60%. Continue atenolol 50 mg daily, Imdur 30 mg daily. 6. Diabetes mellitus type 2. Levemir and glipizide on hold. Continue NovoLog scale for now while patient is nothing by mouth. Metformin was discontinued. 7. Hypertension: Remain on atenolol 50 mg daily along with diltiazem 240 mg a day. 8. Chronic gout. Continue allopurinol. 9. Mild reactive airway: Has been on Ventolin nebulizer. 10. Hyperlipidemia: Continue patient on atorvastatin 80 mg daily. 11. GI prophylaxis: Patient be continue on pantoprazole 40 mg a day. 12. DVT prophylaxis: After surgery patient be on heparin subcutaneous. 13. Streptococcal agalactia bacteremia secondary to a complicated urinary tract infection status post cystoscopy and left ureteral stent placement. Patient has been seen by Dr. Mark and completed antibiotics. 14. Acute ileus. NG tube removed and tolerating diet. 15. Troponin elevation secondary to fluid overload, sepsis and oxygen supply demand mismatch. Acute coronary syndrome ruled out by cardiology. 16. Obstructive sleep apnea. 17. Morbid obesity with BMI of 42. 18. Hypernatremia. CODE STATUS: Full code. Discharge plan: [facility] once stabilized. Coronavirus testing negative. Patient will need repeat Covid testing on Sunday with anticipated discharge on Sunday to . Impression and plan of care have been directed as dictated by the signing physician. Jayne Garrido nurse practitioner acting as scribe for signing physician. Objective - Vital Signs Vital signs: Vital Signs Temp 98.3 F 02/13/20 05:00 Pulse 58 L 02/13/20 05:00 Resp 16 02/13/20 05:00 BP 107/61 02/13/20 05:00 Pulse Ox 94 L 02/13/20 05:00 Intake & Output 02/12/20 02/13/20 02/13/20 18:59 06:59 18:59 Intake Total 720 240 Balance 720 240 Weight 133.5 kg 142.5 kg Intake: Oral 720 240 Other: Voiding Method Indwelling Catheter Indwelling Catheter - Labs CBC & Chem 7: 02/13/20 07:02 02/13/20 07:02 Labs: Abnormal Lab Results - Last 24 Hours (Table) 02/12/20 02/12/20 02/12/20 Range/Units 07:01 11:38 16:53 WBC (3.8-10.6) k/uL RBC (4.30-5.90) m/uL Hgb (13.0-17.5) gm/dL Hct (39.0-53.0) % Sodium (137-145) mmol/L Chloride 94 L (98-107) mmol/L Carbon Dioxide 33 H (22-30) mmol/L BUN 71 H (9-20) mg/dL Creatinine 2.80 H (0.66-1.25) mg/dL Glucose 197 H (74-99) mg/dL POC Glucose (mg/dL) 209 H 169 H (75-99) mg/dL Calcium 7.6 L (8.4-10.2) mg/dL Total Bilirubin 2.2 H (0.2-1.3) mg/dL AST 96 H (17-59) U/L ALT 51 H (4-49) U/L Total Protein (6.3-8.2) g/dL Albumin 3.0 L (3.5-5.0) g/dL 02/12/20 02/13/20 02/13/20 Range/Units 20:18 06:57 07:02 WBC 12.6 H (3.8-10.6) k/uL RBC 3.69 L (4.30-5.90) m/uL Hgb 10.9 L (13.0-17.5) gm/dL Hct 32.9 L (39.0-53.0) % Sodium (137-145) mmol/L Chloride (98-107) mmol/L Carbon Dioxide (22-30) mmol/L BUN (9-20) mg/dL Creatinine (0.66-1.25) mg/dL Glucose (74-99) mg/dL POC Glucose (mg/dL) 167 H 200 H (75-99) mg/dL Calcium (8.4-10.2) mg/dL Total Bilirubin (0.2-1.3) mg/dL AST (17-59) U/L ALT (4-49) U/L Total Protein (6.3-8.2) g/dL Albumin (3.5-5.0) g/dL 02/13/20 Range/Units 07:02 WBC (3.8-10.6) k/uL RBC (4.30-5.90) m/uL Hgb (13.0-17.5) gm/dL Hct (39.0-53.0) % Sodium 136 L (137-145) mmol/L Chloride 94 L (98-107) mmol/L Carbon Dioxide (22-30) mmol/L BUN 83 H (9-20) mg/dL Creatinine 3.76 H (0.66-1.25) mg/dL Glucose 187 H (74-99) mg/dL POC Glucose (mg/dL) (75-99) mg/dL Calcium 7.0 L (8.4-10.2) mg/dL Total Bilirubin 1.5 H (0.2-1.3) mg/dL AST 83 H (17-59) U/L ALT (4-49) U/L Total Protein 6.1 L (6.3-8.2) g/dL Albumin 2.6 L (3.5-5.0) g/dL Microbiology - Last 24 Hours (Table) 02/06/20 06:15 Blood Culture - Final Blood No Growth after 144 hours 02/06/20 05:09 Blood Culture - Final Blood No Growth after 144 hours
[2020-02-13] MEDS: SODIUM CHLORIDE 0.9% 1,000 ML IV SCH (13:23)
--- NOTE | 2020-02-13 14:51 | PN ---
PROGRESS NOTE Patient's renal function had improved significantly after initial admission. His serum creatinine decreased to about 1.2 from 3.0 mg/dL and then his creatinine started to increase again about 2 days ago. Patient has been started on IV fluids. He has a Gibbs catheter. He has had good urine output. Patient has not received any nephrotoxic medications. His blood pressure has been running low with systolic around 94 and 90 mmHg. Antihypertensive medications were adjusted yesterday. However, at this time I will discontinue the Cardizem and the Tenormin as blood pressure remains significantly low. Continue with the saline for now. PHYSICAL EXAMINATION: Today patient is comfortable. Blood pressure 98/61, heart rate 63 per minute, he is afebrile. Examination of the heart S1, S2. Examination of lungs, bilateral breath sounds are heard. Abdomen is soft, nontender. Examination of the lower extremities shows chronic skin changes, no significant edema noted. LABS: Show sodium 136, potassium 4.0, chloride 94, BUN 83, creatinine 3.76, hemoglobin 10.9 g/dL. ASSESSMENT: 1. Acute kidney injury, initially improved post admission with placement of left ureteral stent for left hydro and nephrolithiasis. The renal function has started to worsen again is more associated with hypotension, hypoperfusion and some volume depletion. Patient has been maintained on IV fluids and antihypertensive medications were decreased. Serum creatinine continues to increase. The patient has a Gibbs catheter with good urine output. I will continue with the IV fluids and hold the Cardizem and the Tenormin. I will also decrease the Imdur and repeat labs in a.m. Continue to avoid nephrotoxic agents. If renal function continues to worsen, need to obtain another imaging of the kidneys in terms of an ultrasound. 2. Left ureteral stone and hydronephrosis, status post double-J stent placement and cystoscopy. 3. Chronic kidney disease with proteinuria, mostly from diabetic kidney disease, baseline creatinine about 1 to 1.1. 4. Acute diastolic CHF, now resolved. Patient is now on IV fluids. 5. Hypokalemia, status post supplementation. PLAN: Check ultrasound of the kidneys. Hold off on antihypertensive medications. Continue IV fluids, repeat labs in a.m. MMODL / IJN: [id number] /
[2020-02-13 17:01] LABS: Glucose,Whole Blood 138 mg/dL (75-99)
--- NOTE | 2020-02-13 17:59 | P.PN ---
Progress Note - Text Progress Note Date: 02/13/20 Mr Broja is a 69-year-old male status post left ureteral stent placement on February [address] Huynh. His creatinine was initially trending down following stent placement. Since February 09 his creatinine has been trending up. Urology was called back given his BETI. Of note he had a CT scan done on February 08 that demonstrated no hydronephrosis and stent in adequate location -His BETI high is unlikely from obstruction, given the recent stent placement, and Adequate location of stent on recent CT. no need for repeat CT at this time, will follow up on the renal bladder ultrasound. If abnormalities is seen on ultrasound Will consider obtaining a CT. -Keep Gibbs in place -We'll eventually need definitive stone management, this can be done and as an outpatient
--- NOTE | 2020-02-13 18:06 | US ---
EXAMINATION TYPE: US kidneys/renal and bladder DATE OF EXAM: 02/13/2020 COMPARISON: NONE CLINICAL HISTORY: Left kidney stone and hydro. Morbidly obese patient with known left renal stones an d ureter stent EXAM MEASUREMENTS: Right Kidney: 13.2 x 5.6 x 6.3 cm Left Kidney: N/A Right Kidney: No hydronephrosis or masses seen Left Kidney: unable to fully assess due to habitus and patient unable to roll to his right Bladder: non distended, ewing cath IMPRESSION: Limited exam. Left kidney shows no obvious hydronephrosis. There is only partial visualization of the left kidney. Large right kidney without evidence of obstruction. Bladder is empty. Bladder was not e valuated.
--- NOTE | 2020-02-13 18:34 | PN ---
PROGRESS NOTE DATE OF SERVICE: 02/13/2020 REASON FOR FOLLOWUP: Streptococcus agalactiae bacteremia secondary to urinary source. INTERVAL HISTORY: The patient is currently afebrile, has been breathing comfortably. The patient denies having any chest pain or shortness of breath or cough. No abdominal pain. Did have a bowel movement. No further nausea or vomiting. PHYSICAL EXAMINATION: Blood pressure 152/65 with a pulse of 65, temperature 98.2. General description is elderly male up in the chair in no distress. RESPIRATORY SYSTEM: Unlabored breathing. Clear to auscultation anteriorly. HEART: S1, S2. Regular rate and rhythm. ABDOMEN: Soft. Minimally distended. No guarding or rigidity. LABS: Hemoglobin is 10.8, white count 12.6, BUN of 83, creatinine 3.76. DIAGNOSTIC IMPRESSION AND PLAN: Patient with Streptococcus agalactiae bacteremia secondary to urinary source, status post left ureteral stent placement; subsequently clinical course complicated by ileus that has been treated medically. The patient now did have worsening of his kidney function with concern for possible antibiotic-associated. Zosyn has been discontinued. However, in view of his bacteremia and infection, we will start the patient on Rocephin and Flagyl and will monitor his clinical course closely. Await a repeat ultrasound. Continue supportive care. MMODL / IJN: [id number] /
[2020-02-13 20:34] LABS: Glucose,Whole Blood 151 mg/dL (75-99)
[2020-02-13] MEDS: ATORVASTATIN 80 MG TAB PO SCH (21:03)
[2020-02-13] MEDS: metroNIDAZOLE 500 MG TAB PO SCH (21:14)
[2020-02-14] MEDS: SODIUM CHLORIDE 0.9% 1,000 ML IV SCH ×2 (00:56→15:56)
[2020-02-14] MEDS: METOCLOPRAMIDE 5 MG/ML 2 ML VIAL IVP SCH ×4 (03:50→23:07)
[2020-02-14 07:11] LABS: Glucose,Whole Blood 152 mg/dL (75-99)
[2020-02-14] MEDS: metroNIDAZOLE 500 MG TAB PO SCH ×3 (08:23→21:14)
[2020-02-14] MEDS: buPROPion 75 MG TAB PO SCH (08:23)
[2020-02-14] MEDS: POTASSIUM CHLORIDE ER 10 MEQ TAB.ER.PRT PO SCH (08:23)
[2020-02-14] MEDS: ISOSORBIDE MONONITRATE ER 15 MG TAB PO SCH (08:23)
[2020-02-14] MEDS: INSULIN ASPART (NovoLOG) 100 UNIT/ML VIAL SQ SCH ×4 (08:23→21:14)
[2020-02-14] MEDS: atenoloL 25 MG TAB PO SCH (08:23)
[2020-02-14] MEDS: PANTOPRAZOLE 40 MG TABLET PO SCH (08:24)
[2020-02-14] MEDS: TAMSULOSIN 0.4 MG CAP.ER.24H PO SCH (08:24)
[2020-02-14] MEDS: polyethylene glycoL 3350 17 GM POWD.PACK PO SCH (08:24)
[2020-02-14] MEDS: allopurinoL 300 MG TAB PO SCH (08:24)
[2020-02-14] MEDS: bisacodyL 10 MG SUPP RECTAL SCH (08:24)
[2020-02-14] MEDS: HYDROcodone/APAP 5-325MG 1 EACH TAB PO PRN ×2 (08:32→21:15)
--- NOTE | 2020-02-14 09:18 | P.PN ---
Subjective Progress Note Date: 02/14/20 69 year-old morbidly obese male one of Dr. Kemp with past medical history of CAD, CHF, hypertension, obstructive sleep apnea and chronic edema was known to have previous history of kidney stone who was in the emergency room on for severe left-sided flank pain was diagnosed with large kidney stone measure 7 mm. Patient was in to see Dr. aGrrett on Sunday and was scheduled to have surgery on Sunday. Patient return to emergency department today with severe intractable pain with nausea not been able to tolerate anything orally patient was seen and a Profore admission by Dr. Dhillon urology to treat his symptoms. His kidney function is down with creatinine up to 3.0 significant decline from few days earlier. Patient was started on IV hydration and pain management and possibly will be going for surgery tomorrow. 02/02 patient seen resting in bed this morning, plan for ureterscopy today with urology. Labs were reviewed, white blood cells 13.4, hemoglobin 12.3, sodium 135, BUNs 52, creatinine 3.16, consult in place for nephrology to see patient. Calcium 6.3, and replaced by a nephrology. Patient is making adequate urine. Will order urine and blood cultures, patient started on Zosyn IV. Vital signs are stable, patient remains afebrile pulse 89, blood pressure 133/70, patient pulse ox 92% on 2 L nasal cannula. Renal ultrasound found no distinct abnormality seen, no evidence of hydronephrosis. 02/03: Patient seen today sitting on edge of bed, appears to be more short of breath today, requiring O2 at 4 L via nasal cannula satting 90%. Patient is afebrile, pulse rate 96, blood pressure 165/71. Blood cultures did show gram- positive cocci in chains. Vancomycin added along with Zosyn and infectious disease consult. We will do chest x-ray hep-locked the patient, give 40 IV Lasix 1 and labs are ordered. White blood cell count 16.2 hemoglobin 12.9 BUN/creatinine creatinine have improved creatinine 2.43 today. Troponins came back elevated at 0.454 this morning. Cardiology was ordered for consult along with echo. Nephrology remains on the case. We'll continue to monitor patient closely. Chest x-ray showed mild bibasilar infiltrates correlate for atelectasis or early pneumonia 02/04: Patient appears to be more comfortable today, O2 remains at 4 L via nasal cannula, satting 90%. We will give patient an additional 40 of IV Lasix today. Patient is afebrile vital signs are stable. White blood cells 15.5, hemoglobin 12.2, sodium 136, BUN 62, creatinine down to 1.63, calcium 6.9 today, second troponin was 0.306 yesterday. Cardiology is on the case, echo revealed EF was 55-60%, moderate LVH mild MR and TR. May require stress test for further workup. Blood cultures were positive for strep aglactiae, Dr Mark. Switch patient to Rocephin 2 g daily. Discussed with patient plan to go to rehab when discharged, and patient was agreeable to this. 02/05: Patient seen this morning denies any complaints, oxygen remains on 4 L via nasal cannula satting 93%. Lungs sounds improved and patient was short of breath. Will continue to work with PT and OT, plan for discharge to rehab likely Sunday. White blood cells today were 18.0 hemoglobin 12.6, BUN 50, creatinine 1.3, and blood sugars are stable. Patient remains on Rocephin IV with ID on the case along with cardio, nephrology. Chest x-ray from today shows left lower lobe infiltrate and atelectasis no change from prior exam. We'll continue to follow patient along with urology. 01/28 Patient examined bedside. Deep breath. Patient was found to have an episode of bronchitis and vomiting for in the morning. X-ray of the abdomen was positive for dilated small bowel was concerning for obstruction versus ileus. Patient was placed on nothing by mouth. surgery was consulted. On evaluation this morning patient denies any nausea or abdominal pain. He does endorse flat is but doesn't did not have any bowel movement for the past 1 week. Bowel regimen initiated with the a Dulcolax suppository to help with total output. Surgery suggest ileus rather than obstruction. Repeat abdominal x-ray tomorrow morning. Continue patient on nothing by mouth with ice chips medication with small sips 02/07 patient examined bedside. Continues to feel well. Patient was doing well earlier and had multiple bowel movements this morning and yesterday. Patient was started on clear liquid diet. Patient could not tolerate the clear liquid diet and started vomiting. NG tube was placed and patient admitted into canister immediately. Patient was also noted to have dark secretions coming out of his NG tube concerning for GI bleed. Nurse asked to obtain a fecal occult and repeat hemoglobin in the evening. Vitals otherwise stable temp is 97.6 pulse 70 blood pressure 186/80, oxygen saturation 93% on 2 L. Hold patient's glipizide and Lantus since patient's nothing by mouth continue insulin sliding scale. Patient is currently able to take his medication normally without any difficulty to be due to abdominal x-ray tomorrow 02/08: Patient has been afebrile, heart rate 58, blood pressure 180/80, pulse ox 93% on 2 L nasal cannula. CPAP at bedside. Blood sugars are running between 130 and 178. Repeat hemoglobin last evening was 13.1 and white count 18.8. Patient is scheduled for CAT scan of the abdomen and pelvis today without contrastwhich revealed the lateral aspect of the left hemiabdomen is not visualized due to patient body habitus. Diffusely mildly dilated small bowel loops with air-fluid levels. Findings may represent ileus, although there is transitioned to decompress bowel and the terminal ileum which may represent small bowel obstruction. Numerous nonobstructing left nephrolithiasis with left ureteral stent. Patient states he passed gas last evening but has not had a bowel movement. He denies any abdominal tenderness. Repeat blood cultures are showing no growth at 72 hours. NG tube remains in place with return of green- brown colored fluid. Patient also has Gibbs catheter in place. Patient is not utilizing incentive spirometry. Patient has been encouraged to use every hour. Patient is followed by multiple consultants. Patient also followed by PT and OT and required 2 people moderate assist sit to stand. 02/09: Patient has been afebrile, heart rate 69, blood pressure 124/69, pulse ox 94% on 2 L nasal cannula. Nephrology recommends continuing current dose of Lasix. Patient has had a small brown loose stool last evening and 2 bowel movements this morning. His NG tube is currently clamped and may be removed this afternoon. Repeat blood work reveals WBC 21.1, hemoglobin 13.2, platelet count 563. Sodium 151, potassium 3.8, chloride 101, CO2 37, BUN 47 creatinine 1.20. Blood sugars running between 157 and 170. Total bilirubin 1.7, AST 111, ALT 52, alkaline phosphatase 136. CXR/Abdominal x-ray reveals cardiomegaly with patchy left basilar linear scarring and/or atelectasis 3 demonstrated. No new infiltrate. Overall nonspecific bowel gas pattern. Distal small bowel obstruction cannot be excluded. No significant interval change. Patient continues to deny abdominal pain or tenderness. He currently does not have any nausea. 02/10: He utilized CPAP during the night. He denies having any abdominal pain, n ausea or vomiting. NG tube was removed last evening and currently on ice chips. Anticipate that diet will be advanced once surgery rounds. Patient denies having any fevers. Abdominal ultrasound revealed some echogenic bile. No definite gallstones. No dilated ducts. Patient is reching 500 on incentive spirometry. Gibbs catheter remains in place. COVID-19 tests to be obtained today with anticipation of discharge an approximate 48 hours. WBC 18.3, hemoglobin 12.2, platelet count 477. Sodium 150, potassium 3.6, chloride 100, CO2 37, BUN 59 creatinine 2.06. Total bilirubin 2.0, AST 113, ALT 54, alkaline phosphatase 121. Blood sugars running between 147 and 205. Patient is currently on D5W at 75 mL per hour. 02/11: Chest x-ray from yesterday reveal stable pleural parenchymal density left lower lobe with chronic elevation of the left hemidiaphragm. Patient was started on clear liquid diet yesterday. Dr. Jordan recommended holding Lasix increase oral fluid intake and continue D5W regarding hypernatremia. Repeat lab work today reveals WBC 19.1, hemoglobin 11.8, platelet count 455. Sodium 141, potassium 4.0, chloride 94, CO2 33, BUN 71 creatinine 2.8. Total bilirubin 2.2, AST 96, ALT 51, alkaline phosphatase 110. Patient has been afebrile, heart rate 56, blood pressure 114/54, pulse ox 94% on 3 L nasal cannula. Patient utilized CPAP during the night. He continues to have shortness of breath with exertion. He is encouraged to use incentive spirometry reaching [address] To has advance diet to soft. Patient states that he is feeling better today. He denies any abdominal pain, nausea vomiting. He denies any chest pain, no shortness of breath. Repeat lab work is ordered for tomorrow if this is improving, patient will be discharged to [facility] tomorrow. 02/12: Covid 19 testing is negative. Patient is been afebrile, heart rate 58, blood pressure 107/61, pulse ox 94% on room air. Repeat blood work this morning reveals WBC of 12.6, hemoglobin 10.9 and platelet count 303. Sodium 136, potassium 4.0, chloride 94, CO2 30. BUN 83 and creatinine 3.76. Blood sugars are running between 163 and 200. Due to worsening renal function, discharge will be held. Nursing to update urology regarding worsening renal function and possible imaging. We have ordered a CAT scan abdomen and pelvis without contrast. Lasix discontinued. Discussed with Dr. Mark and Zosyn will be discontinued. Patient does relate that he had one episode of vomiting last night. He also states he has not had a bowel movement in 2 days. Patient is eating well and taking supplements as well. No nausea or vomiting. No abdominal pain. He is reaching 750 ML's on incentive spirometry. 02/13: Patient is sitting up in the chair without any acute distress. Patient has been afebrile. Heart rate 70, respirations 18, blood pressure 129/72, pulse ox 95% with 2 L nasal cannula. Ultrasound of the bladder shows left kidney no obvious hydronephrosis, there is only partial visualization of the left kidney. Large right kidney without evidence of obstruction. Bladder is empty. Indwelling catheter remains in place per urology. Patient creatinine is eleva gertrude at 3.76, BUN is 83. Review of systems CONSTITUTIONAL: Denies fever, denies chills, reports generalized weakness EYES: No icterus sclerae, no conjunctivitis. EARS, NOSE, MOUTH, THROAT, and FACE: No sore throat, lymphadenopathy, carotid bruits or deformity. RESPIRATORY: Mild shortness of breath improved . CARDIOVASCULAR: Positive PND and orthopnea no angina. GASTROINTESTINAL: No Abd pain, no abdominal tenderness, no vomiting, Positive bowel movements, No GI Bleed. GENITOURINARY: Positive large sided left side kidney stone status post stent placement BPH symptoms no hematuria. INTEGUMENT/BREAST: Negative for any muscular injury with mild osteoarthritis.. HEMATOLOGIC/LYMPHATIC: Negative for bleed or purpura. MUSCULOSKELTAL: Negative for Myalgia or arthralgia. NEURLOGICAL: No LOC, Sz or syncope, blurred vision dizziness or abnormality.. BEHAVIORAL/PSYCH: Negative. ENDOCRINE: Negative. Physical examination General Appearance: Appears tired cooperative, cooperative, morbidly obese Neck HEENT: Supple, no lymphadenopathy, no thyroid enlargement, no carotid bruits. Lungs: Decreased breath sounds bilaterally, no intercostal retractions. Chest Wall: Decrease expansion with deep inspiration no tenderness and no deformity was found on exam, no costochondral pain or discomfort. Heart: Regular rate and rhythm, S1, S2 normal, no murmur, rub or gallop. Back: Symmetric, no curvature, ROM normal. Abdomen: Soft, bowel sounds are present, no masses, no organomegaly. Gibbs catheter in place Extremities: Extremities normal, atraumatic, no cyanosis, positive edema. Pulses: 2+ and symmetric. Skin: Skin color, texture, tugor normal, no rashes or lesions. Neurologic: Alert oriented x3 cranial nerves II through XII intact, no motor de ficit, generalized weakness. Assessment and plan 1. Severe abdominal pain secondary to obstructive ureteric stone, status post double-J stent on 02/02 continue pain management with [place] 5. 2. Large left sided kidney stone measure 7 mm and affecting the kidney function, ultrasound was negative for hydronephrosis. Patient had double J stent placed on 02/02 by urology, will likely need this surgically removed per Dr. Ortiz after infection has resolved. 3. Atherosclerotic heart disease, follows with Dr. Medrano. 4. Acute kidney injury with chronic kidney disease, stable. Nephrology consult appreciated. Patient to be reassessed by urology. CAT scan of the abdomen and pelvis without contrast ordered. Hold Lasix and discontinue Zosyn. IV fluids changed to 0.9 normal saline at 75 mL per hour. 5. Acute on chronic diastolic heart failure with ejection fraction of 55-60%. Continue atenolol 50 mg daily, Imdur 30 mg daily. 6. Diabetes mellitus type 2. Levemir and glipizide on hold. Continue NovoLog scale for now while patient is nothing by mouth. Metformin was discontinued. 7. Hypertension: Remain on atenolol 50 mg daily along with diltiazem 240 mg a day. 8. Chronic gout. Continue allopurinol. 9. Mild reactive airway: Has been on Ventolin nebulizer. 10. Hyperlipidemia: Continue patient on atorvastatin 80 mg daily. 11. GI prophylaxis: Patient be continue on pantoprazole 40 mg a day. 12. DVT prophylaxis: After surgery patient be on heparin subcutaneous. 13. Streptococcal agalactia bacteremia secondary to a complicated urinary tract infection status post cystoscopy and left ureteral stent placement. Patient has been seen by Dr. Mark and completed antibiotics. 14. Acute ileus. NG tube removed and tolerating diet. 15. Troponin elevation secondary to fluid overload, sepsis and oxygen supply demand mismatch. Acute coronary syndrome ruled out by cardiology. 16. Obstructive sleep apnea. 17. Morbid obesity with BMI of 42. 18. Hypernatremia. CODE STATUS: Full code. Discharge plan: [facility] once stabilized. Coronavirus testing negative. Patient will need repeat Covid testing on Sunday with anticipated discharge on Sunday to . Impression and plan of care have been directed as dictated by the signing physician. Jody Valverde nurse practitioner acting as scribe for signing physician. Objective - Vital Signs Vital signs: Vital Signs Temp 98.2 F 02/14/20 04:51 Pulse 70 02/14/20 04:51 Resp 18 02/14/20 04:51 BP 129/72 02/14/20 04:51 Pulse Ox 95 02/14/20 04:51 Intake & Output 02/13/20 02/14/20 02/14/20 18:59 06:59 18:59 Intake Total 900 Output Total 700 725 Balance -700 175 Intake: Intake, IV Titration 750 Amount Sodium Chloride 0.9% 1, 750 000 ml @ 75 mls/hr IV . [id number] [facility] Rx#:[id number] Oral 150 Output: Urine 700 725 Uretheral (Gibbs) 525 Other: Voiding Method Indwelling Catheter Indwelling Catheter Indwelling Catheter # Bowel Movements 1 3 - Labs CBC & Chem 7: 02/13/20 07:02 02/13/20 07:02 Labs: Abnormal Lab Results - Last 24 Hours (Table) 02/13/20 02/13/20 02/13/20 Range/Units 11:12 16:47 20:32 POC Glucose (mg/dL) 163 H 138 H 151 H (75-99) mg/dL 02/14/20 Range/Units 07:10 POC Glucose (mg/dL) 152 H (75-99) mg/dL
[2020-02-14 11:58] LABS: Glucose,Whole Blood 156 mg/dL (75-99)
--- NOTE | 2020-02-14 16:04 | PN ---
PROGRESS NOTE DATE OF SERVICE: 02/14/2020 REASON FOR FOLLOWUP: Streptococcus agalactiae bacteremia UTI and ileus. INTERVAL HISTORY: Patient is currently afebrile, has been breathing comfortably. The patient denies having any chest pain or shortness of breath. No nausea, no vomiting. No abdominal pain or diarrhea. PHYSICAL EXAMINATION: Blood pressure is 124/69 with a pulse of 79, temperature is 97.7, he is 98% on 2 L nasal cannula. General description is an elderly male up in the chair in no distress. Respiratory system: Unlabored breathing, clear to auscultation anteriorly. Heart S1, S2. Regular rate and rhythm. Abdomen is soft, no tenderness. LABS: No new labs have been obtained today. Ultrasound did not show any left-sided hydronephrosis, though large right kidney. DIAGNOSTIC IMPRESSION AND PLAN: Patient with Streptococcus agalactiae bacteremia secondary to complicated urinary tract infection cystoscopy and left ureteral stent placement. Did have worsening of his kidney function is currently on Zosyn, currently being treated with Rocephin and Flagyl. Repeat CBC tomorrow. Monitor clinical course closely. MMODL / IJN: [id number] /
[2020-02-14 16:24] LABS: Glucose,Whole Blood 149 mg/dL (75-99)
--- NOTE | 2020-02-14 16:43 | P.PN ---
Subjective Progress Note Date: 02/14/20 Follow-up for acute kidney injury. Denies any chest pain, shortness of breath. No nausea vomiting or diarrhea. Objective - Vital Signs Vital signs: Vital Signs Temp 97.7 F 02/14/20 12:16 Pulse 79 02/14/20 14:17 Resp 17 02/14/20 12:16 BP 124/69 02/14/20 14:17 Pulse Ox 98 02/14/20 12:16 Intake & Output 02/13/20 02/14/20 02/14/20 18:59 06:59 18:59 Intake Total 900 Output Total 158 205 9618 Balance -700 175 -1000 Weight 141 kg Intake: Intake, IV Titration 750 Amount Sodium Chloride 0.9% 1, 750 000 ml @ 75 mls/hr IV . [id number] [facility] Rx#:[id number] Oral 150 Output: Urine 340 306 0127 Uretheral (Gibbs) 525 Other: Voiding Method Indwelling Catheter Indwelling Catheter Indwelling Catheter # Bowel Movements 1 3 2 - Exam No acute distress S1-S2 heard Decreased breath sounds Abdomen distended Left lower extremity edema. - Labs CBC & Chem 7: 02/13/20 07:02 02/13/20 07:02 Labs: Abnormal Lab Results - Last 24 Hours (Table) 02/13/20 02/13/20 02/14/20 Range/Units 16:47 20:32 07:10 POC Glucose (mg/dL) 138 H 151 H 152 H (75-99) mg/dL 02/14/20 02/14/20 Range/Units 11:57 16:22 POC Glucose (mg/dL) 156 H 149 H (75-99) mg/dL Assessment and Plan Assessment: #1 nonoliguric acute kidney injury secondary to left hydronephrosis and nephrolithiasis status post ureteral stent. Creeping creatinine again secondary to suspected hypotension. #2 chronic kidney disease stage II with a baseline creatinine of 1.1 MG per DL. #3 left hydronephrosis with nephrolithiasis status post stent #4 diastolic CHF #5 Plan: #1 currently on IV fluids continue. Limited ultrasound did not show any hydronephrosis. #2 check urine analysis, feNa and FeUrea #3 avoid nephrotoxic agents and hypotensive episodes. #4 labs in the morning.
[2020-02-14 17:30] LABS: Appearance,Urine Clear (Clear); Bacteria,Urine Rare /hpf; Bilirubin,Urine Negative (Negative); Blood,Urine Small (Negative); Color,Urine Yellow; Glucose,Urine (UA) Negative (Negative); Hyaline Casts,Urine 1 /lpf (0-2); Ketones,Urine Negative (Negative); Leukocyte Esterase,Urine Small (Negative); Mucus,Urine Rare /hpf; Nitrite,Urine Negative (Negative); PH, Urine 5.5 (5.0-8.0); Protein,Urine Trace (Negative); RBC,Urine 3 /hpf (0-5); Specific Gravity,Urine 1.012 (1.001-1.035); Urobilinogen,Urine <2.0 mg/dL (<2.0); WBC,Urine 9 /hpf (0-5)
[2020-02-14 18:30] LABS: Creatinine,Urine Random 69.8 mg/dL
[2020-02-14 20:16] LABS: Glucose,Whole Blood 141 mg/dL (75-99)
[2020-02-14] MEDS: ATORVASTATIN 80 MG TAB PO SCH (21:14)
[2020-02-15] MEDS: SODIUM CHLORIDE 0.9% 1,000 ML IV SCH ×2 (03:44→21:08)
[2020-02-15] MEDS: HYDROcodone/APAP 5-325MG 1 EACH TAB PO PRN ×5 (04:17→21:06)
[2020-02-15] MEDS: METOCLOPRAMIDE 5 MG/ML 2 ML VIAL IVP SCH ×4 (05:54→23:45)
[2020-02-15 07:11] LABS: Calcium 6.8 mg/dL (8.4-10.2); Potassium 3.2 mmol/L (3.5-5.1)
[2020-02-15 07:27] LABS: Glucose,Whole Blood 155 mg/dL (75-99)
[2020-02-15] MEDS: INSULIN ASPART (NovoLOG) 100 UNIT/ML VIAL SQ SCH ×4 (08:55→20:47)
[2020-02-15] MEDS: buPROPion 75 MG TAB PO SCH (08:56)
[2020-02-15] MEDS: TAMSULOSIN 0.4 MG CAP.ER.24H PO SCH (08:56)
[2020-02-15] MEDS: PANTOPRAZOLE 40 MG TABLET PO SCH (08:56)
[2020-02-15] MEDS: metroNIDAZOLE 500 MG TAB PO SCH ×3 (08:56→21:06)
[2020-02-15] MEDS: ISOSORBIDE MONONITRATE ER 15 MG TAB PO SCH (08:56)
[2020-02-15] MEDS: allopurinoL 300 MG TAB PO SCH (08:56)
[2020-02-15] MEDS: atenoloL 25 MG TAB PO SCH (08:56)
[2020-02-15] MEDS: polyethylene glycoL 3350 17 GM POWD.PACK PO SCH (08:57)
[2020-02-15] MEDS: bisacodyL 10 MG SUPP RECTAL SCH (08:57)
[2020-02-15] MEDS ORDERED: POTASSIUM CHLORIDE ER 20 MEQ TAB.ER PO STA ×2 (10:19)
--- NOTE | 2020-02-15 11:06 | P.PN ---
Subjective Progress Note Date: 02/15/20 Follow-up for acute kidney injury. Denies any chest pain, shortness of breath. No nausea vomiting or diarrhea. Objective - Vital Signs Vital signs: Vital Signs Temp 97.7 F 02/15/20 05:00 Pulse 76 02/15/20 05:00 Resp 20 02/15/20 05:00 BP 156/69 02/15/20 05:00 Pulse Ox 95 02/15/20 05:00 Intake & Output 02/14/20 02/15/20 02/15/20 18:59 06:59 18:59 Output Total 1000 Balance -1000 Weight 141 kg Output: Urine 1000 Other: Voiding Method Indwelling Catheter Indwelling Catheter Indwelling Catheter # Bowel Movements 2 - Exam No acute distress S1-S2 heard Decreased breath sounds Abdomen distended Left lower extremity edema. - Labs CBC & Chem 7: 02/13/20 07:02 02/15/20 06:16 Labs: Abnormal Lab Results - Last 24 Hours (Table) 02/14/20 02/14/20 02/14/20 Range/Units 11:57 16:22 17:06 Potassium (3.5-5.1) mmol/L BUN (9-20) mg/dL Creatinine (0.66-1.25) mg/dL Glucose (74-99) mg/dL POC Glucose (mg/dL) 156 H 149 H (75-99) mg/dL Calcium (8.4-10.2) mg/dL Urine Protein Trace H (Negative) Urine Blood Small H (Negative) Ur Leukocyte Esterase Small H (Negative) Urine WBC 9 H (0-5) /hpf Urine Bacteria Rare H (None) /hpf Urine Mucus Rare H (None) /hpf 02/14/20 02/15/20 02/15/20 Range/Units 20:15 06:16 07:25 Potassium 3.2 L (3.5-5.1) mmol/L BUN 58 H (9-20) mg/dL Creatinine 1.85 H (0.66-1.25) mg/dL Glucose 143 H (74-99) mg/dL POC Glucose (mg/dL) 141 H 155 H (75-99) mg/dL Calcium 6.8 L (8.4-10.2) mg/dL Urine Protein (Negative) Urine Blood (Negative) Ur Leukocyte Esterase (Negative) Urine WBC (0-5) /hpf Urine Bacteria (None) /hpf Urine Mucus (None) /hpf Assessment and Plan Assessment: #1 nonoliguric acute kidney injury secondary to left hydronephrosis and nephrolithiasis status post ureteral stent. Creeping creatinine again secondary to suspected hypotension. #2 chronic kidney disease stage II with a baseline creatinine of 1.1 MG per DL. #3 left hydronephrosis with nephrolithiasis status post stent #4 diastolic CHF Plan: #1 currently on IV fluids continue. Limited ultrasound did not show any hy dronephrosis. Renal function improving. #2 avoid nephrotoxic agents and hypotensive episodes.
[2020-02-15 11:25] LABS: Glucose,Whole Blood 157 mg/dL (75-99)
--- NOTE | 2020-02-15 11:55 | P.PN ---
Subjective Progress Note Date: 02/15/20 69 year-old morbidly obese male one of Dr. Kemp with past medical history of CAD, CHF, hypertension, obstructive sleep apnea and chronic edema was known to have previous history of kidney stone who was in the emergency room on for severe left-sided flank pain was diagnosed with large kidney stone measure 7 mm. Patient was in to see Dr. Garrett on Sunday and was scheduled to have surgery on Sunday. Patient return to emergency department today with severe intractable pain with nausea not been able to tolerate anything orally patient was seen and a Profore admission by Dr. Dhillon urology to treat his symptoms. His kidney function is down with creatinine up to 3.0 significant decline from few days earlier. Patient was started on IV hydration and pain management and possibly will be going for surgery tomorrow. 02/02 patient seen resting in bed this morning, plan for ureterscopy today with urology. Labs were reviewed, white blood cells 13.4, hemoglobin 12.3, sodium 135, BUNs 52, creatinine 3.16, consult in place for nephrology to see patient. Calcium 6.3, and replaced by a nephrology. Patient is making adequate urine. Will order urine and blood cultures, patient started on Zosyn IV. Vital signs are stable, patient remains afebrile pulse 89, blood pressure 133/70, patient pulse ox 92% on 2 L nasal cannula. Renal ultrasound found no distinct abnormality seen, no evidence of hydronephrosis. 02/03: Patient seen today sitting on edge of bed, appears to be more short of breath today, requiring O2 at 4 L via nasal cannula satting 90%. Patient is afebrile, pulse rate 96, blood pressure 165/71. Blood cultures did show gram- positive cocci in chains. Vancomycin added along with Zosyn and infectious disease consult. We will do chest x-ray hep-locked the patient, give 40 IV Lasix 1 and labs are ordered. White blood cell count 16.2 hemoglobin 12.9 BUN/creatinine creatinine have improved creatinine 2.43 today. Troponins came back elevated at 0.454 this morning. Cardiology was ordered for consult along with echo. Nephrology remains on the case. We'll continue to monitor patient closely. Chest x-ray showed mild bibasilar infiltrates correlate for atelectasis or early pneumonia 02/04: Patient appears to be more comfortable today, O2 remains at 4 L via nasal cannula, satting 90%. We will give patient an additional 40 of IV Lasix today. Patient is afebrile vital signs are stable. White blood cells 15.5, hemoglobin 12.2, sodium 136, BUN 62, creatinine down to 1.63, calcium 6.9 today, second troponin was 0.306 yesterday. Cardiology is on the case, echo revealed EF was 55-60%, moderate LVH mild MR and TR. May require stress test for further workup. Blood cultures were positive for strep aglactiae, Dr Mark. Switch patient to Rocephin 2 g daily. Discussed with patient plan to go to rehab when discharged, and patient was agreeable to this. 02/05: Patient seen this morning denies any complaints, oxygen remains on 4 L via nasal cannula satting 93%. Lungs sounds improved and patient was short of breath. Will continue to work with PT and OT, plan for discharge to rehab likely Sunday. White blood cells today were 18.0 hemoglobin 12.6, BUN 50, creatinine 1.3, and blood sugars are stable. Patient remains on Rocephin IV with ID on the case along with cardio, nephrology. Chest x-ray from today shows left lower lobe infiltrate and atelectasis no change from prior exam. We'll continue to follow patient along with urology. 01/28 Patient examined bedside. Deep breath. Patient was found to have an episode of bronchitis and vomiting for in the morning. X-ray of the abdomen was positive for dilated small bowel was concerning for obstruction versus ileus. Patient was placed on nothing by mouth. surgery was consulted. On evaluation this morning patient denies any nausea or abdominal pain. He does endorse flat is but doesn't did not have any bowel movement for the past 1 week. Bowel regimen initiated with the a Dulcolax suppository to help with total output. Surgery suggest ileus rather than obstruction. Repeat abdominal x-ray tomorrow morning. Continue patient on nothing by mouth with ice chips medication with small sips 02/07 patient examined bedside. Continues to feel well. Patient was doing well earlier and had multiple bowel movements this morning and yesterday. Patient was started on clear liquid diet. Patient could not tolerate the clear liquid diet and started vomiting. NG tube was placed and patient admitted into canister immediately. Patient was also noted to have dark secretions coming out of his NG tube concerning for GI bleed. Nurse asked to obtain a fecal occult and repeat hemoglobin in the evening. Vitals otherwise stable temp is 97.6 pulse 70 blood pressure 186/80, oxygen saturation 93% on 2 L. Hold patient's glipizide and Lantus since patient's nothing by mouth continue insulin sliding scale. Patient is currently able to take his medication normally without any difficulty to be due to abdominal x-ray tomorrow 02/08: Patient has been afebrile, heart rate 58, blood pressure 180/80, pulse ox 93% on 2 L nasal cannula. CPAP at bedside. Blood sugars are running between 130 and 178. Repeat hemoglobin last evening was 13.1 and white count 18.8. Patient is scheduled for CAT scan of the abdomen and pelvis today without contrastwhich revealed the lateral aspect of the left hemiabdomen is not visualized due to patient body habitus. Diffusely mildly dilated small bowel loops with air-fluid levels. Findings may represent ileus, although there is transitioned to decompress bowel and the terminal ileum which may represent small bowel obstruction. Numerous nonobstructing left nephrolithiasis with left ureteral stent. Patient states he passed gas last evening but has not had a bowel movement. He denies any abdominal tenderness. Repeat blood cultures are showing no growth at 72 hours. NG tube remains in place with return of green- brown colored fluid. Patient also has Gibbs catheter in place. Patient is not utilizing incentive spirometry. Patient has been encouraged to use every hour. Patient is followed by multiple consultants. Patient also followed by PT and OT and required 2 people moderate assist sit to stand. 02/09: Patient has been afebrile, heart rate 69, blood pressure 124/69, pulse ox 94% on 2 L nasal cannula. Nephrology recommends continuing current dose of Lasix. Patient has had a small brown loose stool last evening and 2 bowel movements this morning. His NG tube is currently clamped and may be removed this afternoon. Repeat blood work reveals WBC 21.1, hemoglobin 13.2, platelet count 563. Sodium 151, potassium 3.8, chloride 101, CO2 37, BUN 47 creatinine 1.20. Blood sugars running between 157 and 170. Total bilirubin 1.7, AST 111, ALT 52, alkaline phosphatase 136. CXR/Abdominal x-ray reveals cardiomegaly with patchy left basilar linear scarring and/or atelectasis 3 demonstrated. No new infiltrate. Overall nonspecific bowel gas pattern. Distal small bowel obstruction cannot be excluded. No significant interval change. Patient continues to deny abdominal pain or tenderness. He currently does not have any nausea. 02/10: He utilized CPAP during the night. He denies having any abdominal pain, n ausea or vomiting. NG tube was removed last evening and currently on ice chips. Anticipate that diet will be advanced once surgery rounds. Patient denies having any fevers. Abdominal ultrasound revealed some echogenic bile. No definite gallstones. No dilated ducts. Patient is reching 500 on incentive spirometry. Gibbs catheter remains in place. COVID-19 tests to be obtained today with anticipation of discharge an approximate 48 hours. WBC 18.3, hemoglobin 12.2, platelet count 477. Sodium 150, potassium 3.6, chloride 100, CO2 37, BUN 59 creatinine 2.06. Total bilirubin 2.0, AST 113, ALT 54, alkaline phosphatase 121. Blood sugars running between 147 and 205. Patient is currently on D5W at 75 mL per hour. 02/11: Chest x-ray from yesterday reveal stable pleural parenchymal density left lower lobe with chronic elevation of the left hemidiaphragm. Patient was started on clear liquid diet yesterday. Dr. Jordan recommended holding Lasix increase oral fluid intake and continue D5W regarding hypernatremia. Repeat lab work today reveals WBC 19.1, hemoglobin 11.8, platelet count 455. Sodium 141, potassium 4.0, chloride 94, CO2 33, BUN 71 creatinine 2.8. Total bilirubin 2.2, AST 96, ALT 51, alkaline phosphatase 110. Patient has been afebrile, heart rate 56, blood pressure 114/54, pulse ox 94% on 3 L nasal cannula. Patient utilized CPAP during the night. He continues to have shortness of breath with exertion. He is encouraged to use incentive spirometry reaching [address] To has advance diet to soft. Patient states that he is feeling better today. He denies any abdominal pain, nausea vomiting. He denies any chest pain, no shortness of breath. Repeat lab work is ordered for tomorrow if this is improving, patient will be discharged to [facility] tomorrow. 02/12: Covid 19 testing is negative. Patient is been afebrile, heart rate 58, blood pressure 107/61, pulse ox 94% on room air. Repeat blood work this morning reveals WBC of 12.6, hemoglobin 10.9 and platelet count 303. Sodium 136, potassium 4.0, chloride 94, CO2 30. BUN 83 and creatinine 3.76. Blood sugars are running between 163 and 200. Due to worsening renal function, discharge will be held. Nursing to update urology regarding worsening renal function and possible imaging. We have ordered a CAT scan abdomen and pelvis without contrast. Lasix discontinued. Discussed with Dr. Mark and Zosyn will be discontinued. Patient does relate that he had one episode of vomiting last night. He also states he has not had a bowel movement in 2 days. Patient is eating well and taking supplements as well. No nausea or vomiting. No abdominal pain. He is reaching 750 ML's on incentive spirometry. 02/13: Patient is sitting up in the chair without any acute distress. Patient has been afebrile. Heart rate 70, respirations 18, blood pressure 129/72, pulse ox 95% with 2 L nasal cannula. Ultrasound of the bladder shows left kidney no obvious hydronephrosis, there is only partial visualization of the left kidney. Large right kidney without evidence of obstruction. Bladder is empty. Indwelling catheter remains in place per urology. Patient creatinine is eleva gertrude at 3.76, BUN is 83. 02/14: Patient is sitting up in a chair without any acute distress. Patient remains afebrile. Indwelling catheter will remain in place until infection is resolved and he is able to have additional surgeries for stone removal. Creatinine 1.85, BUN 58, potassium 3.2. Review of systems CONSTITUTIONAL: Denies fever, denies chills, reports generalized weakness EYES: No icterus sclerae, no conjunctivitis. EARS, NOSE, MOUTH, THROAT, and FACE: No sore throat, lymphadenopathy, carotid bruits or deformity. RESPIRATORY: Mild shortness of breath improved . CARDIOVASCULAR: Positive PND and orthopnea no angina. GASTROINTESTINAL: No Abd pain, no abdominal tenderness, no vomiting, Positive bowel movements, No GI Bleed. GENITOURINARY: Positive large sided left side kidney stone status post stent placement BPH symptoms no hematuria. INTEGUMENT/BREAST: Negative for any muscular injury with mild osteoarthritis.. HEMATOLOGIC/LYMPHATIC: Negative for bleed or purpura. MUSCULOSKELTAL: Negative for Myalgia or arthralgia. NEURLOGICAL: No LOC, Sz or syncope, blurred vision dizziness or abnormality.. BEHAVIORAL/PSYCH: Negative. ENDOCRINE: Negative. Physical examination General Appearance: Appears tired cooperative, cooperative, morbidly obese Neck HEENT: Supple, no lymphadenopathy, no thyroid enlargement, no carotid bruits. Lungs: Decreased breath sounds bilaterally, no intercostal retractions. Chest Wall: Decrease expansion with deep inspiration no tenderness and no deformity was found on exam, no costochondral pain or discomfort. Heart: Regular rate and rhythm, S1, S2 normal, no murmur, rub or gallop. Back: Symmetric, no curvature, ROM normal. Abdomen: Soft, bowel sounds are present, no masses, no organomegaly. Gibbs catheter in place Extremities: Extremities normal, atraumatic, no cyanosis, positive edema. Pulses: 2+ and symmetric. Skin: Skin color, texture, tugor normal, no rashes or lesions. Neurologic: Alert oriented x3 cranial nerves II through XII intact, no motor deficit, generalized weakness. Assessment and plan 1. Severe abdominal pain secondary to obstructive ureteric stone, status post double-J stent on 02/02 continue pain management with Gray 5. 2. Large left sided kidney stone measure 7 mm and affecting the kidney function, ultrasound was negative for hydronephrosis. Patient had double J stent placed on 02/02 by urology, will likely need this surgically removed per Dr. Ortiz after infection has resolved. 3. Atherosclerotic heart disease, follows with Dr. Medrano. 4. Acute kidney injury with chronic kidney disease, stable. Nephrology consult appreciated. Patient to be reassessed by urology. CAT scan of the abdomen and pelvis without contrast ordered. Hold Lasix and discontinue Zosyn. IV fluids changed to 0.9 normal saline at 75 mL per hour. 5. Acute on chronic diastolic heart failure with ejection fraction of 55-60%. Continue atenolol 50 mg daily, Imdur 30 mg daily. 6. Diabetes mellitus type 2. Levemir and glipizide on hold. Continue NovoLog scale for now while patient is nothing by mouth. Metformin was discontinued. 7. Hypertension: Remain on atenolol 50 mg daily along with diltiazem 240 mg a day. 8. Chronic gout. Continue allopurinol. 9. Mild reactive airway: Has been on Ventolin nebulizer. 10. Hyperlipidemia: Continue patient on atorvastatin 80 mg daily. 11. GI prophylaxis: Patient be continue on pantoprazole 40 mg a day. 12. DVT prophylaxis: After surgery patient be on heparin subcutaneous. 13. Streptococcal agalactia bacteremia secondary to a complicated urinary tract infection status post cystoscopy and left ureteral stent placement. Patient has been seen by Dr. Mark and completed antibiotics. 14. Acute ileus. NG tube removed and tolerating diet. 15. Troponin elevation secondary to fluid overload, sepsis and oxygen supply demand mismatch. Acute coronary syndrome ruled out by cardiology. 16. Obstructive sleep apnea. 17. Morbid obesity with BMI of 42. 18. Hypernatremia. 19. Hypokalemia. Potassium 60 mEq by mouth once CODE STATUS: Full code. Discharge plan: [facility] once stabilized. Coronavirus testing negative. Review [facility] performed on Sunday. with anticipated discharge on Sunday to . Impression and plan of care have been directed as dictated by the signing physician. Jody Valverde nurse practitioner acting as scribe for signing physician. Objective - Vital Signs Vital signs: Vital Signs Temp 97.7 F 02/15/20 05:00 Pulse 76 02/15/20 05:00 Resp 20 02/15/20 05:00 BP 156/69 02/15/20 05:00 Pulse Ox 95 02/15/20 05:00 Intake & Output 02/14/20 02/15/20 02/15/20 18:59 06:59 18:59 Output Total 1000 Balance -1000 Weight 141 kg Output: Urine 1000 Other: Voiding Method Indwelling Catheter Indwelling Catheter Indwelling Catheter # Bowel Movements 2 - Labs CBC & Chem 7: 02/13/20 07:02 02/15/20 06:16 Labs: Abnormal Lab Results - Last 24 Hours (Table) 02/14/20 02/14/20 02/14/20 Range/Units 11:57 16:22 17:06 Potassium (3.5-5.1) mmol/L BUN (9-20) mg/dL Creatinine (0.66-1.25) mg/dL Glucose (74-99) mg/dL POC Glucose (mg/dL) 156 H 149 H (75-99) mg/dL Calcium (8.4-10.2) mg/dL Urine Protein Trace H (Negative) Urine Blood Small H (Negative) Ur Leukocyte Esterase Small H (Negative) Urine WBC 9 H (0-5) /hpf Urine Bacteria Rare H (None) /hpf Urine Mucus Rare H (None) /hpf 02/14/20 02/15/20 02/15/20 Range/Units 20:15 06:16 07:25 Potassium 3.2 L (3.5-5.1) mmol/L BUN 58 H (9-20) mg/dL Creatinine 1.85 H (0.66-1.25) mg/dL Glucose 143 H (74-99) mg/dL POC Glucose (mg/dL) 141 H 155 H (75-99) mg/dL Calcium 6.8 L (8.4-10.2) mg/dL Urine Protein (Negative) Urine Blood (Negative) Ur Leukocyte Esterase (Negative) Urine WBC (0-5) /hpf Urine Bacteria (None) /hpf Urine Mucus (None) /hpf 02/15/20 Range/Units 11:24 Potassium (3.5-5.1) mmol/L BUN (9-20) mg/dL Creatinine (0.66-1.25) mg/dL Glucose (74-99) mg/dL POC Glucose (mg/dL) 157 H (75-99) mg/dL Calcium (8.4-10.2) mg/dL Urine Protein (Negative) Urine Blood (Negative) Ur Leukocyte Esterase (Negative) Urine WBC (0-5) /hpf Urine Bacteria (None) /hpf Urine Mucus (None) /hpf
--- NOTE | 2020-02-15 12:44 | P.PN ---
Progress Note - Text Progress Note Date: 02/15/20 Creat is trending down, it's 1.85 this am, denies any flank pain, dysuria or hematuria. Gibbs draining clear yellow urine. -Gibbs can be d/c prior to discharge, obtain a bladder scan after patient voids -F/U as an outpatient to arrange for ureteroscopy, discussed with him and family stent can stay for maximum of 3 months.
[2020-02-15 17:13] LABS: Glucose,Whole Blood 179 mg/dL (75-99)
[2020-02-15 19:57] LABS: Glucose,Whole Blood 138 mg/dL (75-99)
[2020-02-15] MEDS: ATORVASTATIN 80 MG TAB PO SCH (21:06)
[2020-02-15] MEDS: MELATONIN 3 MG TABLET PO SCH (21:06)
--- NOTE | 2020-02-15 22:08 | PN ---
PROGRESS NOTE DATE OF SERVICE: 02/15/2020 REASON FOR FOLLOWUP: Enterococcus faecalis UTI and bacteremia. INTERVAL HISTORY: The patient is currently afebrile, has been breathing comfortably. Denies having any chest pain. No shortness of breath or cough. No nausea, vomiting. No abdominal pain or diarrhea. PHYSICAL EXAMINATION: Blood pressure 152/67, pulse of 72, temperature of 97.9. He is 99% on room air. General description is an elderly male up in the chair in no distress. Respiratory system: Unlabored breathing, decreased breath sounds, no wheeze. Heart S1, S2. Regular rate and rhythm. Abdomen soft, mildly distended. No guarding, no rigidity. LABS: BUN of 15, creatinine is 1.85. Blood culture repeat has been negative. DIAGNOSTIC IMPRESSION AND PLAN: Patient with Streptococcus agalactiae bacteremia secondary to complicated urinary tract infection in this patient who is status post right ureteral stent. Repeat ultrasound did not show any hydronephrosis. The patient is currently on Rocephin and Flagyl, to continue. Kidney function has improved. Hopefully finish therapy with oral antibiotics. Continue supportive care. MMODL / IJN: [id number] /
[2020-02-16] MEDS: HYDROcodone/APAP 5-325MG 1 EACH TAB PO PRN ×6 (01:13→22:50)
[2020-02-16] MEDS: METOCLOPRAMIDE 5 MG/ML 2 ML VIAL IVP SCH ×3 (05:46→19:09)
[2020-02-16 07:32] LABS: Glucose,Whole Blood 142 mg/dL (75-99)
[2020-02-16] MEDS: INSULIN ASPART (NovoLOG) 100 UNIT/ML VIAL SQ SCH ×4 (08:49→20:53)
[2020-02-16] MEDS: PANTOPRAZOLE 40 MG TABLET PO SCH (08:49)
[2020-02-16] MEDS: buPROPion 75 MG TAB PO SCH (08:49)
[2020-02-16] MEDS: allopurinoL 300 MG TAB PO SCH (08:49)
[2020-02-16] MEDS: ISOSORBIDE MONONITRATE ER 15 MG TAB PO SCH (08:49)
[2020-02-16] MEDS: TAMSULOSIN 0.4 MG CAP.ER.24H PO SCH (08:49)
[2020-02-16] MEDS: metroNIDAZOLE 500 MG TAB PO SCH ×3 (08:49→21:32)
[2020-02-16] MEDS: atenoloL 25 MG TAB PO SCH (08:49)
[2020-02-16] MEDS ORDERED: FUROSEMIDE 40 MG TAB PO STA (09:18)
[2020-02-16 10:21] LABS: Calcium 7.6 mg/dL (8.4-10.2); Potassium 3.7 mmol/L (3.5-5.1)
[2020-02-16] MEDS: bisacodyL 10 MG SUPP RECTAL SCH (10:23)
[2020-02-16] MEDS: polyethylene glycoL 3350 17 GM POWD.PACK PO SCH (10:23)
[2020-02-16] MEDS: POTASSIUM CHLORIDE ER 20 MEQ TAB.ER PO SCH (10:23)
[2020-02-16 12:17] LABS: Glucose,Whole Blood 137 mg/dL (75-99)
--- NOTE | 2020-02-16 12:30 | US ---
EXAMINATION TYPE: US venous doppler duplex LE LT DATE OF EXAM: 02/16/2020 12:24 PM COMPARISON: NONE CLINICAL HISTORY: 69-year-old male with pain, rule out DVT SIDE PERFORMED: Left TECHNIQUE: The lower extremity deep venous system is examined utilizing real time linear array sonog jose with graded compression, doppler sonography and color-flow sonography. FINDINGS: VESSELS IMAGED: External Iliac Vein (EIV) Common Femoral Vein Deep Femoral Vein Greater Saphenous Vein * Femoral Vein Popliteal Vein Small Saphenous Vein * Proximal Calf Veins (* superficial vessels) Left Leg: Negative for DVT IMPRESSION: No evidence for DVT within the left lower extremity imaged from the groin to the upper calf.
--- NOTE | 2020-02-16 12:56 | P.PN ---
Subjective Progress Note Date: 02/16/20 Follow-up for acute kidney injury. Denies any chest pain, shortness of breath. No nausea vomiting or diarrhea. Left leg swelling compared to the right. Objective - Vital Signs Vital signs: Vital Signs Temp 97.4 F L 02/16/20 05:00 Pulse 81 02/16/20 05:00 Resp 18 02/16/20 05:00 BP 151/74 02/16/20 05:00 Pulse Ox 96 02/16/20 05:00 Intake & Output 02/15/20 02/16/20 02/16/20 18:59 06:59 18:59 Intake Total 120 Output Total 1450 1500 Balance -1450 -1380 Intake: Oral 120 Output: Urine 1450 1500 Uretheral (Gibbs) 1450 500 Other: Voiding Method Indwelling Catheter Indwelling Catheter - Exam No acute distress S1-S2 heard Decreased breath sounds Abdomen distended Left lower extremity edema. - Labs CBC & Chem 7: 02/13/20 07:02 02/16/20 09:56 Labs: Abnormal Lab Results - Last 24 Hours (Table) 02/15/20 02/15/20 02/16/20 Range/Units 17:11 19:54 07:30 BUN (9-20) mg/dL Creatinine (0.66-1.25) mg/dL Glucose (74-99) mg/dL POC Glucose (mg/dL) 179 H 138 H 142 H (75-99) mg/dL Calcium (8.4-10.2) mg/dL 02/16/20 02/16/20 Range/Units 09:56 12:15 BUN 29 H (9-20) mg/dL Creatinine 1.30 H (0.66-1.25) mg/dL Glucose 158 H (74-99) mg/dL POC Glucose (mg/dL) 137 H (75-99) mg/dL Calcium 7.6 L (8.4-10.2) mg/dL Assessment and Plan Assessment: #1 nonoliguric acute kidney injury secondary to left hydronephrosis and nephrolithiasis status post ureteral stent. Creeping creatinine again secondary to suspected hypotension. #2 chronic kidney disease stage II with a baseline creatinine of 1.1 MG per DL. #3 left hydronephrosis with nephrolithiasis status post stent #4 diastolic CHF #5 left lower leg swelling, rule out DVT. Plan: #1 Limited ultrasound did not show any hydronephrosis. Renal function improving. #2 stop IV fluids. #3 agree with Lasix 40 mg by mouth daily. #4 check lower extremity Doppler to rule out DVT.
--- NOTE | 2020-02-16 13:12 | P.PN ---
Subjective Progress Note Date: 02/16/20 69 year-old morbidly obese male one of Dr. Kemp with past medical history of CAD, CHF, hypertension, obstructive sleep apnea and chronic edema was known to have previous history of kidney stone who was in the emergency room on for severe left-sided flank pain was diagnosed with large kidney stone measure 7 mm. Patient was in to see Dr. Garrett on Sunday and was scheduled to have surgery on Sunday. Patient return to emergency department today with severe intractable pain with nausea not been able to tolerate anything orally patient was seen and a Profore admission by Dr. Dhillon urology to treat his symptoms. His kidney function is down with creatinine up to 3.0 significant decline from few days earlier. Patient was started on IV hydration and pain management and possibly will be going for surgery tomorrow. 02/02 patient seen resting in bed this morning, plan for ureterscopy today with urology. Labs were reviewed, white blood cells 13.4, hemoglobin 12.3, sodium 135, BUNs 52, creatinine 3.16, consult in place for nephrology to see patient. Calcium 6.3, and replaced by a nephrology. Patient is making adequate urine. Will order urine and blood cultures, patient started on Zosyn IV. Vital signs are stable, patient remains afebrile pulse 89, blood pressure 133/70, patient pulse ox 92% on 2 L nasal cannula. Renal ultrasound found no distinct abnormality seen, no evidence of hydronephrosis. 02/03: Patient seen today sitting on edge of bed, appears to be more short of breath today, requiring O2 at 4 L via nasal cannula satting 90%. Patient is afebrile, pulse rate 96, blood pressure 165/71. Blood cultures did show gram- positive cocci in chains. Vancomycin added along with Zosyn and infectious disease consult. We will do chest x-ray hep-locked the patient, give 40 IV Lasix 1 and labs are ordered. White blood cell count 16.2 hemoglobin 12.9 BUN/creatinine creatinine have improved creatinine 2.43 today. Troponins came back elevated at 0.454 this morning. Cardiology was ordered for consult along with echo. Nephrology remains on the case. We'll continue to monitor patient closely. Chest x-ray showed mild bibasilar infiltrates correlate for atelectasis or early pneumonia 02/04: Patient appears to be more comfortable today, O2 remains at 4 L via nasal cannula, satting 90%. We will give patient an additional 40 of IV Lasix today. Patient is afebrile vital signs are stable. White blood cells 15.5, hemoglobin 12.2, sodium 136, BUN 62, creatinine down to 1.63, calcium 6.9 today, second troponin was 0.306 yesterday. Cardiology is on the case, echo revealed EF was 55-60%, moderate LVH mild MR and TR. May require stress test for further workup. Blood cultures were positive for strep aglactiae, Dr Mark. Switch patient to Rocephin 2 g daily. Discussed with patient plan to go to rehab when discharged, and patient was agreeable to this. 02/05: Patient seen this morning denies any complaints, oxygen remains on 4 L via nasal cannula satting 93%. Lungs sounds improved and patient was short of breath. Will continue to work with PT and OT, plan for discharge to rehab likely Sunday. White blood cells today were 18.0 hemoglobin 12.6, BUN 50, creatinine 1.3, and blood sugars are stable. Patient remains on Rocephin IV with ID on the case along with cardio, nephrology. Chest x-ray from today shows left lower lobe infiltrate and atelectasis no change from prior exam. We'll continue to follow patient along with urology. 01/28 Patient examined bedside. Deep breath. Patient was found to have an episode of bronchitis and vomiting for in the morning. X-ray of the abdomen was positive for dilated small bowel was concerning for obstruction versus ileus. Patient was placed on nothing by mouth. surgery was consulted. On evaluation this morning patient denies any nausea or abdominal pain. He does endorse flat is but doesn't did not have any bowel movement for the past 1 week. Bowel regimen initiated with the a Dulcolax suppository to help with total output. Surgery suggest ileus rather than obstruction. Repeat abdominal x-ray tomorrow morning. Continue patient on nothing by mouth with ice chips medication with small sips 02/07 patient examined bedside. Continues to feel well. Patient was doing well earlier and had multiple bowel movements this morning and yesterday. Patient was started on clear liquid diet. Patient could not tolerate the clear liquid diet and started vomiting. NG tube was placed and patient admitted into canister immediately. Patient was also noted to have dark secretions coming out of his NG tube concerning for GI bleed. Nurse asked to obtain a fecal occult and repeat hemoglobin in the evening. Vitals otherwise stable temp is 97.6 pulse 70 blood pressure 186/80, oxygen saturation 93% on 2 L. Hold patient's glipizide and Lantus since patient's nothing by mouth continue insulin sliding scale. Patient is currently able to take his medication normally without any difficulty to be due to abdominal x-ray tomorrow 02/08: Patient has been afebrile, heart rate 58, blood pressure 180/80, pulse ox 93% on 2 L nasal cannula. CPAP at bedside. Blood sugars are running between 130 and 178. Repeat hemoglobin last evening was 13.1 and white count 18.8. Patient is scheduled for CAT scan of the abdomen and pelvis today without contrastwhich revealed the lateral aspect of the left hemiabdomen is not visualized due to patient body habitus. Diffusely mildly dilated small bowel loops with air-fluid levels. Findings may represent ileus, although there is transitioned to decompress bowel and the terminal ileum which may represent small bowel obstruction. Numerous nonobstructing left nephrolithiasis with left ureteral stent. Patient states he passed gas last evening but has not had a bowel movement. He denies any abdominal tenderness. Repeat blood cultures are showing no growth at 72 hours. NG tube remains in place with return of green- brown colored fluid. Patient also has Gibbs catheter in place. Patient is not utilizing incentive spirometry. Patient has been encouraged to use every hour. Patient is followed by multiple consultants. Patient also followed by PT and OT and required 2 people moderate assist sit to stand. 02/09: Patient has been afebrile, heart rate 69, blood pressure 124/69, pulse ox 94% on 2 L nasal cannula. Nephrology recommends continuing current dose of Lasix. Patient has had a small brown loose stool last evening and 2 bowel movements this morning. His NG tube is currently clamped and may be removed this afternoon. Repeat blood work reveals WBC 21.1, hemoglobin 13.2, platelet count 563. Sodium 151, potassium 3.8, chloride 101, CO2 37, BUN 47 creatinine 1.20. Blood sugars running between 157 and 170. Total bilirubin 1.7, AST 111, ALT 52, alkaline phosphatase 136. CXR/Abdominal x-ray reveals cardiomegaly with patchy left basilar linear scarring and/or atelectasis 3 demonstrated. No new infiltrate. Overall nonspecific bowel gas pattern. Distal small bowel obstruction cannot be excluded. No significant interval change. Patient continues to deny abdominal pain or tenderness. He currently does not have any nausea. 02/10: He utilized CPAP during the night. He denies having any abdominal pain, n ausea or vomiting. NG tube was removed last evening and currently on ice chips. Anticipate that diet will be advanced once surgery rounds. Patient denies having any fevers. Abdominal ultrasound revealed some echogenic bile. No definite gallstones. No dilated ducts. Patient is reching 500 on incentive spirometry. Gibbs catheter remains in place. COVID-19 tests to be obtained today with anticipation of discharge an approximate 48 hours. WBC 18.3, hemoglobin 12.2, platelet count 477. Sodium 150, potassium 3.6, chloride 100, CO2 37, BUN 59 creatinine 2.06. Total bilirubin 2.0, AST 113, ALT 54, alkaline phosphatase 121. Blood sugars running between 147 and 205. Patient is currently on D5W at 75 mL per hour. 02/11: Chest x-ray from yesterday reveal stable pleural parenchymal density left lower lobe with chronic elevation of the left hemidiaphragm. Patient was started on clear liquid diet yesterday. Dr. Jordan recommended holding Lasix increase oral fluid intake and continue D5W regarding hypernatremia. Repeat lab work today reveals WBC 19.1, hemoglobin 11.8, platelet count 455. Sodium 141, potassium 4.0, chloride 94, CO2 33, BUN 71 creatinine 2.8. Total bilirubin 2.2, AST 96, ALT 51, alkaline phosphatase 110. Patient has been afebrile, heart rate 56, blood pressure 114/54, pulse ox 94% on 3 L nasal cannula. Patient utilized CPAP during the night. He continues to have shortness of breath with exertion. He is encouraged to use incentive spirometry reaching [address] To has advance diet to soft. Patient states that he is feeling better today. He denies any abdominal pain, nausea vomiting. He denies any chest pain, no shortness of breath. Repeat lab work is ordered for tomorrow if this is improving, patient will be discharged to [facility] tomorrow. 02/12: Covid 19 testing is negative. Patient is been afebrile, heart rate 58, blood pressure 107/61, pulse ox 94% on room air. Repeat blood work this morning reveals WBC of 12.6, hemoglobin 10.9 and platelet count 303. Sodium 136, potassium 4.0, chloride 94, CO2 30. BUN 83 and creatinine 3.76. Blood sugars are running between 163 and 200. Due to worsening renal function, discharge will be held. Nursing to update urology regarding worsening renal function and possible imaging. We have ordered a CAT scan abdomen and pelvis without contrast. Lasix discontinued. Discussed with Dr. Mark and Zosyn will be discontinued. Patient does relate that he had one episode of vomiting last night. He also states he has not had a bowel movement in 2 days. Patient is eating well and taking supplements as well. No nausea or vomiting. No abdominal pain. He is reaching 750 ML's on incentive spirometry. 02/13: Patient is sitting up in the chair without any acute distress. Patient has been afebrile. Heart rate 70, respirations 18, blood pressure 129/72, pulse ox 95% with 2 L nasal cannula. Ultrasound of the bladder shows left kidney no obvious hydronephrosis, there is only partial visualization of the left kidney. Large right kidney without evidence of obstruction. Bladder is empty. Indwelling catheter remains in place per urology. Patient creatinine is eleva gertrude at 3.76, BUN is 83. 02/14: Patient is sitting up in a chair without any acute distress. Patient remains afebrile. Indwelling catheter will remain in place until infection is resolved and he is able to have additional surgeries for stone removal. Creatinine 1.85, BUN 58, potassium 3.2. 02/14: Patient is sitting up in the chair without any acute distress. Patient remains afebrile. In the center is in place. Patient is complaining of left calf pain. Left calf is reddened with some tenderness. Pulse rate 80, respirations 18, blood pressure 151/74, pulse ox 96% on 2 L. Potassium 3.7 toda y, BUN 29, creatinine 1.30 Review of systems CONSTITUTIONAL: Denies fever, denies chills, reports generalized weakness EYES: No icterus sclerae, no conjunctivitis. EARS, NOSE, MOUTH, THROAT, and FACE: No sore throat, lymphadenopathy, carotid bruits or deformity. RESPIRATORY: Mild shortness of breath improved . CARDIOVASCULAR: Positive PND and orthopnea no angina. GASTROINTESTINAL: No Abd pain, no abdominal tenderness, no vomiting, Positive bowel movements, No GI Bleed. GENITOURINARY: Positive large sided left side kidney stone status post stent placement BPH symptoms no hematuria. INTEGUMENT/BREAST: Negative for any muscular injury with mild osteoarthritis.. HEMATOLOGIC/LYMPHATIC: Negative for bleed or purpura. MUSCULOSKELTAL: Negative for Myalgia or arthralgia. NEURLOGICAL: No LOC, Sz or syncope, blurred vision dizziness or abnormality.. BEHAVIORAL/PSYCH: Negative. ENDOCRINE: Negative. Physical examination General Appearance: Appears tired cooperative, cooperative, morbidly obese Neck HEENT: Supple, no lymphadenopathy, no thyroid enlargement, no carotid bruits. Lungs: Decreased breath sounds bilaterally, no intercostal retractions. Chest Wall: Decrease expansion with deep inspiration no tenderness and no deformity was found on exam, no costochondral pain or discomfort. Heart: Regular rate and rhythm, S1, S2 normal, no murmur, rub or gallop. Back: Symmetric, no curvature, ROM normal. Abdomen: Soft, bowel sounds are present, no masses, no organomegaly. Gibbs catheter in place Extremities: Extremities normal, atraumatic, no cyanosis, positive edema. Pulses: 2+ and symmetric. Skin: Skin color, texture, tugor normal, no rashes or lesions. Neurologic: Alert oriented x3 cranial nerves II through XII intact, no motor deficit, generalized weakness. Assessment and plan 1. Severe abdominal pain secondary to obstructive ureteric stone, status post double-J stent on 02/02 continue pain management with [place] 5. 2. Large left sided kidney stone measure 7 mm and affecting the kidney functio n, ultrasound was negative for hydronephrosis. Patient had double J stent placed on 02/02 by urology, will likely need this surgically removed per Dr. Ortiz after infection has resolved. 3. Atherosclerotic heart disease, follows with Dr. Medrano. 4. Acute kidney injury with chronic kidney disease, stable. Nephrology consult appreciated. Patient to be reassessed by urology. CAT scan of the abdomen and pelvis without contrast ordered. Hold Lasix and discontinue Zosyn. IV fluids changed to 0.9 normal saline at 75 mL per hour. 5. Acute on chronic diastolic heart failure with ejection fraction of 55-60%. Continue atenolol 50 mg daily, Imdur 30 mg daily. 6. Diabetes mellitus type 2. Levemir and glipizide on hold. Continue NovoLog scale for now while patient is nothing by mouth. Metformin was discontinued. 7. Hypertension: Remain on atenolol 50 mg daily along with diltiazem 240 mg a day. 8. Chronic gout. Continue allopurinol. 9. Mild reactive airway: Has been on Ventolin nebulizer. 10. Hyperlipidemia: Continue patient on atorvastatin 80 mg daily. 11. GI prophylaxis: Patient be continue on pantoprazole 40 mg a day. 12. DVT prophylaxis: After surgery patient be on heparin subcutaneous. 13. Streptococcal agalactia bacteremia secondary to a complicated urinary tract infection status post cystoscopy and left ureteral stent placement. Patient has been seen by Dr. Mark and completed antibiotics. 14. Acute ileus. NG tube removed and tolerating diet. 15. Troponin elevation secondary to fluid overload, sepsis and oxygen supply demand mismatch. Acute coronary syndrome ruled out by cardiology. 16. Obstructive sleep apnea. 17. Morbid obesity with BMI of 42. 18. Hypokalemia. Potassium 60 mEq by mouth once 19. Left calf pain. Venous Doppler to rule out DVT. Impression is negative for DVT. CODE STATUS: Full code. Discharge plan: [facility] once stabilized. Coronavirus testing negative. Repeat covid performed on Sunday negative. with anticipated discharge on Sunday to . Impression and plan of care have been directed as dictated by the signing physician. Jody Valverde nurse practitioner acting as scribe for signing physician. Objective - Vital Signs Vital signs: Vital Signs Temp 97.4 F L 02/16/20 05:00 Pulse 81 02/16/20 05:00 Resp 18 02/16/20 05:00 BP 151/74 02/16/20 05:00 Pulse Ox 96 02/16/20 05:00 Intake & Output 02/15/20 02/16/20 02/16/20 18:59 06:59 18:59 Intake Total 120 Output Total 1450 1500 Balance -1450 -1380 Intake: Oral 120 Output: Urine 1450 1500 Uretheral (Gibbs) 1450 500 Other: Voiding Method Indwelling Catheter Indwelling Catheter - Labs CBC & Chem 7: 02/13/20 07:02 02/16/20 09:56 Labs: Abnormal Lab Results - Last 24 Hours (Table) 02/15/20 02/15/20 02/16/20 Range/Units 17:11 19:54 07:30 BUN (9-20) mg/dL Creatinine (0.66-1.25) mg/dL Glucose (74-99) mg/dL POC Glucose (mg/dL) 179 H 138 H 142 H (75-99) mg/dL Calcium (8.4-10.2) mg/dL 02/16/20 02/16/20 Range/Units 09:56 12:15 BUN 29 H (9-20) mg/dL Creatinine 1.30 H (0.66-1.25) mg/dL Glucose 158 H (74-99) mg/dL POC Glucose (mg/dL) 137 H (75-99) mg/dL Calcium 7.6 L (8.4-10.2) mg/dL
[2020-02-16] MEDS: SODIUM CHLORIDE 0.9% 1,000 ML IV SCH (13:26)
[2020-02-16 13:34] VITALS: TEMP 97.7
[2020-02-16 17:28] LABS: Glucose,Whole Blood 124 mg/dL (75-99)
[2020-02-16 20:28] LABS: Glucose,Whole Blood 143 mg/dL (75-99)
[2020-02-16] MEDS: MELATONIN 3 MG TABLET PO SCH (21:32)
[2020-02-16] MEDS: ATORVASTATIN 80 MG TAB PO SCH (21:32)
[2020-02-16 22:15] VITALS: RESP 16
[2020-02-17] MEDS: METOCLOPRAMIDE 5 MG/ML 2 ML VIAL IVP SCH ×3 (00:09→12:40)
[2020-02-17] MEDS: HYDROcodone/APAP 5-325MG 1 EACH TAB PO PRN ×2 (03:01→11:05)
--- NOTE | 2020-02-17 06:27 | PN ---
PROGRESS NOTE DATE OF SERVICE: 02/16/2020 REASON FOR FOLLOWUP: 1. Streptococcus agalactiae UTI and bacteremia. 2. Ileus. INTERVAL HISTORY: The patient is currently afebrile, has been breathing comfortably. Denies having any chest pain or shortness of breath or cough. No nausea, no vomiting. No abdominal pain, no diarrhea. PHYSICAL EXAMINATION: Blood pressure 170/55 with a pulse of 85, temperature is 97.7. He is 96% on room air. General description is an elderly male up in the chair in no distress. RESPIRATORY SYSTEM: Unlabored breathing, clear to auscultation anteriorly. HEART: S1, S2. Regular rate and rhythm. ABDOMEN: Soft, no tenderness. LABS: BUN of 29, creatinine 1.30. Blood culture repeat has been negative so far. DIAGNOSTIC IMPRESSION AND PLAN: Patient with Streptococcus agalactiae bacteremia secondary to complicated urinary tract infection, status post cystoscopy and stent placement. The patient subsequently did have ileus that has resolved and worsening kidney function that has improved as well. He is currently covered with Rocephin and Flagyl. Finishing therapy with oral Ceftin for a short course and continue with supportive care. MMODL / IJN: [id number] /
[2020-02-17 06:54] LABS: Glucose,Whole Blood 129 mg/dL (75-99)
[2020-02-17 07:38] LABS: Basophils % (A) 0 %; Eosinophils # (A) 0.2 k/uL (0-0.7); Eosinophils % (A) 2 %; HCT 36.3 % (39.0-53.0); HGB 11.2 gm/dL (13.0-17.5); Hypochromasia Slight; Lymphocytes # (A) 0.8 k/uL (1.0-4.8); Lymphocytes % (A) 9 %; MCH 27.9 pg (25.0-35.0); MCHC 30.7 g/dL (31.0-37.0); MCV 90.9 fL (80.0-100.0); Mean Platelet Volume 7.8; Monocytes # (A) 0.5 k/uL (0-1.0); Monocytes % (A) 6 %; Neutrophils # (A) 6.9 k/uL (1.3-7.7); Neutrophils % (A) 81 %; Platelet Count 328 k/uL (150-450); RBC 3.99 m/uL (4.30-5.90); RDW 14.6 % (11.5-15.5); WBC 8.5 k/uL (3.8-10.6)
[2020-02-17 07:58] LABS: Calcium 7.6 mg/dL (8.4-10.2); Potassium 3.7 mmol/L (3.5-5.1)
--- NOTE | 2020-02-17 08:04 | P.DS ---
Providers Date of admission: 02/02/20 17:25 Expected date of discharge: 02/17/20 Attending physician: Eric Ortiz Consults: 02/02/20 17:27 Consult Physician Routine Consulting Provider: Cheikh Gore Consult Reason/Comments: medicine consult Do you want consulting provider notified?: Yes 02/03/20 07:55 Consult Physician Routine Consulting Provider: Isadora Jordan Consult Reason/Comments: AKF Do you want consulting provider notified?: Yes 02/04/20 09:29 Consult Physician Urgent Consulting Provider: Opal Sanchez Consult Reason/Comments: positive trop/Increased SOB Do you want consulting provider notified?: Yes 02/04/20 10:06 Consult Physician Routine Consulting Provider: Alex Mark Consult Reason/Comments: Sepsis Do you want consulting provider notified?: Yes 02/07/20 05:06 Consult Physician Routine Consulting Provider: Gautam To Consult Reason/Comments: Small bowel obstuction, nausea, vomiting, Do you want consulting provider notified?: Yes Primary care physician: Ga Kemp [facility] Course: 69 year-old morbidly obese male one of Dr. Kemp with past medical history of CAD, CHF, hypertension, obstructive sleep apnea and chronic edema was known to have previous history of kidney stone who was in the emergency room on for severe left-sided flank pain was diagnosed with large kidney stone measure 7 mm. Patient was in to see Dr. Garrett on Sunday and was scheduled to have surgery on Sunday. Patient return to emergency department today with severe intractable pain with nausea not been able to tolerate anything orally patient was seen and a Profore admission by Dr. Dhillon urology to treat his symptoms. His kidney function is down with creatinine up to 3.0 significant decline from few days earlier. Patient was started on IV hydration and pain management and possibly will be going for surgery tomorrow. 02/02 patient seen resting in bed this morning, plan for ureterscopy today with urology. Labs were reviewed, white blood cells 13.4, hemoglobin 12.3, sodium 135, BUNs 52, creatinine 3.16, consult in place for nephrology to see patient. Calcium 6.3, and replaced by a nephrology. Patient is making adequate urine. Will order urine and blood cultures, patient started on Zosyn IV. Vital signs are stable, patient remains afebrile pulse 89, blood pressure 133/70, patient pulse ox 92% on 2 L nasal cannula. Renal ultrasound found no distinct abnormality seen, no evidence of hydronephrosis. 02/03: Patient seen today sitting on edge of bed, appears to be more short of breath today, requiring O2 at 4 L via nasal cannula satting 90%. Patient is afebrile, pulse rate 96, blood pressure 165/71. Blood cultures did show gram- positive cocci in chains. Vancomycin added along with Zosyn and infectious disease consult. We will do chest x-ray hep-locked the patient, give 40 IV Lasix 1 and labs are ordered. White blood cell count 16.2 hemoglobin 12.9 BUN/creatinine creatinine have improved creatinine 2.43 today. Troponins came back elevated at 0.454 this morning. Cardiology was ordered for consult along with echo. Nephrology remains on the case. We'll continue to monitor patient closely. Chest x-ray showed mild bibasilar infiltrates correlate for atelectasis or early pneumonia 02/04: Patient appears to be more comfortable today, O2 remains at 4 L via nasal cannula, satting 90%. We will give patient an additional 40 of IV Lasix today. Patient is afebrile vital signs are stable. White blood cells 15.5, hemoglobin 12.2, sodium 136, BUN 62, creatinine down to 1.63, calcium 6.9 today, second t roponin was 0.306 yesterday. Cardiology is on the case, echo revealed EF was 55-60%, moderate LVH mild MR and TR. May require stress test for further workup. Blood cultures were positive for strep aglactiae, Dr Mark. Switch patient to Rocephin 2 g daily. Discussed with patient plan to go to rehab when discharged, and patient was agreeable to this. 02/05: Patient seen this morning denies any complaints, oxygen remains on 4 L via nasal cannula satting 93%. Lungs sounds improved and patient was short of breath. Will continue to work with PT and OT, plan for discharge to rehab likely Sunday. White blood cells today were 18.0 hemoglobin 12.6, BUN 50, creatinine 1.3, and blood sugars are stable. Patient remains on Rocephin IV with ID on the case along with cardio, nephrology. Chest x-ray from today shows left lower lobe infiltrate and atelectasis no change from prior exam. We'll continue to follow patient along with urology. 01/28 Patient examined bedside. Deep breath. Patient was found to have an episode of bronchitis and vomiting for in the morning. X-ray of the abdomen was positive for dilated small bowel was concerning for obstruction versus ileus. Patient was placed on nothing by mouth. surgery was consulted. On evaluation this morning patient denies any nausea or abdominal pain. He does endorse flat is but doesn't did not have any bowel movement for the past 1 week. Bowel regimen initiated with the a Dulcolax suppository to help with total output. Surgery suggest ileus rather than obstruction. Repeat abdominal x-ray tomorrow morning. Continue patient on nothing by mouth with ice chips medication with small sips 02/07 patient examined bedside. Continues to feel well. Patient was doing well earlier and had multiple bowel movements this morning and yesterday. Patient was started on clear liquid diet. Patient could not tolerate the clear liquid diet and started vomiting. NG tube was placed and patient admitted into canister immediately. Patient was also noted to have dark secretions coming out of his NG tube concerning for GI bleed. Nurse asked to obtain a fecal occult and repeat hemoglobin in the evening. Vitals otherwise stable temp is 97.6 pulse 70 blood pressure 186/80, oxygen saturation 93% on 2 L. Hold patient's glipizide and Lantus since patient's nothing by mouth continue insulin sliding scale. Patient is currently able to take his medication normally without any difficulty to be due to abdominal x-ray tomorrow 02/08: Patient has been afebrile, heart rate 58, blood pressure 180/80, pulse ox 93% on 2 L nasal cannula. CPAP at bedside. Blood sugars are running between 130 and 178. Repeat hemoglobin last evening was 13.1 and white count 18.8. Patient is scheduled for CAT scan of the abdomen and pelvis today without contrastwhich revealed the lateral aspect of the left hemiabdomen is not visualized due to patient body habitus. Diffusely mildly dilated small bowel loops with air-fluid levels. Findings may represent ileus, although there is transitioned to decompress bowel and the terminal ileum which may represent small bowel obstruction. Numerous nonobstructing left nephrolithiasis with left ureteral stent. Patient states he passed gas last evening but has not had a bowel movement. He denies any abdominal tenderness. Repeat blood cultures are showing no growth at 72 hours. NG tube remains in place with return of green- brown colored fluid. Patient also has Gibbs catheter in place. Patient is not utilizing incentive spirometry. Patient has been encouraged to use every hour. Patient is followed by multiple consultants. Patient also followed by PT and OT and required 2 people moderate assist sit to stand. 02/09: Patient has been afebrile, heart rate 69, blood pressure 124/69, pulse ox 94% on 2 L nasal cannula. Nephrology recommends continuing current dose of Lasix. Patient has had a small brown loose stool last evening and 2 bowel movements this morning. His NG tube is currently clamped and may be removed this afternoon. Repeat blood work reveals WBC 21.1, hemoglobin 13.2, platelet count 563. Sodium 151, potassium 3.8, chloride 101, CO2 37, BUN 47 creatinine 1.20. Blood sugars running between 157 and 170. Total bilirubin 1.7, AST 111, ALT 52, alkaline phosphatase 136. CXR/Abdominal x-ray reveals cardiomegaly with patchy left basilar linear scarring and/or atelectasis 3 demonstrated. No new infiltrate. Overall nonspecific bowel gas pattern. Distal small bowel obstruction cannot be excluded. No significant interval change. Patient contin ues to deny abdominal pain or tenderness. He currently does not have any nausea. 02/10: He utilized CPAP during the night. He denies having any abdominal pain, nausea or vomiting. NG tube was removed last evening and currently on ice chips. Anticipate that diet will be advanced once surgery rounds. Patient denies having any fevers. Abdominal ultrasound revealed some echogenic bile. No definite gallstones. No dilated ducts. Patient is reching 500 on incentive spirometry. Gibbs catheter remains in place. COVID-19 tests to be obtained today with anticipation of discharge an approximate 48 hours. WBC 18.3, hemoglobin 12.2, platelet count 477. Sodium 150, potassium 3.6, chloride 100, CO2 37, BUN 59 creatinine 2.06. Total bilirubin 2.0, AST 113, ALT 54, alkaline phosphatase 121. Blood sugars running between 147 and 205. Patient is currently on D5W at 75 mL per hour. 02/11: Chest x-ray from yesterday reveal stable pleural parenchymal density left lower lobe with chronic elevation of the left hemidiaphragm. Patient was started on clear liquid diet yesterday. Dr. Jordan recommended holding Lasix increase oral fluid intake and continue D5W regarding hypernatremia. Repeat lab work today reveals WBC 19.1, hemoglobin 11.8, platelet count 455. Sodium 141, potassium 4.0, chloride 94, CO2 33, BUN 71 creatinine 2.8. Total bilirubin 2.2, AST 96, ALT 51, alkaline phosphatase 110. Patient has been afebrile, heart rate 56, blood pressure 114/54, pulse ox 94% on 3 L nasal cannula. Patient utilized CPAP during the night. He continues to have shortness of breath with exertion. He is encouraged to use incentive spirometry reaching [address] To has advance diet to soft. Patient states that he is feeling better today. He denies any abdominal pain, nausea vomiting. He denies any chest pain, no shortness of breath. Repeat lab work is ordered for tomorrow if this is improving, patient will be discharged to [facility] tomorrow. 02/13: Patient is sitting up in the chair without any acute distress. Patient has been afebrile. Heart rate 70, respirations 18, blood pressure 129/72, pulse ox 95% with 2 L nasal cannula. Ultrasound of the bladder shows left kidney no obvious hydronephrosis, there is only partial visualization of the left kidney. Large right kidney without evidence of obstruction. Bladder is empty. Indwelling catheter remains in place per urology. Patient creatinine is elevated at 3.76, BUN is 83. /: Patient is sitting up in a chair without any acute distress. Patient remains afebrile. Indwelling catheter will remain in place until infection is resolved and he is able to have additional surgeries for stone removal. Creatinine 1.85, BUN 58, potassium 3.2. 02/15: Patient is sitting up in the chair without any acute distress. Patient remains afebrile. In the center is in place. Patient is complaining of left calf pain. Left calf is reddened with some tenderness. Pulse rate 80, respirations 18, blood pressure 151/74, pulse ox 96% on 2 L. Potassium 3.7 today, BUN 29, creatinine 1.30 9: The patient denies having any vomiting or diarrhea. Gibbs cath remains in place. He has had good urine output. Repeat blood work this morning reveals BUN [address] Newman has added in amlodipine 5 mg daily and hold if systolic blood pressures less than 120. Maintain Lasix 40 mg once daily. CM P magnesium level in 2-3 days. Follow-up in one to 2 weeks as an outpatient. Patient will be discharged to [facility] in stable condition. Assessment and plan 1. Severe abdominal pain secondary to obstructive ureteric stone, status post double-J stent on 02/02 2. Large left sided kidney stone measure 7 mm and affecting the kidney function status post double J stent placed on 02/02 by urology 3. Atherosclerotic heart disease 4. Acute kidney injury with chronic kidney disease, stable. 5. Acute on chronic diastolic heart failure with ejection fraction of 55-60%. 6. Diabetes mellitus type 2. 7. Hypertension 8. Chronic gout. 9. Mild reactive airway 10. Hyperlipidemia 11. GI prophylaxis 12. DVT prophylaxis 13. Streptococcal agalactia bacteremia secondary to a complicated urinary tract infection status post cystoscopy and left ureteral stent placement. 14. Acute ileus. 15. Troponin elevation secondary to fluid overload, sepsis and oxygen supply demand mismatch. Acute coronary syndrome ruled out by cardiology. 16. Obstructive sleep apnea. 17. Morbid obesity with BMI of 42. 18. Hypernatremia. Discharge plan: [facility]. Coronavirus testing negative. Impression and plan of care have been directed as dictated by the signing physician. Jayne Garrido nurse practitioner acting as scribe for signing physici an. Patient Condition at Discharge: Good Plan - Discharge Summary New Discharge Prescriptions: New bisacodyL [Dulcolax] 10 mg RECTAL DAILY supp Aspirin EC [Ecotrin Low Dose] 81 mg PO DAILY #30 tablet. Tamsulosin [Flomax] 0.4 mg PO PC-BRKFST cap.er.24h Isosorbide Mononitrate ER [Imdur] 15 mg PO DAILY dose Potassium Chloride ER [K-Dur 20] 20 meq PO DAILY tab.er.prt Melatonin 6 mg PO HS tablet polyethylene glycoL 3350 [Miralax] 17 gm PO DAILY powd.pack INSULIN ASPART (NovoLOG) [NovoLOG (formulary)] 0 unit SQ ACHS vial Pantoprazole [Protonix] 40 mg PO AC-BRKFST tablet. Cefuroxime [Ceftin] 250 mg PO BID 5 Days #10 tab amLODIPine [Norvasc] 5 mg PO DAILY #30 tab Continue Nitroglycerin Sl Tabs [Nitrostat] 0.4 mg SUBLINGUAL Q5M PRN PRN Reason: Chest Pain buPROPion [Wellbutrin] 75 mg PO QAM Furosemide [Lasix] 40 mg PO DAILY Atorvastatin [Lipitor] 80 mg PO HS Atenolol [Tenormin] 50 mg PO DAILY Aspirin 325 mg PO DAILY Allopurinol [Zyloprim] 300 mg PO DAILY Albuterol Nebulized [Ventolin Nebulized] 2.5 mg INHALATION RT-Q6H PRN PRN Reason: Shortness Of Breath Changed Insulin Glargine [Lantus] 10 unit SQ AC-SUPPER@1600 #0 Discontinued metFORMIN HCL 1,000 mg PO BID Potassium Chloride 10 meq PO Q48H Isosorbide Mononitrate [Isosorbide Mononitrate ER] 30 mg PO DAILY glipiZIDE [Glucotrol] 5 mg PO BID Ibuprofen [Motrin] 800 mg PO Q6HR PRN PRN Reason: Pain Diltiazem HCl [Cartia Xt] 240 mg PO DAILY Discharge Medication List Albuterol Nebulized [Ventolin Nebulized] 2.5 mg INHALATION RT-Q6H PRN 02/02/20 [History] Allopurinol [Zyloprim] 300 mg PO DAILY 02/02/20 [History] Aspirin 325 mg PO DAILY 02/02/20 [History] Atenolol [Tenormin] 50 mg PO DAILY 02/02/20 [History] Atorvastatin [Lipitor] 80 mg PO HS 02/02/20 [History] Furosemide [Lasix] 40 mg PO DAILY 02/02/20 [History] Nitroglycerin Sl Tabs [Nitrostat] 0.4 mg SUBLINGUAL Q5M PRN 02/02/20 [History] buPROPion [Wellbutrin] 75 mg PO QAM 02/02/20 [History] Aspirin EC [Ecotrin Low Dose] 81 mg PO DAILY #30 tablet. 02/17/20 [Rx] Cefuroxime [Ceftin] 250 mg PO BID 5 Days #10 tab 02/17/20 [Rx] INSULIN ASPART (NovoLOG) [NovoLOG (formulary)] 0 unit SQ ACHS vial 02/17/20 [R x] Insulin Glargine [Lantus] 10 unit SQ AC-SUPPER@1600 #0 02/17/20 [Rx] Isosorbide Mononitrate ER [Imdur] 15 mg PO DAILY dose 02/17/20 [Rx] Melatonin 6 mg PO HS tablet 02/17/20 [Rx] Pantoprazole [Protonix] 40 mg PO AC-BRKFST tablet.dr 02/17/20 [Rx] Potassium Chloride ER [K-Dur 20] 20 meq PO DAILY tab.er.prt 02/17/20 [Rx] Tamsulosin [Flomax] 0.4 mg PO PC-BRKFST cap.er.24h 02/17/20 [Rx] amLODIPine [Norvasc] 5 mg PO DAILY #30 tab 02/17/20 [Rx] bisacodyL [Dulcolax] 10 mg RECTAL DAILY supp 02/17/20 [Rx] polyethylene glycoL 3350 [Miralax] 17 gm PO DAILY powd.pack 02/17/20 [Rx] Follow up Appointment(s)/Referral(s): Ga Kemp MD [Primary Care Provider] - 02/19/20 8:45 am Lorenzo Medrano MD [STAFF PHYSICIAN] - 2 Weeks Dionicio Swartz MD [STAFF PHYSICIAN] - 02/24/20 10:20 am Activity/Diet/Wound Care/Special Instructions: Patient required to have a Rapid Covid Test on Sunday for potential discharge on Sunday
[2020-02-17] MEDS: INSULIN ASPART (NovoLOG) 100 UNIT/ML VIAL SQ SCH ×2 (08:06→12:40)
[2020-02-17] MEDS ORDERED: FUROSEMIDE 40 MG TAB PO SCH (09:00)
--- NOTE | 2020-02-17 09:08 | P.PN ---
Subjective Patient is seen in follow-up for acute kidney injury. Renal function better. Has a Gibbs catheter. Nonoliguric. Oral intake fair. No vomiting or diarrhea. Vital signs are stable. General: The patient appeared well nourished and normally developed. HEENT: Head exam is unremarkable. Neck is without jugular venous distension. LUNGS: Breath sounds decreased. HEART: Rate and Rhythm are regular. ABDOMEN: Soft, nontender. Obese. EXTREMITITES: Trace edema. Objective - Vital Signs Vital signs: Vital Signs Temp 97.7 F 02/17/20 04:26 Pulse 64 02/17/20 04:26 Resp 16 02/17/20 04:26 BP 174/71 02/17/20 04:26 Pulse Ox 99 02/17/20 04:26 Intake & Output 02/16/20 02/17/20 02/17/20 18:59 06:59 18:59 Intake Total 1660 Output Total 500 700 900 Balance -500 960 -900 Intake: Oral 1660 Output: Urine 500 700 900 Uretheral (Gibbs) 500 Other: Voiding Method Indwelling Catheter Indwelling Catheter # Bowel Movements 1 - Labs CBC & Chem 7: 02/17/20 06:45 02/17/20 06:45 Labs: Abnormal Lab Results - Last 24 Hours (Table) 02/16/20 02/16/20 02/16/20 Range/Units 09:56 12:15 17:20 RBC (4.30-5.90) m/uL Hgb (13.0-17.5) gm/dL Hct (39.0-53.0) % MCHC (31.0-37.0) g/dL Lymphocytes # (1.0-4.8) k/uL BUN 29 H (9-20) mg/dL Creatinine 1.30 H (0.66-1.25) mg/dL Glucose 158 H (74-99) mg/dL POC Glucose (mg/dL) 137 H 124 H (75-99) mg/dL Calcium 7.6 L (8.4-10.2) mg/dL 02/16/20 02/17/20 02/17/20 Range/Units 20:07 06:45 06:45 RBC 3.99 L (4.30-5.90) m/uL Hgb 11.2 L (13.0-17.5) gm/dL Hct 36.3 L (39.0-53.0) % MCHC 30.7 L (31.0-37.0) g/dL Lymphocytes # 0.8 L (1.0-4.8) k/uL BUN (9-20) mg/dL Creatinine (0.66-1.25) mg/dL Glucose 136 H (74-99) mg/dL POC Glucose (mg/dL) 143 H (75-99) mg/dL Calcium 7.6 L (8.4-10.2) mg/dL 02/17/20 Range/Units 06:48 RBC (4.30-5.90) m/uL Hgb (13.0-17.5) gm/dL Hct (39.0-53.0) % MCHC (31.0-37.0) g/dL Lymphocytes # (1.0-4.8) k/uL BUN (9-20) mg/dL Creatinine (0.66-1.25) mg/dL Glucose (74-99) mg/dL POC Glucose (mg/dL) 129 H (75-99) mg/dL Calcium (8.4-10.2) mg/dL Assessment and Plan Plan: Assessment: 1. Acute kidney injury secondary to ATN secondary to hypotension. Renal function improving. 2. Left-sided hydronephrosis with nephrolithiasis status post stent placement. 3. Acute on chronic diastolic CHF. 4. Benign hypertension. Blood pressure on the higher side. 5. Diabetes mellitus. Plan: Add amlodipine 5 mg once daily. To be held if systolic blood pressure less than 120. Maintain Lasix 40 mg orally once daily. Anticipate discharge soon. Repeat BMP and magnesium level 2-3 days postdischarge. Follow up outpatient in 1-2 weeks.
[2020-02-17] MEDS: bisacodyL 10 MG SUPP RECTAL SCH (10:46)
[2020-02-17] MEDS: PANTOPRAZOLE 40 MG TABLET PO SCH (10:56)
[2020-02-17] MEDS: allopurinoL 300 MG TAB PO SCH (10:56)
[2020-02-17] MEDS: TAMSULOSIN 0.4 MG CAP.ER.24H PO SCH (10:56)
[2020-02-17] MEDS: buPROPion 75 MG TAB PO SCH (10:57)
[2020-02-17] MEDS: polyethylene glycoL 3350 17 GM POWD.PACK PO SCH (10:57)
[2020-02-17] MEDS: ISOSORBIDE MONONITRATE ER 15 MG TAB PO SCH (10:57)
[2020-02-17] MEDS: atenoloL 25 MG TAB PO SCH (10:57)
[2020-02-17] MEDS: metroNIDAZOLE 500 MG TAB PO SCH (10:57)
[2020-02-17] MEDS: POTASSIUM CHLORIDE ER 20 MEQ TAB.ER PO SCH (10:57)
[2020-02-17 11:34] LABS: Glucose,Whole Blood 130 mg/dL (75-99)
[2020-02-17 11:35] VITALS: BP 172/69; PULSE 70
--- NOTE | 2020-02-17 14:10 | PN ---
PROGRESS NOTE DATE OF SERVICE: 02/17/2020 REASON FOR FOLLOWUP: Streptococcus agalactiae bacteremia secondary to complicated UTI and ileus. INTERVAL HISTORY: The patient is currently afebrile, has been breathing comfortably. Patient denies having any chest pain. No shortness of breath or cough. No nausea, no vomiting. No abdominal pain or diarrhea. PHYSICAL EXAMINATION: Blood pressure 132/69 with a pulse of 70, temperature is 97.7, he is 99% on 2 L nasal cannula. General description is an elderly male, up in the chair in no distress. RESPIRATORY SYSTEM: Unlabored breathing, clear to auscultation anteriorly. HEART: S1, S2. Regular rate and rhythm. ABDOMEN: Soft, no tenderness. LABS: Hemoglobin 11.1, white count 8.5, BUN of 20, creatinine 1.17. DIAGNOSTIC IMPRESSION AND PLAN: Patient with Streptococcus agalactiae bacteremia secondary to urinary source complicated UTI. Patient overall improvement. Currently on Rocephin, will transition to Ceftin 500 mg twice a day for a week and close outpatient followup on discharge. Continue supportive care. MMODL / IJN: [id number] /
[2020-02-17 15:03] VITALS: BMI 44.6
[2020-02-18] MEDS ORDERED: amLODIPine 5 MG TAB PO SCH (09:00)
== END 2020-02-17 15:50 | DRG 853 ==
LOC: EC 15:36 → 5NMEDONC 17:25 → 6NMEDSUR 02-11 07:07
PROVIDERS: ADMIT Urology; ATTEND Urology
PROC: 0T748DZ Dilation of Left Kidney Pelvis with Intraluminal Device, Via Natural or Artificial Opening Endoscopic (ICD-10-PCS; principal; 2020-02-03 13:30)
PROC: 0D9670Z Drainage of Stomach with Drainage Device, Via Natural or Artificial Opening (ICD-10-PCS; 2020-02-08)
DX: A40.1 Sepsis due to streptococcus, group B (principal); N17.0 Acute kidney failure with tubular necrosis; I50.43 Acute on chronic combined systolic (congestive) and diastolic (congestive) heart failure; I21.A1 Myocardial infarction type 2; Z68.41 Body mass index [BMI] 40.0-44.9, adult; E87.2 Acidosis; I13.0 Hypertensive heart and chronic kidney disease with heart failure and stage 1 through stage 4 chronic kidney disease, or unspecified chronic kidney disease; K56.7 Ileus, unspecified; E87.0 Hyperosmolality and hypernatremia; J98.11 Atelectasis; K56.609 Unspecified intestinal obstruction, unspecified as to partial versus complete obstruction; N20.2 Calculus of kidney with calculus of ureter; N39.0 Urinary tract infection, site not specified; E66.01 Morbid (severe) obesity due to excess calories; G47.33 Obstructive sleep apnea (adult) (pediatric); Z20.828 Contact with and (suspected) exposure to other viral communicable diseases; M19.90 Unspecified osteoarthritis, unspecified site; Z96.652 Presence of left artificial knee joint; I25.10 Atherosclerotic heart disease of native coronary artery without angina pectoris; E78.5 Hyperlipidemia, unspecified; E83.51 Hypocalcemia; E11.22 Type 2 diabetes mellitus with diabetic chronic kidney disease; N18.2 Chronic kidney disease, stage 2 (mild); E87.6 Hypokalemia; T50.2X5A Adverse effect of carbonic-anhydrase inhibitors, benzothiadiazides and other diuretics, initial encounter; M1A.9XX0 Chronic gout, unspecified, without tophus (tophi); E86.1 Hypovolemia; Z79.82 Long term (current) use of aspirin; I25.2 Old myocardial infarction; Z79.4 Long term (current) use of insulin; Z79.899 Other long term (current) drug therapy; Z87.442 Personal history of urinary calculi; Z95.5 Presence of coronary angioplasty implant and graft; Z98.890 Other specified postprocedural states
CPT/HCPCS: 36415; 71045; 71046; 74018; 74022; 74176; 76705; 76770; 80048; 80053; 81001; 82553; 82570; 83605; 83735; 83880; 84156; 84300; 84484; 84540; 85025; 85027; 87040; 87077; 87086; 87186; 93005; 93306; 94640; 94760; 96374; 99285

== ENCOUNTER → 2020-03-31 | Outpatient (CLI) | payer MEDICARE ==
[2020-03-31 17:02] LABS: Anisocytosis Slight; Basophils % (A) 1 %; Eosinophils # (A) 0.5 k/uL (0-0.7); Eosinophils % (A) 7 %; HCT 32.1 % (39.0-53.0); HGB 9.9 gm/dL (13.0-17.5); Hypochromasia Moderate; Lymphocytes # (A) 1.2 k/uL (1.0-4.8); Lymphocytes % (A) 17 %; MCH 28.5 pg (25.0-35.0); MCHC 30.7 g/dL (31.0-37.0); MCV 92.7 fL (80.0-100.0); Mean Platelet Volume 6.4; Monocytes # (A) 0.4 k/uL (0-1.0); Monocytes % (A) 6 %; Neutrophils # (A) 4.5 k/uL (1.3-7.7); Neutrophils % (A) 67 %; Platelet Count 367 k/uL (150-450); RBC 3.47 m/uL (4.30-5.90); RDW 16.1 % (11.5-15.5); WBC 6.8 k/uL (3.8-10.6)
[2020-03-31 17:11] LABS: Calcium 8.1 mg/dL (8.4-10.2); Potassium 3.6 mmol/L (3.5-5.1); Total Bilirubin 0.6 mg/dL (0.2-1.3); Total Protein 6.6 g/dL (6.3-8.2)
[2020-03-31 17:20] LABS: Appearance,Urine Cloudy (Clear); Bacteria,Urine Rare /hpf; Bilirubin,Urine Negative (Negative); Blood,Urine Negative (Negative); Color,Urine Yellow; Glucose,Urine (UA) Negative (Negative); Hyaline Casts,Urine 1 /lpf (0-2); Ketones,Urine Negative (Negative); Leukocyte Esterase,Urine Moderate (Negative); Mucus,Urine Rare /hpf; Nitrite,Urine Negative (Negative); PH, Urine 7.5 (5.0-8.0); Protein,Urine 1+ (Negative); RBC,Urine 2 /hpf (0-5); Specific Gravity,Urine 1.012 (1.001-1.035); Squamous Epithelial Cell,Urine 4 /hpf (0-4); Urobilinogen,Urine <2.0 mg/dL (<2.0); WBC,Urine 28 /hpf (0-5)
--- NOTE | 2020-03-31 17:51 | XR ---
EXAMINATION TYPE: XR chest 2V DATE OF EXAM: 03/31/2020 CLINICAL HISTORY: Pre-surg. TECHNIQUE: Frontal and lateral view of the chest. COMPARISON: 02/11/2020 chest radiograph FINDINGS: Left PICC with distal tip over the cavoatrial junction. Cardiomegaly. Mediastinal silhouet te unchanged. Pulmonary vasculature is normal. There is no focal air space opacity, pleural effusion, or pneumothorax seen. Degenerative changes of the spine. IMPRESSION: Cardiomegaly. No acute cardiopulmonary process.
== END | disposition home or self-care (01) ==
LOC: LABWHC1 16:10
PROVIDERS: ATTEND Urology
DX: Z01.818 Encounter for other preprocedural examination (principal); N20.0 Calculus of kidney; R31.29 Other microscopic hematuria; E11.9 Type 2 diabetes mellitus without complications; R06.02 Shortness of breath; I51.7 Cardiomegaly
CPT/HCPCS: 36415; 71046; 80053; 81001; 85025; 87086

== ENCOUNTER 2020-04-07 05:56 | Day surgery (SDC) | payer MEDICARE ==
[2020-04-01 11:35] VITALS: BMI 39.7
--- NOTE | 2020-04-06 20:07 | P.GSHP ---
History of Present Illness H&P Date: 04/06/20 69 yo male with a large volume of left renal stones who comes for pcnl left. He initially presented with sever pain due to an obstructing left ureteral stone. He ended up have an infected system so the laser lithotripsy was aborted and a stent was placed. He eventually recouperated. He postponed the pcnl due to orthopedic issues that have been stabilized. He now comes for pcnl left. The risks and complictations have been explained understood and accepted. - Constitutional Constitutional: Denies chills, Denies fever - EENT Eyes: denies blurred vision, denies pain Ears, nose, mouth and throat: Denies headache, Denies sore throat - Cardiovascular Cardiovascular: Denies chest pain, Denies shortness of breath - Respiratory Respiratory: Denies cough, Denies 7 - Gastrointestinal Gastrointestinal: Denies abdominal pain, Denies diarrhea, Denies nausea, Denies vomiting - Genitourinary (Female) Genitourinary: Denies dysuria, Denies hematuria - Genitourinary (Male) Genitourinary: Denies dysuria, Denies hematuria - Musculoskeletal Musculoskeletal: Denies myalgias - Integumentary Integumentary: Denies pruritus, Denies rash - Neurological Neurological: Denies numbness, Denies weakness - Psychiatric Psychiatric: Denies anxiety, Denies depression - Endocrine Endocrine: Denies fatigue, Denies weight change Past Medical History Past Medical History: Heart Failure, Diabetes Mellitus, Hyperlipidemia, Hypertension, Myocardial Infarction ([place]), Osteoarthritis (OA), Sleep Apnea/CPAP/BIPAP Additional Past Medical History / Comment(s): kidney stones, edema oli lower legs and feet, hx hematoma left leg, gout, has cpap. has PICC line lt arm receiving Invanz for mrsa/esbl. has home care nurse to home twice a week Last Myocardial Infarction Date:: 1987 History of Any Multi-Drug Resistant Organisms: ESBL, MRSA Date of last positivie culture/infection: 03/09/20 MDRO Source:: ESBL/MRSA URINE Past Surgical History: Heart Catheterization With Stent, Joint Replacement, Orthopedic Surgery Additional Past Surgical History / Comment(s): surgery to remove hematoma from left leg, attempted lithotripsy then cystoscopy 1987 to remove kidney stone, surgery for laceration left thumb, left knee replacement, one cardiac stent, PICC line lt arm Past Anesthesia/Blood Transfusion Reactions: Motion Sickness Additional Past Anesthesia/Blood Transfusion Reaction / Comment(s): waking up after anesthesia experienced one time difficulty breathing felt like throat closing up Years ago no recent issue Date of Last Stent Placement:: 2009 Smoking Status: Never smoker - Past Family History Mother Family Medical History: No Reported History, Dementia Additional Family Medical History / Comment(s): age 96 Father Family Medical History: Cancer Additional Family Medical History / Comment(s): brain cancer Medications and Allergies Home Medications Medication Instructions Recorded Confirmed Type Albuterol Nebulized [Ventolin 2.5 mg INHALATION TID 02/02/20 04/01/20 History Nebulized] Aspirin 325 mg PO DAILY 02/02/20 04/01/20 History Atenolol [Tenormin] 50 mg PO DAILY 02/02/20 04/01/20 History Atorvastatin [Lipitor] 80 mg PO HS 02/02/20 04/01/20 History Furosemide [Lasix] 40 mg PO DAILY 02/02/20 04/01/20 History Nitroglycerin Sl Tabs [Nitrostat] 0.4 mg SUBLINGUAL Q5M PRN 02/02/20 04/01/20 History buPROPion [Wellbutrin] 75 mg PO QAM 02/02/20 04/01/20 History Diltiazem HCl [Cartia Xt] 240 mg PO DAILY 04/01/20 04/01/20 History Enalapril [Vasotec] 20 mg PO BID 04/01/20 04/01/20 History Ertapenem [INVanz] 1 gm IVPB Q24H 04/01/20 04/01/20 History Insulin Glargine [Lantus] 27 unit SQ HS PRN 04/01/20 04/01/20 History Isosorbide Mononitrate ER [Imdur] 30 mg PO DAILY 04/01/20 04/01/20 History Melatonin 6 mg PO HS PRN 04/01/20 04/01/20 History Potassium Chloride ER [K-Dur 20] 10 meq PO Q48H 04/01/20 04/01/20 History cloNIDine HCL [Catapres] 0.1 mg PO BID 04/01/20 04/01/20 History Allergies Allergy/AdvReac Type Severity Reaction Status Date / Time No Known Allergies Allergy Verified 04/01/20 11:09 Surgical - Exam - General well developed, obese - ENT normal mucosa - Neck trachea midline - Respiratory normal expansion, normal respiratory effort - Cardiovascular Rhythm: regular - Abdomen obese Abdomen: soft, non tender - Genitourinary normal penis with no external lesions, testicles present - Integumentary no rash, no growths - Neurologic normal coordination, normal sensation - Musculoskeletal normal posture - Psychiatric oriented to time, oriented to person, oriented to place, speech is normal, memory intact Results - Imaging CT scan - abdomen: report reviewed, image reviewed CT scan - pelvis: report reviewed, image reviewed Assessment and Plan Assessment: Impression: Left renal stones, large. Morbid obesity, multiple medical problems Plan: PCNL left
[~2020-04-07 05:56] MED LIST: AMPICILLIN 1,000 MG in SODIUM CHLORIDE 0.9% 50 ML IVPB ONE; GENTAMICIN 140 MG in SODIUM CHLORIDE 0.9% 100 ML IVPB ONE; ONDANSETRON 4 MG/2 ML VIAL IVP PRN; fentaNYL (PF) 50 MCG/ML 2 ML AMP IV PRN
[2020-04-07 06:47] LABS: Glucose,Whole Blood 108 mg/dL (75-99)
[2020-04-07] MEDS ORDERED: DEXAMETHASONE SOD PHOSPHATE 10 MG/ML 1 ML VIAL IV ONE (06:56)
[2020-04-07] MEDS: LACTATED RINGERS 1,000 ML IV SCH ×2 (06:57→19:55)
--- NOTE | 2020-04-07 07:33 | XR ---
EXAMINATION TYPE: XR KUB DATE OF EXAM: 04/07/2020 COMPARISON: 02/03/2020 INDICATION: Kidney stones TECHNIQUE: Single view abdomen supine view FINDINGS: There is a nonspecific bowel gas pattern. Air-filled small bowel loops as well as some air within the colon is present. Psoas margins are normal. No organomegaly is present. There is a left ureteral stent. Large calcifications in the mid to inferior pole left kidney measurin g 2.9 x 3.1 cm. Couple of additional small calcifications are present. IMPRESSION: 1. Large calcification inferior pole left kidney 2. Left ureteral stent
[2020-04-07] MEDS ORDERED: fentaNYL (PF) 50 MCG/ML 2 ML AMP ONE (07:34)
[2020-04-07] MEDS ORDERED: GLYCOPYRROLATE 0.2 MG/ML 2 ML VIAL ONE (07:34)
[2020-04-07] MEDS ORDERED: ROCURONIUM 10 MG/ML (10 ML VIAL) IV ONE (07:34)
[2020-04-07] MEDS ORDERED: SUCCINYLCHOLINE CHLORIDE VIAL 200 MG/10 ML VIAL IV ONE (07:34)
[2020-04-07] MEDS ORDERED: NEOSTIGMINE 1 MG/ML 10 ML VIAL ONE (07:34)
[2020-04-07] MEDS ORDERED: PROPOFOL 10 MG/ML 20 ML VIAL IV ONE (07:34)
[2020-04-07] MEDS ORDERED: LIDOCAINE 1% INJ 10MG/ML (20 ML MDV) ONE (07:34)
[2020-04-07] MEDS ORDERED: PHENYLEPHRINE-0.9% NACL SYG 1 MG/10 ML SYRINGE ONE (07:34)
[2020-04-07] MEDS ORDERED: MIDAZOLAM 2 MG/2 ML VIAL ONE (07:34)
[2020-04-07] MEDS ORDERED: IOHEXOL 350 MG/ML 50 ML in EMPTY BAG 1 BAG IRRIGATION ONE (08:27)
[2020-04-07] MEDS ORDERED: NITROGLYCERIN SL TABS 0.4 MG TAB SUBLINGUAL PRN (09:25)
[2020-04-07] MEDS ORDERED: INSULIN DETEMIR (LEVEMIR) 100 UNIT/ML SYR SQ PRN (09:25)
[2020-04-07] MEDS ORDERED: ACETAMINOPHEN TAB 325 MG TAB PO PRN (09:27)
[2020-04-07] MEDS ORDERED: ONDANSETRON 4 MG/2 ML VIAL IVP PRN (09:27)
[2020-04-07] MEDS ORDERED: MAG HYDROX/AL HYDROX/SIMETH 30 ML CUP PO PRN (09:27)
[2020-04-07] MEDS ORDERED: LACTATED RINGERS 1,000 ML IV ONE (09:29)
--- NOTE | 2020-04-07 09:33 | P.OP ---
Date of Procedure: 04/07/20 Preoperative Diagnosis: Left renal calculi, large greater than 2 cm Postoperative Diagnosis: Same Procedure(s) Performed: Cystoscopy, removal double-J catheter left, placement of occluding balloon catheter left, percutaneous nephrostomy (Dr. Poe's) percutaneous nephrostolithotomy with ultrasound placement of 10 J nephrostomy Anesthesia: HAKEEM Surgeon: Dionicio Swartz Estimated Blood Loss (ml): 50 Pathology: other (Stone) Condition: stable Disposition: PACU Indications for Procedure: Patient is 69. He had an obstructing ureteral calculus causing urinary tract infection with sepsis. He had a double-J catheter placed. He has a large volume of kidney stone greater than 2 cm. He comes for percutaneous nephrostolithotomy stent and stone removal Description of Procedure: The patient is brought to the operating suite. He is given a successful general endotracheal anesthesia on the transport gurney. He's placed in a frog position with rolls under his hips. Cystoscopy Foroblique lens and 21-Sudanese sheath identifies a normal urethra, prostate is not obstructing. The double-J catheters identified and removed. I then reintroduced the cystoscope and passed a 5-Sudanese occluding balloon catheter up the ureter into the renal pelvis. The cystoscope was removed. A 16-Sudanese coud-tip catheter is introduced in the bladder with clear urine return Patient is placed in prone position with care to airways and extremities. Dr. Poe of radiology performed percutaneous access to a posterior upper pole calyx just off the 12th rib. I then dilated the tract to 30-Sudanese. Introduced the rigid nephroscope into the collecting system and remove a large volume of stone out of the UPJ. (Greater than 2 cm). There is a large stone in the renal pelvis it requires ultrasound to break it into smaller pieces and remove it. I then pass the flexible nephroscope throughout the collecting system and remove small stones in the lower pole calyx and in the proximal ureter. At the end of the procedure I do an intraoperative nephrostogram. There is no remaining stone. 10 J nephrostomy tube was placed over the working wire and secured in the renal pelvis and confirmed fluoroscopically. It is secured to the skin. The patient is awakened and returned recovery room good condition. Blood loss is approximately 50 mL. He'll be placed in the hospital postoperatively.
--- NOTE | 2020-04-07 09:47 | FL ---
Fluoroscopy INDICATION: Pain FINDINGS: Fluoroscopy time: 3 minutes 22 seconds. Images obtained: 3. IMPRESSIONS: 1. Documentation of fluoroscopy.
[2020-04-07 09:49] LABS: Glucose,Whole Blood 148 mg/dL (75-99)
[2020-04-07] MEDS: SODIUM CHLORIDE 0.45% 1,000 ML IV SCH ×2 (12:15→20:02)
[2020-04-07] MEDS: ALBUTEROL NEBULIZED 2.5 MG/3 ML INHALATION SCH ×2 (15:58→20:28)
[2020-04-07 17:29] LABS: Glucose,Whole Blood 167 mg/dL (75-99)
[2020-04-07] MEDS: lisinopriL 20 MG TAB PO SCH (20:02)
[2020-04-07] MEDS: cloNIDine HCL 0.1 MG TAB PO SCH (20:02)
[2020-04-07 20:25] LABS: Glucose,Whole Blood 164 mg/dL (75-99)
[2020-04-07] MEDS ORDERED: ATORVASTATIN 80 MG TAB PO SCH (21:00)
--- NOTE | 2020-04-07 21:47 | P.CONS ---
History of Present Illness - Reason for Consult Consult date: 04/07/20 Medical management Requesting physician: Dionicio Swartz - Chief Complaint Post left percutaneous nephrostomy and percutaneous nephrostolithotomy sten - History of Present Illness 69-year-old male one of Dr. Kemp patient was hospitalized in 02/02/2024 severe flank pain and largest stone in the left side with large amount of hematuria and developed to have ESBL infection caused by obstructive uropathy. Patient ended up going to [facility] continue IV antibiotic for. This time was supposed to go for lithotripsy apparently developed another infection was hospitalized at [facility] last 10 days after he left [facility] with IV antibiotics was supervised by infectious disease with Invanz 1 g every 24 hours for total of 2 weeks patient antibiotic was done yesterday patient was scheduled with Dr. Garrett for elective percutaneous nephrostomy and percutaneous nephrostolithotomy with stent placement and largest stone removal. Procedure was done successfully patient is still having mild pain but is resting comfortably stable hemodynamically. Review of Systems CONSTITUTIONAL: Well-developed no acute respiratory distress. Of the overweight EYES: No icterus sclerae, no conjunctivitis. EARS, NOSE, MOUTH, THROAT, and FACE: No sore throat, lymphadenopathy, carotid bruits or deformity. RESPIRATORY: No SOB cough or wheezes. Mild shortness of breath with exertion CARDIOVASCULAR: Positive palpitation no PND or orthopnea no angina GASTROINTESTINAL: Positive abdominal pain with nausea positive hematuria and recurrent symptom of kidney stone. GENITOURINARY: Recent infection with positive culture being treated with recurrent UTI and recurrent hematuria with large kidney stone in the left side INTEGUMENT/BREAST: Negative for any muscular injury with mild osteoarthritis.. HEMATOLOGIC/LYMPHATIC: Negative for bleed or purpura. MUSCULOSKELTAL: Significant edema and severe myositis along with lower back pain. NEURLOGICAL: No LOC, Sz or syncope, blurred vision dizziness or abnormality.. BEHAVIORAL/PSYCH: Negative. ENDOCRINE: Negative. Past Medical History Past Medical History: Heart Failure, Diabetes Mellitus, Hyperlipidemia, Hypertension, Myocardial Infarction ([place]), Osteoarthritis (OA), Sleep Apnea/CPAP/BIPAP Additional Past Medical History / Comment(s): kidney stones, edema oli lower legs and feet, hx hematoma left leg, gout, has cpap. has PICC line was on Invanz for 2 weeks mrsa/esbl. has home care nurse to home twice a week Last Myocardial Infarction Date:: 1987 History of Any Multi-Drug Resistant Organisms: ESBL, MRSA Year Discovered:: 03/09/20 MDRO Source:: ESBL/MRSA URINE Past Surgical History: Heart Catheterization With Stent, Joint Replacement, Orthopedic Surgery Additional Past Surgical History / Comment(s): surgery to remove hematoma from left leg, attempted lithotripsy then cystoscopy 1987 to remove kidney stone, surgery for laceration left thumb, left knee replacement, one cardiac stent, PICC line lt arm Past Anesthesia/Blood Transfusion Reactions: Motion Sickness Additional Past Anesthesia/Blood Transfusion Reaction / Comm: waking up after anesthesia experienced one time difficulty breathing felt like throat closing up Years ago no recent issue Date of Last Stent Placement:: 2009 Past Psychological History: No Psychological Hx Reported Smoking Status: Never smoker Past Alcohol Use History: None Reported Past Drug Use History: None Reported - Past Family History Mother Family Medical History: No Reported History, Dementia Additional Family Medical History / Comment(s): age 96 Father Family Medical History: Cancer Additional Family Medical History / Comment(s): brain cancer Medications and Allergies Home Medications Medication Instructions Recorded Confirmed Type Albuterol Nebulized [Ventolin 2.5 mg INHALATION TID 02/02/20 04/07/20 History Nebulized] Aspirin 325 mg PO DAILY 02/02/20 04/07/20 History Atenolol [Tenormin] 50 mg PO DAILY 02/02/20 04/07/20 History Atorvastatin [Lipitor] 80 mg PO HS 02/02/20 04/07/20 History Furosemide [Lasix] 40 mg PO DAILY 02/02/20 04/07/20 History Nitroglycerin Sl Tabs [Nitrostat] 0.4 mg SUBLINGUAL Q5M PRN 02/02/20 04/07/20 History buPROPion [Wellbutrin] 75 mg PO QAM 02/02/20 04/07/20 History Diltiazem HCl [Cartia Xt] 240 mg PO DAILY 04/01/20 04/07/20 History Enalapril [Vasotec] 20 mg PO BID 04/01/20 04/07/20 History Ertapenem [INVanz] 1 gm IVPB Q24H 04/01/20 04/07/20 History Insulin Glargine [Lantus] 27 unit SQ HS PRN 04/01/20 04/07/20 History Isosorbide Mononitrate ER [Imdur] 30 mg PO DAILY 04/01/20 04/07/20 History Melatonin 6 mg PO HS PRN 04/01/20 04/07/20 History Potassium Chloride ER [K-Dur ] 10 meq PO Q48H 04/01/20 04/07/20 History cloNIDine HCL [Catapres] 0.1 mg PO BID 04/01/20 04/07/20 History Allergies Allergy/AdvReac Type Severity Reaction Status Date / Time No Known Allergies Allergy Verified 04/07/20 06:36 Physical Exam Vitals: Vital Signs Temp Pulse Pulse Pulse Resp BP Pulse Ox 04/07/20 16:07 71 04/07/20 15:58 71 04/07/20 13:45 78 157/72 04/07/20 13:30 65 158/75 04/07/20 13:15 77 148/81 04/07/20 13:00 78 148/91 04/07/20 12:45 78 146/83 04/07/20 12:30 83 151/68 04/07/20 12:15 78 154/72 04/07/20 12:00 76 161/62 91 L 04/07/20 11:34 90 16 179/72 100 04/07/20 11:15 74 16 163/70 100 04/07/20 11:03 70 16 167/74 100 04/07/20 10:45 71 16 162/70 99 04/07/20 10:34 63 16 167/72 100 04/07/20 10:19 63 16 146/65 99 04/07/20 10:05 66 16 159/67 100 04/07/20 09:48 64 16 146/65 100 04/07/20 09:34 97.1 F L 68 14 141/65 100 04/07/20 06:55 97.9 F 66 18 140/69 99 Intake and Output 04/07/20 04/07/20 04/07/20 06:59 14:59 22:59 Intake Total 200 1254.5 Output Total 850 10 Balance 200 404.5 -10 Intake: IV 200 1054.5 Oral 200 Output: Drainage 10 Left flank 10 Urine 800 Estimated Blood Loss 50 Other: Weight 128.4 kg 128.4 kg General Appearance: Alert, cooperative, no distress, appears stated age. Neck HEENT: Supple, no lymphadenopathy, no thyroid enlargement, no carotid bruits. Lungs: Decreased breath sound bilaterally with fine rhonchi no crackles or wheezes. Chest Wall: Decrease expansion with deep inspiration no tenderness and no deformity was found on exam, no costochondral pain or discomfort. Heart: Regular rate and rhythm, S1, S2 normal, positive S3 with mild PVCs and mild tachycardia. Back: Symmetric, no curvature, ROM normal, no CVA tenderness. Abdomen: Soft, non-tender, bowel sounds active all four quadrants, no masses, no organomegaly. Mild discomfort left flank area and mid abdominal region Extremities: Extremities normal, atraumatic, no cyanosis positive edema. Pulses: 2+ and symmetric. Skin: Skin color, texture, tugor normal, no rashes or lesions. Neurologic: Alert oriented x3 cranial nerves II through XII intact, no motor deficit, no abnormal balance or gait. Results Labs: Abnormal Lab Results - Last 24 Hours (Table) 04/07/20 04/07/20 04/07/20 Range/Units 06:41 09:48 17:26 POC Glucose (mg/dL) 108 H 148 H 167 H (75-99) mg/dL Assessment and Plan Assessment: 1 post left sided percutaneous nephrostomy and percutaneous nephrostolithotomy with stent placement and stone removal: Continue to watch patient hemodynamically, continue treat pain, continue to watch for any recurrent infection or any change in vitals. Patient is off antibiotic currently continue pain management. 2 acute kidney injury with chronic kidney disease: Kidney function is better repeat CMP within 1 week. 3 recent sepsis and UTI was treated for ESBL patient was on ertapenem IV just finished 2 days ago no need for any antibiotic currently less any change or any leukocyte fever chills or positive culture. 4 atherosclerotic heart disease: Patient has been on isosorbide along with furosemide enalapril and Tenormin continue medication. 5 hypertension: Blood pressure still fluctuating continue patient on Catapres along with Vasotec and diltiazem's XT 240 mg daily with atenolol 50 mg a day. 6 type 2 diabetes: Patient remain on Lantus and NovoLog Accu-Chek with sliding scales coverage and be done. 7 fluid overload and chronic edema: Patient has been on furosemide 40 mg daily. 8 chronic depression: On Wellbutrin 75 mg a day. 9 reactive airway/COPD: Patient remain on Ventolin. 10 hyperlipidemia: Continue Lipitor 80 daily 11 chronic anemia: Post transfusion few time last few weeks has been better so far. 12 GI prophylaxis: Patient will be on Pepcid daily. 13 DVT prophylaxis: No anticoagulation for now continue knee-high DAVID hose and early mobilization. CODE STATUS: Full code. Dr. Garrett thank you much for the consult if I can be any further help to please let me know.
[2020-04-08 05:49] VITALS: BP 164/74; RESP 18; TEMP 97.4
--- NOTE | 2020-04-08 06:48 | P.DS ---
Providers Attending physician: Dionicio Swartz Primary care physician: Ga Almazan Miriam Hospital Course: The patient was admitted 04/07/2020 for a left percutaneous nephrostolithotomy to a large volume of kidney stone. This is done uneventfully. Previously placed double-J catheter was also removed. Post Operatively the patient did well with minimal discomfort. His urine is clearing nicely. His vital signs are stable. He is ready for discharge home. He'll go home with a nephrostomy tube. I'll remove the IV and the ewing. He will follow-up in the office next week for nephrostomy tube removal. He does not require pain medicines upon discharge. Postoperative instructions given. Condition is good. Patient Condition at Discharge: Good Plan - Discharge Summary Discharge Rx Participant: No New Discharge Prescriptions: No Action Nitroglycerin Sl Tabs [Nitrostat] 0.4 mg SUBLINGUAL Q5M PRN PRN Reason: Chest Pain buPROPion [Wellbutrin] 75 mg PO QAM Furosemide [Lasix] 40 mg PO DAILY Atorvastatin [Lipitor] 80 mg PO HS Atenolol [Tenormin] 50 mg PO DAILY Aspirin 325 mg PO DAILY Albuterol Nebulized [Ventolin Nebulized] 2.5 mg INHALATION TID cloNIDine HCL [Catapres] 0.1 mg PO BID Diltiazem HCl [Cartia Xt] 240 mg PO DAILY Enalapril [Vasotec] 20 mg PO BID Ertapenem [INVanz] 1 gm IVPB Q24H Insulin Glargine [Lantus] 27 unit SQ HS PRN PRN Reason: hyperglyemia >130 Isosorbide Mononitrate ER [Imdur] 30 mg PO DAILY Melatonin 6 mg PO HS PRN PRN Reason: Insomnia Potassium Chloride ER [K-Dur 20] 10 meq PO Q48H Discharge Medication List Albuterol Nebulized [Ventolin Nebulized] 2.5 mg INHALATION TID 02/02/20 [History] Aspirin 325 mg PO DAILY 02/02/20 [History] Atenolol [Tenormin] 50 mg PO DAILY 02/02/20 [History] Atorvastatin [Lipitor] 80 mg PO HS 02/02/20 [History] Furosemide [Lasix] 40 mg PO DAILY 02/02/20 [History] Nitroglycerin Sl Tabs [Nitrostat] 0.4 mg SUBLINGUAL Q5M PRN 02/02/20 [History] buPROPion [Wellbutrin] 75 mg PO QAM 02/02/20 [History] Diltiazem HCl [Cartia Xt] 240 mg PO DAILY 04/01/20 [History] Enalapril [Vasotec] 20 mg PO BID 04/01/20 [History] Ertapenem [INVanz] 1 gm IVPB Q24H 04/01/20 [History] Insulin Glargine [Lantus] 27 unit SQ HS PRN 04/01/20 [History] Isosorbide Mononitrate ER [Imdur] 30 mg PO DAILY 04/01/20 [History] Melatonin 6 mg PO HS PRN 04/01/20 [History] Potassium Chloride ER [K-Dur 20] 10 meq PO Q48H 04/01/20 [History] cloNIDine HCL [Catapres] 0.1 mg PO BID 04/01/20 [History] Follow up Appointment(s)/Referral(s): Dionicio Swartz MD [STAFF PHYSICIAN] - 04/12/20
[2020-04-08 06:57] LABS: Glucose,Whole Blood 148 mg/dL (75-99)
[2020-04-08] MEDS: ALBUTEROL NEBULIZED 2.5 MG/3 ML INHALATION SCH (07:40)
[2020-04-08 08:10] VITALS: PULSE 72
[2020-04-08] MEDS: cloNIDine HCL 0.1 MG TAB PO SCH (08:13)
[2020-04-08] MEDS: lisinopriL 20 MG TAB PO SCH (08:13)
[2020-04-08] MEDS ORDERED: ISOSORBIDE MONONITRATE ER 30 MG TAB.ER.24H PO SCH (09:00)
[2020-04-08] MEDS ORDERED: atenoloL 50 MG TAB PO SCH (09:00)
[2020-04-08] MEDS ORDERED: buPROPion 75 MG TAB PO SCH (09:00)
[2020-04-08] MEDS ORDERED: DILTIAZEM CD 240 MG CAP.ER.24H PO SCH (09:00)
[2020-04-08] MEDS ORDERED: FUROSEMIDE 40 MG TAB PO SCH (09:00)
[2020-04-08] MEDS ORDERED: POTASSIUM CHLORIDE ER 10 MEQ TAB.ER.PRT PO SCH (09:00)
[2020-04-08] MEDS ORDERED: ASPIRIN 325 MG TAB PO SCH (09:00)
--- NOTE | 2020-04-08 13:15 | P.PN ---
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 Kemp patient was hospitalized in 02/02/2024 severe flank pain and largest stone in the left side with large amount of hematuria and developed to have ESBL infection caused by obstructive uropathy. Patient ended up going to [facility] continue IV antibiotic for. This time was supposed to go for lithotripsy apparently developed another infection was hospitalized at [facility] last 10 days after he left [facility] with IV antibiotics was supervised by infectious disease with Invanz 1 g every 24 hours for total of 2 weeks patient antibiotic was done yesterday patient was scheduled with Dr. Garrett for elective percutaneous nephrostomy and percutaneous nephrostolithotomy with stent placement and largest stone removal. Procedure was done successfully patient is still having mild pain but is resting c omfortably stable hemodynamically. 04/08: Patient's pain is currently controlled. He has had no fevers overnight. He is tolerating diet. No nausea or vomiting. He is scheduled for discharge home today. We will have PICC line removed prior to discharge. He has been afebrile, heart rate 60, blood pressure 164/74, pulse ox 97% on CPAP. Blood sugars are running between 100 4867. REVIEW OF SYSTEMS CONSTITUTIONAL: Well-developed no acute respiratory distress. Denies fever. Denies chills. EYES: No icterus sclerae, no conjunctivitis. EARS, NOSE, MOUTH, THROAT, and FACE: No sore throat, lymphadenopathy, carotid bruits or deformity. RESPIRATORY: No SOB cough or wheezes. Mild shortness of breath with exertion CARDIOVASCULAR: Positive palpitation no PND or orthopnea no angina GASTROINTESTINAL: Denies abdominal pain. Denies nausea positive hematuria on admission. GENITOURINARY: Recent infection with positive culture being treated with recurrent UTI and recurrent hematuria with large kidney stone in the left side INTEGUMENT/BREAST: Negative for any muscular injury with mild osteoarthritis.. HEMATOLOGIC/LYMPHATIC: Negative for bleed or purpura. MUSCULOSKELTAL: Significant edema and severe myositis along with lower back pain. NEURLOGICAL: No LOC, Sz or syncope, blurred vision dizziness or abnormality.. BEHAVIORAL/PSYCH: Negative. ENDOCRINE: Negative. PHYSICAL EXAMINATION General Appearance: Alert, cooperative, no distress, appears stated age. Patient sitting up in bed and appears comfortable and in no acute distress Neck HEENT: Supple, no lymphadenopathy, no thyroid enlargement, no carotid bruits. Lungs: Decreased breath sound bilaterally with fine rhonchi no crackles or wheezes. Chest Wall: Decrease expansion with deep inspiration no tenderness and no deformity was found on exam, no costochondral pain or discomfort. Heart: Regular rate and rhythm, S1, S2 normal, positive S3 with mild PVCs and mild tachycardia. Back: Symmetric, no curvature, ROM normal, no CVA tenderness. Abdomen: Soft, non-tender, bowel sounds active all four quadrants, no masses, no organomegaly. Mild discomfort left flank area and mid abdominal region Extremities: Extremities normal, atraumatic, no cyanosis positive edema. Pulses: 2+ and symmetric. Skin: Skin color, texture, tugor normal, no rashes or lesions. Neurologic: Alert oriented x3 cranial nerves II through XII intact, no motor deficit, no abnormal balance or gait. ASSESSMENT AND PLAN 1 post left sided percutaneous nephrostomy and percutaneous nephrostolithotomy with stent placement and stone removal: Continue to watch patient hemodynamically, continue treat pain, continue to watch for any recurrent infection or any change in vitals. Patient is off antibiotic currently continue pain management. PICC line will be removed prior to discharge. 2 acute kidney injury with chronic kidney disease: Kidney function is better repeat CMP within 1 week. 3 recent sepsis and UTI was treated for ESBL patient was on ertapenem IV just finished 2 days ago no need for any antibiotic currently less any change or any leukocyte fever chills or positive culture. 4 atherosclerotic heart disease: Patient has been on isosorbide along with furosemide enalapril and Tenormin continue medication. 5 hypertension: Blood pressure still fluctuating continue patient on Catapres along with Vasotec and diltiazem's XT 240 mg daily with atenolol 50 mg a day. 6 type 2 diabetes: Patient remain on Lantus and NovoLog Accu-Chek with sliding scales coverage and be done. 7 chronic edema: Patient has been on furosemide 40 mg daily. 8 recurrent depression: On Wellbutrin 75 mg a day. 9 reactive airway/COPD: Patient remain on Ventolin. 10 hyperlipidemia: Continue Lipitor 80 daily 11 chronic anemia: Post transfusion few time last few weeks has been better so far. 12 GI prophylaxis: Patient will be on Pepcid daily. 13 DVT prophylaxis: No anticoagulation for now continue knee-high DAVID hose and early mobilization. CODE STATUS: Full code. DISCHARGE PLAN HOME. PICC to be removed prior to discharge. Impression and plan of care have been directed as dictated by the signing physician. Jayne Garrido nurse practitioner acting as scribe for signing physician. Objective - Vital Signs Vital signs: Vital Signs Temp 97.4 F L 04/08/20 05:00 Pulse 60 04/08/20 07:41 Resp 18 04/08/20 05:00 BP 164/74 04/08/20 05:00 Pulse Ox 97 04/08/20 05:00 Intake & Output 04/07/20 04/08/20 04/08/20 18:59 06:59 18:59 Intake Total 1254.5 750 Output Total 860 Balance 394.5 750 Weight 128.4 kg 115.5 kg Intake: IV 1054.5 Intake, IV Titration 750 Amount Sodium Chloride 0.45% 1, 750 000 ml @ 75 mls/hr IV . [id number] [facility] Rx#:[id number] Oral 200 Output: Drainage 10 Left flank 10 Urine 800 Estimated Blood Loss 50 Other: Voiding Method Indwelling Catheter - Labs Labs: Abnormal Lab Results - Last 24 Hours (Table) 04/07/20 04/07/20 04/07/20 Range/Units 09:48 17:26 20:22 POC Glucose (mg/dL) 148 H 167 H 164 H (75-99) mg/dL 04/08/20 Range/Units 06:56 POC Glucose (mg/dL) 148 H (75-99) mg/dL
== END 2020-04-08 11:20 | disposition home or self-care (01) ==
LOC: OR 05:56 → 6NMEDSUR 09:16 → OR 04-08 11:20
PROVIDERS: ATTEND Urology
DX: N20.2 Calculus of kidney with calculus of ureter (principal); N17.9 Acute kidney failure, unspecified; I25.10 Atherosclerotic heart disease of native coronary artery without angina pectoris; I13.0 Hypertensive heart and chronic kidney disease with heart failure and stage 1 through stage 4 chronic kidney disease, or unspecified chronic kidney disease; I50.9 Heart failure, unspecified; N18.9 Chronic kidney disease, unspecified; J44.9 Chronic obstructive pulmonary disease, unspecified; D64.9 Anemia, unspecified; E78.5 Hyperlipidemia, unspecified; F33.9 Major depressive disorder, recurrent, unspecified; E11.22 Type 2 diabetes mellitus with diabetic chronic kidney disease; I25.2 Old myocardial infarction; M10.9 Gout, unspecified; M19.90 Unspecified osteoarthritis, unspecified site; G47.33 Obstructive sleep apnea (adult) (pediatric); Z87.440 Personal history of urinary (tract) infections; Z99.89 Dependence on other enabling machines and devices; Z86.14 Personal history of Methicillin resistant Staphylococcus aureus infection; Z95.5 Presence of coronary angioplasty implant and graft; Z96.652 Presence of left artificial knee joint; Z98.890 Other specified postprocedural states; Z79.4 Long term (current) use of insulin; Z79.82 Long term (current) use of aspirin; Z79.899 Other long term (current) drug therapy; Z87.442 Personal history of urinary calculi; Z81.8 Family history of other mental and behavioral disorders; Z80.8 Family history of malignant neoplasm of other organs or systems
CPT/HCPCS: 94640 ×3; 86900; 86901; 86850; 82365; 50432; 74018; 50081; C2628; C1769 ×2; C1894; C1729; J2250; J0330; J1100; J2710; J2405; J2001; J3010; J1580; J0290; J2370; J2704; Q9967